=== PATIENT | female | born 1995 | race Two or more races ===

== ENCOUNTER 2020-03-25 13:54 | Emergency (ER) | payer OTHER, SELFPAY ==
--- NOTE | 2020-03-25 16:09 | ED_ITS ---
HPI - Skin/Abscess/Foreign Bdy General Chief complaint: Skin/Abscess/Foreign Body Stated complaint: Rash Time Seen by Provider: 03/25/20 16:09 Source: patient Mode of arrival: ambulatory Limitations: no limitations History of Present Illness HPI narrative: 24-year-old female well known to this facility for multiple visits who presents today with complaint of worsening eczema as well some slight redness on the arms. She does have extensive history of eczema and with exacerbation she will at November and causing her discomfort. No fever or chills. No nausea vomiting diarrhea. No recent travel or sick contacts. MD complaint: rash Onset (ago): day(s) Tetanus up to date: yes Location: generalized Severity: moderate Quality: pruritic Pain Consistency: constant Relieving factors: topical medication Exacerbating factors: none Context: none Associated symptoms: denies other symptoms Related Data Home Medications Medication Instructions Recorded Confirmed albuterol sulfate 90 mcg/actuation INHALATION 03/23/20 aerosol inhaler cetirizine 10 mg tablet 10 mg PO DAILY 03/23/20 fluticasone propionate 50 1 inh INHALATION BID 03/23/20 mcg/actuation blister powder for inhalation hydroxyzine HCl 50 mg tablet 50 mg PO BEDTIME 03/23/20 triamcinolone acetonide 0.025 % applic TOPICAL 03/23/20 topical cream Previous Rx's Medication Instructions Recorded doxycycline monohydrate 100 mg PO BID #20 cap 03/25/20 prednisone See Taper PO DAILY #20 tab 03/25/20 Allergies Allergy/AdvReac Type Severity Reaction Status Date / Time egg [EGG] Allergy Severe ANAPHYLAXIS Verified 03/23/20 10:53 fish derived [FISH] Allergy Severe ANAPHYLAXIS Verified 03/23/20 10:53 peanut [PEANUTS] Allergy Severe ITCHING Verified 03/23/20 10:53 shellfish derived Allergy Severe ANAPHYLAXIS Verified 03/23/20 10:53 [SHELLFISH DERIVED] cat dander Allergy Unknown Hives Verified 03/23/20 10:53 dog dander Allergy Unknown Hives Verified 03/23/20 10:53 house dust Allergy Unknown Hives Verified 03/23/20 10:53 rice [RICE] AdvReac Unknown CONSTIPATIO Unverified 03/23/20 10:53 N Review of Systems Review of Systems: Constitutional: No Weight loss, No Fever, No Chills, No Night Sweats, No Fatigue, No Malaise ENT/Mouth: No Hearing loss, No Ear Pain, No Nasal Congestion, No Sinus Pain, No Hoarseness, No sore throat, No Rhinorrhea, No Swallowing Difficulty Eyes: No Eye Pain, No Swelling, No Redness, No Foreign Body, No Discharge, No Vision Changes Cardiovascular: No Chest Pain, No SOB, No Dyspnea on Exertion, No Orthopnea, No Edema, No Palpitations Respiratory: No Cough, No Sputum, No Wheezing, No Dyspnea Gastrointestinal: No Nausea, No Vomiting, No Diarrhea, No Constipation, No abdominal Pain, No Hematochezia, No Melena Genitourinary: no irregular bleeding, No Dysuria, No Urinary Frequency, No Hematuria, No Urinary Incontinence, No Urgency, No Flank Pain, No Urinary Flow Changes, No Hesitancy Musculoskeletal: No joint pain, No Myalgias, No Joint Swelling Skin: No Skin Lesions Neuro: No Weakness, No Numbness, No Paresthesias, No Loss of Consciousness, No Dizziness, No Headache Psych: No Anxiety/Panic, No Depression, No SI/HI/AH/VH, No Social Issues Heme/Lymph: No Bruising, No Bleeding,No Lymphadenopathy Endocrine: No Polyuria, No Polydipsia, No Temperature Intolerance Yes all other systems are reviewed and are negative [facility], [facility] Past Medical History Attestation statement: The following information was validated with the patient. Medical History (Updated 03/25/20 @ 16:11 by Iglesia Hoover NP) Allergy to other foods Anxiety state, unspecified Dermatitis, unspecified Major depressive disorder, single episode, unspecified Mild persistent asthma, uncomplicated Surgical History History of section Family History Family History Father Drug abuse Asthma Mother Hypertension Maternal Grandmother Ovarian cancer Social History Social History Advance Directives: No Advance Directives Information Provided: Yes Physical Exam Vital Signs: Vital Signs: Reviewed Const: General: cooperative; No acute distress Nutritional Appearance: average body habitus Orientation/consciousness: patient oriented x3 HENMT: Head: Yes normal to inspection Ears: hearing grossly normal bila terally Eyes: General: appearance normal, both eyes and all related structures Visual Gagnon: normal visual gagnon by confrontation Neck: Neck: Yes normal visual inspection and No tender Thyroid: Thyroid normal Chest: Chest palpation & inspection: normal inspection of the chest Resp: Effort & Inspection: normal respiratory effort Cardio: Jugular venous distension: no JVD GI: Inspection: Yes normal to inspection Percussion: Yes normal to percussion Auscultation: normal bowel sounds : General: Yes no CVA tenderness Back/Spine/Pelvis: Back: no CVA tenderness Skin: Other: Scratch mcmullen to the upper extremities from self excoriation causing slight erythema consistent with atopic dermatitis/superimposed cellulitis. General skin exam: other (Extensive rash generalize consistent with atopic dermatitis ) Neuro: General: patient oriented x3 Extrem: General: Yes normal to inspection MDM - Skin/Abscess/Foreign Bdy Differential Diagnosis Differential diagnosis: Likely viral exanthem, cellulitis, eczema, impetigo and contact dermatitis; Unlikely abscess of skin or subcutaneous tissue, dermatophytosis, urticaria, herpes zoster, allergic reaction to drug and insect bites Discharge Plan Discharge Clinical Impression: Cellulitis Qualifiers: Site of cellulitis of extremity: upper extremity Eczema Qualifiers: Eczema type: unspecified Qualified Code(s): L30.9 - Dermatitis, unspecified Patient Disposition: Home, Self-Care Additional Instructions: Please take medication prescribed Return if any concerns or symptoms otherwise follow up with her primary care doctor 1 week to make sure things are going well Home cares as reviewed Thank you Prescriptions: New prednisone 20 mg tablet See Taper mg PO DAILY Qty: 20 RF: 0 doxycycline monohydrate 100 mg capsule 100 mg PO BID Qty: 20 RF: 0 No Action triamcinolone acetonide 0.025 % cream topical RF: 0 hydroxyzine HCl 50 mg tablet 50 mg PO BEDTIME RF: 0 albuterol sulfate 90 mcg/actuation HFA aerosol inhaler inhalation RF: 0 Flovent Diskus 50 mcg/actuation blister with device 1 inh inhalation BID RF: 0 cetirizine [Zyrtec] 10 mg tablet 10 mg PO DAILY RF: 0 Referrals: Dez Peace MD [Primary Care Provider] - 1 week
[2020-03-25 17:14] VITALS: BP 114/54; PULSE 110; RESP 16; TEMP 36.8; O2SAT 96; BMI 31.3
== END 2020-03-25 17:19 | disposition home or self-care (01) ==
PROVIDERS: Emergency Provider Emergency Medicine; PCP Internal Medicine
DX: L30.9 Dermatitis, unspecified (principal)
CPT/HCPCS: 99283

== ENCOUNTER 2020-04-28 09:45 | Emergency (ER) | payer OTHER, SELFPAY ==
--- NOTE | 2020-04-28 09:54 | ED_ITS ---
HPI - URI/Sore Throat General Chief Complaint: Asthma Stated Complaint: ASTHMA Time Seen by Provider: 04/28/20 10:03 Source: EMS Mode of arrival: EMS Limitations: no limitations History of Present Illness HPI Narrative: 24 yo female with past medical history Asthma, dermatitis here with cough and wheezing for the last 5-6 days. No fevers or chills. Patient tells me she ran out of her home ProAir. Her daughter at home has similar symptoms. No SOB, chest pain, leg swelling or pain. Patient received a DuoNeb prior to arrival MD elicited complaint: cough Pertinent past history: asthma Onset (ago): day(s) Consistency: intermittent Severity: mild Able to tolerate fluids by mouth: Yes Exacerbating factors: nothing Relieving factors: nothing Associated symptoms: cough Treatments prior to arrival: none Related Data Home Medications Medication Instructions Recorded Confirmed albuterol sulfate 90 mcg/actuation INHALATION 03/23/20 03/29/20 aerosol inhaler cetirizine 10 mg tablet 10 mg PO DAILY 03/23/20 03/29/20 fluticasone propionate 50 1 inh INHALATION BID 03/23/20 03/29/20 mcg/actuation blister powder for inhalation hydroxyzine HCl 50 mg tablet 50 mg PO BEDTIME 03/23/20 03/29/20 triamcinolone acetonide 0.025 % applic TOPICAL 03/23/20 03/29/20 topical cream Previous Rx's Medication Instructions Recorded doxycycline monohydrate 100 mg PO BID #20 cap 03/25/20 prednisone See Taper PO DAILY #20 tab 03/25/20 albuterol sulfate 2 inh INHALATION Q4-6H PRN #1 ea 04/28/20 albuterol sulfate 2.5 mg INHALATION Q4-6H PRN #75 ml 04/28/20 nebulizer and compressor #1 ea 04/28/20 prednisone 40 mg PO DAILY #8 tab 04/28/20 Allergies Allergy/AdvReac Type Severity Reaction Status Date / Time egg [EGG] Allergy Severe ANAPHYLAXIS Verified 03/29/20 10:31 fish derived [FISH] Allergy Severe ANAPHYLAXIS Verified 03/29/20 10:31 peanut [PEANUTS] Allergy Severe ITCHING Verified 03/29/20 10:31 shellfish derived Allergy Severe ANAPHYLAXIS Verified 03/29/20 10:31 [SHELLFISH DERIVED] cat dander Allergy Unknown Hives Verified 03/29/20 10:31 dog dander Allergy Unknown Hives Verified 03/29/20 10:31 house dust Allergy Unknown Hives Verified 03/29/20 10:31 rice [RICE] AdvReac Unknown CONSTIPATIO Unverified 03/29/20 10:31 N Review of Systems Review of Systems: Yes all other systems are reviewed and are negative Constitutional: Constitutional: Reports no additional constitutional complaints, Denies body ache(s), Denies chills, Denies fever(s), Denies headache(s) and Denies weakness Eyes: Eyes: Reports no additional eye complaints and Denies change in vision ENT: Reports system reviewed and no additional complaints, except as documented, Denies dizziness, Denies headache(s), Denies nasal congestion, Denies nasal discharge and Denies neck pain Cardiovascular: Cardiovascular: Reports no additional cardiovascular complaints, Denies chest pain, Denies leg edema and Denies dyspnea Respiratory: Respiratory: Reports no additional respiratory complaints, Reports cough and Denies dyspnea Gastrointestinal: Gastrointestinal: Reports no additional gastrointestinal complaints, Denies abdominal pain, Denies diarrhea, Denies nausea and Denies vomiting Genitourinary: Genitourinary: Reports no additional female genitourinary complaints and Denies urinary incontinence Musculoskeletal: Musculoskeletal: Reports no additional musculoskeletal complaints, Denies back pain, Denies arthralgias, Denies joint swelling, Denies neck pain, Denies numbness and Denies tingling Integumentary/Breasts: Skin/Breast: Reports system reviewed and no additional complaints, except as docu and Denies rash Neurologic: Reports system reviewed and no additional complaints, except as documented, Denies Abnormal speech present, Denies dizziness, Denies headache(s), Denies numbness, Denies tingling and Denies weakness [facility] Past Medical History Attestation statement: The following information was validated with the patient. Source: old records reviewed and nursing notes reviewed Medical History (Updated 04/28/20 @ 12:43 by Myriam Booker NP) Allergy to other foods Anxiety state, unspecified Asthma Dermatitis, unspecified Major depressive disorder, single episode, unspecified Mild persistent asthma, uncomplicated Surgical History History of section Family History Family History Father Drug abuse Asthma Mother Hypertension Maternal Grandmother Ovarian cancer Social History Social History Smoking Status: Unknown if ever smoked Advance Directives: No Advance Directives Information Provided: No Physical Exam Vital Signs: Vital Signs: Last Vital Signs Temp 98.9 F 04/28/20 12:02 Pulse 92 04/28/20 12:19 Resp 18 04/28/20 12:02 BP 126/69 04/28/20 12:02 Pulse Ox 96 04/28/20 12:02 Body Mass Index 29.5 Const: General: cooperative, healthy appearing, comfortable and no acute dist ress Orientation/consciousness: patient oriented x3 Limitations: no limitations HENMT: Head: Yes normal to inspection Ears: hearing grossly normal bilaterally General nose exam: Normal external nose present Face and sinus: Yes normal facial exam Mouth: Normal oral and palatal mucosa present Throat: Yes posterior oropharynx normal Eyes: General: appearance normal, both eyes and all related structures Pupils: Equal, round and reactive pupils present Neck: Neck: Yes normal visual inspection Chest: Chest palpation & inspection: normal inspection of the chest Resp: Other: Mild exp wheezing, speaking full sentences, no apparent distress Effort & Inspection: normal respiratory effort Auscultation: clear to auscultation bilaterally Cardio: Rate: regular rate Rhythm: regular rhythm Peripheral pulses: Peripheral pulses 2+ throughout GI: Inspection: Yes normal to inspection Palpation (GI): Soft to palpation and nontender Auscultation: normal bowel sounds Back/Spine/Pelvis: Thoracic/Lumbar Spine: thoracic and lumbar spine normal to inspection Skin: General skin exam: no rashes or lesions noted Neuro: General: patient oriented x3, no focal motor deficits and normal sensation to monofilament Cranial nerves: Yes Equal, round and reactive pupils present Cognition (Neuro): normal cognition Speech: No Abnormal speech present Gait exam (Neuro): Normal gait present Motor exam (neuro): 5/5 motor strength present throughout Extrem: General: Yes normal to inspection Course Course Course Narrative: 24 Year old female with a past medical history of asthma here with cough and wheezing for the last 5-6 days. Ran out of home albuterol. Received a DuoNeb prior to arrival. on arrival the patient is well appearing, stable vital signs, mild expiratory wheezing but overall appears well. Will send COVID and flu testing. Patient has multiple ED visits for asthma exacerbation. She is requesting a home nebulizer. 1205- Flu, COVID and RSV negative. Mom does have some increased wheezing so will repeat nebulizer. Received p.o. prednisone here. Likely asthma exacerbation. 1245- Post repeat nebulizer patient is feeling improved. Again likely asthma exacerbation. Will send home with short course of steroids and refills on her albuterol. Repeat lungs sound much improved with stable saturations greater than 98%. Reviewed worrisome signs and symptoms of when to return to the emergency department. Comfortable with discharge home. MDM - URI/Sore Throat Medical Records Attestation: I reviewed the patient's medical records. Lab Data Attestation: I reviewed the patient's lab results. Labs: Lab Results 04/28/20 Range/Units 10:16 Coronavirus (PCR) NEGATIVE (Negative) Influenza Type A (PCR) NEGATIVE (Negative) Influenza Type B (PCR) NEGATIVE (Negative) RSV RNA Qual (PCR) NEGATIVE (Negative) Discharge Plan Discharge Clinical Impression: Asthma with acute exacerbation Patient Disposition: Home, Self-Care Instructions: Asthma (ED) Additional Instructions: start her prednisone tomorrow Prescriptions: New prednisone 20 mg tablet 40 mg PO DAILY Qty: 8 RF: 0 albuterol sulfate 90 mcg/actuation aerosol powdr breath activated 2 inh inhalation Q4-6H PRN (Reason: shortness of breath or wheezing) Qty: 1 RF: 0 albuterol sulfate 2.5 mg /3 mL (0.083 %) solution for nebulization 2.5 mg inhalation Q4-6H PRN (Reason: shortness of breath or wheezing) Qty: 75 RF: 0 (DME) nebulizer and compressor Device See Rx Instructions .ROUTE .MEDSUPPLY Qty: 1 RF: 0 No Action prednisone 20 mg tablet See Taper mg PO DAILY Qty: 20 RF: 0 doxycycline monohydrate 100 mg capsule 100 mg PO BID Qty: 20 RF: 0 triamcinolone acetonide 0.025 % cream topical RF: 0 hydroxyzine HCl 50 mg tablet 50 mg PO BEDTIME RF: 0 albuterol sulfate 90 mcg/actuation HFA aerosol inhaler inhalation RF: 0 Flovent Diskus 50 mcg/actuation blister with device 1 inh inhalation BID RF: 0 cetirizine [Zyrtec] 10 mg tablet 10 mg PO DAILY RF: 0 Referrals: Dez Peace MD [Primary Care Provider] - 2 days
[2020-04-28 10:04] VITALS: BP 111/43; BP 115/70; PULSE 100; PULSE 85; RESP 18; TEMP 37.1; O2SAT 95; O2SAT 96; BMI 29.5
[2020-04-28] MEDS: predniSONE 20 MG TABLET 60 MG PO (10:14)
--- NOTE | 2020-04-28 11:27 | PC.NURSE ---
PT EATING AND DRINKING SHE IS IN NO ACUTE RESP DIFFICULTY AWAITING RESULTS
[2020-04-28 11:58] LABS: Influenza A PCR NEGATIVE (Negative); Influenza B PCR NEGATIVE (Negative); Resp Syncy Virus RNA Qual PCR NEGATIVE (Negative); SARS COV2 PCR INHOUSE NEGATIVE (Negative)
[2020-04-28 12:02] VITALS: BP 126/69; PULSE 95; RESP 18; TEMP 37.2; O2SAT 96
--- NOTE | 2020-04-28 12:09 | PC.NURSE ---
pt aware that covid results are negative. requesting additional updraft. ls coarse but good air movement. pt is unlabored. spking full sentences. active with child.
[2020-04-28 12:19] VITALS: PULSE 92; O2SAT 95
[2020-04-28] MEDS: Albuterol/Iprat 2.5/0.5MG 3 ML AMPUL.NEB INHALE (12:19)
== END 2020-04-28 13:12 | disposition home or self-care (01) ==
PROVIDERS: Nurse Practitioner Family; Emergency Provider Emergency Medicine; PCP Internal Medicine
DX: J45.901 Unspecified asthma with (acute) exacerbation (principal); Z20.828 Contact with and (suspected) exposure to other viral communicable diseases
CPT/HCPCS: 0241U; 94640; 99283; 99284

== ENCOUNTER 2020-11-24 11:51 | Emergency (ER) | payer OTHER, SELFPAY ==
[2020-11-24 11:57] VITALS: BP 94/52; PULSE 64; O2SAT 98
[2020-11-24 12:38] VITALS: BP 106/69; PULSE 77; RESP 18; TEMP 36.8; O2SAT 98; BMI 19.3
--- NOTE | 2020-11-24 13:24 | PC.NURSE ---
pt refused blood draw at this time.
[2020-11-24 15:16] LABS: Glucose Urine UA NEG (NEG); Leukocyte Esterase Urine NEG (NEG); Nitrite Urine NEG (NEG); Urine Blood NEG (NEG); Urine Ketones 15 MG/DL (NEG); Urine Protein 1+ MG/DL (NEG-TRACE)
[2020-11-24 15:17] LABS: Appearance Urine CLEAR; Color Urine YELLOW; UPreg QC Valid YES; Urine Pregnancy POSITIVE (NEGATIVE)
[2020-11-24 15:27] LABS: Bacteria Urine TRACE /LPF; Mucus Urine 3+ /LPF; RBC Urine 0 /HPF (0); Renal Epithelial Cells Urine 1+ /LPF; Squamous Epithelial Cell Urine 2+ /LPF; WBC Urine 0 /HPF (0-4)
== END 2020-11-24 16:17 | disposition left against medical advice (07) ==
LOC: HO.ED 16:16
PROVIDERS: Emergency Provider Emergency Medicine
DX: R42 Dizziness and giddiness (principal); R11.0 Nausea
CPT/HCPCS: 81001; 81025; 99282; 99283

== ENCOUNTER 2020-11-24 18:39 | Emergency (ER) | payer OTHER, SELFPAY ==
[2020-11-24 18:45] VITALS: BP 109/65; PULSE 67; RESP 18; TEMP 36.6; O2SAT 98; BMI 19.3
[2020-11-24 20:58] LABS: MANUAL DIFF FLAG NO
[2020-11-24 21:00] LABS: Basophils Absolute Auto 0.1 X10*3/uL (0.0-0.2); Basophils Percent Auto 0.6 % (0-2); Eosinophils Absolute Auto 0.2 X10*3/uL (0.0-0.4); Eosinophils Percent Auto 1.7 % (0-4); Hematocrit 40.3 % (37-47); Hemoglobin 13.5 g/dl (12.0-16.0); Imm Gran Abs Auto 0.03 X10*3/uL (0.00-0.03); Imm Gran Pct Auto 0.2 % (0.0-0.4); Lymphocytes Absolute Auto 2.2 X10*3/uL (1.2-4.9); Lymphocytes Percent Auto 15.8 % (20-40); Mean Corpuscular HGB Conc 33.5 g/dl (31.0-35.0); Mean Corpuscular Volume 83.4 fL (80-98); Mean Platelet Volume 10.5 fL (9.4-12.3); Monocytes Absolute Auto 0.8 X10*3/uL (0.1-1.2); Monocytes Percent Auto 5.9 % (2-11); Neutrophils Absolute Auto 10.3 X10*3/uL (2.0-8.3); Neutrophils Percent Auto 75.8 % (45-73); Platelet Count 292 X10*3/uL (160-400); Red Blood Count 4.83 X10*6/uL (4.20-5.50); Red Cell Distribution Width 14.6 % (11.0-16.0); White Blood Count 13.6 X10*3/uL (4.8-10.8)
[2020-11-24 21:21] LABS: Anion Gap 12 (12-20); Blood Urea Nitrogen 9 mg/dL (9-16); Calcium 9.2 mg/dL (8.4-10.2); Carbon Dioxide 26 mmol/L (22-29); Chloride 104 mmol/L (96-108); Creatinine Clr Calc Pharmacy 106.6; Estimated Glomerular Filt Rate > 60; Glucose Random 75 mg/dL (60-115); Potassium 3.8 mmol/L (3.3-5.1); Sodium 138 mmol/L (135-145)
--- NOTE | 2020-11-24 21:47 | ED.GENADULT ---
HPI - General Adult General Chief complaint: General Medical Stated complaint: vomitting Time Seen by Provider: 11/24/20 21:47 Source: patient Mode of arrival: ambulatory Limitations: no limitations History of Present Illness HPI narrative: patient complaining of vomiting for last few days , patient Checked urine at home was positive denies any vaginal bleeding no abdominal pain Related Data Home Medications Medication Instructions Recorded Confirmed cetirizine 10 mg tablet 10 mg PO DAILY 03/23/20 03/29/20 fluticasone propionate 50 1 inh INHALATION BID 03/23/20 03/29/20 mcg/actuation blister powder for inhalation triamcinolone acetonide 0.1 % 1 appl TOPICAL BID 06/02/20 06/02/20 topical ointment Previous Rx's Medication Instructions Recorded nebulizer and compressor #1 ea 04/28/20 albuterol sulfate 2.5 mg INHALATION Q4-6H PRN 30 05/13/20 Days #75 ml albuterol sulfate 90 mcg/actuation 2 inh INHALATION Q4-6H PRN 30 Days 05/20/20 breath activated powder inhaler #1 ea hydroxyzine HCl 50 mg tablet 50 mg PO BID #60 tab 06/02/20 ondansetron 4 mg PO Q6-8H PRN #20 tab 11/24/20 Allergies Allergy/AdvReac Type Severity Reaction Status Date / Time egg [EGG] Allergy Severe ANAPHYLAXIS Verified 11/24/20 12:38 fish derived [FISH] Allergy Severe ANAPHYLAXIS Verified 11/24/20 12:38 peanut [PEANUTS] Allergy Severe ITCHING Verified 11/24/20 12:38 shellfish derived Allergy Severe ANAPHYLAXIS Verified 11/24/20 12:38 [SHELLFISH DERIVED] cat dander Allergy Intermediate Hives Verified 11/24/20 12:38 dog dander Allergy Intermediate Hives Verified 11/24/20 12:38 house dust Allergy Intermediate Hives Verified 11/24/20 12:38 rice [RICE] AdvReac Intermediate CONSTIPATIO Verified 11/24/20 12:38 N Review of Systems Review of Systems: Yes all other systems are reviewed and are negative PMFSH Past Medical History Medical History Allergy to other foods Anxiety state, unspecified Asthma Dermatitis, unspecified Major depressive disorder, single episode, unspecified Mild persistent asthma, uncomplicated Surgical History History of section Status post surgical removal of both fallopian tubes Family History Family History Father Drug abuse Asthma Mother Hypertension Maternal Grandmother Ovarian cancer Social History Social History Alcohol intake: never Cigarettes Per Day: 2 Advance Directives: No Advance Directives Information Provided: Yes Physical Exam Vital Signs: Vital Signs: Last Vital Signs Temp 97.8 F 11/24/20 18:45 Pulse 67 11/24/20 18:45 Resp 18 11/24/20 18:45 BP 109/65 11/24/20 18:45 Pulse Ox 98 11/24/20 18:45 Body Mass Index 19.3 Appearance: Alert. Oriented X3. No acute distress. Eyes: PERRLA, No Nystagmus ENT: Pharynx normal. Oral Mucosa moist Neck: Normal inspection. Neck supple. CVS: Normal heart rate and rhythm. Pulses normal. Respiratory: No respiratory distress. Equal air entry bilateral, no wheezing/rales/rhonchi Abdomen: Soft and nontender. Bowel sounds are present, no mass palpable, no CVA tenderness Skin: Skin warm and dry. Normal skin color. Normal skin turgor. Extremities: No lower extremity edema. No calf tenderness Neuro: Oriented X 3. No motor deficit. Medical Decision Making MDM Narrative Medical decision making narrative: patient UA negative for UTI/ketones received IV fluids patient's blood type is A-positive likely she is 6 weeks discharge patient home on Zofran advised to follow with [facility] Lab Data Lab results reviewed: Yes I reviewed the patient's lab results. Result diagrams: 11/24/20 20:51 11/24/20 20:51 Labs: Lab Results 11/24/20 11/24/20 Range/Units 20:51 20:51 WBC 13.6 H (4.8-10.8) X10*3/uL RBC 4.83 (4.20-5.50) X10*6/uL Hgb 13.5 (12.0-16.0) g/dl Hct 40.3 (37-47) % MCV 83.4 (80-98) fL MCH 28.0 (27.0-33.0) pg MCHC 33.5 (31.0-35.0) g/dl RDW 14.6 (11.0-16.0) % Plt Count 292 (160-400) X10*3/uL MPV 10.5 (9.4-12.3) fL Immature Gran % (Auto) 0.2 (0.0-0.4) % Neut % (Auto) 75.8 H (45-73) % Lymph % (Auto) 15.8 L (20-40) % Tyler % (Auto) 5.9 (2-11) % Eos % (Auto) 1.7 (0-4) % Baso % (Auto) 0.6 (0-2) % Lymph # (Auto) 2.2 (1.2-4.9) X10*3/uL Tyler # (Auto) 0.8 (0.1-1.2) X10*3/uL Eos # (Auto) 0.2 (0.0-0.4) X10*3/uL Baso # (Auto) 0.1 (0.0-0.2) X10*3/uL Abs Immat Gran (auto) 0.03 (0.00-0.03) X10*3/uL Absolute Neuts (auto) 10.3 H (2.0-8.3) X10*3/uL Absolute Nucleated RBC 0.000 (0.0-0.012) X10*3/uL Nucleated RBC % (auto) 0.0 (0.0-0.2) /100WBC Sodium 138 (135-145) mmol/L Potassium 3.8 (3.3-5.1) mmol/L Chloride 104 (96-108) mmol/L Carbon Dioxide 26 (22-29) mmol/L Anion Gap 12 (12-20) BUN 9 (9-16) mg/dL Creatinine 0.64 (0.5-1.4) mg/dL Estim Creat Clear Calc 106.6 Estimated GFR > 60 Random Glucose 75 (60-115) mg/dL Calcium 9.2 (8.4-10.2) mg/dL Beta HCG, Quant 85118 mIU/mL Discharge Plan Discharge Clinical Impression: Hyperemesis gravidarum Patient Disposition: Home, Self-Care Instructions: Hyperemesis Gravidarum (ED) Additional Instructions: drink plenty of fluids medicine for nausea as prescribed follow-up with OB [facility] Prescriptions: New ondansetron 4 mg tablet,disintegrating 4 mg PO Q6-8H PRN (Reason: nausea and vomiting) Qty: 20 RF: 0 No Action albuterol sulfate 2.5 mg /3 mL (0.083 %) solution for nebulization 2.5 mg inhalation Q4-6H PRN (Reason: shortness of breath or wheezing) 30 Days Qty: 75 RF: 6 albuterol sulfate 90 mcg/actuation aerosol powdr breath activated 2 inh inhalation Q4-6H PRN (Reason: shortness of breath or wheezing) 30 Days Qty: 1 RF: 0 (DME) nebulizer and compressor Device See Rx Instructions .ROUTE .MEDSUPPLY Qty: 1 RF: 0 Flovent Diskus 50 mcg/actuation blister with device 1 inh inhalation BID RF: 0 cetirizine [Zyrtec] 10 mg tablet 10 mg PO DAILY RF: 0 triamcinolone acetonide 0.1 % ointment 1 appl topical BID RF: 0 hydroxyzine HCl 50 mg tablet 50 mg PO BID Qty: 60 RF: 0 Interventions: ED Discharge Assessment Last Done: 11/25/20 00:15 Discharge Date/Time: 11/25/20 00:17
[2020-11-24 22:37] LABS: HCG Quantitative 13951 mIU/mL
[2020-11-24] MEDS: ondansetron HCL 4 MG/2 ML VIAL IVPUSH (23:11)
[2020-11-24] MEDS: 0.9 % Sodium Chloride 1,000 ML 999 ML IVCONT (23:11)
== END 2020-11-25 00:17 | disposition home or self-care (01) ==
PROVIDERS: Emergency Provider Internal Medicine; PCP Hospitalist
DX: O21.0 Mild hyperemesis gravidarum (principal); O99.511 Diseases of the respiratory system complicating pregnancy, first trimester; J45.30 Mild persistent asthma, uncomplicated; Z3A.01 Less than 8 weeks gestation of pregnancy; Z79.899 Other long term (current) drug therapy
CPT/HCPCS: 36415; 80048; 84702; 85025; 96361; 96374; 99283; 99284; J2405

== ENCOUNTER → 2020-11-26 13:07 | Outpatient (BNVA) | payer OTHER, SELFPAY | PROVIDERS: PCP Internal Medicine; Visit Provider Advanced Practice Midwife | DX: Z32.01 Encounter for pregnancy test, result positive (principal); F41.1 Generalized anxiety disorder | CPT/HCPCS: 99202 ==

== ENCOUNTER 2020-11-30 08:06 | Emergency (ER) | payer OTHER, SELFPAY ==
[2020-11-30 08:12] VITALS: BP 107/73; PULSE 75; RESP 16; TEMP 36.7; O2SAT 100; BMI 19.5
--- NOTE | 2020-11-30 08:18 | ED_ITS ---
HPI - Nausea/Vomiting/Diarrhea General Chief complaint: Nausea/Vomiting/Diarrhea Stated complaint: VOMITING Time Seen by Provider: 11/30/20 08:17 Source: patient and old records reviewed Mode of arrival: ambulatory Limitations: no limitations History of Present Illness HPI Narrative: here with weakness nausea/vomiting for 1 week, pos preg test at home hx of hyperemesis in prior pregnancies - her last baby is 8 months old and bottle fed. MD elicited complaint: nausea and vomiting Pertinent past history: other (hyperemesis) Onset (ago): week(s) (1) Description of vomiting: food contents and watery Associated nausea: Yes Associated abdominal pain: No Pain consistency: intermittent Severity: moderate Exacerbating factors: eating Relieving factors: none Context: other (hyperemesis with ) Associated symptoms: headaches, loss of appetite, malaise, nausea/vomiting and weakness Treatment prior to arrival: other (tried zofran without relief) Related Data Home Medications Medication Instructions Recorded Confirmed cetirizine 10 mg tablet 10 mg PO DAILY 03/23/20 11/26/20 fluticasone propionate 50 1 inh INHALATION BID 03/23/20 11/26/20 mcg/actuation blister powder for inhalation triamcinolone acetonide 0.1 % 1 appl TOPICAL BID 06/02/20 11/26/20 topical ointment Previous Rx's Medication Instructions Recorded nebulizer and compressor #1 ea 04/28/20 albuterol sulfate 2.5 mg INHALATION Q4-6H PRN 30 05/13/20 Days #75 ml albuterol sulfate 90 mcg/actuation 2 inh INHALATION Q4-6H PRN 30 Days 05/20/20 breath activated powder inhaler #1 ea hydroxyzine HCl 50 mg tablet 50 mg PO BID #60 tab 06/02/20 ondansetron 4 mg PO Q6-8H PRN #20 tab 11/24/20 doxylamine succinate 25 mg PO BID PRN #30 tab 11/30/20 metoclopramide HCl 10 mg tablet 10 mg PO Q6H PRN #90 tab 11/30/20 metoclopramide HCl [Reglan] 10 mg PO Q6H PRN #20 tab 11/30/20 ondansetron 8 mg disintegrating 8 mg PO Q8H PRN #90 tab 11/30/20 tablet pyridoxine (vitamin B6) 25 mg PO BID PRN #30 tab 11/30/20 Allergies Allergy/AdvReac Type Severity Reaction Status Date / Time egg [EGG] Allergy Severe ANAPHYLAXIS Verified 11/26/20 13:29 fish derived [FISH] Allergy Severe ANAPHYLAXIS Verified 11/26/20 13:29 peanut [PEANUTS] Allergy Severe ITCHING Verified 11/26/20 13:29 shellfish derived Allergy Severe ANAPHYLAXIS Verified 11/26/20 13:29 [SHELLFISH DERIVED] cat dander Allergy Intermediate Hives Verified 11/26/20 13:29 dog dander Allergy Intermediate Hives Verified 11/26/20 13:29 house dust Allergy Intermediate Hives Verified 11/24/20 12:38 rice [RICE] AdvReac Intermediate CONSTIPATIO Verified 11/24/20 12:38 N Review of Systems Review of Systems: Constitutional : No Weight loss, No Fever, No Chills ENT/Mouth : No sore throat, No Rhinorrhea Eyes: No Swelling, No Redness Cardiovascular : No Chest Pain, No SOB, No Edema Respiratory : No Cough, No Sputum, No Wheezing Gastrointestinal : Positive Nausea, Positive Vomiting, no Diarrhea, no abdominal Pain, No Hematochezia, No Melena Genitourinary : No Dysuria, No Urinary Frequency, No Hematuria, No Urgency, no vaginal bleeding Musculoskeletal : No joint pain, No Myalgias, No Joint Swelling Skin : No Skin Lesions, No rash Neuro : No Weakness, No Numbness, No Dizziness, No Headache Psych : No Anxiety/Panic, No Depression Heme/Lymph: No Bruising, No Lymphadenopathy Endocrine : No Polyuria, No Polydipsia All other systems reviewed and are negative. Gastrointestinal: Gastrointestinal: Reports nausea PMFSH Past Medical History Attestation statement: The following information was validated with the patient. Medical History Allergy to other foods Anxiety state, unspecified Asthma Dermatitis, unspecified Major depressive disorder, single episode, unspecified Mild persistent asthma, uncomplicated Surgical History History of section Status post surgical removal of both fallopian tubes Family History Family History Father Drug abuse Asthma Mother Hypertension Maternal Grandmother Ovarian cancer Social History Social History Alcohol intake: never Patient Tobacco Use Status: Former Tobacco user Smoked in Last 30 Days: No Use of substances other than those prescribed or required for medical reasons: No Advance Directives: No Advance Directives Information Provided: No Patient : Yes Gender identity: female Physical Exam Vital Signs: Vital Signs: Last Vital Signs Temp 98.1 F 11/30/20 08:12 Pulse 75 11/30/20 08:12 Resp 16 11/30/20 08:12 BP 107/73 11/30/20 08:12 Pulse Ox 100 11/30/20 08:12 Body Mass Index 19.5 Appearance: Alert. Oriented X3. No acute distress. Eyes: Pupils equal, round and reactive to light. ENT: Pharynx dry MM Neck: Normal inspection. Neck supple. CVS: Normal heart rate and rhythm. Pulses normal. Respiratory: No respiratory distress. Breath sounds normal. Abdomen: Soft and non-tender. Skin: Skin warm and dry. Normal skin color. Normal skin turgor. Extremities: No lower extremity edema. No calf ttp Neuro: Oriented X 3. No motor deficit. No sensory deficit. Course Course Course Narrative: able to tolerate PO stable for DC MDM - Nausea/Vomiting/Diarrhea MDM Narrative Medical decision making narrative: here with weakness nausea/vomiting for 1 week, pos preg test at home hx of hyperemesis in prior pregnancies - her last baby is 8 months old and bottle fed. At this time will need labs, IVF, anti emetics - she has no vaginal bleeding and her abdominal exam is benign doubt ectopic at this time. Dispo per results and PO challenge Lab Data Result diagrams: 11/30/20 08:40 11/30/20 08:40 Labs: Lab Results 11/30/20 11/30/20 Range/Units 08:40 08:40 WBC 9.9 (4.8-10.8) X10*3/uL RBC 4.79 (4.20-5.50) X10*6/uL Hgb 13.3 (12.0-16.0) g/dl Hct 40.1 (37-47) % MCV 83.7 (80-98) fL MCH 27.8 (27.0-33.0) pg MCHC 33.2 (31.0-35.0) g/dl RDW 14.1 (11.0-16.0) % Plt Count 288 (160-400) X10*3/uL MPV 10.0 (9.4-12.3) fL Immature Gran % (Auto) 0.3 (0.0-0.4) % Neut % (Auto) 71.7 (45-73) % Lymph % (Auto) 13.5 L (20-40) % [place] % (Auto) 6.4 (2-11) % Eos % (Auto) 7.5 H (0-4) % Baso % (Auto) 0.6 (0-2) % Lymph # (Auto) 1.3 (1.2-4.9) X10*3/uL [place] # (Auto) 0.6 (0.1-1.2) X10*3/uL Eos # (Auto) 0.7 H (0.0-0.4) X10*3/uL Baso # (Auto) 0.1 (0.0-0.2) X10*3/uL Abs Immat Gran (auto) 0.03 (0.00-0.03) X10*3/uL Absolute Neuts (auto) 7.1 (2.0-8.3) X10*3/uL Absolute Nucleated RBC 0.000 (0.0-0.012) X10*3/uL Nucleated RBC % (auto) 0.0 (0.0-0.2) /100WBC Sodium 136 (135-145) mmol/L Potassium 4.5 (3.3-5.1) mmol/L Chloride 105 (96-108) mmol/L Carbon Dioxide 22 (22-29) mmol/L Anion Gap 14 (12-20) BUN 7 L (9-16) mg/dL Creatinine 0.63 (0.5-1.4) mg/dL Estim Creat Clear Calc 109.3 Estimated GFR > 60 Random Glucose 62 (60-115) mg/dL Calcium 9.1 (8.4-10.2) mg/dL Total Bilirubin 0.8 (0.0-1.0) mg/dL Direct Bilirubin 0.2 (0.0-0.5) mg/dL AST 13 (5-31) U/L ALT 9 (0-31) U/L Alkaline Phosphatase 48 (39-117) U/L Total Protein 6.4 L (6.5-8.0) g/dL Albumin 3.7 (3.5-5.0) g/dL Lipase 35 (8-78) U/L Beta HCG, Quant 20746 mIU/mL Discharge Plan Discharge Clinical Impression: Hyperemesis Patient Disposition: Home, Self-Care Instructions: Hyperemesis Gravidarum (ED) Additional Instructions: return to ED for any worsening symptoms or concerns Prescriptions: New metoclopramide HCl [Reglan] 10 mg tablet 10 mg PO Q6H PRN (Reason: nausea and vomiting) Qty: 20 RF: 0 pyridoxine (vitamin B6) 25 mg tablet 25 mg PO BID PRN (Reason: vomiting) Qty: 30 RF: 0 doxylamine succinate 25 mg tablet 25 mg PO BID PRN (Reason: vomiting) Qty: 30 RF: 0 No Action albuterol sulfate 2.5 mg /3 mL (0.083 %) solution for nebulization 2.5 mg inhalation Q4-6H PRN (Reason: shortness of breath or wheezing) 30 Days Qty: 75 RF: 6 albuterol sulfate 90 mcg/actuation aerosol powdr breath activated 2 inh inhalation Q4-6H PRN (Reason: shortness of breath or wheezing) 30 Days Qty: 1 RF: 0 ondansetron 8 mg tablet,disintegrating 8 mg PO Q8H PRN (Reason: nausea and vomiting) Qty: 90 RF: 1 metoclopramide HCl 10 mg tablet 10 mg PO Q6H PRN (Reason: nausea and vomiting) Qty: 90 RF: 3 (DME) nebulizer and compressor Device See Rx Instructions .ROUTE .MEDSUPPLY Qty: 1 RF: 0 ondansetron 4 mg tablet,disintegrating 4 mg PO Q6-8H PRN (Reason: nausea and vomiting) Qty: 20 RF: 0 Flovent Diskus 50 mcg/actuation blister with device 1 inh inhalation BID RF: 0 cetirizine [Zyrtec] 10 mg tablet 10 mg PO DAILY RF: 0 triamcinolone acetonide 0.1 % ointment 1 appl topical BID RF: 0 hydroxyzine HCl 50 mg tablet 50 mg PO BID Qty: 60 RF: 0 Referrals: Sallie Garza MD [Physician] - 1 week
[2020-11-30 08:44] LABS: Basophils Absolute Auto 0.1 X10*3/uL (0.0-0.2); Basophils Percent Auto 0.6 % (0-2); Eosinophils Absolute Auto 0.7 X10*3/uL (0.0-0.4); Eosinophils Percent Auto 7.5 % (0-4); Hematocrit 40.1 % (37-47); Hemoglobin 13.3 g/dl (12.0-16.0); Imm Gran Abs Auto 0.03 X10*3/uL (0.00-0.03); Imm Gran Pct Auto 0.3 % (0.0-0.4); Lymphocytes Absolute Auto 1.3 X10*3/uL (1.2-4.9); Lymphocytes Percent Auto 13.5 % (20-40); Mean Corpuscular HGB Conc 33.2 g/dl (31.0-35.0); Mean Corpuscular Hemoglobin 27.8 pg (27.0-33.0); Mean Corpuscular Volume 83.7 fL (80-98); Monocytes Absolute Auto 0.6 X10*3/uL (0.1-1.2); Monocytes Percent Auto 6.4 % (2-11); Neutrophils Absolute Auto 7.1 X10*3/uL (2.0-8.3); Neutrophils Percent Auto 71.7 % (45-73); Platelet Count 288 X10*3/uL (160-400); Red Blood Count 4.79 X10*6/uL (4.20-5.50); Red Cell Distribution Width 14.1 % (11.0-16.0); White Blood Count 9.9 X10*3/uL (4.8-10.8)
[2020-11-30 08:45] LABS: MANUAL DIFF FLAG NO
[2020-11-30] MEDS: diphenhydrAMINE HCL 50 MG/ML VIAL 25 MG IVPUSH (09:04)
[2020-11-30] MEDS: 0.9 % Sodium Chloride 1,000 ML 999 ML IVCONT (09:04)
[2020-11-30] MEDS: Metoclopramide HCl 10 MG/2 ML VIAL 5 MG IVPUSH (09:04)
[2020-11-30 09:12] LABS: Alanine Aminotransferase 9 U/L (0-31); Albumin Level 3.7 g/dL (3.5-5.0); Alkaline Phosphatase 48 U/L (39-117); Anion Gap 14 (12-20); Aspartate Amino Transferase 13 U/L (5-31); Bilirubin Direct 0.2 mg/dL (0.0-0.5); Bilirubin Total 0.8 mg/dL (0.0-1.0); Blood Urea Nitrogen 7 mg/dL (9-16); Calcium 9.1 mg/dL (8.4-10.2); Carbon Dioxide 22 mmol/L (22-29); Chloride 105 mmol/L (96-108); Creatinine Clr Calc Pharmacy 109.3; Estimated Glomerular Filt Rate > 60; Glucose Random 62 mg/dL (60-115); Lipase 35 U/L (8-78); Potassium 4.5 mmol/L (3.3-5.1); Sodium 136 mmol/L (135-145); Total Protein 6.4 g/dL (6.5-8.0)
[2020-11-30 09:45] LABS: HCG Quantitative 28130 mIU/mL
--- NOTE | 2020-11-30 10:00 | PC.NURSE ---
pt ambulating to and from bathroom w steady gait, unable to reach pt with ua cup before void. tolerating po att without issue.
[2020-11-30 10:56] LABS: Glucose Urine UA NEG (NEG); Leukocyte Esterase Urine NEG (NEG); Nitrite Urine NEG (NEG); Urine Blood NEG (NEG); Urine Ketones NEG (NEG); Urine Protein NEG (NEG-TRACE)
[2020-11-30 10:59] LABS: Appearance Urine CLEAR; Color Urine YELLOW
== END 2020-11-30 11:00 | disposition home or self-care (01) ==
PROVIDERS: Emergency Provider Emergency Medicine; PCP Internal Medicine
DX: O21.0 Mild hyperemesis gravidarum (principal); Z3A.01 Less than 8 weeks gestation of pregnancy
CPT/HCPCS: 36415; 80048; 80076; 81003; 83690; 84702; 85025; 96361; 96374; 96375; 99284; J1200; J2765

== ENCOUNTER 2020-12-03 09:16 | Emergency (ER) | payer OTHER, SELFPAY ==
--- NOTE | ~2020-12-03 | US_ITS ---
EXAMINATION: US CLINICAL INFORMATION: 4-8 weeks with severe abdominal cramping COMPARISON: December 20, 2019 TECHNIQUE: Transcutaneous and transvaginal obstetrical ultrasound. FINDINGS: Last known menstrual period.: Unknown. [place] rump length: 0.92 cm which corresponds to a gestational age of 7 weeks and 0 days with estimated date of delivery of July 22, 2021. Gestational sac is present. Yolk sac is present. pole is seen. There is a live single intrauterine gestation. heart rate is 144 bpm. There is a crescent-shaped hypoechoic region over approximately quarter of these circumference in the subchorionic region consistent with subchorionic bleed. There is also noted to be a very thin rim which is hypoechoic surrounding approximately 50% in subchorionic location which may be extension of bleed. There is still a heart rate present and I cannot comment on future viability. Right ovary measures 2.1 x 1.3 x 1.9 cm in size without abnormality. Left ovary measures 2.2 x 2.0 x 1.9 cm in size and contains a small complex cyst. No fluid within the cul-de-sac is identified. US/US OB pelvic and transvaginal IMPRESSION: Single live intrauterine gestation with what appears to be a subchorionic bleed with crescent collection seen over approximately one quarter of the circumferential and with a very thin hypoechoic line extending over approximately 50% of the circumference.
[2020-12-03 09:24] VITALS: BP 115/78; PULSE 87; RESP 16; TEMP 36.8; O2SAT 100; BMI 19.5
--- NOTE | 2020-12-03 09:35 | ED.PREGNANCY ---
HPI - General Chief complaint: Abdominal Pain Stated complaint: - cramping Time Seen by Provider: 12/03/20 09:20 Source: patient Mode of arrival: ambulatory Limitations: no limitations History of Present Illness HPI Narrative: 24-year-old female who is unsure of her last menstrual period although currently who is [id number] presenting to the ED with complaints of lower abdominal cramping / contraction pains for the past few days worse today. Reports that she was seen here on 11/15 and she had a positive test then. She reports she has been having intermittent headaches. She reports that she followed up with OBGYN and had an outpatient ultrasound ordered for tomorrow although she is having severe abdominal pain / cramping / contraction sensation therefore she came here for further evaluation and treatment. Reports that she has associated nausea. Denies any fevers, neck pain /stiffness, vomiting, chest pain, shortness of breath, back pain, dysuria, abnormal vaginal discharge or vaginal bleeding or any other symptoms complaints or concerns at this time. MD Complaint: abdominal pain Onset (ago): day(s) ( For the past few days worse today) Pain Consistency: constant Location: abdomen ( suprapubic/lower abdomen) Severity: severe Severity scale (1-10): >10 Quality: Cramping ( /contraction pains per patient) and Constant Relieving factors: none Associated symptoms: nausea Vaginal discharge: none Vaginal bleeding: none Patient : Yes OB History - Current : hyperemesis OB History - Previous Pregnancies: other ( premature burst) care: followed by OB Related Data : 4 Para: 3 Total number of abortions (spontaneous and elective): 0 Home Medications Medication Instructions Recorded Confirmed cetirizine 10 mg tablet 10 mg PO DAILY 03/23/20 11/26/20 fluticasone propionate 50 1 inh INHALATION BID 03/23/20 11/26/20 mcg/actuation blister powder for inhalation triamcinolone acetonide 0.1 % 1 appl TOPICAL BID 06/02/20 11/26/20 topical ointment Previous Rx's Medication Instructions Recorded nebulizer and compressor #1 ea 04/28/20 albuterol sulfate 2.5 mg INHALATION Q4-6H PRN 30 05/13/20 Days #75 ml albuterol sulfate 90 mcg/actuation 2 inh INHALATION Q4-6H PRN 30 Days 05/20/20 breath activated powder inhaler #1 ea hydroxyzine HCl 50 mg tablet 50 mg PO BID #60 tab 06/02/20 ondansetron 4 mg PO Q6-8H PRN #20 tab 11/24/20 doxylamine succinate 25 mg PO BID PRN #30 tab 11/30/20 metoclopramide HCl 10 mg tablet 10 mg PO Q6H PRN #90 tab 11/30/20 metoclopramide HCl [Reglan] 10 mg PO Q6H PRN #20 tab 11/30/20 ondansetron 8 mg disintegrating 8 mg PO Q8H PRN #90 tab 11/30/20 tablet pyridoxine (vitamin B6) 25 mg PO BID PRN #30 tab 11/30/20 acetaminophen [Tylenol Extra 1,000 mg PO QID PRN #14 tab 12/03/20 Strength] ondansetron HCl [Zofran] 4 mg PO Q8H PRN #14 tab 12/03/20 prenat.vits,manda,atf-mpcu-khcur 1 tab PO BEDTIME #30 tab 12/03/20 Allergies Allergy/AdvReac Type Severity Reaction Status Date / Time egg [EGG] Allergy Severe ANAPHYLAXIS Verified 12/03/20 09:23 fish derived [FISH] Allergy Severe ANAPHYLAXIS Verified 12/03/20 09:23 peanut [PEANUTS] Allergy Severe ITCHING Verified 12/03/20 09:23 shellfish derived Allergy Severe ANAPHYLAXIS Verified 12/03/20 09:23 [SHELLFISH DERIVED] cat dander Allergy Intermediate Hives Verified 12/03/20 09:23 dog dander Allergy Intermediate Hives Verified 12/03/20 09:23 house dust Allergy Intermediate Hives Verified 12/03/20 09:23 rice [RICE] AdvReac Intermediate CONSTIPATIO Verified 12/03/20 09:23 N Review of Systems Review of Systems: Constitutional : No Weight loss, No Fever, No Chills, No Night Sweats, No Fatigue, No Malaise ENT/Mouth: No ear pain, No sore throat, No Difficulty swallowing Cardiovascular : No Chest Pain, No SOB, No Dyspnea on Exertion, No Orthopnea, NoEdema, No Palpitations Respiratory : No Cough, No Sputum, No Wheezing, No Dyspnea Gastrointestinal : Positive abdominal pain with nausea, No Vomiting, No Diarrhea, No blood streaked emesis, No coffee-ground emesis, No gross hematemesis, No blood streak stool, No gross hematochezia, No Melena Genitourinary : No irregular bleeding, No Dysuria, No Urinary Frequency, No Hematuria,No Urinary Incontinence, No Urgency, No Flank Pain Musculoskeletal : No joint pain, No Myalgias, No Joint Swelling Skin : No Skin Lesions, No rash Neuro : No Weakness, No Numbness, No Paresthesias, No Loss of Consciousness, NoDizziness, No Headache Psych : No Social Issues, Heme/Lymph: No Bruising, No Bleeding,No Lymphadenopathy Endocrine : No Polyuria, No Polydipsia, No Temperature Intolerance Yes all other systems are reviewed and are negative [facility] Past Medical History Medical History Allergy to other foods Anxiety state, unspecified Asthma Dermatitis, unspecified Major depressive disorder, single episode, unspecified Mild persistent asthma, uncomplicated Surgical History History of section Status post surgical removal of both fallopian tubes : 4 Para: 3 Total number of abortions (spontaneous and elective): 0 Family History Family History Father Drug abuse Asthma Mother Hypertension Maternal Grandmother Ovarian cancer Social History Social History Alcohol intake: never Patient Tobacco Use Status: Former Tobacco user Advance Directives: No Advance Directives Information Provided: No Patient : Yes Gender identity: female Physical Exam Vital Signs: Vital Signs: Last Vital Signs Temp 97.8 F 12/03/20 12:09 Pulse 69 12/03/20 12:09 Resp 15 12/03/20 12:09 BP 111/61 12/03/20 12:09 Pulse Ox 100 12/03/20 12:09 Body Mass Index 19.5 vital signs have been reviewed as normal and appeared to be correct. Blood pressure normal. Heart rate normal. Respiration rate normal. Temperature normal. Oxygen saturation normal. Appearance: Alert. Oriented X3. No acute distress. Head: Normal external exam. Normocephalic. Eyes: PERRLA. EOMI. Conjunctiva and sclera normal. Eyelids normal. ENT: Pharynx normal. Uvula midline. Moist mucous membranes. Neck: Normal inspection. Neck supple. FROM. No adenopathy. No meningeal signs. CVS: Normal heart rate and rhythm. Heart sound normal. No murmurs noted. Pulses normal throughout. Respiratory: No respiratory distress. Painless inspiration. Breath sounds normal. No wheezes/rales/rhonchi noted. Chest nontender. No accessory muscle usage noted or decreased air movement noted. Abdomen: Soft and mild tenderness suprapubic /lower abdomen. Nondistended. No guarding. No rigidity. Bowel sounds normal in all 4 quadrants. No distention noted. No organomegaly noted. No visible injury noted. No rebound tenderness. Negative Rovsing sign. Negative obturator's sign. Negative psoas sign. Negative Tubbs sign. Back: No CVA tenderness. Full range of motion noted. Skin: Skin warm and dry. Normal skin color. Normal skin turgor. No rashes/lesions/lacerations noted. Extremities: no lower extremity edema is noted. No calf tenderness is noted. Extremities exhibit normal range of motion. Extremities nontender. Neuro: Oriented X 3. No motor deficit. No sensory deficit. Reflexes normal. Normal steady gait. Course Course Course Narrative: 9:50am - 24-year-old female who is unsure of her last menstrual period although currently who is [id number] presenting to the ED with complaints of lower abdominal cramping / contraction pains for the past few days worse today. she has not had an ultrasound to confirm intrauterine . Plan: Labs, Serum quant, Ob Pelvic/transvaginal ultrasound. Provide 975 mg of Tylenol and 4 mg of Zofran then re-evaluate. Reevaluation(s) Reevaluation #1: - labs return and patient mild anemia with an H&H of 11.7/34.5. Serum quant 35,428. UA within normal limits no evidence of UTI and no ketones are noted. - Ob ultrasound revealed IMPRESSION: Single live intrauterine gestation with what appears to be a subchorionic bleed with crescent collection seen over approximately one quarter of the circumferential and with a very thin hypoechoic line extending over approximately 50% of the circumference. - therefore consulted with OBGYN Dr. Medina at this time for recommendations. Time: 13:23 Reevaluation #2: - Patient is tolerating p.o. fluids and solids. - Dr. Medina Reported that most likely this is a spontaneous that could be occurring and instructed me to give her return precautions and instructions on spontaneous abortions. I gave the patient a copy of her ultrasound results and told her about return precautions. She understands that she needs to follow up if she develops any vaginal bleeding or any worsening symptoms. Along with instructions to follow-up with OBGYN. Patient understands agrees with this plan. Time: 13:33 MDM - OB/Uterine Contractions Medical Records Attestation: I reviewed the patient's medical records. Lab Data Attestation: I reviewed the patient's lab results. Result diagrams: 12/03/20 10:13 12/03/20 10:13 Labs: Lab Results 12/03/20 12/03/20 12/03/20 Range/Units 10:13 10:13 10:13 WBC 9.1 (4.8-10.8) X10*3/uL RBC 4.19 L (4.20-5.50) X10*6/uL Hgb 11.7 L (12.0-16.0) g/dl Hct 34.5 L (37-47) % MCV 82.3 (80-98) fL MCH 27.9 (27.0-33.0) pg MCHC 33.9 (31.0-35.0) g/dl RDW 14.3 (11.0-16.0) % Plt Count 265 (160-400) X10*3/uL MPV 10.6 (9.4-12.3) fL Immature Gran % (Auto) 0.2 (0.0-0.4) % Neut % (Auto) 71.3 (45-73) % Lymph % (Auto) 15.1 L (20-40) % [place] % (Auto) 6.3 (2-11) % Eos % (Auto) 6.5 H (0-4) % Baso % (Auto) 0.6 (0-2) % Lymph # (Auto) 1.4 (1.2-4.9) X10*3/uL [place] # (Auto) 0.6 (0.1-1.2) X10*3/uL Eos # (Auto) 0.6 H (0.0-0.4) X10*3/uL Baso # (Auto) 0.1 (0.0-0.2) X10*3/uL Abs Immat Gran (auto) 0.02 (0.00-0.03) X10*3/uL Absolute Neuts (auto) 6.5 (2.0-8.3) X10*3/uL Absolute Nucleated RBC 0.000 (0.0-0.012) X10*3/uL Nucleated RBC % (auto) 0.0 (0.0-0.2) /100WBC PT 12.9 (9.9-13.0) SEC INR 1.1 (0.9-1.1) Sodium 138 (135-145) mmol/L Potassium 3.8 (3.3-5.1) mmol/L Chloride 110 H (96-108) mmol/L Carbon Dioxide 20 L (22-29) mmol/L Anion Gap 12 (12-20) BUN 9 (9-16) mg/dL Creatinine 0.58 (0.5-1.4) mg/dL Estim Creat Clear Calc 118.7 Estimated GFR > 60 Random Glucose 98 D (60-115) mg/dL Calcium 8.7 (8.4-10.2) mg/dL Magnesium 1.8 (1.6-2.6) mg/dL Total Bilirubin 0.5 (0.0-1.0) mg/dL AST 10 (5-31) U/L ALT 9 (0-31) U/L Alkaline Phosphatase 46 (39-117) U/L Total Protein 5.9 L (6.5-8.0) g/dL Albumin 3.5 (3.5-5.0) g/dL Lipase 29 (8-78) U/L Beta HCG, Quant 92192 mIU/mL Urine Color Urine Appearance Urine pH (5.0-8.0) Ur Specific [place] (1.005-1.025) Urine Protein (NEG-TRACE) MG/DL Urine Glucose (UA) (NEG) MG/DL Urine Ketones (NEG) MG/DL Urine Blood (NEG) Urine Nitrite (NEG) Ur Leukocyte Esterase (NEG) 12/03/20 Range/Units 12:13 WBC (4.8-10.8) X10*3/uL RBC (4.20-5.50) X10*6/uL Hgb (12.0-16.0) g/dl Hct (37-47) % MCV (80-98) fL MCH (27.0-33.0) pg MCHC (31.0-35.0) g/dl RDW (11.0-16.0) % Plt Count (160-400) X10*3/uL MPV (9.4-12.3) fL Immature Gran % (Auto) (0.0-0.4) % Neut % (Auto) (45-73) % Lymph % (Auto) (20-40) % [place] % (Auto) (2-11) % Eos % (Auto) (0-4) % Baso % (Auto) (0-2) % Lymph # (Auto) (1.2-4.9) X10*3/uL [place] # (Auto) (0.1-1.2) X10*3/uL Eos # (Auto) (0.0-0.4) X10*3/uL Baso # (Auto) (0.0-0.2) X10*3/uL Abs Immat Gran (auto) (0.00-0.03) X10*3/uL Absolute Neuts (auto) (2.0-8.3) X10*3/uL Absolute Nucleated RBC (0.0-0.012) X10*3/uL Nucleated RBC % (auto) (0.0-0.2) /100WBC PT (9.9-13.0) SEC INR (0.9-1.1) Sodium (135-145) mmol/L Potassium (3.3-5.1) mmol/L Chloride (96-108) mmol/L Carbon Dioxide (22-29) mmol/L Anion Gap (12-20) BUN (9-16) mg/dL Creatinine (0.5-1.4) mg/dL Estim Creat Clear Calc Estimated GFR Random Glucose (60-115) mg/dL Calcium (8.4-10.2) mg/dL Magnesium (1.6-2.6) mg/dL Total Bilirubin (0.0-1.0) mg/dL AST (5-31) U/L ALT (0-31) U/L Alkaline Phosphatase (39-117) U/L Total Protein (6.5-8.0) g/dL Albumin (3.5-5.0) g/dL Lipase (8-78) U/L Beta HCG, Quant mIU/mL Urine Color YELLOW Urine Appearance CLOUDY Urine pH 6.5 (5.0-8.0) Ur Specific [place] 1.020 (1.005-1.025) Urine Protein TRACE (NEG-TRACE) MG/DL Urine Glucose (UA) NEG (NEG) MG/DL Urine Ketones NEG (NEG) MG/DL Urine Blood NEG (NEG) Urine Nitrite NEG (NEG) Ur Leukocyte Esterase NEG (NEG) Discharge Plan Discharge Clinical Impression: Hyperemesis, , Threatened Patient Disposition: Home, Self-Care Instructions: Threatened Miscarriage (ED) Prescriptions: New ondansetron HCl [Zofran] 4 mg tablet 4 mg PO Q8H PRN (Reason: nausea and vomiting) Qty: 14 RF: 0 acetaminophen [Tylenol Extra Strength] 500 mg tablet 1,000 mg PO QID PRN (Reason: fever or pain) Qty: 14 RF: 0 prenat.vits,manda,tff-ltez-iyrdb Tablet 1 tab PO BEDTIME Qty: 30 RF: 0 No Action albuterol sulfate 2.5 mg /3 mL (0.083 %) solution for nebulization 2.5 mg inhalation Q4-6H PRN (Reason: shortness of breath or wheezing) 30 Days Qty: 75 RF: 6 albuterol sulfate 90 mcg/actuation aerosol powdr breath activated 2 inh inhalation Q4-6H PRN (Reason: shortness of breath or wheezing) 30 Days Qty: 1 RF: 0 ondansetron 8 mg tablet,disintegrating 8 mg PO Q8H PRN (Reason: nausea and vomiting) Qty: 90 RF: 1 metoclopramide HCl 10 mg tablet 10 mg PO Q6H PRN (Reason: nausea and vomiting) Qty: 90 RF: 3 (DME) nebulizer and compressor Device See Rx Instructions .ROUTE .MEDSUPPLY Qty: 1 RF: 0 metoclopramide HCl [Reglan] 10 mg tablet 10 mg PO Q6H PRN (Reason: nausea and vomiting) Qty: 20 RF: 0 pyridoxine (vitamin B6) 25 mg tablet 25 mg PO BID PRN (Reason: vomiting) Qty: 30 RF: 0 doxylamine succinate 25 mg tablet 25 mg PO BID PRN (Reason: vomiting) Qty: 30 RF: 0 ondansetron 4 mg tablet,disintegrating 4 mg PO Q6-8H PRN (Reason: nausea and vomiting) Qty: 20 RF: 0 Flovent Diskus 50 mcg/actuation blister with device 1 inh inhalation BID RF: 0 cetirizine [Zyrtec] 10 mg tablet 10 mg PO DAILY RF: 0 triamcinolone acetonide 0.1 % ointment 1 appl topical BID RF: 0 hydroxyzine HCl 50 mg tablet 50 mg PO BID Qty: 60 RF: 0 Referrals: Dwight Medina MD [Physician] - 2 days Print Language: Bruneian
--- NOTE | 2020-12-03 09:40 | PC.NURSE ---
Patient complains of lower abdominal pain and fatigue. Pt states she is scheduled for ultrasound tomorrow. Pt has been referred to [facility] for care but has not made an appointment
[2020-12-03] MEDS: Acetaminophen 325 MG TABLET 975 MG PO (10:04)
[2020-12-03 10:20] LABS: MANUAL DIFF FLAG NO
[2020-12-03 10:21] LABS: Basophils Absolute Auto 0.1 X10*3/uL (0.0-0.2); Basophils Percent Auto 0.6 % (0-2); Eosinophils Absolute Auto 0.6 X10*3/uL (0.0-0.4); Eosinophils Percent Auto 6.5 % (0-4); Hematocrit 34.5 % (37-47); Hemoglobin 11.7 g/dl (12.0-16.0); Imm Gran Abs Auto 0.02 X10*3/uL (0.00-0.03); Imm Gran Pct Auto 0.2 % (0.0-0.4); Lymphocytes Absolute Auto 1.4 X10*3/uL (1.2-4.9); Lymphocytes Percent Auto 15.1 % (20-40); Mean Corpuscular HGB Conc 33.9 g/dl (31.0-35.0); Mean Corpuscular Hemoglobin 27.9 pg (27.0-33.0); Mean Corpuscular Volume 82.3 fL (80-98); Mean Platelet Volume 10.6 fL (9.4-12.3); Monocytes Absolute Auto 0.6 X10*3/uL (0.1-1.2); Monocytes Percent Auto 6.3 % (2-11); Neutrophils Absolute Auto 6.5 X10*3/uL (2.0-8.3); Neutrophils Percent Auto 71.3 % (45-73); Platelet Count 265 X10*3/uL (160-400); Red Blood Count 4.19 X10*6/uL (4.20-5.50); Red Cell Distribution Width 14.3 % (11.0-16.0); White Blood Count 9.1 X10*3/uL (4.8-10.8)
[2020-12-03 10:28] LABS: INTERNATIONAL NORM RATIO 1.1 (0.9-1.1); Prothrombin Time 12.9 SEC (9.9-13.0)
[2020-12-03 10:52] LABS: Alanine Aminotransferase 9 U/L (0-31); Albumin Level 3.5 g/dL (3.5-5.0); Alkaline Phosphatase 46 U/L (39-117); Anion Gap 12 (12-20); Aspartate Amino Transferase 10 U/L (5-31); Bilirubin Total 0.5 mg/dL (0.0-1.0); Blood Urea Nitrogen 9 mg/dL (9-16); Calcium 8.7 mg/dL (8.4-10.2); Carbon Dioxide 20 mmol/L (22-29); Chloride 110 mmol/L (96-108); Creatinine Clr Calc Pharmacy 118.7; Estimated Glomerular Filt Rate > 60; Glucose Random 98 mg/dL (60-115); Lipase 29 U/L (8-78); Magnesium 1.8 mg/dL (1.6-2.6); Potassium 3.8 mmol/L (3.3-5.1); Sodium 138 mmol/L (135-145); Total Protein 5.9 g/dL (6.5-8.0)
--- NOTE | 2020-12-03 11:15 | PC.NURSE ---
Patient is ambulatory back from ultrasound in no distress
[2020-12-03 12:09] VITALS: BP 111/61; PULSE 69; RESP 15; TEMP 36.6; O2SAT 100
[2020-12-03 12:38] LABS: Glucose Urine UA NEG (NEG); Leukocyte Esterase Urine NEG (NEG); Nitrite Urine NEG (NEG); PH 6.5 (5.0-8.0); Urine Blood NEG (NEG); Urine Ketones NEG (NEG); Urine Protein TRACE MG/DL (NEG-TRACE)
[2020-12-03 12:39] LABS: Appearance Urine CLOUDY; Color Urine YELLOW
--- NOTE | 2020-12-03 13:29 | P.HPOB_ITS ---
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 The workup done in the emergency room included a CBC, chemistry, UA all came back within normal. Rh positive. 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 - Review of Systems Review of Systems ROS Unobtainable: All systems reviewed & are unremarkable except as noted in HPI and below OB PMFSH Past Medical History Medical History Allergy to other foods Anxiety state, unspecified Asthma Dermatitis, unspecified Major depressive disorder, single episode, unspecified Mild persistent asthma, uncomplicated Family History Family History Father Drug abuse Asthma Mother Hypertension Maternal Grandmother Ovarian cancer Surgical History Surgical History History of section Status post surgical removal of both fallopian tubes Social History Social History Alcohol intake: never Patient Tobacco Use Status: Former Tobacco user Advance Directives: No Advance Directives Information Provided: No Patient : Yes Gender identity: female Meds Allergies Allergy/AdvReac Type Severity Reaction Status Date / Time egg [EGG] Allergy Severe ANAPHYLAXIS Verified 12/03/20 09:23 fish derived [FISH] Allergy Severe ANAPHYLAXIS Verified 12/03/20 09:23 peanut [PEANUTS] Allergy Severe ITCHING Verified 12/03/20 09:23 shellfish derived Allergy Severe ANAPHYLAXIS Verified 12/03/20 09:23 [SHELLFISH DERIVED] cat dander Allergy Intermediate Hives Verified 12/03/20 09:23 dog dander Allergy Intermediate Hives Verified 12/03/20 09:23 house dust Allergy Intermediate Hives Verified 12/03/20 09:23 rice [RICE] AdvReac Intermediate CONSTIPATIO Verified 12/03/20 09:23 N Home Medications Medication Instructions Recorded Confirmed Last Taken Type cetirizine 10 mg tablet 10 mg PO DAILY 03/23/20 11/26/20 Unknown History fluticasone propionate 50 1 inh INHALATION BID 03/23/20 11/26/20 Unknown History mcg/actuation blister powder for inhalation triamcinolone acetonide 0.1 % 1 appl TOPICAL BID 06/02/20 11/26/20 Unknown History topical ointment 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 Physical Exam Vitals Vital signs: Temp Pulse Resp BP Pulse Ox 97.8 F 69 15 111/61 100 12/03/20 12:09 12/03/20 12:09 12/03/20 12:09 12/03/20 12:12/03/20 12:09 Body Mass Index 19.5 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 - Results Labs CBC & Chem 7: 12/03/20 10:13 12/03/20 10:13 Labs: Short CBC 12/03/20 Range/Units 10:13 WBC 9.1 (4.8-10.8) X10*3/uL Hgb 11.7 L (12.0-16.0) g/dl Hct 34.5 L (37-47) % Plt Count 265 (160-400) X10*3/uL BMP 12/03/20 10:13 Sodium 138 Potassium 3.8 Chloride 110 H Carbon Dioxide 20 L BUN 9 Creatinine 0.58 Calcium 8.7 Liver Function 12/03/20 Range/Units 10:13 Total Bilirubin 0.5 (0.0-1.0) mg/dL AST 10 (5-31) U/L ALT 9 (0-31) U/L Alkaline Phosphatase 46 (39-117) U/L Albumin 3.5 (3.5-5.0) g/dL Urine 12/03/20 Range/Units 12:13 Urine Color YELLOW Urine Appearance CLOUDY Urine pH 6.5 (5.0-8.0) Ur Specific [place] 1.020 (1.005-1.025) Urine Protein TRACE (NEG-TRACE) MG/DL Urine Glucose (UA) NEG (NEG) MG/DL Assessment and Plan (1) Early stage of : Status: Acute Recommended to Ashley Brewer PA in the emergency room the following: SAB warnings to be given to the patient, the patient is to come back to the emergency room in case of worsening of the pain vaginal bleeding. IV fluid antiemetics and make sure patient tolerates p.o. diet before discharge. Regarding abdominal pain, reassess the patient to rule out other non obstetrical causes. Follow-up with the patient's OB within 2 days, vitamin 1 tablet p.o. q.d. I did not see or examine the patient I was consulted on the phone regarding management of this patient
== END 2020-12-03 14:35 | disposition home or self-care (01) ==
PROVIDERS: Physician Assistant Medical; Emergency Provider Emergency Medicine; PCP Internal Medicine
DX: O20.0 Threatened abortion (principal); O21.0 Mild hyperemesis gravidarum; O99.019 Anemia complicating pregnancy, unspecified trimester; D64.9 Anemia, unspecified; O99.519 Diseases of the respiratory system complicating pregnancy, unspecified trimester; J45.909 Unspecified asthma, uncomplicated; Z3A.00 Weeks of gestation of pregnancy not specified; Z79.899 Other long term (current) drug therapy
CPT/HCPCS: 36415; 76801; 76817; 80053; 81003; 83690; 83735; 84702; 85025; 85610; 99284

== ENCOUNTER 2020-12-04 13:58 | Outpatient (REF) | payer OTHER, SELFPAY | END 2020-12-04 13:59 | disposition home or self-care (01) | LOC: HO.US 13:58 | PROVIDERS: Visit Provider Advanced Practice Midwife | DX: Z13.89 Encounter for screening for other disorder (principal) ==

== ENCOUNTER 2020-12-06 20:21 | Emergency (ER) | payer OTHER, SELFPAY ==
--- NOTE | ~2020-12-06 | US_ITS ---
EXAMINATION: ULTRASOUND PELVIC, COMPLETE CLINICAL INFORMATION: Cramping. Severe pain. Known subchorionic bleed. . COMPARISON: Pelvic ultrasound December 03, 2020 TECHNIQUE: Transabdominal imaging. Spectral Doppler and color Doppler exam was utilized. LMP: Uncertain. Gestational age by first ultrasound is 7 weeks 3 days. KELLI 07/22/2019 FINDINGS: UTERUS: There is a single intrauterine gestation. There is motion. heart rate 165 bpm. Yolk sac is present. [place]-rump length 0.99 cm. Gestational age by this measurement is 7 weeks 1 day. KELLI 07/24/2021.. A small subchorionic bleed is again demonstrated. The volume of the bleed is similar to prior ultrasound of December 03, 2020. The bleed has a crescent of about one quarter of the circumferential border of the gestational sac. No extension of the bleed. ADNEXA: Neither the right and left ovary is seen. There is no adnexal abnormality. Cul-de-sac: No Fluid US/US OB pelvic and transvaginal IMPRESSION: Single intrauterine gestation. heart rate 165 bpm. Stable small subchorionic bleed unchanged since prior ultrasound of December 03, 2020.
[2020-12-06 20:23] VITALS: BP 124/41; PULSE 97; RESP 15; TEMP 37; O2SAT 98; BMI 19.9
--- NOTE | 2020-12-06 22:34 | ED.ABDPAIN ---
HPI - Abdominal Pain General Chief Complaint: Abdominal Pain Stated Complaint: pelvic pain 7 weeks Time Seen by Provider: 12/06/20 22:16 Source: patient Mode of arrival: ambulatory Limitations: no limitations History of Present Illness HPI narrative: Patient comes emergency room complaining of severe suprapubic camping. Patient is known to be a at 7 weeks and 3 days of gestational age by ultrasound. Patient was seen here on December 03, with a similar complaint, patient was told that there is a subchorionic bleed, which eventually may progress into a spontaneous . At this time, patient denies any vaginal bleeding, however she states that the suprapubic cramping is getting much worse. Related Data Home Medications Medication Instructions Recorded Confirmed cetirizine 10 mg tablet 10 mg PO DAILY 03/23/20 11/26/20 fluticasone propionate 50 1 inh INHALATION BID 03/23/20 11/26/20 mcg/actuation blister powder for inhalation triamcinolone acetonide 0.1 % 1 appl TOPICAL BID 06/02/20 11/26/20 topical ointment Previous Rx's Medication Instructions Recorded nebulizer and compressor #1 ea 04/28/20 albuterol sulfate 2.5 mg INHALATION Q4-6H PRN 30 05/13/20 Days #75 ml albuterol sulfate 90 mcg/actuation 2 inh INHALATION Q4-6H PRN 30 Days 05/20/20 breath activated powder inhaler #1 ea hydroxyzine HCl 50 mg tablet 50 mg PO BID #60 tab 06/02/20 ondansetron 4 mg PO Q6-8H PRN #20 tab 11/24/20 doxylamine succinate 25 mg PO BID PRN #30 tab 11/30/20 metoclopramide HCl 10 mg tablet 10 mg PO Q6H PRN #90 tab 11/30/20 metoclopramide HCl [Reglan] 10 mg PO Q6H PRN #20 tab 11/30/20 ondansetron 8 mg disintegrating 8 mg PO Q8H PRN #90 tab 11/30/20 tablet pyridoxine (vitamin B6) 25 mg PO BID PRN #30 tab 11/30/20 acetaminophen [Tylenol Extra 1,000 mg PO QID PRN #14 tab 12/03/20 Strength] ondansetron HCl [Zofran] 4 mg PO Q8H PRN #14 tab 12/03/20 prenat.vits,madna,[id number] 1 tab PO BEDTIME #30 tab 12/03/20 Allergies Allergy/AdvReac Type Severity Reaction Status Date / Time egg [EGG] Allergy Severe ANAPHYLAXIS Verified 12/03/20 09:23 fish derived [FISH] Allergy Severe ANAPHYLAXIS Verified 12/03/20 09:23 peanut [PEANUTS] Allergy Severe ITCHING Verified 12/03/20 09:23 shellfish derived Allergy Severe ANAPHYLAXIS Verified 12/03/20 09:23 [SHELLFISH DERIVED] cat dander Allergy Intermediate Hives Verified 12/03/20 09:23 dog dander Allergy Intermediate Hives Verified 12/03/20 09:23 house dust Allergy Intermediate Hives Verified 12/03/20 09:23 rice [RICE] AdvReac Intermediate CONSTIPATIO Verified 12/03/20 09:23 N Review of Systems Review of Systems Constitutional : No Weight loss, No Fever, No Chills, No Night Sweats, No Fatigue, No Malaise ENT/Mouth : No Hearing loss, No Ear Pain, No Nasal Congestion, No Sinus Pain, No Hoarseness, No sore throat, No Rhinorrhea, No Swallowing Difficulty Eyes: No Eye Pain, No Swelling, No Redness, No Foreign Body, No Discharge, No Vision Changes Cardiovascular : No Chest Pain, No SOB, No Dyspnea on Exertion, No Orthopnea, No Edema, No Palpitations Respiratory : No Cough, No Sputum, No Wheezing, No Smoke Exposure, No Dyspnea Gastrointestinal : Complaining of Nausea, No Vomiting, No Diarrhea, No Constipation, No abdominal Pain, No Hematochezia, No Melena Genitourinary : Denies vaginal bleeding, complaining of severe suprapubic cramping, No Dysuria, No Urinary Frequency, No Hematuria, No Urinary Incontinence, No Urgency, No Flank Pain, No Urinary Flow Changes, No Hesitancy Musculoskeletal : No joint pain, No Myalgias, No Joint Swelling Skin : Complaining psoriasis, very itchy rash Neuro : No Weakness, No Numbness, No Paresthesias, No Loss of Consciousness, No Dizziness, No Headache Psych : No Anxiety/Panic, No Depression, No SI/HI/AH/VH, No Social Issues, Heme/Lymph: No Bruising, No Bleeding,No Lymphadenopathy Endocrine : No Polyuria, No Polydipsia, No Temperature Intolerance Physical Exam Vital Signs: Vital Signs: Last Vital Signs Temp 98.6 F 12/06/20 20:23 Pulse 97 12/06/20 20:23 Resp 15 12/06/20 20:23 BP 124/41 L 12/06/20 20:23 Pulse Ox 98 12/06/20 20:23 Body Mass Index 19.9 Appearance: Alert. Oriented X3. No acute distress. Eyes: Pupils equal, round and reactive to light. ENT: Pharynx normal. Neck: Normal inspection. Neck supple. No lymph nodes noted. No crepitus CVS: Normal heart rate and rhythm. Pulses normal. Normal S1 and S2 Respiratory: No respiratory distress. Breath sounds normal. No Wheezing. No rales Abdomen: Soft, complaining of suprapubic tenderness. No rigidity. No distention. good BS x4 : No bleeding old fluid pooling in the vaginal vault, cervix is closed Skin: Skin warm and dry. Patient has moderate to severe dermatitis/eczema throughout her body, patient actively scratching, has several scratches that are actively bleeding minimally Extremities: No lower extremity edema. No lower extremity edema. No Lacerations. No Rash Neuro: Oriented X 3. No motor deficit. No sensory deficit. Moving all extermities. No slurred speech. Course Course Course Narrative: And labs with the patient, the ultrasound remains unchanged. Patient started to take Tylenol at home and follow-up with her OBGYN MDM - Abdominal Pain Lab Data Result diagrams: 12/06/20 22:48 12/06/20 22:48 Labs: Lab Results 12/06/20 12/06/20 12/07/20 Range/Units 22:48 22:48 00:05 WBC 11.5 H (4.8-10.8) X10*3/uL RBC 4.50 (4.20-5.50) X10*6/uL Hgb 12.7 (12.0-16.0) g/dl Hct 37.4 (37-47) % MCV 83.1 (80-98) fL MCH 28.2 (27.0-33.0) pg MCHC 34.0 (31.0-35.0) g/dl RDW 14.4 (11.0-16.0) % Plt Count 277 (160-400) X10*3/uL MPV 10.4 (9.4-12.3) fL Immature Gran % (Auto) 0.3 (0.0-0.4) % Neut % (Auto) 63.8 (45-73) % Lymph % (Auto) 21.5 (20-40) % [place] % (Auto) 6.1 (2-11) % Eos % (Auto) 7.6 H (0-4) % Baso % (Auto) 0.7 (0-2) % Lymph # (Auto) 2.5 (1.2-4.9) X10*3/uL [place] # (Auto) 0.7 (0.1-1.2) X10*3/uL Eos # (Auto) 0.9 H (0.0-0.4) X10*3/uL Baso # (Auto) 0.1 (0.0-0.2) X10*3/uL Abs Immat Gran (auto) 0.03 (0.00-0.03) X10*3/uL Absolute Neuts (auto) 7.3 (2.0-8.3) X10*3/uL Absolute Nucleated RBC 0.000 (0.0-0.012) X10*3/uL Nucleated RBC % (auto) 0.0 (0.0-0.2) /100WBC Sodium 136 (135-145) mmol/L Potassium 4.2 (3.3-5.1) mmol/L Chloride 106 (96-108) mmol/L Carbon Dioxide 21 L (22-29) mmol/L Anion Gap 13 (12-20) BUN 9 (9-16) mg/dL Creatinine 0.68 (0.5-1.4) mg/dL Estim Creat Clear Calc 103.5 Estimated GFR > 60 Random Glucose 93 (60-115) mg/dL Calcium 9.0 (8.4-10.2) mg/dL Total Bilirubin 0.4 (0.0-1.0) mg/dL Direct Bilirubin < 0.2 (0.0-0.5) mg/dL AST 17 D (5-31) U/L ALT 12 (0-31) U/L Alkaline Phosphatase 51 (39-117) U/L Total Protein 6.5 (6.5-8.0) g/dL Albumin 3.7 (3.5-5.0) g/dL Beta HCG, Quant 58223 mIU/mL Urine Color YELLOW Urine Appearance CLEAR Urine pH 6.0 (5.0-8.0) Ur Specific [place] 1.015 (1.005-1.025) Urine Protein NEG (NEG-TRACE) MG/DL Urine Glucose (UA) NEG (NEG) MG/DL Urine Ketones NEG (NEG) MG/DL Urine Blood NEG (NEG) Urine Nitrite NEG (NEG) Ur Leukocyte Esterase NEG (NEG) Imaging Data US - abdomen: Radiologist's impression: FINDINGS: UTERUS: There is a single intrauterine gestation. There is motion. heart rate 165 bpm. Yolk sac is present. [place]-rump length 0.99 cm. Gestational age by this measurement is 7 weeks 1 day. KELLI 07/24/2021.. A small subchorionic bleed is again demonstrated. The volume of the bleed is similar to prior ultrasound of December 03, 2020. The bleed has a crescent of about one quarter of the circumferential border of the gestational sac. No extension of the bleed. ADNEXA: Neither the right and left ovary is seen. There is no adnexal abnormality. Cul-de-sac: No Fluid US/US OB pelvic and transvaginal IMPRESSION: Single intrauterine gestation. heart rate 165 bpm. Stable small subchorionic bleed unchanged since prior ultrasound of December 03, 2020. Discharge Plan Discharge Clinical Impression: Abdominal cramping Patient Disposition: Home, Self-Care Instructions: Abdominal Pain in (ED) Additional Instructions: Please follow-up with your primary care physician tomorrow. If you have any worsening or new symptoms, please return to the emergency room or call 911 Prescriptions: No Action albuterol sulfate 2.5 mg /3 mL (0.083 %) solution for nebulization 2.5 mg inhalation Q4-6H PRN (Reason: shortness of breath or wheezing) 30 Days Qty: 75 RF: 6 albuterol sulfate 90 mcg/actuation aerosol powdr breath activated 2 inh inhalation Q4-6H PRN (Reason: shortness of breath or wheezing) 30 Days Qty: 1 RF: 0 ondansetron 8 mg tablet,disintegrating 8 mg PO Q8H PRN (Reason: nausea and vomiting) Qty: 90 RF: 1 metoclopramide HCl 10 mg tablet 10 mg PO Q6H PRN (Reason: nausea and vomiting) Qty: 90 RF: 3 (DME) nebulizer and compressor Device See Rx Instructions .ROUTE .MEDSUPPLY Qty: 1 RF: 0 metoclopramide HCl [Reglan] 10 mg tablet 10 mg PO Q6H PRN (Reason: nausea and vomiting) Qty: 20 RF: 0 pyridoxine (vitamin B6) 25 mg tablet 25 mg PO BID PRN (Reason: vomiting) Qty: 30 RF: 0 doxylamine succinate 25 mg tablet 25 mg PO BID PRN (Reason: vomiting) Qty: 30 RF: 0 ondansetron 4 mg tablet,disintegrating 4 mg PO Q6-8H PRN (Reason: nausea and vomiting) Qty: 20 RF: 0 ondansetron HCl [Zofran] 4 mg tablet 4 mg PO Q8H PRN (Reason: nausea and vomiting) Qty: 14 RF: 0 acetaminophen [Tylenol Extra Strength] 500 mg tablet 1,000 mg PO QID PRN (Reason: fever or pain) Qty: 14 RF: 0 prenat.vits,manda,[id number] Tablet 1 tab PO BEDTIME Qty: 30 RF: 0 Flovent Diskus 50 mcg/actuation blister with device 1 inh inhalation BID RF: 0 cetirizine [Zyrtec] 10 mg tablet 10 mg PO DAILY RF: 0 triamcinolone acetonide 0.1 % ointment 1 appl topical BID RF: 0 hydroxyzine HCl 50 mg tablet 50 mg PO BID Qty: 60 RF: 0 PMFSH Past Medical History Medical History Allergy to other foods Anxiety state, unspecified Asthma Dermatitis, unspecified Major depressive disorder, single episode, unspecified Mild persistent asthma, uncomplicated Surgical History History of section Status post surgical removal of both fallopian tubes Family History Family History Father Drug abuse Asthma Mother Hypertension Maternal Grandmother Ovarian cancer Social History Social History Alcohol intake: never Patient Tobacco Use Status: Former Tobacco user Advance Directives: No Advance Directives Information Provided: No Patient : Yes Gender identity: female
[2020-12-06] MEDS: traMADoL HCL 50 MG TABLET PO (22:43)
[2020-12-06 22:53] LABS: Basophils Absolute Auto 0.1 X10*3/uL (0.0-0.2); Basophils Percent Auto 0.7 % (0-2); Eosinophils Absolute Auto 0.9 X10*3/uL (0.0-0.4); Eosinophils Percent Auto 7.6 % (0-4); Hematocrit 37.4 % (37-47); Hemoglobin 12.7 g/dl (12.0-16.0); Imm Gran Abs Auto 0.03 X10*3/uL (0.00-0.03); Imm Gran Pct Auto 0.3 % (0.0-0.4); Lymphocytes Absolute Auto 2.5 X10*3/uL (1.2-4.9); Lymphocytes Percent Auto 21.5 % (20-40); MANUAL DIFF FLAG NO; Mean Corpuscular Hemoglobin 28.2 pg (27.0-33.0); Mean Corpuscular Volume 83.1 fL (80-98); Mean Platelet Volume 10.4 fL (9.4-12.3); Monocytes Absolute Auto 0.7 X10*3/uL (0.1-1.2); Monocytes Percent Auto 6.1 % (2-11); Neutrophils Absolute Auto 7.3 X10*3/uL (2.0-8.3); Neutrophils Percent Auto 63.8 % (45-73); Platelet Count 277 X10*3/uL (160-400); Red Cell Distribution Width 14.4 % (11.0-16.0); White Blood Count 11.5 X10*3/uL (4.8-10.8)
--- NOTE | 2020-12-06 22:58 | PC.NURSE ---
LMP 7 weeks ago per patient. Denies vaginal bleeding endorsing 10/10 pelvic pain. Reports she had this pain with her previous 3 pregnancies.
[2020-12-06] MEDS: Metoclopramide HCl 10 MG TABLET PO (23:02)
[2020-12-06 23:22] LABS: Alanine Aminotransferase 12 U/L (0-31); Albumin Level 3.7 g/dL (3.5-5.0); Alkaline Phosphatase 51 U/L (39-117); Anion Gap 13 (12-20); Aspartate Amino Transferase 17 U/L (5-31); Bilirubin Direct < 0.2 mg/dL (0.0-0.5); Bilirubin Total 0.4 mg/dL (0.0-1.0); Blood Urea Nitrogen 9 mg/dL (9-16); Carbon Dioxide 21 mmol/L (22-29); Chloride 106 mmol/L (96-108); Creatinine Clr Calc Pharmacy 103.5; Estimated Glomerular Filt Rate > 60; Glucose Random 93 mg/dL (60-115); Potassium 4.2 mmol/L (3.3-5.1); Sodium 136 mmol/L (135-145); Total Protein 6.5 g/dL (6.5-8.0)
[2020-12-06 23:50] LABS: HCG Quantitative 57249 mIU/mL
[2020-12-07 00:10] LABS: Glucose Urine UA NEG (NEG); Leukocyte Esterase Urine NEG (NEG); Nitrite Urine NEG (NEG); Specific Gravity - Urine 1.015 (1.005-1.025); Urine Blood NEG (NEG); Urine Ketones NEG (NEG); Urine Protein NEG (NEG-TRACE)
[2020-12-07 00:11] LABS: Appearance Urine CLEAR; Color Urine YELLOW
--- NOTE | 2020-12-07 01:50 | PC.NURSE ---
PT UNDERSTANDS TO FOLLOW UP WITH OBGYN, TAKE OTC TYLENOL FOR PAIN. RETURN FOR HEAVY VAGINAL BLEEDING AND OR INCREASED CRAMPING.
== END 2020-12-07 01:52 | disposition home or self-care (01) ==
PROVIDERS: Emergency Provider Emergency Medicine; PCP Internal Medicine
DX: O26.891 Other specified pregnancy related conditions, first trimester (principal); R10.9 Unspecified abdominal pain; O46.91 Antepartum hemorrhage, unspecified, first trimester; Z3A.01 Less than 8 weeks gestation of pregnancy
CPT/HCPCS: 36415; 76801; 76817; 80048; 80076; 81003; 84702; 85025; 99284

== ENCOUNTER 2020-12-18 02:04 | Inpatient (IN) | payer OTHER, SELFPAY ==
[2020-12-18] VITALS (12 sets, daily range): BP systolic 102–123; BP diastolic 55–85; PULSE 80–140; RESP 18–26; TEMP 36.3–37.3; O2SAT 94–99; BMI 19.9
--- NOTE | ~2020-12-18 | XR_ITS ---
EXAMINATION: XR CHEST CLINICAL INFORMATION: Cough and shortness of breath COMPARISON: 10/12/2019 TECHNIQUE: 2 views of the chest were obtained. FINDINGS: ECG leads again overlie the chest. Interval increase in lung volumes. Streaky opacity at the left base could represent bronchopneumonia or atelectasis. No effusion or pneumothorax. Normal heart and mediastinum. No mass or adenopathy. No pulmonary edema. Normal gas pattern. No acute osseous finding. XR/XR chest 2V IMPRESSION: 1. Streaky opacity at the left base in the retrocardiac region could represent bronchopneumonia or atelectasis. 2. Lung volumes increase compared with prior.
--- NOTE | ~2020-12-18 | US_ITS ---
EXAMINATION: OBSTETRICAL ULTRASOUND, FIRST TRIMESTER HISTORY: 24-year-old at 19.1 weeks of gestation Vaginal spotting LMP: Unknown COMPARISON: 12/06/2020 TECHNIQUE: Real time transabdominal imaging with color and M-mode Doppler. FINDINGS: A single, live IUP CRL of 23.2 mm c/w 9.1wks is noted. Heart Rate: 188 beats per minute. Small subchorionic hematoma is noted. Stable compared to the exam on 12/06/2020 Both maternal ovaries are seen and appear normal. GESTATIONAL AGE: 1. GA from LMP: 9.1 wks 2. GA from AUA: 9.1 wks ESTIMATED DATE OF DELIVERY: 1. KELLI from LMP: 07/22/2021 2. KELLI from AUA: 07/22/2021 US/US OB <= 14 weeks fetus IMPRESSION: 1. A single live IUP 2. CRL consistent with 9.1 weeks of gestation confirming her KELLI of 07/22/2021 3. Normal ovaries 4. No free fluid 5. Stable subchorionic hematoma Thank you very much for this referral. This note was generated with a voice recognition program. Please excuse any errors which may have been overlooked during my review of this note. Sometimes these errors may affect the content or meaning of a given sentence.
--- NOTE | 2020-12-18 02:10 | ED_ITS ---
HPI - General Adult General Chief complaint: Dyspnea Stated complaint: Asthma Time Seen by Provider: 12/18/20 02:05 Source: patient and EMS Mode of arrival: EMS Limitations: no limitations History of Present Illness HPI narrative: Patient comes emergency room complaining of an asthma exacerbation. According to EMS, patient called due to be a reservation which started approximately 2-3 days ago. Oxygen saturation at home 95%. Patient was given 1 albuterol treatment per EMS prior to arrival. Of note, patient is at 9 weeks of gestational age Related Data Home Medications Medication Instructions Recorded Confirmed cetirizine 10 mg tablet 10 mg PO DAILY 03/23/20 11/26/20 fluticasone propionate 50 1 inh INHALATION BID 03/23/20 11/26/20 mcg/actuation blister powder for inhalation triamcinolone acetonide 0.1 % 1 appl TOPICAL BID 06/02/20 11/26/20 topical ointment Previous Rx's Medication Instructions Recorded nebulizer and compressor #1 ea 04/28/20 albuterol sulfate 2.5 mg INHALATION Q4-6H PRN 30 05/13/20 Days #75 ml albuterol sulfate 90 mcg/actuation 2 inh INHALATION Q4-6H PRN 30 Days 05/20/20 breath activated powder inhaler #1 ea hydroxyzine HCl 50 mg tablet 50 mg PO BID #60 tab 06/02/20 ondansetron 4 mg PO Q6-8H PRN #20 tab 11/24/20 doxylamine succinate 25 mg PO BID PRN #30 tab 11/30/20 metoclopramide HCl 10 mg tablet 10 mg PO Q6H PRN #90 tab 11/30/20 metoclopramide HCl [Reglan] 10 mg PO Q6H PRN #20 tab 11/30/20 ondansetron 8 mg disintegrating 8 mg PO Q8H PRN #90 tab 11/30/20 tablet pyridoxine (vitamin B6) 25 mg PO BID PRN #30 tab 11/30/20 acetaminophen [Tylenol Extra 1,000 mg PO QID PRN #14 tab 12/03/20 Strength] ondansetron HCl [Zofran] 4 mg PO Q8H PRN #14 tab 12/03/20 prenat.vits,manda,igs-rsez-crmxl 1 tab PO BEDTIME #30 tab 12/03/20 Allergies Allergy/AdvReac Type Severity Reaction Status Date / Time egg [EGG] Allergy Severe ANAPHYLAXIS Verified 12/18/20 02:37 fish derived [FISH] Allergy Severe ANAPHYLAXIS Verified 12/18/20 02:37 peanut [PEANUTS] Allergy Severe ITCHING Verified 12/18/20 02:37 shellfish derived Allergy Severe ANAPHYLAXIS Verified 12/18/20 02:37 [SHELLFISH DERIVED] cat dander Allergy Intermediate Hives Verified 12/18/20 02:37 dog dander Allergy Intermediate Hives Verified 12/18/20 02:37 house dust Allergy Intermediate Hives Verified 12/18/20 02:37 rice [RICE] AdvReac Intermediate CONSTIPATIO Verified 12/18/20 02:37 N Review of Systems Review of Systems: Constitutional : No Weight loss, No Fever, No Chills, No Night Sweats, No Fatigue, No Malaise ENT/Mouth : No Hearing loss, No Ear Pain, No Nasal Congestion, No Sinus Pain, No Hoarseness, No sore throat, No Rhinorrhea, No Swallowing Difficulty Eyes: No Eye Pain, No Swelling, No Redness, No Foreign Body, No Discharge, No Vision Changes Cardiovascular : No Chest Pain, No SOB, No Dyspnea on Exertion, No Orthopnea, No Edema, No Palpitations Respiratory : No Cough, No Sputum, complaining of wheezing and dyspnea, No Smoke Exposure Gastrointestinal : No Nausea, No Vomiting, No Diarrhea, No Constipation, No abdominal Pain, No Hematochezia, No Melena Genitourinary : no irregular bleeding, No Dysuria, No Urinary Frequency, No Hematuria, No Urinary Incontinence, No Urgency, No Flank Pain, No Urinary Flow Changes, No Hesitancy Musculoskeletal : No joint pain, No Myalgias, No Joint Swelling Skin : No Skin Lesions, No rash Neuro : No Weakness, No Numbness, No Paresthesias, No Loss of Consciousness, No Dizziness, No Headache Psych : No Anxiety/Panic, No Depression, No SI/HI/AH/VH, No Social Issues, Heme/Lymph: No Bruising, No Bleeding,No Lymphadenopathy Endocrine : No Polyuria, No Polydipsia, No Temperature Intolerance PMFSH Past Medical History Medical History Allergy to other foods Anxiety state, unspecified Asthma Dermatitis, unspecified Major depressive disorder, single episode, unspecified Mild persistent asthma, uncomplicated Surgical History History of section Status post surgical removal of both fallopian tubes Family History Family History Father Drug abuse Asthma Mother Hypertension Maternal Grandmother Ovarian cancer Social History Social History Alcohol intake: never Patient Tobacco Use Status: Former Tobacco user Advance Directives: No Advance Directives Information Provided: No Patient : Yes Gender identity: female Physical Exam Vital Signs: Vital Signs: Last Vital Signs Temp 99.2 F 12/18/20 02:37 Pulse 118 H 12/18/20 03:53 Resp 24 H 12/18/20 03:53 BP 123/62 12/18/20 02:37 Pulse Ox 99 12/18/20 03:53 Oxygen Flow Rate 2 12/18/20 02:37 Body Mass Index 19.9 Appearance: Alert. Oriented X3. Eyes: Pupils equal, round and reactive to light. ENT: Pharynx normal. Neck: Normal inspection. Neck supple. No lymph nodes noted. No crepitus CVS: Normal heart rate and rhythm. Pulses normal. Normal S1 and S2 Respiratory: Mild respiratory distress, oxygen saturation 95% on room air, diffuse bilateral wheezing Abdomen: Soft and nontender. No rigidity. No distention. good BS x4 Skin: Skin warm and dry. Normal skin color. Normal skin turgor. Extremities: No lower extremity edema. No lower extremity edema. No Lacerations. No Rash Neuro: Oriented X 3. No motor deficit. No sensory deficit. Moving all extermities. No slurred speech. Course Course Course Narrative: Patient received 2 hour long nebulization treatments, Solu- Medrol magnesium, patient is improved but she is still quite wheezy, patient feels still short of breath. I discussed the patient with Dr. Tidwell, patient will be admitted for asthma exacerbation, it was also discussed with the patie nt is at 9 weeks of gestational age. Currently not having any OB Gyne related issues Medical Decision Making Lab Data Result diagrams: 12/18/20 02:22 12/18/20 02:22 Labs: Lab Results 07/23/21 07/23/21 Range/Units 02:22 02:22 WBC 14.0 H (4.8-10.8) X10*3/uL RBC 4.56 (4.20-5.50) X10*6/uL Hgb 12.8 (12.0-16.0) g/dl Hct 38.0 (37-47) % MCV 83.3 (80-98) fL MCH 28.1 (27.0-33.0) pg MCHC 33.7 (31.0-35.0) g/dl RDW 14.1 (11.0-16.0) % Plt Count 337 (160-400) X10*3/uL MPV 9.9 (9.4-12.3) fL Immature Gran % (Auto) 0.4 (0.0-0.4) % Neut % (Auto) 73.6 H (45-73) % Lymph % (Auto) 13.9 L (20-40) % Payette % (Auto) 5.7 (2-11) % Eos % (Auto) 6.0 H (0-4) % Baso % (Auto) 0.4 (0-2) % Lymph # (Auto) 1.9 (1.2-4.9) X10*3/uL [place] # (Auto) 0.8 (0.1-1.2) X10*3/uL Eos # (Auto) 0.8 H (0.0-0.4) X10*3/uL Baso # (Auto) 0.1 (0.0-0.2) X10*3/uL Abs Immat Gran (auto) 0.05 H (0.00-0.03) X10*3/uL Absolute Neuts (auto) 10.3 H (2.0-8.3) X10*3/uL Absolute Nucleated RBC 0.000 (0.0-0.012) X10*3/uL Nucleated RBC % (auto) 0.0 (0.0-0.2) /100WBC Sodium 139 (135-145) mmol/L Potassium 3.7 (3.3-5.1) mmol/L Chloride 104 (96-108) mmol/L Carbon Dioxide 26 (22-29) mmol/L Anion Gap 13 (12-20) BUN 8 L (9-16) mg/dL Creatinine 0.62 (0.5-1.4) mg/dL Estim Creat Clear Calc 113.6 Estimated GFR > 60 Random Glucose 98 (60-115) mg/dL Calcium 9.4 (8.4-10.2) mg/dL Total Bilirubin 0.6 (0.0-1.0) mg/dL Direct Bilirubin 0.2 (0.0-0.5) mg/dL AST 16 (5-31) U/L ALT 11 (0-31) U/L Alkaline Phosphatase 58 (39-117) U/L Total Protein 7.1 (6.5-8.0) g/dL Albumin 4.2 (3.5-5.0) g/dL Critical Care Time Critical Care Time Critical Care Time: Yes Total Critical Care Time: 35 Attestation: Patient required 35 minutes of critical care Discharge Plan Discharge Clinical Impression: Asthma exacerbation Qualifiers: Asthma severity: unspecified severity Asthma persistence: unspecified Qualified Code(s): J45.901 - Unspecified asthma with (acute) exacerbation Patient Disposition: Admitted As Inpatient
[2020-12-18 02:27] LABS: MANUAL DIFF FLAG NO
[2020-12-18] MEDS: Albuterol Sulfate (0.083%) 2.5 MG/3 ML VIAL.NEB 10 MG INHALE ×2 (02:27→05:28)
[2020-12-18 02:29] LABS: Basophils Absolute Auto 0.1 X10*3/uL (0.0-0.2); Basophils Percent Auto 0.4 % (0-2); Eosinophils Absolute Auto 0.8 X10*3/uL (0.0-0.4); Hemoglobin 12.8 g/dl (12.0-16.0); Imm Gran Abs Auto 0.05 X10*3/uL (0.00-0.03); Imm Gran Pct Auto 0.4 % (0.0-0.4); Lymphocytes Absolute Auto 1.9 X10*3/uL (1.2-4.9); Lymphocytes Percent Auto 13.9 % (20-40); Mean Corpuscular HGB Conc 33.7 g/dl (31.0-35.0); Mean Corpuscular Hemoglobin 28.1 pg (27.0-33.0); Mean Corpuscular Volume 83.3 fL (80-98); Mean Platelet Volume 9.9 fL (9.4-12.3); Monocytes Absolute Auto 0.8 X10*3/uL (0.1-1.2); Monocytes Percent Auto 5.7 % (2-11); Neutrophils Absolute Auto 10.3 X10*3/uL (2.0-8.3); Neutrophils Percent Auto 73.6 % (45-73); Platelet Count 337 X10*3/uL (160-400); Red Blood Count 4.56 X10*6/uL (4.20-5.50); Red Cell Distribution Width 14.1 % (11.0-16.0)
[2020-12-18] MEDS: Magnesium Sulfate/H2O 2 GM/50 ML PIGGYBACK IV (02:36)
[2020-12-18] MEDS: methylPREDNISolone Sod Succ 125 MG/2 ML VIAL IVPUSH (02:36)
[2020-12-18 02:51] LABS: Alanine Aminotransferase 11 U/L (0-31); Albumin Level 4.2 g/dL (3.5-5.0); Alkaline Phosphatase 58 U/L (39-117); Anion Gap 13 (12-20); Aspartate Amino Transferase 16 U/L (5-31); Bilirubin Direct 0.2 mg/dL (0.0-0.5); Bilirubin Total 0.6 mg/dL (0.0-1.0); Blood Urea Nitrogen 8 mg/dL (9-16); Calcium 9.4 mg/dL (8.4-10.2); Carbon Dioxide 26 mmol/L (22-29); Chloride 104 mmol/L (96-108); Creatinine Clr Calc Pharmacy 113.6; Estimated Glomerular Filt Rate > 60; Glucose Random 98 mg/dL (60-115); Potassium 3.7 mmol/L (3.3-5.1); Sodium 139 mmol/L (135-145); Total Protein 7.1 g/dL (6.5-8.0)
--- NOTE | 2020-12-18 04:04 | PC.NURSE ---
PT RESTING ON STRETCHER AT THIS TIME RR 26, PT O2 SAT 100% ON 2L PT TACHY AROUND 110S. PT APPEARS MUCH MORE COMFORTABLE THAN UPON ARRIVAL. PT REQUESTING ADDITIONAL TX AT THIS TIME, PER MD WE WILL RE-EVAL
--- NOTE | 2020-12-18 07:30 | PHA.MEDREC ---
Pharmacy Consult ? Medication Reconciliation Pharmacy has completed the medication reconciliation.
[2020-12-18 09:17] LABS: COVID-19 Test Negative (Negative)
--- NOTE | 2020-12-18 09:17 | PM.IMHP ---
Assessment and Plan (1) Asthma exacerbation: Qualifiers: Asthma persistence: unspecified Asthma severity: unspecified severity Qualified Code(s): J45.901 - Unspecified asthma with (acute) exacerbation Status: Acute (2) Early stage of : Status: Acute (3) Hyperemesis: Status: Acute (4) Anxiety state, unspecified: Status: Acute 24 year female with chronic asthma since [facility] [place] [facility], anxiety, Depression and PTSD. She is 9 weeks and presents with exacerbation of asthma, manifested progressive shortness of breath, wheezing for 3 days now and is o longer responding to hre inhalers at home. 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 She is 9 weeks and presents with exacerbation of asthma, manifested progressive shortness of breath, wheezing for 3 days now and is o longer responding to hre inhalers at home. She has no fever, ocasional dry cough. No fever. WBC is 14. Xray was not done by ED. She extremely anxious as well. Covid is negative. . She is very tachycardic, especially when she becomes more anxious. Treated in ED: IV Solumedrol and Duoneb updraft. Review of Systems Review of Systems: Gen: no fever Resp: + sob, n+ cough CV: no chest, no BERNARD, no leg edema GI//Director Business Development: No n/v, no abd pain, no vaginal bleeding, no hematuria Neuro: No confusion Yes all other systems are reviewed and are negative [facility] Medical History (Updated 12/19/20 @ 11:31 by Placido Pedroza MD) Allergy to other foods Anxiety state, unspecified Asthma Bronchitis Dermatitis, unspecified Major depressive disorder, single episode, unspecified Mild persistent asthma, uncomplicated Patient : Yes (9 weeks) Family History Father Drug abuse Asthma Mother Hypertension Maternal Grandmother Ovarian cancer Family history: reviewed and not pertinent Surgical History History of section Social History Household Members: Family Household Members Other:: mom Housing: Apartment Alcohol intake: never Patient Tobacco Use Status: Former Tobacco user service: No Current occupational status: unemployed Gender identity: female Meds Allergies Allergy/AdvReac Type Severity Reaction Status Date / Time egg [EGG] Allergy Severe ANAPHYLAXIS Verified 12/18/20 02:37 fish derived [FISH] Allergy Severe ANAPHYLAXIS Verified 12/18/20 02:37 peanut [PEANUTS] Allergy Severe ITCHING Verified 12/18/20 02:37 shellfish derived Allergy Severe ANAPHYLAXIS Verified 12/18/20 02:37 [SHELLFISH DERIVED] cat dander Allergy Intermediate Hives Verified 12/18/20 02:37 dog dander Allergy Intermediate Hives Verified 12/18/20 02:37 house dust Allergy Intermediate Hives Verified 12/18/20 02:37 rice [RICE] AdvReac Intermediate CONSTIPATIO Verified 12/18/20 02:37 N Active Medications: Current Medications Generic Name Dose Route Start Last Admin Trade Name Freq PRN Reason Stop Dose Admin Acetaminophen 650 mg 12/18/20 09:10 Acetaminophen 325 Mg Tablet PO Q6H PRN Pain, Mild (Pain Scale 1-3) Dextrose 1,000 mls @ 125 mls/hr 12/18/20 09:30 D5w IVCONT .Q8H STEVAN Levalbuterol HCl 1.25 mg 12/18/20 12:00 Levalbuterol Hcl 1.25 Mg/0.5 Ml Vial.Neb INHALE RQ4H WHILE AWAKE STEVAN Levalbuterol HCl 1.25 mg 12/18/20 09:01 Levalbuterol Hcl 1.25 Mg/0.5 Ml Vial.Neb INHALE Q2H PRN Dyspnea Lorazepam 0.5 mg 12/18/20 09:06 Lorazepam 2 Mg/Ml Vial IVPUSH Q4H PRN anxiety Melatonin 3 mg 12/18/20 09:10 Melatonin 3 Mg Tablet PO BEDTIME PRN Insomnia Metoclopramide HCl 10 mg 12/18/20 09:03 Metoclopramide Hcl 10 Mg Tablet PO Q6H PRN nausea and vomiting Morphine Sulfate 2 mg 12/18/20 09:08 Morphine Sulfate 2 Mg/Ml Cartridge IVPUSH Q6H PRN Pain, Severe (Pain Scale 7-10) Ondansetron HCl 4 mg 12/18/20 09:09 Ondansetron Hcl 4 Mg/2 Ml Vial IVPUSH Q8H PRN Nausea and Vomitting Pharmacy Consult 1 each 12/18/20 06:09 Consult Rx Perform Med Rec MISCELLANE ONCE PRN Consult order Prednisone 40 mg 12/18/20 09:00 Prednisone 20 Mg Tablet PO Q6H [facility] Vit/Calcium/Iron/Folic Ac 1 tab 12/18/20 21:00 Vit27,Calcium/Iron/Fa Tablet PO BEDTIME [facility] Sodium Chloride 3 ml 12/18/20 16:00 0.9 % Sodium Chloride Flush 3 Ml Syringe IVFLUSH QSHIFT [facility] Triamcinolone Acetonide 1 appl 12/18/20 21:00 Triamcinolone Acet 0.1 % Oint 15 Gm Tube TOPICAL BID [facility] Home Medications Medication Instructions Recorded Confirmed Last Taken Type triamcinolone acetonide 0.1 % 1 appl TOPICAL BID 06/02/20 12/18/20 Unknown History topical ointment Physical Exam Vital Signs and Narrative: Vital Signs: Last Vital Signs Temp 99.2 F 12/18/20 02:37 Pulse 111 H 12/18/20 07:46 Resp 23 H 12/18/20 07:46 BP 123/62 12/18/20 02:37 Pulse Ox 99 12/18/20 07:46 Oxygen Flow Rate 2 12/18/20 02:37 Body Mass Index 19.9 Results Labs CBC and Chem 7: 12/18/20 02:22 12/18/20 02:22 Labs: Laboratory Results - last 24 hr 12/18/20 12/18/20 02:22 02:22 MCV 83.3 MCH 28.1 MCHC 33.7 RDW 14.1 Plt Count 337 MPV 9.9 Immature Gran % (Auto) 0.4 Neut % (Auto) 73.6 H Lymph % (Auto) 13.9 L Lyon % (Auto) 5.7 Eos % (Auto) 6.0 H Baso % (Auto) 0.4 Lymph # (Auto) 1.9 Lyon # (Auto) 0.8 Eos # (Auto) 0.8 H Baso # (Auto) 0.1 Abs Immat Gran (auto) 0.05 H Absolute Neuts (auto) 10.3 H Absolute Nucleated RBC 0.000 Nucleated RBC % (auto) 0.0 Anion Gap 13 Estim Creat Clear Calc 113.6 Estimated GFR > 60 Random Glucose 98 Calcium 9.4 Total Bilirubin 0.6 Direct Bilirubin 0.2 AST 16 ALT 11 Alkaline Phosphatase 58 Total Protein 7.1 Albumin 4.2 Quality Stroke Does the patient have a stroke diagnosis?: No VTE Prior VTE?: No VTE Risk Level:: Surgical - moderate VTE Device Contraindication: Treatment Not Indicated VTE Drug Contraindication: N/A - Med Ordered
[2020-12-18] MEDS: predniSONE 20 MG TABLET 40 MG PO ×3 (10:56→20:50)
--- NOTE | 2020-12-18 10:57 | P.CONOB_ITS ---
OB - CN: A/P Assessment and Plan (1) Asthma exacerbation: Status: Acute Assessment and Plan: Discussed with the patient asthma and its effects on and the impact of asthma secondary to . Explained to the patient that 1/3 of asthma pa tients stays the same, 1/3 improves and and 1/3 of patients will have exacerbation of the asthma during , which seems to case in her situation. Discussed with the patient the possible complications related to asthma in including but not limited to: increased risks of spontaneous , hyperemesis, uterine hemorrhage, preeclampsia, complicated labor, mortality, prematurity, hypertensive disorders, and low birthweight infants. Discussed with the patient that potential risks of the use of systemic cortisone in includes. An increase in the risk of congenital malformation, cleft palate, preeclampsia, gestational diabetes, low weight and adrenal insufficiency, in addition to an increase in the risk of prematurity and low weight. However explained to the patient that the use of systemic steroid should be balanced against the risks to the mother and the infant of inadequately treated asthma. As the risks of severe uncontrolled asthma include maternal or mortality, these risks are considered greater than the potential risk of systemic glucocorticoids (2) Early stage of : Status: Acute Assessment and Plan: vitamin 1 tablet p.o. q.d. when tolerating p.o. diet (3) Hyperemesis: Status: Acute Assessment and Plan: IV hydration and treat with either Reglan, Compazine, Zofran or Phenergan to control vomiting. Once nausea and vomiting is controlled if p.o. challenge is s uccessful switched to p.o. antiemetics (4) Anxiety state, unspecified: Status: Acute Assessment and Plan: Discussed with the patient that the benefits versus the risk of using benzodiazepine in ; explained to the patient that a lot of medical studies has been shown no correlation of its use to any major congenital malformations but in other studies it has been associated with and increase the risk of spontaneous , and low weight in addition to teratogenicity, oral cleft lip or bilateral by pylorostenosis. Chronic administration of benzodiazepine has been linked to a toxicity and withdrawal around delivery. The patient verbalized understanding. (5) Spotting in first trimester: Status: Acute Assessment and Plan: Discussed with the patient the findings on ultrasound, subchorionic bleed and risk of SAB. Since the patient is having pelvic cramping with vaginal spotting repeat ultrasound as a follow-up. The patient verbalized understand OB Consult Note - HPI Data Service Date: 12/18/20 Requesting Physician: Lavon Orr MD Primary Care Provider: Unknown Physician Narrative Michaelle Brownlee is a 24 year old female [phone] para [id number] who presented to the emergency room at 8 weeks and 6 days of gestation by an early ultrasound with exacerbation of her asthma, not responding to usual albuterol treatment dose. No recent upper respiratory tract infection, the patient is also complaining of vaginal spotting and pelvic cramping. Ultrasound done and 12/06/20 showed a single intrauterine gestation. heart rate 165 bpm with a yolk sac is present Causey-rump length 0.99 cm making her at the day of the ultrasound at 7weeks 1 day. KELLI 07/24/2021. In addition there was a small subchorionic bleed is again demonstrated. The volume of the bleed is similar to prior ultrasound of December 03, 2020. 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 Review of Systems ROS Unobtainable: All systems reviewed & are unremarkable except as noted in HPI and below Cardiovascular: Denies Palpatations, Loss of consciousness and Chest pain Respiratory: Denies Cough, Wheezing and Shortness of breath Musculoskeletal: Denies Low back pain Gastrointestinal: Denies Heartburn, Constipation, Diarrhea, Nausea and Vomiting Genitourinary: Denies Pain with urination, Burning with urination and Urinary frequency Neurological: Denies Migranes Psychological: Denies Depression OB [facility] Past Medical History Medical History Allergy to other foods Anxiety state, unspecified Asthma Dermatitis, unspecified Major depressive disorder, single episode, unspecified Mild persistent asthma, uncomplicated Family History Family History Father Drug abuse Asthma Mother Hypertension Maternal Grandmother Ovarian cancer Family history: reviewed and not pertinent Surgical History Surgical History History of section Social History Social History Alcohol intake: never Patient Tobacco Use Status: Former Tobacco user Advance Directives: No Advance Directives Information Provided: No Patient : Yes (9 weeks) Gender identity: female Meds Allergies Allergy/AdvReac Type Severity Reaction Status Date / Time egg [EGG] Allergy Severe ANAPHYLAXIS Verified 12/18/20 02:37 fish derived [FISH] Allergy Severe ANAPHYLAXIS Verified 12/18/20 02:37 peanut [PEANUTS] Allergy Severe ITCHING Verified 12/18/20 02:37 shellfish derived Allergy Severe ANAPHYLAXIS Verified 12/18/20 02:37 [SHELLFISH DERIVED] cat dander Allergy Intermediate Hives Verified 12/18/20 02:37 dog dander Allergy Intermediate Hives Verified 12/18/20 02:37 house dust Allergy Intermediate Hives Verified 12/18/20 02:37 rice [RICE] AdvReac Intermediate CONSTIPATIO Verified 12/18/20 02:37 N Active Medications: Current Medications Generic Name Dose Route Start Last Admin Trade Name Freq PRN Reason Stop Dose Admin Acetaminophen 650 mg 12/18/20 09:10 Acetaminophen 325 Mg Tablet PO Q6H PRN Pain, Mild (Pain Scale 1-3) Dextrose 1,000 mls @ 125 mls/hr 12/18/20 09:30 D5w IVCONT .Q8H STEVAN Levalbuterol HCl 1.25 mg 12/18/20 12:00 Levalbuterol Hcl 1.25 Mg/0.5 Ml Vial.Neb INHALE RQ4H WHILE AWAKE STEVAN Levalbuterol HCl 1.25 mg 12/18/20 09:01 Levalbuterol Hcl 1.25 Mg/0.5 Ml Vial.Neb INHALE Q2H PRN Dyspnea Lorazepam 0.5 mg 12/18/20 09:06 Lorazepam 2 Mg/Ml Vial IVPUSH Q4H PRN anxiety Melatonin 3 mg 12/18/20 09:10 Melatonin 3 Mg Tablet PO BEDTIME PRN Insomnia Metoclopramide HCl 10 mg 12/18/20 09:03 Metoclopramide Hcl 10 Mg Tablet PO Q6H PRN nausea and vomiting Morphine Sulfate 2 mg 12/18/20 09:08 Morphine Sulfate 2 Mg/Ml Cartridge IVPUSH Q6H PRN Pain, Severe (Pain Scale 7-10) Ondansetron HCl 4 mg 12/18/20 09:09 Ondansetron Hcl 4 Mg/2 Ml Vial IVPUSH Q8H PRN Nausea and Vomitting Pharmacy Consult 1 each 12/18/20 06:09 Consult Rx Perform Med Rec MISCELLANE ONCE PRN Consult order Prednisone 40 mg 12/18/20 09:00 Prednisone 20 Mg Tablet PO Q6H STEVAN Vit/Calcium/Iron/Folic Ac 1 tab 12/18/20 21:00 Vit27,Calcium/Iron/Fa Tablet PO BEDTIME STEVAN Sodium Chloride 3 ml 12/18/20 16:00 0.9 % Sodium Chloride Flush 3 Ml Syringe IVFLUSH QSHIFT STEVAN Triamcinolone Acetonide 1 appl 12/18/20 21:00 Triamcinolone Acet 0.1 % Oint 15 Gm Tube TOPICAL BID [facility] Home Medications Medication Instructions Recorded Confirmed Last Taken Type triamcinolone acetonide 0.1 % 1 appl TOPICAL BID 06/02/20 12/18/20 Unknown History topical ointment OB Flowsheet OB Flowsheet & Tools History 4 Elective abortions Para 3 Spontaneous abortions Hx # Term Pregnancies 3 Ectopic pregnancies Hx # Pregnancies Multiple births OB Physical Exam Evaluation Gestational Age: Eight weeks and 6 of gestation by an early ultrasound OB Consult Results Labs CBC & Chem 7: 12/18/20 02:22 12/18/20 02:22 Labs: Short CBC 12/18/20 Range/Units 02:22 WBC 14.0 H (4.8-10.8) X10*3/uL Hgb 12.8 (12.0-16.0) g/dl Hct 38.0 (37-47) % Plt Count 337 (160-400) X10*3/uL BMP 12/18/20 02:22 Sodium 139 Potassium 3.7 Chloride 104 Carbon Dioxide 26 BUN 8 L Creatinine 0.62 Calcium 9.4 Liver Function 12/18/20 Range/Units 02:22 Total Bilirubin 0.6 (0.0-1.0) mg/dL Direct Bilirubin 0.2 (0.0-0.5) mg/dL AST 16 (5-31) U/L ALT 11 (0-31) U/L Alkaline Phosphatase 58 (39-117) U/L Albumin 4.2 (3.5-5.0) g/dL
[2020-12-18] MEDS: Dextrose 5 % 1,000 ML 125 ML IVCONT (10:58)
[2020-12-18] MEDS: LORazepam 2 MG/ML VIAL 0.5 MG IVPUSH (12:03)
[2020-12-18] MEDS: ondansetron HCL 4 MG/2 ML VIAL IVPUSH (12:03)
--- NOTE | 2020-12-18 16:23 | PC.NURSE ---
pt resting in bed, reports feeling comfortable and less anxious. she continues to await bed assignement. D5W started at 125 ml/hr
--- NOTE | 2020-12-18 16:48 | PC.NURSE ---
PATIENT STOOD UP AND URINATED OF FLOOR.
[2020-12-18] MEDS: Acetaminophen 325 MG TABLET 650 MG PO (20:50)
[2020-12-18] MEDS: Triamcinolone Acet 0.1 % Oint 15 GM TUBE 1 APPL TOPICAL (23:11)
[2020-12-19] VITALS (9 sets, daily range): BP systolic 106–140; BP diastolic 54–63; PULSE 70–102; RESP 16–18; TEMP 36.4–36.9; O2SAT 94–98
[2020-12-19] MEDS: Dextrose 5 % 1,000 ML 125 ML IVCONT (00:44)
[2020-12-19] MEDS: predniSONE 20 MG TABLET 40 MG PO ×2 (02:57→08:15)
[2020-12-19] MEDS: Acetaminophen 325 MG TABLET 650 MG PO ×3 (04:49→17:27)
[2020-12-19] MEDS: Triamcinolone Acet 0.1 % Oint 15 GM TUBE 1 APPL TOPICAL ×2 (08:16→20:45)
[2020-12-19] MEDS: Morphine Sulfate 2 MG/ML CARTRIDGE IVPUSH ×2 (10:04→16:05)
--- NOTE | 2020-12-19 10:54 | MHC.CM.PN ---
CM MET WITH PT WHO REPORTS SHE AND HER BF AND THREE CHILDREN ARE STAYING AT HER MOTHERS APARTMENT. SHE REPORTS THE [place] IS PRESSURING HER AND HER FAMILY TO MOVE OUT IT IS TWO FAMILIES IN A TWO BEDROOM APARTMENT. PT REPORTS SHE IS INTERESTED IN GETTING INTO A FAMILY SENIOR LIVING. CM EXPLAINED THE PROCESS AND PT INDICATED SHE IS CONNECTED WITH [facility] AND WILL CONTACT THEM. PT DENIES HAVING ANY HOME OR COMMUNITY SERVICES. SHE REPORTS SHE HAS A NEBULIZER AT HOME BUT NO MEDICATION TO GO WITH IT, SHE ALSO REPORTS HAVING NO INHALERS. PT IS INTERESTED IN DOING A HCP TODAY, CM WILL RETURN WITH PREPARED DOCUMENT FOR HER TO SIGN. PT REPORTS HER PCP IS DR KIM AND SHE HAS AN OB-HOUSE PIPING INSPECTOR AT [facility] BUT HAS NOT YET SEEN THEM FOR INTAKE. CURRENT DC PLAN IS HOME PT WILL SELF ARRANGE TRANSPORT
--- NOTE | 2020-12-19 11:23 | PM.CNPUL ---
Assessment and Plan (1) Asthma exacerbation: Qualifiers: Asthma persistence: unspecified Asthma severity: unspecified severity Qualified Code(s): J45.901 - Unspecified asthma with (acute) exacerbation Status: Acute Patient to can be treated for acute exacerbation, with IV Solu-Medrol 40 mg q.8 hours for 1 day then switched to prednisone 40 mg a day, and because of her frequent to requirement for prednisone, this time it may be weaned of by 10 mg on a weekly basis. Patient may benefit from 1 course of azithromycin( Z-pack ) Because of tachycardia may change the chair albuterol to levalbuterol 2 puffs Q 4-6 hours p.r.n.. (2) Bronchitis: Status: Acute There is a wake his illness in the left base which may indicate mild pneumonitis, and she does have coarsening of the bronchovascular markings consistent with bronchitis. She also has moderate leukocytosis which may be partly due to steroids. Anyway a course of azithromycin as noted above with be helpful. History of Present Illness History of Present Illness Consult date: 12/19/20 Chief complaint: Asthma exacerbation Narrative: This 24 years old female is admitted with the about 3 days history of increased cough congested feeling and shortness of breath, with some wheezing. She had a recent visit to the emergency room for the same symptoms and has been on prednisone 20 mg a day. In addition she uses albuterol 2 puffs Q 4-6 hours p.r.n. which was not helping, Because of the frequent use of her albuterol she was developing anxiety and tachycardia The patient is the 3 3 months . She has to be lot of 0 allergies the noted in her list including eggs Fe she P notes the get tender dog dander house dust etc. She also has chronic posttraumatic stress disorder/anxiety. She has chronic dermatitis problem with recurrent skin lesions especially on the back. Review of Systems Review of Systems: Yes all other systems are reviewed and are negative [facility] Past Medical History Medical History (Updated 12/19/20 @ 11:31 by Placido Pedroza MD) Allergy to other foods Anxiety state, unspecified Asthma Bronchitis Dermatitis, unspecified Major depressive disorder, single episode, unspecified Mild persistent asthma, uncomplicated Family History Family History Father Drug abuse Asthma Mother Hypertension Maternal Grandmother Ovarian cancer Family history: reviewed and not pertinent Surgical History Surgical History History of section Social History Social History Household Members: Family Household Members Other:: mom Housing: Apartment Alcohol intake: never Patient Tobacco Use Status: Former Tobacco user service: No Current occupational status: unemployed Gender identity: female Meds Allergies Allergy/AdvReac Type Severity Reaction Status Date / Time egg [EGG] Allergy Severe ANAPHYLAXIS Verified 12/18/20 02:37 fish derived [FISH] Allergy Severe ANAPHYLAXIS Verified 12/18/20 02:37 peanut [PEANUTS] Allergy Severe ITCHING Verified 12/18/20 02:37 shellfish derived Allergy Severe ANAPHYLAXIS Verified 12/18/20 02:37 [SHELLFISH DERIVED] cat dander Allergy Intermediate Hives Verified 12/18/20 02:37 dog dander Allergy Intermediate Hives Verified 12/18/20 02:37 house dust Allergy Intermediate Hives Verified 12/18/20 02:37 rice [RICE] AdvReac Intermediate CONSTIPATIO Verified 12/18/20 02:37 N Active Medications: Current Medications Generic Name Dose Route Start Last Admin Trade Name Freq PRN Reason Stop Dose Admin Acetaminophen 650 mg 12/18/20 09:10 12/19/20 11:02 Acetaminophen 325 Mg Tablet PO 650 mg Q6H PRN Administration Pain, Mild (Pain Scale 1-3) Levalbuterol HCl 1.25 mg 12/18/20 12:00 12/19/20 08:51 Levalbuterol Hcl 1.25 Mg/0.5 Ml Vial.Neb INHALE 1.25 mg RQ4H WHILE AWAKE STEVAN Administration Levalbuterol HCl 1.25 mg 12/18/20 09:01 Levalbuterol Hcl 1.25 Mg/0.5 Ml Vial.Neb INHALE Q2H PRN Dyspnea Lorazepam 0.5 mg 12/18/20 09:06 12/18/20 12:03 Lorazepam 2 Mg/Ml Vial IVPUSH 0.5 mg Q4H PRN Administration anxiety Melatonin 3 mg 12/18/20 09:10 Melatonin 3 Mg Tablet PO BEDTIME PRN Insomnia Metoclopramide HCl 10 mg 12/18/20 09:03 Metoclopramide Hcl 10 Mg Tablet PO Q6H PRN nausea and vomiting Morphine Sulfate 2 mg 12/18/20 09:08 12/19/20 10:04 Morphine Sulfate 2 Mg/Ml Cartridge IVPUSH 2 mg Q6H PRN Administration Pain, Severe (Pain Scale 7-10) Ondansetron HCl 4 mg 12/18/20 09:09 12/18/20 12:03 Ondansetron Hcl 4 Mg/2 Ml Vial IVPUSH 4 mg Q8H PRN Administration Nausea and Vomitting Pharmacy Consult 1 each 12/18/20 06:09 Consult Rx Perform Med Rec MISCELLANE ONCE PRN Consult order Vit/Calcium/Iron/Folic Ac 1 tab 12/18/20 21:00 12/18/20 20:51 Vit27,Calcium/Iron/Fa Tablet PO 1 tab BEDTIME STEVAN Administration Sodium Chloride 3 ml 12/18/20 16:00 12/19/20 09:23 0.9 % Sodium Chloride Flush 3 Ml Syringe IVFLUSH Not Given QSHIFT STEVAN Triamcinolone Acetonide 1 appl 12/18/20 21:00 12/19/20 08:16 Triamcinolone Acet 0.1 % Oint 15 Gm Tube TOPICAL 1 appl BID STEVAN Administration Home Medications Medication Instructions Recorded Confirmed Last Taken Type triamcinolone acetonide 0.1 % 1 appl TOPICAL BID 06/02/20 12/18/20 Unknown History topical ointment Physical Exam Vital Signs: Vital Signs: Last Vital Signs Temp 97.8 F 12/19/20 07:54 Pulse 80 12/19/20 08:52 Resp 16 12/19/20 07:54 BP 121/56 L 12/19/20 07:54 Pulse Ox 98 12/19/20 07:54 Oxygen Flow Rate 2 12/18/20 02:37 Body Mass Index 19.9 Const: General: comfortable, no acute distress, alert and awake Orientation/consciousness: patient oriented x3 HENMT: Head: Yes normal to inspection General nose exam: No nasal polyps present and No nasal discharge present Face and sinus: Yes sinuses nontender Mouth: oropharynx normal Throat: Yes posterior oropharynx normal Eyes: General: appearance normal, both eyes and all related structures Neck: Neck: Yes normal visual inspection, Yes no lymphadenopathy, Yes trachea midline and Yes no JVD Thyroid: Thyroid normal Chest: Chest palpation & inspection: normal inspection of the chest, normal palpation of entire chest wall and no tenderness Resp: Other: She does have good breath sounds on both sides, She has scattered but few expiratory wheezes. No crepitations or pleural rub is heard . Cardio: Palpation: normal PMI Rate: regular rate Rhythm: regular rhythm Heart sounds: Gallop heart sound present and Murmur heart sound present Peripheral pulses: Peripheral pulses 2+ throughout GI: Palpation (GI): Soft to palpation, nontender, No hepatosplenomegaly present and no masses Auscultation: normal bowel sounds Back/Spine/Pelvis: Thoracic/Lumbar Spine: thoracic and lumbar spine normal to inspection Skin: Lesions: lesion noted (Multiple excoriated places on the back or noted) Neuro: General: patient oriented x3 and no focal motor deficits Cranial nerves: Yes CN's II-XII intact bilaterally Extrem: General: Yes normal to inspection, Yes no clubbing, cyanosis or edema and Yes no calf tenderness Psych: Speech and movement: Normal speech and movement present Results Laboratory Findings CBC and BMP: 12/18/20 02:22 12/18/20 02:22 Abnormal lab findings: Abnormal Labs 12/18/20 12/18/20 02:22 02:22 WBC 14.0 H Neut % (Auto) 73.6 H Lymph % (Auto) 13.9 L Eos % (Auto) 6.0 H Eos # (Auto) 0.8 H Abs Immat Gran (auto) 0.05 H Absolute Neuts (auto) 10.3 H BUN 8 L Procedures Date of Service Date of Service: 12/19/20
--- NOTE | 2020-12-19 12:15 | HO.PM.IMPN ---
Subjective Subjective Date of Service: 12/19/20 Interval History: F/u on ashtma, better, less anxious, tachycardia resolved. Review of Systems Gen: no fever Resp: + sob, n+ cough CV: no chest, no BERNARD, no leg edema GI//Tower Control Operator: No n/v, no abd pain, no vaginal bleeding, no hematuria Neuro: No confusion Physical Exam Vital Signs: Vital Signs: Last Vital Signs Temp 97.8 F 12/19/20 11:32 Pulse 98 12/19/20 11:57 Resp 18 12/19/20 11:32 BP 110/58 L 12/19/20 11:32 Pulse Ox 97 12/19/20 11:32 Oxygen Flow Rate 2 12/18/20 02:37 Body Mass Index 19.9 Const: Other: General: AO X 3, no acute distress Resp: slight wheeze beka, no accesory muscle use, talking in full sentences CVS: S1,S2,RRR GI: +BS, NT, no distention Skin: No rash Neuro: motor grossly intact Psych: appropriate affect Objective Data Current Medications Generic Name Dose Route Start Last Admin Trade Name Freq PRN Reason Stop Dose Admin Acetaminophen 650 mg 12/18/20 09:10 12/19/20 11:02 Acetaminophen 325 Mg Tablet PO 650 mg Q6H PRN Administration Pain, Mild (Pain Scale 1-3) Levalbuterol HCl 1.25 mg 12/18/20 12:00 12/19/20 11:57 Levalbuterol Hcl 1.25 Mg/0.5 Ml Vial.Neb INHALE 1.25 mg RQ4H WHILE AWAKE STEVAN Administration Levalbuterol HCl 1.25 mg 12/18/20 09:01 Levalbuterol Hcl 1.25 Mg/0.5 Ml Vial.Neb INHALE Q2H PRN Dyspnea Lorazepam 0.5 mg 12/18/20 09:06 12/18/20 12:03 Lorazepam 2 Mg/Ml Vial IVPUSH 0.5 mg Q4H PRN Administration anxiety Melatonin 3 mg 12/18/20 09:10 Melatonin 3 Mg Tablet PO BEDTIME PRN Insomnia Metoclopramide HCl 10 mg 12/18/20 09:03 Metoclopramide Hcl 10 Mg Tablet PO Q6H PRN nausea and vomiting Morphine Sulfate 2 mg 12/18/20 09:08 12/19/20 10:04 Morphine Sulfate 2 Mg/Ml Cartridge IVPUSH 2 mg Q6H PRN Administration Pain, Severe (Pain Scale 7-10) Ondansetron HCl 4 mg 12/18/20 09:09 12/18/20 12:03 Ondansetron Hcl 4 Mg/2 Ml Vial IVPUSH 4 mg Q8H PRN Administration Nausea and Vomitting Pharmacy Consult 1 each 12/18/20 06:09 Consult Rx Perform Med Rec MISCELLANE ONCE PRN Consult order Vit/Calcium/Iron/Folic Ac 1 tab 12/18/20 21:00 12/18/20 20:51 Vit27,Calcium/Iron/Fa Tablet PO 1 tab BEDTIME STEVAN Administration Sodium Chloride 3 ml 12/18/20 16:00 12/19/20 09:23 0.9 % Sodium Chloride Flush 3 Ml Syringe IVFLUSH Not Given QSHIFT STEVAN Triamcinolone Acetonide 1 appl 12/18/20 21:00 12/19/20 08:16 Triamcinolone Acet 0.1 % Oint 15 Gm Tube TOPICAL 1 appl BID STEVAN Administration Labs CBC & Chem 7: 12/18/20 02:22 12/18/20 02:22 Quality Stroke Does the patient have a stroke diagnosis?: No VTE Prior VTE?: No VTE Risk Level:: Surgical - moderate VTE Device Contraindication: Treatment Not Indicated VTE Drug Contraindication: N/A - Med Ordered Assessment and Plan (1) Asthma exacerbation: Status: Acute (2) Early stage of : Status: Acute (3) Hyperemesis: Status: Acute (4) Anxiety state, unspecified: Status: Acute Assessment and Plan: 24 year female with chronic [facility], anxiety, Depression and PTSD. She is 9 weeks and presents with exacerbation of asthma, manifested progressive shortness of breath, wheezing for 3 days now and is o longer responding to hre inhalers at home. 1/Asthama exacerbation--complicated by -continue corticosteroid -Xopenex in light of tachycardia -Pulmonology conuslt noted -CXR--no PNA 2/ Anxiety/PTSD/--Ativan PRN 3/--with recent documentation of subhorionic bleed, avoid heparin/lovenox until discuss with GENERAL COUNSELOR/Tower Control Operator consult, continue vitamins DVT proph: boots, incrase risk of bleeding given recent spoting and chorionic bleed, compression device Discharge tomorrow
[2020-12-19] MEDS: 0.9 % Sodium Chloride Flush 3 ML SYRINGE IVFLUSH (16:05)
[2020-12-19] MEDS: methylPREDNISolone Sod Succ 40 MG/ML VIAL IVPUSH (16:09)
[2020-12-20] MEDS: 0.9 % Sodium Chloride Flush 3 ML SYRINGE IVFLUSH ×2 (01:18→07:55)
[2020-12-20] MEDS: methylPREDNISolone Sod Succ 40 MG/ML VIAL IVPUSH ×2 (01:20→07:51)
[2020-12-20 03:30] VITALS: BP 104/58; PULSE 71; RESP 18; TEMP 36.4; O2SAT 96
[2020-12-20 07:39] VITALS: PULSE 84; O2SAT 97
[2020-12-20 08:00] VITALS: BP 106/53; PULSE 85; RESP 20; TEMP 36.9; O2SAT 97
[2020-12-20] MEDS: Acetaminophen 325 MG TABLET 650 MG PO (08:07)
[2020-12-20] MEDS: Morphine Sulfate 2 MG/ML CARTRIDGE IVPUSH (08:09)
[2020-12-20] MEDS: Triamcinolone Acet 0.1 % Oint 15 GM TUBE 1 APPL TOPICAL (08:11)
--- NOTE | 2020-12-20 10:35 | PM.DS ---
DS: Providers Provider Date of Service: 12/20/20 Date of admission: 12/18/20 09:12 Primary care physician: Unknown Physician Consults: 12/18/20 09:14 Consult to Pulmonology Routine Consulting Provider: Placido Pedroza Reason for consultation: Asthma exacerbation Has provider been notified: No 12/18/20 09:28 Consult to Obstetrics / Gynecology Routine Consulting Provider: Dwight Medina Reason for consultation: High risk pregant 9 weeks, last US subchorionic bleed, check status Has provider been notified: No DS: Diagnosis Discharge Diagnosis (1) Asthma exacerbation: Status: Acute (2) Early stage of : Status: Acute (3) Hyperemesis: Status: Acute (4) Anxiety state, unspecified: Status: Acute DS: Medications Discharge Medications Home Medications: Home Medications Medication Instructions Recorded Confirmed triamcinolone acetonide 0.1 % 1 appl TOPICAL BID 06/02/20 12/18/20 topical ointment Previous Rx's Medication Instructions Recorded nebulizer and compressor #1 ea 04/28/20 albuterol sulfate 2.5 mg INHALATION Q4-6H PRN 30 05/13/20 Days #75 ml albuterol sulfate 90 mcg/actuation 2 inh INHALATION Q4-6H PRN 30 Days 05/20/20 breath activated powder inhaler #1 ea metoclopramide HCl [Reglan] 10 mg PO Q6H PRN #20 tab 11/30/20 ondansetron 8 mg disintegrating 8 mg PO Q8H PRN #90 tab 11/30/20 tablet acetaminophen [Tylenol Extra 1,000 mg PO QID PRN #14 tab 12/03/20 Strength] prenat.vits,manda,[id number] 1 tab PO BEDTIME #30 tab 12/03/20 prednisone See Taper PO DAILY #70 tab 12/20/20 DS: Summary Hospital Course Hospital Course: Chief Complaint: Shortness of breath 24 year female with chronic asthma [facility], anxiety, Depression and PTSD. She is 9 weeks for her 4th child and presents with exacerbation of asthma, manifested progressive shortness of breath, wheezing for 3 days now and is o longer responding to hre inhalers at home. She has no fever, ocasional dry cough. No fever. WBC is 14. Xray was not done by ED. She extremely anxious as well. Covid is negative. . She is very tachycardic, especially when she becomes more anxious. Treated in ED: IV Solumedrol and Duoneb updraft. Hospital course: Patient was admitted and treated with corticosteroid, bronchodilator by Nebuliers (Xopenex). Xopenex used because marked tachycardia. She was also highly anxious and was impacting her respiratory status and treated with ativan--riske and benefit of using this agents was fully disclose with her by myself and GYNl, she understood this was willing to take. She was seen in consultation by Pulmonology (Dr. Pedroza) and recommend slow amadou of Prednisone at discharge with 40 mg daily and decreasing by 10 mg every week. At the present time she has significantly improved, tachycardia resolved, brething comfortably, lung exam is nearly clear, she will be discharge with prednisone and to continue her bronchodilators at home. She should follow up with COMPLIANCE REPRESENTATIVE DEALER on outpatient outpatient, she has known history of spoting and chorionic bleed seen on US and COMPLIANCE REPRESENTATIVE DEALER is following this. Advise to continue regular prenatral checks and to continue pre kate vitamins Time Spent with Patient Time attestation: Total time spent providing and/or coordinating discharge services: Discharge coordination time: Greater than 30 minutes Quality: Stroke Does the patient have a stroke diagnosis?: No Physical Exam Vital Signs: Vital Signs: Last Vital Signs Temp 98.5 F 12/20/20 08:00 Pulse 85 12/20/20 08:00 Resp 20 12/20/20 08:00 BP 106/53 L 12/20/20 08:00 Pulse Ox 97 12/20/20 08:00 Oxygen Flow Rate 2 12/18/20 02:37 Body Mass Index 19.9 Const: Other: General: AO X 3, no acute distress Resp: CTA bilateral CVS: S1,S2,RRR GI: +BS, NT, no distention Skin: No rash Neuro: motor grossly intact Psych: appropriate affect Discharge Plan Discharge Anticipated Discharge Date/Time: 12/20/20 10:24 Patient Disposition: Home, Self-Care Discharge Diagnosis: Asthma exacerbation Referrals: Physician,Unknown [Primary Care Provider] - 1 Week Discharge Medications: New prednisone 10 mg tablet See Taper mg PO DAILY Qty: 70 RF: 0 Continued albuterol sulfate 2.5 mg /3 mL (0.083 %) solution for nebulization 2.5 mg inhalation Q4-6H PRN (Reason: shortness of breath or wheezing) 30 Days Qty: 75 RF: 6 albuterol sulfate 90 mcg/actuation aerosol powdr breath activated 2 inh inhalation Q4-6H PRN (Reason: shortness of breath or wheezing) 30 Days Qty: 1 RF: 0 ondansetron 8 mg tablet,disintegrating 8 mg PO Q8H PRN (Reason: nausea and vomiting) Qty: 90 RF: 1 (DME) nebulizer and compressor Device See Rx Instructions .ROUTE .MEDSUPPLY Qty: 1 RF: 0 metoclopramide HCl [Reglan] 10 mg tablet 10 mg PO Q6H PRN (Reason: nausea and vomiting) Qty: 20 RF: 0 acetaminophen [Tylenol Extra Strength] 500 mg tablet 1,000 mg PO QID PRN (Reason: fever or pain) Qty: 14 RF: 0 prenat.vits,manda,[id number] Tablet 1 tab PO BEDTIME Qty: 30 RF: 0 triamcinolone acetonide 0.1 % ointment 1 appl topical BID RF: 0 Discharge Orders: Discharge Order (Routine); Ordered 12/20/20 Ordered By: Lavon Orr Diet: advance to usual diet Activity on Discharge: As tolerated Stand Alone Forms: Patient Portal Discharge page Care Plan Goals: Full recovery from asthma exacerbation Health Concerns: asthma, pregancy Plan of Treatment: Take Prednisone as recommended and continue taking your inhalers follow up with your campus rep or geothermal operations engineer Assessment: as above
--- NOTE | 2020-12-20 10:51 | MHC.CM.PN ---
PT CLEARED TO DC HOME WITH NO SERVICES. FAMILY TO TRANSPORT
[2020-12-20 11:28] VITALS: PULSE 74; O2SAT 96
[2020-12-20 12:00] VITALS: BP 111/55; PULSE 101; RESP 18; TEMP 36.4
== END 2020-12-20 13:19 | disposition home or self-care (01) | DRG 566 ==
LOC: HO.ED 06:12 → HO.EDOVER 10:12 → HO.IMC 18:37
PROVIDERS: Admitting Provider Internal Medicine; Emergency Provider Emergency Medicine; Visit Provider Internal Medicine
DX: O99.511 Diseases of the respiratory system complicating pregnancy, first trimester (principal); J45.901 Unspecified asthma with (acute) exacerbation; Z20.822 Contact with and (suspected) exposure to COVID-19; Z3A.09 9 weeks gestation of pregnancy; O21.0 Mild hyperemesis gravidarum; O99.341 Other mental disorders complicating pregnancy, first trimester; F41.9 Anxiety disorder, unspecified; F43.10 Post-traumatic stress disorder, unspecified; Z87.891 Personal history of nicotine dependence; Z79.899 Other long term (current) drug therapy
CPT/HCPCS: 36415; 71046; 76801; 80048; 80076; 85025; 87635; 99285; J2060; J2270; J2405; J2920; J2930; J3475

== ENCOUNTER 2021-01-17 15:20 | Emergency (ER) | payer OTHER, SELFPAY ==
[2021-01-17 15:47] VITALS: BP 95/68; PULSE 89; RESP 18; TEMP 36.5; O2SAT 100; BMI 24.7
--- NOTE | 2021-01-17 20:03 | ED.ABDPAIN ---
HPI - Abdominal Pain General Chief Complaint: Abdominal Pain Stated Complaint: cramping, 14 weeks Time Seen by Provider: 01/17/21 19:57 Source: patient Mode of arrival: ambulatory Limitations: no limitations History of Present Illness HPI narrative: 25 yo female with a past medical history of anxiety, poorly controlled asthma here with complaints of lower abdominal cramping bilateral with pain that radiates up into the left flank for 3 days. No urinary symptoms, vomiting, diarrhea, fevers or chills no vaginal bleeding. Patient is currently approximately 14 weeks she is . She had an ultrasound to confirm IUP most recently 12/18/20. Related Data Home Medications Medication Instructions Recorded Confirmed triamcinolone acetonide 0.1 % 1 appl TOPICAL BID 06/02/20 12/18/20 topical ointment Previous Rx's Medication Instructions Recorded nebulizer and compressor #1 ea 04/28/20 albuterol sulfate 2.5 mg INHALATION Q4-6H PRN 30 05/13/20 Days #75 ml albuterol sulfate 90 mcg/actuation 2 inh INHALATION Q4-6H PRN 30 Days 05/20/20 breath activated powder inhaler #1 ea metoclopramide HCl 10 mg tablet 10 mg PO Q6H PRN #20 tab 11/30/20 (Reglan) ondansetron 8 mg disintegrating 8 mg PO Q8H PRN #90 tab 11/30/20 tablet acetaminophen 500 mg tablet 1,000 mg PO QID PRN #14 tab 12/03/20 (Tylenol Extra Strength) prenat.vits,manda,pet-immz-[id number] 1 tab PO BEDTIME #30 tab 12/03/20 prednisone 10 mg tablet See Taper PO DAILY #70 tab 12/20/20 Allergies Allergy/AdvReac Type Severity Reaction Status Date / Time egg [EGG] Allergy Severe ANAPHYLAXIS Verified 12/18/20 02:37 fish derived [FISH] Allergy Severe ANAPHYLAXIS Verified 12/18/20 02:37 peanut [PEANUTS] Allergy Severe ITCHING Verified 12/18/20 02:37 shellfish derived Allergy Severe ANAPHYLAXIS Verified 12/18/20 02:37 [SHELLFISH DERIVED] cat dander Allergy Intermediate Hives Verified 12/18/20 02:37 dog dander Allergy Intermediate Hives Verified 12/18/20 02:37 house dust Allergy Intermediate Hives Verified 12/18/20 02:37 rice [RICE] AdvReac Intermediate CONSTIPATIO Verified 12/18/20 02:37 N Review of Systems Review of Systems Yes all other systems are reviewed and are negative Constitutional: Reports no additional constitutional complaints, Denies body ache(s), Denies chills, Denies fever(s), Denies headache(s) and Denies weakness Eyes: Reports no additional eye complaints and Denies change in vision Reports system reviewed and no additional complaints, except as documented, Denies dizziness, Denies headache(s), Denies nasal congestion, Denies nasal discharge and Denies neck pain Cardiovascular: Reports no additional cardiovascular complaints, Denies chest pain, Denies leg edema and Denies dyspnea Respiratory: Reports no additional respiratory complaints, Denies cough and Denies dyspnea Gastrointestinal: Reports no additional gastrointestinal complaints, Reports abdominal pain, Denies diarrhea, Denies nausea and Denies vomiting Genitourinary: Reports no additional female genitourinary complaints and Denies urinary incontinence Musculoskeletal: Reports no additional musculoskeletal complaints, Reports back pain, Denies arthralgias, Denies joint swelling, Denies neck pain, Denies numbness and Denies tingling Skin/Breast: Reports system reviewed and no additional complaints, except as docu and Denies rash Reports system reviewed and no additional complaints, except as documented, Denies Abnormal speech present, Denies dizziness, Denies headache(s), Denies numbness, Denies tingling and Denies weakness Physical Exam Vital Signs: Vital Signs: Last Vital Signs Temp 97.8 F 01/17/21 20:04 Pulse 77 01/17/21 20:04 Resp 16 01/17/21 23:46 BP 102/51 L 01/17/21 20:04 Pulse Ox 100 01/17/21 20:04 Body Mass Index 24.7 Const: General: cooperative, healthy appearing, comfortable and no acute distress Orientation/consciousness: patient oriented x3 Limitations: no limitations HENMT: Head: Yes normal to inspection Ears: hearing grossly normal bilaterally General nose exam: Normal external nose present Face and sinus: Yes normal facial exam Mouth: Normal oral and palatal mucosa present Throat: Yes posterior oropharynx normal Eyes: General: appearance normal, both eyes and all related structures Pupils: Equal, round and reactive pupils present Neck: Neck: Yes normal visual inspection Chest: Chest palpation & inspection: normal inspection of the chest Resp: Effort & Inspection: normal respiratory effort Auscultation: clear to auscultation bilaterally Cardio: Rate: regular rate Rhythm: regular rhythm Peripheral pulses: Peripheral pulses 2+ throughout GI: Inspection: Yes normal to inspection Palpation (GI): Soft to palpation and Tenderness to palpation present (GI) (Mild bilateral lower AP. No rebound or guarding) Auscultation: normal bowel sounds : General: Yes no CVA tenderness Back/Spine/Pelvis: Other: Left lumbar soft tissue tenderness with no midline tenderness, step-offs deformities. Pain is worsened with flexion and extension of the spine Back: no CVA tenderness Thoracic/Lumbar Spine: thoracic and lumbar spine normal to inspection Skin: General skin exam: no rashes or lesions noted Neuro: General: patient oriented x3, no focal motor deficits and normal sensation to monofilament Cranial nerves: Yes Equal, round and reactive pupils present Cognition (Neuro): normal cognition Speech: No Abnormal speech present Gait exam (Neuro): Normal gait present Motor exam (neuro): 5/5 motor strength present throughout Extrem: General: Yes normal to inspection, Yes no pedal edema and Yes no calf tenderness Course Course Course Narrative: 25-year-old female here with complaints of left lower back pain with radiation to the left lower abdomen but also complaining of some right lower abdomen pain described as cramping for the last 3 days with no other associated symptoms. Patient is currently about 14 weeks but denies any related complaints such as bleeding. She has had an ultrasound to confirm IUP. Will need labs, UA. Will place PIV and give normal saline bolus, antiemetic and Tylenol and reassess. 2230-patient called me into the room. She is feeling much improved and would like to try to eat something. Her nausea is resolved. Her pain is almost gone. I did reassess her abdomen it is soft and nontender. She does still have some mild left lower lumbar soft tissue tenderness. Low concern for ectopic with a recent ultrasound to confirm IUP. Low concern for acute appendicitis with normal white count, improving abdominal exam with symptoms greater than 3 days. Low concern for pyelonephritis or renal colic or UTI with normal UA. 2345-pain is resolved. Patient tolerated mari jimmy, crackers and a sandwich with no additional vomiting episodes. Reviewed worrisome signs and symptoms of when to return to the emergency department. Comfortable discharge home. MDM - Abdominal Pain Differential Diagnosis Differential diagnosis: Likely calculus of kidney Differential diagnosis narrative:: Pyelonephritis, UTI, ectopic Medical Records Attestation: I reviewed the patient's medical records. Lab Data Attestation: I reviewed the patient's lab results. Result diagrams: 01/17/21 20:24 01/17/21 21:11 Labs: Lab Results 01/17/21 01/17/21 01/17/21 Range/Units 20:24 21:11 22:09 WBC 12.8 H (4.8-10.8) X10*3/uL RBC 4.35 (4.20-5.50) X10*6/uL Hgb 12.5 (12.0-16.0) g/dl Hct 37.4 (37-47) % MCV 86.0 (80-98) fL MCH 28.7 (27.0-33.0) pg MCHC 33.4 (31.0-35.0) g/dl RDW 15.3 (11.0-16.0) % Plt Count 338 (160-400) X10*3/uL MPV 9.8 (9.4-12.3) fL Immature Gran % (Auto) 0.4 (0.0-0.4) % Neut % (Auto) 79.3 H (45-73) % Lymph % (Auto) 12.4 L (20-40) % [place] % (Auto) 4.9 (2-11) % Eos % (Auto) 2.6 (0-4) % Baso % (Auto) 0.4 (0-2) % Lymph # (Auto) 1.6 (1.2-4.9) X10*3/uL [place] # (Auto) 0.6 (0.1-1.2) X10*3/uL Eos # (Auto) 0.3 (0.0-0.4) X10*3/uL Baso # (Auto) 0.1 (0.0-0.2) X10*3/uL Abs Immat Gran (auto) 0.05 H (0.00-0.03) X10*3/uL Absolute Neuts (auto) 10.1 H (2.0-8.3) X10*3/uL Absolute Nucleated RBC 0.000 (0.0-0.012) X10*3/uL Nucleated RBC % (auto) 0.0 (0.0-0.2) /100WBC Sodium 135 (135-145) mmol/L Potassium 4.0 (3.3-5.1) mmol/L Chloride 103 (96-108) mmol/L Carbon Dioxide 25 (22-29) mmol/L Anion Gap 11 L (12-20) BUN 9 (9-16) mg/dL Creatinine 0.55 (0.5-1.4) mg/dL Estim Creat Clear Calc 135.8 Estimated GFR > 60 Random Glucose 82 (60-115) mg/dL Calcium 9.0 (8.4-10.2) mg/dL Total Bilirubin 0.4 (0.0-1.0) mg/dL Direct Bilirubin 0.2 (0.0-0.5) mg/dL AST 12 (5-31) U/L ALT 11 (0-31) U/L Alkaline Phosphatase 54 (39-117) U/L Total Protein 6.3 L (6.5-8.0) g/dL Albumin 3.8 (3.5-5.0) g/dL Lipase 22 (8-78) U/L Beta HCG, Quant 258916 mIU/mL Urine Color YELLOW Urine Appearance CLEAR Urine pH 7.5 (5.0-8.0) Ur Specific [place] 1.020 (1.005-1.025) Urine Protein NEG (NEG-TRACE) MG/DL Urine Glucose (UA) NEG (NEG) MG/DL Urine Ketones NEG (NEG) MG/DL Urine Blood NEG (NEG) Urine Nitrite NEG (NEG) Ur Leukocyte Esterase NEG (NEG) Discharge Plan Discharge Clinical Impression: Early stage of , Hyperemesis gravidarum Patient Disposition: Home, Self-Care Instructions: Hyperemesis Gravidarum (ED), at 11 to 14 Weeks (ED) Additional Instructions: Take your Reglan and or Zofran for nausea/vomiting Follow-up with your OB Tylenol for pain as needed Return for vaginal bleeding, severe abdominal pain Prescriptions: No Action albuterol sulfate 2.5 mg /3 mL (0.083 %) solution for nebulization 2.5 mg inhalation Q4-6H PRN (Reason: shortness of breath or wheezing) 30 Days Qty: 75 RF: 6 albuterol sulfate 90 mcg/actuation aerosol powdr breath activated 2 inh inhalation Q4-6H PRN (Reason: shortness of breath or wheezing) 30 Days Qty: 1 RF: 0 ondansetron 8 mg tablet,disintegrating 8 mg PO Q8H PRN (Reason: nausea and vomiting) Qty: 90 RF: 1 (DME) nebulizer and compressor Device See Rx Instructions .ROUTE .MEDSUPPLY Qty: 1 RF: 0 metoclopramide HCl [Reglan] 10 mg tablet 10 mg PO Q6H PRN (Reason: nausea and vomiting) Qty: 20 RF: 0 acetaminophen [Tylenol Extra Strength] 500 mg tablet 1,000 mg PO QID PRN (Reason: fever or pain) Qty: 14 RF: 0 prenat.vits,manda,[id number]-[id number]-[id number] Tablet 1 tab PO BEDTIME Qty: 30 RF: 0 prednisone 10 mg tablet See Taper mg PO DAILY Qty: 70 RF: 0 triamcinolone acetonide 0.1 % ointment 1 appl topical BID RF: 0 Referrals: [facility] [Primary Care Provider] - 2 days Interventions: ED Discharge Assessment Last Done: 01/17/21 23:51 Discharge Date/Time: 01/17/21 23:51 [facility] Past Medical History Attestation statement: The following information was validated with the patient. Source: old records reviewed and nursing notes reviewed Medical History Allergy to other foods Anxiety state, unspecified Asthma Bronchitis Dermatitis, unspecified Hyperemesis Major depressive disorder, single episode, unspecified Mild persistent asthma, uncomplicated Surgical History History of section Family History Family History Father Drug abuse Asthma Mother Hypertension Maternal Grandmother Ovarian cancer Social History Social History Household Members: Family Household Members Other:: mom Housing: Apartment Alcohol intake: never Patient Tobacco Use Status: Former Tobacco user Advance Directives: No Advance Directives Information Provided: No Patient : Yes service: No Current occupational status: unemployed Gender identity: Female
[2021-01-17 20:04] VITALS: BP 102/51; PULSE 77; RESP 16; TEMP 36.6; O2SAT 100
[2021-01-17] MEDS: 0.9 % Sodium Chloride 1,000 ML 999 ML IV (20:23)
[2021-01-17 20:28] LABS: MANUAL DIFF FLAG NO
[2021-01-17 20:30] LABS: Basophils Absolute Auto 0.1 X10*3/uL (0.0-0.2); Basophils Percent Auto 0.4 % (0-2); Eosinophils Absolute Auto 0.3 X10*3/uL (0.0-0.4); Eosinophils Percent Auto 2.6 % (0-4); Hematocrit 37.4 % (37-47); Hemoglobin 12.5 g/dl (12.0-16.0); Imm Gran Abs Auto 0.05 X10*3/uL (0.00-0.03); Imm Gran Pct Auto 0.4 % (0.0-0.4); Lymphocytes Absolute Auto 1.6 X10*3/uL (1.2-4.9); Lymphocytes Percent Auto 12.4 % (20-40); Mean Corpuscular HGB Conc 33.4 g/dl (31.0-35.0); Mean Corpuscular Hemoglobin 28.7 pg (27.0-33.0); Mean Platelet Volume 9.8 fL (9.4-12.3); Monocytes Absolute Auto 0.6 X10*3/uL (0.1-1.2); Monocytes Percent Auto 4.9 % (2-11); Neutrophils Absolute Auto 10.1 X10*3/uL (2.0-8.3); Neutrophils Percent Auto 79.3 % (45-73); Platelet Count 338 X10*3/uL (160-400); Red Blood Count 4.35 X10*6/uL (4.20-5.50); Red Cell Distribution Width 15.3 % (11.0-16.0); White Blood Count 12.8 X10*3/uL (4.8-10.8)
[2021-01-17] MEDS: Acetaminophen 325 MG TABLET 975 MG PO (20:41)
[2021-01-17] MEDS: ondansetron HCL 4 MG/2 ML VIAL IVPUSH (20:42)
[2021-01-17 21:47] LABS: Alanine Aminotransferase 11 U/L (0-31); Albumin Level 3.8 g/dL (3.5-5.0); Alkaline Phosphatase 54 U/L (39-117); Anion Gap 11 (12-20); Aspartate Amino Transferase 12 U/L (5-31); Bilirubin Direct 0.2 mg/dL (0.0-0.5); Bilirubin Total 0.4 mg/dL (0.0-1.0); Blood Urea Nitrogen 9 mg/dL (9-16); Carbon Dioxide 25 mmol/L (22-29); Chloride 103 mmol/L (96-108); Creatinine Clr Calc Pharmacy 135.8; Estimated Glomerular Filt Rate > 60; Glucose Random 82 mg/dL (60-115); Lipase 22 U/L (8-78); Sodium 135 mmol/L (135-145); Total Protein 6.3 g/dL (6.5-8.0)
[2021-01-17 22:14] LABS: HCG Quantitative 119780 mIU/mL
[2021-01-17 22:17] LABS: Glucose Urine UA NEG (NEG); Leukocyte Esterase Urine NEG (NEG); Nitrite Urine NEG (NEG); PH 7.5 (5.0-8.0); Urine Blood NEG (NEG); Urine Ketones NEG (NEG); Urine Protein NEG (NEG-TRACE)
[2021-01-17 22:22] LABS: Appearance Urine CLEAR; Color Urine YELLOW
[2021-01-17 23:46] VITALS: RESP 16
== END 2021-01-17 23:51 | disposition home or self-care (01) ==
PROVIDERS: Nurse Practitioner Family; Emergency Provider Internal Medicine
DX: O21.0 Mild hyperemesis gravidarum (principal); R10.30 Lower abdominal pain, unspecified; Z3A.14 14 weeks gestation of pregnancy; Z79.899 Other long term (current) drug therapy
CPT/HCPCS: 36415; 80048; 80076; 81003; 83690; 84702; 85025; 96365; 96374; 99284; J2405

== ENCOUNTER 2021-02-25 14:08 | Emergency (ER) | payer OTHER, SELFPAY ==
--- NOTE | ~2021-02-25 | XR_ITS ---
EXAMINATION: XR CHEST CLINICAL INFORMATION: Shortness of breath COMPARISON: Previous chest x-ray November 2020 TECHNIQUE: 2 views of the chest were obtained. FINDINGS: No significant abnormality is noted involving the heart, lungs, mediastinum, bony thorax or soft tissues. XR/XR chest 2V IMPRESSION: Unremarkable examination.
[2021-02-25 14:39] VITALS: BP 138/62; PULSE 109; RESP 18; TEMP 36.6; O2SAT 97; BMI 24.7
--- NOTE | 2021-02-25 16:20 | ED.URI ---
HPI - URI/Sore Throat General Chief Complaint: Upper Respiratory Symptoms Stated Complaint: diff breathing, headache, body ache, Time Seen by Provider: 02/25/21 16:10 Source: patient Mode of arrival: ambulatory Limitations: no limitations History of Present Illness HPI Narrative: 25 yo female here with complaints of intermittent cough and wheezing unrelieved with her home albuterol. No fevers or chills. Shortness of breath or chest pain. Patient tells me she ran out of her inhaler today. Patient tells me she is currently with an estimated due date of 07/24/21. She denies any abdominal cramping or vaginal bleeding. Note she has very poorly controlled asthma and was recently admitted in November for asthma exacerbation. Related Data Home Medications Medication Instructions Recorded Confirmed triamcinolone acetonide 0.1 % 1 appl TOPICAL BID 06/02/20 12/18/20 topical ointment Previous Rx's Medication Instructions Recorded nebulizer and compressor #1 ea 04/28/20 albuterol sulfate 2.5 mg INHALATION Q4-6H PRN 30 05/13/20 Days #75 ml albuterol sulfate 90 mcg/actuation 2 inh INHALATION Q4-6H PRN 30 Days 05/20/20 breath activated powder inhaler #1 ea metoclopramide HCl 10 mg tablet 10 mg PO Q6H PRN #20 tab 11/30/20 (Reglan) ondansetron 8 mg disintegrating 8 mg PO Q8H PRN #90 tab 11/30/20 tablet acetaminophen 500 mg tablet 1,000 mg PO QID PRN #14 tab 12/03/20 (Tylenol Extra Strength) prenat.vits,manda,[id number]-yzgk-[id number] 1 tab PO BEDTIME #30 tab 12/03/20 prednisone 10 mg tablet See Taper PO DAILY #70 tab 12/20/20 albuterol sulfate 2.5 mg INHALATION Q4H PRN #75 ml 02/25/21 albuterol sulfate 90 mcg/actuation 2 puff INHALATION Q6H PRN #8.5 g 02/25/21 aerosol inhaler nebulizer and compressor #1 ea 02/25/21 prednisone 20 mg tablet 40 mg PO DAILY #8 tab 02/25/21 Allergies Allergy/AdvReac Type Severity Reaction Status Date / Time egg [EGG] Allergy Severe ANAPHYLAXIS Verified 12/18/20 02:37 fish derived [FISH] Allergy Severe ANAPHYLAXIS Verified 12/18/20 02:37 peanut [PEANUTS] Allergy Severe ITCHING Verified 12/18/20 02:37 shellfish derived Allergy Severe ANAPHYLAXIS Verified 12/18/20 02:37 [SHELLFISH DERIVED] cat dander Allergy Intermediate Hives Verified 12/18/20 02:37 dog dander Allergy Intermediate Hives Verified 12/18/20 02:37 house dust Allergy Intermediate Hives Verified 12/18/20 02:37 rice [RICE] AdvReac Intermediate CONSTIPATIO Verified 12/18/20 02:37 N Review of Systems Review of Systems: Yes all other systems are reviewed and are negative Constitutional: Constitutional: Reports no additional constitutional complaints, Denies body ache(s), Denies chills, Denies fever(s), Denies headache(s) and Denies weakness Eyes: Eyes: Reports no additional eye complaints and Denies change in vision ENT: Reports system reviewed and no additional complaints, except as documented, Denies dizziness, Denies headache(s), Denies nasal congestion, Denies nasal discharge and Denies neck pain Cardiovascular: Cardiovascular: Reports no additional cardiovascular complaints, Denies chest pain, Denies leg edema and Denies dyspnea Respiratory: Respiratory: Reports no additional respiratory complaints, Reports cough, Denies dyspnea and Reports wheezing Gastrointestinal: Gastrointestinal: Reports no additional gastrointestinal complaints, Denies abdominal pain, Denies diarrhea, Denies nausea and Denies vomiting Genitourinary: Genitourinary: Reports no additional female genitourinary complaints and Denies urinary incontinence Musculoskeletal: Musculoskeletal: Reports no additional musculoskeletal complaints, Denies back pain, Denies arthralgias, Denies joint swelling, Denies neck pain, Denies numbness and Denies tingling Integumentary/Breasts: Skin/Breast: Reports system reviewed and no additional complaints, except as docu and Denies rash Neurologic: Reports system reviewed and no additional complaints, except as documented, Denies Abnormal speech present, Denies dizziness, Denies headache(s), Denies numbness, Denies tingling and Denies weakness Allergic/Immunologic: Allergic/Immunologic: Reports wheezing PMFSH Past Medical History Attestation statement: The following information was validated with the patient. Source: old records reviewed and nursing notes reviewed Medical History Allergy to other foods Anxiety state, unspecified Asthma Bronchitis Dermatitis, unspecified Hyperemesis Major depressive disorder, single episode, unspecified Mild persistent asthma, uncomplicated Surgical History History of section Family History Family History Father Drug abuse Asthma Mother Hypertension Maternal Grandmother Ovarian cancer Social History Social History Household Members: Family Household Members Other:: mom Housing: Apartment Alcohol intake: never Patient Tobacco Use Status: Former Tobacco user Advance Directives: No Advance Directives Information Provided: No Patient : Yes service: No Current occupational status: unemployed Gender identity: Female Physical Exam Vital Signs: Vital Signs: Last Vital Signs Temp 97.8 F 02/25/21 14:39 Pulse 92 02/25/21 16:51 Resp 18 02/25/21 14:39 BP 138/62 02/25/21 14:39 Pulse Ox 97 02/25/21 14:39 Body Mass Index 24.7 Const: General: cooperative, healthy appearing, comfortable and no acute distress Orientation/consciousness: patient oriented x3 Limitations: no limitations HENMT: Head: Yes normal to inspection Ears: hearing grossly normal bilaterally General nose exam: Normal external nose present Face and sinus: Yes normal facial exam Mouth: Normal oral and palatal mucosa present Throat: Yes posterior oropharynx normal Eyes: General: appearance normal, both eyes and all related structures Pupils: Equal, round and reactive pupils present Neck: Neck: Yes normal visual inspection Chest: Chest palpation & inspection: normal inspection of the chest Resp: Other: Expiratory wheezing Effort & Inspection: normal respiratory effort Auscultation: clear to auscultation bilaterally Cardio: Rate: regular rate Rhythm: regular rhythm Peripheral pulses: Peripheral pulses 2+ throughout GI: Inspection: Yes normal to inspection Palpation (GI): Soft to palpation and nontender Auscultation: normal bowel sounds Back/Spine/Pelvis: Thoracic/Lumbar Spine: thoracic and lumbar spine normal to inspection Skin: General skin exam: no rashes or lesions noted Neuro: General: patient oriented x3, no focal motor deficits and normal sensation to monofilament Cranial nerves: Yes Equal, round and reactive pupils present Cognition (Neuro): normal cognition Speech: No Abnormal speech present Gait exam (Neuro): Normal gait present Motor exam (neuro): 5/5 motor strength present throughout Extrem: General: Yes normal to inspection, Yes no pedal edema and Yes no calf tenderness Course Course Course Narrative: 25-year-old female with a past medical history of poorly controlled asthma currently here with complaints of cough and wheezing despite home medications. Also felt like she had some flu-like symptoms last few days and would like a COVID test. COVID test from [facility] negative. Nursing from [facility] ordered a chest x-ray which shows no abnormality. Patient has some mild expiratory wheezing on exam but stable vital sign. She has some mild tachycardia but tells me she is always tachycardic and this is from her anxiety. She appears well-hydrated. No -related complaints. Will give DuoNeb. Patient requesting p.o. prednisone. We discussed risks in (including congenital malformation, cleft palate, preeclampsia, gestational diabetes, low weight and adrenal insufficiency, in addition to an increase in the risk of prematurity and low weight). However risk of uncontrolled asthma include both maternal and mortality. Therefore after discussion with patient and shared decision making done will give dose of p.o. prednisone. 1740-patient is feeling improved like to be discharged home. She tells me her children broke her nebulizer machine about 1 year ago and so she does not have this. Therefore I will send her a refill to the pharmacy for this. Will send home with a brief course prednisone as well as an albuterol MDI refill and nebulizer solution. Reviewed worrisome signs and symptoms when to return to the emergency department. Comfortable discharge home. MDM - URI/Sore Throat Medical Records Attestation: I reviewed the patient's medical records. Lab Data Attestation: I reviewed the patient's lab results. Labs: Lab Results 02/25/21 Range/Units 16:10 COVID-19 ([facility]) Negative (Negative) COVID-19 Clin Com See Note Discharge Plan Discharge Clinical Impression: Asthma Patient Disposition: Home, Self-Care Instructions: Asthma (ED) Additional Instructions: STart prednisone tomorrow Continue inhalers and nebulizers Prescriptions: New (DME) nebulizer and compressor Device See Rx Instructions .Route Qty: 1 RF: 0 prednisone 20 mg tablet 40 mg PO DAILY Qty: 8 RF: 0 albuterol sulfate 90 mcg/actuation HFA aerosol inhaler 2 puff inhalation Q6H PRN (Reason: shortness of breath or wheezing) Qty: 8.5 RF: 0 albuterol sulfate 2.5 mg /3 mL (0.083 %) solution for nebulization 2.5 mg inhalation Q4H PRN (Reason: shortness of breath or wheezing) Qty: 75 RF: 0 No Action albuterol sulfate 2.5 mg /3 mL (0.083 %) solution for nebulization 2.5 mg inhalation Q4-6H PRN (Reason: shortness of breath or wheezing) 30 Days Qty: 75 RF: 6 albuterol sulfate 90 mcg/actuation aerosol powdr breath activated 2 inh inhalation Q4-6H PRN (Reason: shortness of breath or wheezing) 30 Days Qty: 1 RF: 0 ondansetron 8 mg tablet,disintegrating 8 mg PO Q8H PRN (Reason: nausea and vomiting) Qty: 90 RF: 1 (DME) nebulizer and compressor Device See Rx Instructions .ROUTE .MEDSUPPLY Qty: 1 RF: 0 metoclopramide HCl [Reglan] 10 mg tablet 10 mg PO Q6H PRN (Reason: nausea and vomiting) Qty: 20 RF: 0 acetaminophen [Tylenol Extra Strength] 500 mg tablet 1,000 mg PO QID PRN (Reason: fever or pain) Qty: 14 RF: 0 prenat.vits,manda,[id number]-yjmk-kowen Tablet 1 tab PO BEDTIME Qty: 30 RF: 0 prednisone 10 mg tablet See Taper mg PO DAILY Qty: 70 RF: 0 triamcinolone acetonide 0.1 % ointment 1 appl topical BID RF: 0 Referrals: Dez Peace MD [Primary Care Provider] - 2 days
[2021-02-25] MEDS: predniSONE 20 MG TABLET 60 MG PO (16:25)
[2021-02-25 16:38] LABS: COVID-19 Test Negative (Negative)
[2021-02-25] MEDS: Albuterol/Iprat 2.5/0.5MG 3 ML AMPUL.NEB INHALE (16:50)
[2021-02-25 16:51] VITALS: PULSE 92; O2SAT 96
== END 2021-02-25 17:39 | disposition home or self-care (01) ==
PROVIDERS: Emergency Provider Emergency Medicine Emergency Medical Services; PCP Internal Medicine
DX: J45.30 Mild persistent asthma, uncomplicated (principal); M79.10 Myalgia, unspecified site; Z20.822 Contact with and (suspected) exposure to COVID-19; Z79.899 Other long term (current) drug therapy; Z87.891 Personal history of nicotine dependence
CPT/HCPCS: 36415; 71046; 87635; 94640; 99283; 99284

== ENCOUNTER 2021-03-07 20:54 | Emergency (ER) | payer OTHER, SELFPAY ==
--- NOTE | ~2021-03-07 | US_ITS ---
EXAMINATION: ULTRASOUND OB LIMITED CLINICAL INFORMATION: Suprapubic pain COMPARISON: 12/18/2020 TECHNIQUE: Transabdominal sonographic evaluation of the pelvis. FINDINGS: Intrauterine identified. Fetus is in breech position. Good motion. Posterior placenta, grade 1/2. Cervical length measuring 3.9 cm. Amniotic fluid within normal limits with SHANTE of 19. Normal heart rate at 140 bpm. measurements as follows: Biparietal diameter 4.86 cm Head circumference 18.18 cm Abdominal circumference 13.79 cm Femur length 3.48 cm Estimated weight 12 ounces. Gestational age by ultrasound of 20 weeks 3 days for an estimated date of delivery of 07/23/2021. US/US OB limited IMPRESSION: Single live intrauterine .
[2021-03-07 20:56] VITALS: BP 138/72; PULSE 115; RESP 20; TEMP 37.1; O2SAT 97; BMI 28.0
--- NOTE | 2021-03-07 21:17 | ED_ITS ---
HPI - General Adult General Chief complaint: General Medical Stated complaint: ?Contractions/6mos preg Time Seen by Provider: 03/07/21 21:05 Source: patient Mode of arrival: ambulatory Limitations: no limitations History of Present Illness HPI narrative: Patient comes emergency room complaining of abdominal pressure and back pain. Patient is a 20 weeks of gestational age. Patient states that the discomfort started approximately 15 hours ago. The that she has had a contraction lasting all day without relief . Patient complaining of nausea and vomiting, take Zofran at home, took Tylenol without relief. Patient is a , A+ blood type. Related Data Home Medications Medication Instructions Recorded Confirmed triamcinolone acetonide 0.1 % 1 appl TOPICAL BID 06/02/20 12/18/20 topical ointment Previous Rx's Medication Instructions Recorded nebulizer and compressor #1 ea 04/28/20 albuterol sulfate 2.5 mg INHALATION Q4-6H PRN 30 05/13/20 Days #75 ml albuterol sulfate 90 mcg/actuation 2 inh INHALATION Q4-6H PRN 30 Days 05/20/20 breath activated powder inhaler #1 ea metoclopramide HCl 10 mg tablet 10 mg PO Q6H PRN #20 tab 11/30/20 (Reglan) ondansetron 8 mg disintegrating 8 mg PO Q8H PRN #90 tab 11/30/20 tablet acetaminophen 500 mg tablet 1,000 mg PO QID PRN #14 tab 12/03/20 (Tylenol Extra Strength) prenat.vits,manda,ska-eler-jiimo 1 tab PO BEDTIME #30 tab 12/03/20 prednisone 10 mg tablet See Taper PO DAILY #70 tab 12/20/20 albuterol sulfate 2.5 mg INHALATION Q4H PRN #75 ml 02/25/21 albuterol sulfate 90 mcg/actuation 2 puff INHALATION Q6H PRN #8.5 g 02/25/21 aerosol inhaler nebulizer and compressor #1 ea 02/25/21 prednisone 20 mg tablet 40 mg PO DAILY #8 tab 02/25/21 Allergies Allergy/AdvReac Type Severity Reaction Status Date / Time egg [EGG] Allergy Severe ANAPHYLAXIS Verified 12/18/20 02:37 fish derived [FISH] Allergy Severe ANAPHYLAXIS Verified 12/18/20 02:37 peanut [PEANUTS] Allergy Severe ITCHING Verified 12/18/20 02:37 shellfish derived Allergy Severe ANAPHYLAXIS Verified 12/18/20 02:37 [SHELLFISH DERIVED] cat dander Allergy Intermediate Hives Verified 12/18/20 02:37 dog dander Allergy Intermediate Hives Verified 12/18/20 02:37 house dust Allergy Intermediate Hives Verified 12/18/20 02:37 rice [RICE] AdvReac Intermediate CONSTIPATIO Verified 12/18/20 02:37 N Review of Systems Review of Systems: Constitutional : No Weight loss, No Fever, No Chills, No Night Sweats, No Fatigue, No Malaise ENT/Mouth : No Hearing loss, No Ear Pain, No Nasal Congestion, No Sinus Pain, No Hoarseness, No sore throat, No Rhinorrhea, No Swallowing Difficulty Eyes: No Eye Pain, No Swelling, No Redness, No Foreign Body, No Discharge, No Vision Changes Cardiovascular : No Chest Pain, No SOB, No Dyspnea on Exertion, No Orthopnea, No Edema, No Palpitations Respiratory : No Cough, No Sputum, No Wheezing, No Smoke Exposure, No Dyspnea Gastrointestinal : Complaining of nausea, no vomiting No Diarrhea, No Constipation, complaining of abdominal pressure for 15 hours, No Hematochezia, No Melena Genitourinary : no irregular bleeding, No Dysuria, No Urinary Frequency, No Hematuria, No Urinary Incontinence, No Urgency, No Flank Pain, No Urinary Flow Changes, No Hesitancy Musculoskeletal : Complaining of back pain constantly, nonradiating for about 15 hours Skin : No Skin Lesions, No rash Neuro : No Weakness, No Numbness, No Paresthesias, No Loss of Consciousness, No Dizziness, No Headache Psych : No Anxiety/Panic, No Depression, No SI/HI/AH/VH, No Social Issues, Heme/Lymph: No Bruising, No Bleeding,No Lymphadenopathy Endocrine : No Polyuria, No Polydipsia, No Temperature Intolerance PMFSH Past Medical History Medical History Allergy to other foods Anxiety state, unspecified Asthma Bronchitis Dermatitis, unspecified Hyperemesis Major depressive disorder, single episode, unspecified Mild persistent asthma, uncomplicated Surgical History History of section Family History Family History Father Drug abuse Asthma Mother Hypertension Maternal Grandmother Ovarian cancer Social History Social History Household Members: Family Household Members Other:: mom Housing: Apartment Alcohol intake: never Patient Tobacco Use Status: Former Tobacco user Advance Directives: No Advance Directives Information Provided: Yes Patient : Yes service: No Current occupational status: unemployed Gender identity: Female Physical Exam Vital Signs: Vital Signs: Last Vital Signs Temp 98.7 F 03/07/21 20:56 Pulse 96 03/08/21 00:45 Resp 18 03/08/21 00:45 BP 103/57 L 03/08/21 00:45 Pulse Ox 98 03/08/21 00:45 Body Mass Index 28.0 Const: Other: Appearance: Alert. Oriented X3. No acute distress. Eyes: Pupils equal, round and reactive to light. ENT: Pharynx normal. Neck: Normal inspection. Neck supple. No lymph nodes noted. No crepitus CVS: Normal heart rate and rhythm. Pulses normal. Normal S1 and S2 Respiratory: No respiratory distress. Breath sounds normal. No Wheezing. No rales Abdomen: Soft and nontender. No rigidity. No distention. : Cervix is closed, no blood present, no fluid leakage or fluid pooling Skin: Skin warm and dry. Normal skin color. Normal skin turgor. Extremities: No lower extremity edema. No lower extremity edema. No Lacerations. No Rash Neuro: Oriented X 3. No motor deficit. No sensory deficit. Moving all extermities. No slurred speech. Course Course Course Narrative: I discussed the patient with the the resident at [facility] for OBGYN. At this time, since the patient is 20 weeks of gestational age, she will not be monitored. Patient does not need to be transferred. I discussed the patient with Dr. Medina. Recommended to obtain an Ob ultrasound, if normal patient can be discharged. Ultrasound is normal, patient will be discharged. Patient has been sleeping comfortably, not complaining of any contractions, no abdominal pain, just constant pressure that she has been feeling since yesterday. Patient states that this morning she has an appointment with her OBGYN at [facility]. Of note, patient states that she does not have to urinate, patient received IV fluids, does not want to provide a urine sample Medical Decision Making Lab Data Result diagrams: 03/07/21 21:38 03/07/21 22:32 Labs: Lab Results 03/07/21 03/07/21 03/08/21 Range/Units 21:38 22:32 00:43 WBC 15.1 H (4.8-10.8) X10*3/uL RBC 4.01 L (4.20-5.50) X10*6/uL Hgb 11.9 L (12.0-16.0) g/dl Hct 35.2 L (37-47) % MCV 87.8 (80-98) fL MCH 29.7 (27.0-33.0) pg MCHC 33.8 (31.0-35.0) g/dl RDW 12.9 (11.0-16.0) % Plt Count 274 (160-400) X10*3/uL MPV 10.1 (9.4-12.3) fL Immature Gran % (Auto) 0.7 H (0.0-0.4) % Neut % (Auto) 78.8 H (45-73) % Lymph % (Auto) 11.5 L (20-40) % Victoria % (Auto) 5.0 (2-11) % Eos % (Auto) 3.7 (0-4) % Baso % (Auto) 0.3 (0-2) % Lymph # (Auto) 1.7 (1.2-4.9) X10*3/uL Victoria # (Auto) 0.8 (0.1-1.2) X10*3/uL Eos # (Auto) 0.6 H (0.0-0.4) X10*3/uL Baso # (Auto) 0.0 (0.0-0.2) X10*3/uL Abs Immat Gran (auto) 0.11 H (0.00-0.03) X10*3/uL Absolute Neuts (auto) 11.9 H (2.0-8.3) X10*3/uL Absolute Nucleated RBC 0.000 (0.0-0.012) X10*3/uL Nucleated RBC % (auto) 0.0 (0.0-0.2) /100WBC Sodium 138 (135-145) mmol/L Potassium 4.0 (3.3-5.1) mmol/L Chloride 109 H (96-108) mmol/L Carbon Dioxide 22 (22-29) mmol/L Anion Gap 11 L (12-20) BUN 9 (9-16) mg/dL Creatinine 0.57 (0.5-1.4) mg/dL Estim Creat Clear Calc 138.9 Estimated GFR > 60 Random Glucose 72 (60-115) mg/dL Calcium 8.4 D (8.4-10.2) mg/dL Total Bilirubin 0.4 (0.0-1.0) mg/dL Direct Bilirubin < 0.2 (0.0-0.5) mg/dL AST 11 (5-31) U/L ALT 7 (0-31) U/L Alkaline Phosphatase 59 (39-117) U/L Total Protein 5.3 L (6.5-8.0) g/dL Albumin 3.0 L D (3.5-5.0) g/dL Beta HCG, Quant 30549 mIU/mL COVID-19 (RADHA) Negative (Negative) COVID-19 Clin Com See Note Imaging Data Ob ultrasound: Radiologist's impression: INDINGS: Intrauterine identified. Fetus is in breech position. Good motion. Posterior placenta, grade 1/2. Cervical length measuring 3.9 cm. Amniotic fluid within normal limits with SHANTE of 19. Normal heart rate at 140 bpm. measurements as follows: Biparietal diameter 4.86 cm Head circumference 18.18 cm Abdominal circumference 13.79 cm Femur length 3.48 cm Estimated weight 12 ounces. Gestational age by ultrasound of 20 weeks 3 days for an estimated date of delivery of 07/23/2021. US/US OB limited IMPRESSION: Single live intrauterine .? Discharge Plan Discharge Clinical Impression: Abdominal pressure, Lower back pain Patient Disposition: Home, Self-Care Instructions: Back Pain (ED) Additional Instructions: Please follow-up with your primary care physician tomorrow. If you have any worsening or new symptoms, please return to the emergency room or call 911 Prescriptions: No Action albuterol sulfate 2.5 mg /3 mL (0.083 %) solution for nebulization 2.5 mg inhalation Q4-6H PRN (Reason: shortness of breath or wheezing) 30 Days Qty: 75 RF: 6 albuterol sulfate 90 mcg/actuation aerosol powdr breath activated 2 inh inhalation Q4-6H PRN (Reason: shortness of breath or wheezing) 30 Days Qty: 1 RF: 0 ondansetron 8 mg tablet,disintegrating 8 mg PO Q8H PRN (Reason: nausea and vomiting) Qty: 90 RF: 1 (DME) nebulizer and compressor Device See Rx Instructions .ROUTE .MEDSUPPLY Qty: 1 RF: 0 metoclopramide HCl [Reglan] 10 mg tablet 10 mg PO Q6H PRN (Reason: nausea and vomiting) Qty: 20 RF: 0 acetaminophen [Tylenol Extra Strength] 500 mg tablet 1,000 mg PO QID PRN (Reason: fever or pain) Qty: 14 RF: 0 prenat.vits,manda,lsf-rtwc-fhqoh Tablet 1 tab PO BEDTIME Qty: 30 RF: 0 prednisone 10 mg tablet See Taper mg PO DAILY Qty: 70 RF: 0 (DME) nebulizer and compressor Device See Rx Instructions .Route Qty: 1 RF: 0 prednisone 20 mg tablet 40 mg PO DAILY Qty: 8 RF: 0 albuterol sulfate 90 mcg/actuation HFA aerosol inhaler 2 puff inhalation Q6H PRN (Reason: shortness of breath or wheezing) Qty: 8.5 RF: 0 albuterol sulfate 2.5 mg /3 mL (0.083 %) solution for nebulization 2.5 mg inhalation Q4H PRN (Reason: shortness of breath or wheezing) Qty: 75 RF: 0 triamcinolone acetonide 0.1 % ointment 1 appl topical BID RF: 0
[2021-03-07] MEDS: Acetaminophen 325 MG TABLET 650 MG PO (21:36)
[2021-03-07 21:49] LABS: MANUAL DIFF FLAG NO
[2021-03-07 21:50] LABS: Basophils Percent Auto 0.3 % (0-2); Eosinophils Absolute Auto 0.6 X10*3/uL (0.0-0.4); Eosinophils Percent Auto 3.7 % (0-4); Hematocrit 35.2 % (37-47); Hemoglobin 11.9 g/dl (12.0-16.0); Imm Gran Abs Auto 0.11 X10*3/uL (0.00-0.03); Imm Gran Pct Auto 0.7 % (0.0-0.4); Lymphocytes Absolute Auto 1.7 X10*3/uL (1.2-4.9); Lymphocytes Percent Auto 11.5 % (20-40); Mean Corpuscular HGB Conc 33.8 g/dl (31.0-35.0); Mean Corpuscular Hemoglobin 29.7 pg (27.0-33.0); Mean Corpuscular Volume 87.8 fL (80-98); Mean Platelet Volume 10.1 fL (9.4-12.3); Monocytes Absolute Auto 0.8 X10*3/uL (0.1-1.2); Neutrophils Absolute Auto 11.9 X10*3/uL (2.0-8.3); Neutrophils Percent Auto 78.8 % (45-73); Platelet Count 274 X10*3/uL (160-400); Red Blood Count 4.01 X10*6/uL (4.20-5.50); Red Cell Distribution Width 12.9 % (11.0-16.0); White Blood Count 15.1 X10*3/uL (4.8-10.8)
--- NOTE | 2021-03-07 21:51 | PC.NURSE ---
IN ROOM FOR EVAL. IV PLACED TO LEFT HAND, LABS DRAWN, PT MEDICATED FOR ABD PAIN RATING 10/10, NS UP AND RUNNING W/O SITE INTACT. PT UNABLE TO URINATE AT THIS TIME. WILL CONTINUE TO MONITOR PT.
[2021-03-07] MEDS: 0.9 % Sodium Chloride 1,000 ML 999 ML IVCONT (22:22)
[2021-03-07 23:07] LABS: Alanine Aminotransferase 7 U/L (0-31); Alkaline Phosphatase 59 U/L (39-117); Anion Gap 11 (12-20); Aspartate Amino Transferase 11 U/L (5-31); Bilirubin Direct < 0.2 mg/dL (0.0-0.5); Bilirubin Total 0.4 mg/dL (0.0-1.0); Blood Urea Nitrogen 9 mg/dL (9-16); Calcium 8.4 mg/dL (8.4-10.2); Carbon Dioxide 22 mmol/L (22-29); Chloride 109 mmol/L (96-108); Creatinine Clr Calc Pharmacy 138.9; Estimated Glomerular Filt Rate > 60; Glucose Random 72 mg/dL (60-115); Sodium 138 mmol/L (135-145); Total Protein 5.3 g/dL (6.5-8.0)
[2021-03-07 23:24] LABS: HCG Quantitative 12903 mIU/mL
--- NOTE | 2021-03-08 00:40 | PC.NURSE ---
PT IS NPO AND BEING TRANSFERRED TO [facility] FOR FURTHER CARE.
--- NOTE | 2021-03-08 00:40 | PC.NURSE ---
contacted [facility] transfer center at [phone]. they will page out to OB and call back.
[2021-03-08 00:45] VITALS: BP 103/57; PULSE 96; RESP 18; O2SAT 98
[2021-03-08 01:06] LABS: COVID-19 Test Negative (Negative)
--- NOTE | 2021-03-08 01:32 | PC.NURSE ---
PT SLEEPING AND AWAITING FOR TRANSFER. PT IN NAD.
--- NOTE | 2021-03-08 06:57 | PM.OBCN ---
OB Consult Note - HPI Data Service Date: 03/08/21 Primary Care Provider: Dez Peace MD Narrative Late entry note I was consulted at 01:30 in the morning regarding Michaelle Brownlee who is a 25 year old female who presented to the emergency room complaining of abdominal pressure and back pain at 20 weeks of gestational age.? Patient states that the discomfort started approximately 15 hours ago.? The that she has had pelvic pressure lasting all day without relief .? No leakage of fluid or bleeding. good movement on vitamin A+ blood type. Related Data RESEARCH CHEF - Review of Systems Review of Systems ROS Unobtainable: All systems reviewed & are unremarkable except as noted in HPI and below OB PMFSH Past Medical History Medical History Allergy to other foods Anxiety state, unspecified Asthma Bronchitis Dermatitis, unspecified Hyperemesis Major depressive disorder, single episode, unspecified Mild persistent asthma, uncomplicated Family History Family History Father Drug abuse Asthma Mother Hypertension Maternal Grandmother Ovarian cancer Surgical History Surgical History History of section Social History Social History Household Members: Family Household Members Other:: mom Housing: Apartment Alcohol intake: never Patient Tobacco Use Status: Former Tobacco user Advance Directives: No Advance Directives Information Provided: Yes Patient : Yes service: No Current occupational status: unemployed Gender identity: Female Meds Allergies Allergy/AdvReac Type Severity Reaction Status Date / Time egg [EGG] Allergy Severe ANAPHYLAXIS Verified 12/18/20 02:37 fish derived [FISH] Allergy Severe ANAPHYLAXIS Verified 12/18/20 02:37 peanut [PEANUTS] Allergy Severe ITCHING Verified 12/18/20 02:37 shellfish derived Allergy Severe ANAPHYLAXIS Verified 12/18/20 02:37 [SHELLFISH DERIVED] cat dander Allergy Intermediate Hives Verified 12/18/20 02:37 dog dander Allergy Intermediate Hives Verified 12/18/20 02:37 house dust Allergy Intermediate Hives Verified 12/18/20 02:37 rice [RICE] AdvReac Intermediate CONSTIPATIO Verified 12/18/20 02:37 N Home Medications Medication Instructions Recorded Confirmed Last Taken Type triamcinolone acetonide 0.1 % 1 appl TOPICAL BID 06/02/20 12/18/20 Unknown History topical ointment OB Flowsheet OB Flowsheet & Tools History 4 Elective abortions Para 3 Spontaneous abortions Hx # Term Pregnancies 3 Ectopic pregnancies Hx # Pregnancies Multiple births OB Physical Exam Physical Exam Additional Comments: Exam done by Dr. Stuart, normal abdominal exam normal pelvic exam closed cervix no leakage of fluid or bleeding per vagina Evaluation Gestational Age: Twenty weeks of gestation Baseline FHR:: 150 OB Consult Results Labs CBC & Chem 7: 03/07/21 21:38 03/07/21 22:32 Labs: Short CBC 03/07/21 Range/Units 21:38 WBC 15.1 H (4.8-10.8) X10*3/uL Hgb 11.9 L (12.0-16.0) g/dl Hct 35.2 L (37-47) % Plt Count 274 (160-400) X10*3/uL BMP 03/07/21 22:32 Sodium 138 Potassium 4.0 Chloride 109 H Carbon Dioxide 22 BUN 9 Creatinine 0.57 Calcium 8.4 D Liver Function 03/07/21 Range/Units 22:32 Total Bilirubin 0.4 (0.0-1.0) mg/dL Direct Bilirubin < 0.2 (0.0-0.5) mg/dL AST 11 (5-31) U/L ALT 7 (0-31) U/L Alkaline Phosphatase 59 (39-117) U/L Albumin 3.0 L D (3.5-5.0) g/dL OB - CN: A/P Assessment and Plan (1) Abdominal pressure: Status: Acute Assessment and Plan: Dr. Stuart called [facility] with declined to take the patient since the patient is on a 20 weeks. I Recommended OB ultrasound cervical length, IV hydration. If symptoms resolve and OB ultrasound is normal with cervical length normal the patient can be discharged. The following instructions to be given the patient, she isto call back if any of the following occur, recurrence of the abdominal pain, vaginal leakage of fluid or bleeding or decreased movements., follow-up with her OBGYN in the office in the morning I did not see the patient or examine her, I was consulted via [employer] regarding the management of this patient
== END 2021-03-08 03:18 | disposition home or self-care (01) ==
PROVIDERS: Emergency Provider Emergency Medicine; PCP Internal Medicine
DX: O99.891 Other specified diseases and conditions complicating pregnancy (principal); M54.50 Low back pain, unspecified; O26.892 Other specified pregnancy related conditions, second trimester; O34.219 Maternal care for unspecified type scar from previous cesarean delivery; Z3A.20 20 weeks gestation of pregnancy; Z20.822 Contact with and (suspected) exposure to COVID-19
CPT/HCPCS: 36415; 76815; 80048; 80076; 84702; 85025; 87635; 96360; 99284

== ENCOUNTER 2021-04-04 00:44 | Emergency (ER) | payer OTHER, SELFPAY ==
[2021-04-04 00:55] VITALS: BP 148/68; PULSE 100; O2SAT 98
[2021-04-04 01:02] VITALS: BP 110/67; PULSE 112; RESP 16; O2SAT 99; BMI 29.4
[2021-04-04 01:03] LABS: COVID-19 Test Negative (Negative); IDNOW Serial# 9DD0AD1C
--- NOTE | 2021-04-04 01:32 | PC.NURSE ---
FHT - 140 MD AWARE. AT THIS TIME COVID IS NEG. AWAITING FOR EMS ARRIVAL. REPORT CALLED TO [facility] @ [facility].
--- NOTE | 2021-04-04 01:36 | ED_ITS ---
HPI - General Adult General Chief complaint: General Medical Stated complaint: pain all over with lower abdominal pain Time Seen by Provider: 04/04/21 01:13 EDT Source: patient Mode of arrival: EMS Limitations: no limitations History of Present Illness HPI narrative: 25-year-old female who presents emergency department with multiple complaints. The patient is a G 4 P 3, 25 weeks and 1 day with an KELLI of 07/17/2021 who presents to the emergency department for evaluation of cough x2 days which is nonproductive, anterior chest pain which is worse with coughing and breathing, body aches and lower abdominal and lower back pain. The patient states that she has been having lower abdominal and lower back pain x2 days. She states that it is intermittent and she gets that every hour. She states that she has noted some spotting x1 day. The patient does have a history of asthma and she states that she has been using her inhaler more frequently over the past 2-3 days. The patient states that she is currently living in a senior living with her and her other children. She states that she gets her OBGYN care at [facility] and that she has had high-risk pregnancies in the past secondary to low weight is, she has had 2 lpwq-ga-[id number] C- section with the last being 1 year prior. The patient has not been vaccinated for COVID-19. Related Data Home Medications Medication Instructions Recorded Confirmed triamcinolone acetonide 0.1 % 1 appl TOPICAL BID 06/02/20 12/18/20 topical ointment Previous Rx's Medication Instructions Recorded nebulizer and compressor #1 ea 04/28/20 albuterol sulfate 2.5 mg (3 mL) INHALATION Q4-6H PRN 05/13/20 30 Days #75 ml albuterol sulfate 90 mcg/actuation 2 inh INHALATION Q4-6H PRN 30 Days 05/20/20 breath activated powder inhaler #1 ea metoclopramide HCl 10 mg tablet 10 mg PO Q6H PRN #20 tab 11/30/20 (Reglan) ondansetron 8 mg disintegrating 8 mg PO Q8H PRN #90 tab 11/30/20 tablet acetaminophen 500 mg tablet 1,000 mg PO QID PRN #14 tab 12/03/20 (Tylenol Extra Strength) prenat.vits,manda,ayb-sqoz-mybfp 1 tab PO BEDTIME #30 tab 12/03/20 prednisone 10 mg tablet See Taper PO DAILY #70 tab 12/20/20 albuterol sulfate 2.5 mg (3 mL) INHALATION Q4H PRN 02/25/21 #75 ml albuterol sulfate 90 mcg/actuation 2 puff INHALATION Q6H PRN #8.5 g 02/25/21 aerosol inhaler nebulizer and compressor #1 ea 02/25/21 prednisone 20 mg tablet 40 mg PO DAILY #8 tab 02/25/21 Allergies Allergy/AdvReac Type Severity Reaction Status Date / Time egg [EGG] Allergy Severe ANAPHYLAXIS Verified 04/04/21 01:06 EDT fish derived [FISH] Allergy Severe ANAPHYLAXIS Verified 04/04/21 01:06 EDT peanut [PEANUTS] Allergy Severe ITCHING Verified 04/04/21 01:06 EDT shellfish derived Allergy Severe ANAPHYLAXIS Verified 04/04/21 01:06 EDT [SHELLFISH DERIVED] cat dander Allergy Intermediate Hives Verified 04/04/21 01:06 EDT dog dander Allergy Intermediate Hives Verified 04/04/21 01:06 EDT house dust Allergy Intermediate Hives Verified 04/04/21 01:06 EDT rice [RICE] AdvReac Intermediate CONSTIPATIO Verified 04/04/21 01:06 EDT N Review of Systems Review of Systems: Yes all other systems are reviewed and are negative [facility] Past Medical History [facility] Narrative: Past medical history: Patient is a currently 25 weeks and 1 day with an KELLI of 07/17/2021, depression, anxiety, PTSD, asthma, psoriasis. Past surgical history: x2 will last 1 year prior at [facility]. Social history: Patient is and she lives with her 3 children, she states that they are currently staying in a senior living. She is a former smoker but stopped smoking 6 months prior. She stopped using alcohol 6 months prior when she found out she was . Medical History (Reviewed 04/04/21 @ 01:42 EDT by Neymar Méndez MD) Allergy to other foods Anxiety state, unspecified Asthma Bronchitis Dermatitis, unspecified Hyperemesis Major depressive disorder, single episode, unspecified Mild persistent asthma, uncomplicated Surgical History (Reviewed 04/04/21 @ 01:42 EDT by Neymar Méndez MD) History of section Family History Family History (Reviewed 04/04/21 @ 01:42 EDT by Neymar Méndez MD) Father Drug abuse Asthma Mother Hypertension Maternal Grandmother Ovarian cancer Social History Social History (Reviewed 04/04/21 @ 01:42 EDT by Neymar Méndez MD) Household Members: Family Household Members Other:: mom Housing: Apartment Alcohol intake: never Patient Tobacco Use Status: Former Tobacco user Advance Directives: No Advance Directives Information Provided: No Patient : Yes service: No Current occupational status: unemployed Gender identity: Female Physical Exam Vital Signs: Vital Signs: Last Vital Signs Temp 98.1 F 04/04/21 01:52 ED T Pulse 101 H 04/04/21 01:57 ED T Resp 18 04/04/21 01:57 ED T BP 124/62 04/04/21 01:57 ED T Pulse Ox 98 04/04/21 01:57 ED T Body Mass Index 29.4 Const: Other: Awake, alert, female patient, very pleasant and cooperative, does not appear to be in distress. HENMT: Head: Yes normal to inspection, Yes normocephalic and Yes atraumatic Ears: external ears normal General nose exam: Normal external nose present Face and sinus: Yes normal facial exam Mouth: Normal oral and palatal mucosa present Throat: Yes posterior oropharynx normal Eyes: General: appearance normal, both eyes and all related structures Pu pils: Equal, round and reactive pupils present Neck: Neck: Yes normal visual inspection, Yes no lymphadenopathy, Yes trachea midline and Yes supple Chest: Chest palpation & inspection: normal inspection of the chest and tenderness (Ywwo-hw-pvnnevax chest wall tenderness) Resp: Other: No respiratory distress, patient has diffuse wheezing with symmetric breath sounds bilaterally, no rales or rhonchi. Cardio: Rate: regular rate Rhythm: regular rhythm Heart sounds: S1 normal heart sound present, S2 normal heart sound present and no murmurs GI: Other: Gravid abdomen, patient has tuuq-ej-tphjrese lower abdominal tenderness, normoactive bowel sounds, no rebound. Back/Spine/Pelvis: Other: Tenderness of the paraspinal muscles bilaterally. Skin: Other: Skin findings consistent with psoriasis Neuro: Cranial nerves: Yes CN's II-XII intact bilaterally and Yes Equal, round and reactive pupils present Cognition (Neuro): normal cognition Motor exam (neuro): 5/5 motor strength present throughout Extrem: General: Yes normal to inspection Psych: Appearance: grossly normal Speech and movement: Normal speech and movement present Affect: normal affect Attitude: cooperative Thought process: Normal thought process present Thought content: Normal thought content present Course Course Course Narrative: 25-year-old female , 25 weeks and 1 day based on KELLI of 07/17/2021 who presents emergency department for evaluation of multiple complaints including cough, shortness of breath, body aches and chest pain x2 days, intermittent lower abdominal and lower back pain x1 day with vaginal spotting. Patient's initial vital signs revealed that she was afebrile with temperature of 98.1?, she had and elevated pulse of 112 otherwise were unremarkable. Physical examination did reveal wheezing on her lung exam as well as chest wall tenderness. The patient did have lower abdominal pain and lower back tenderness as well. I ordered an albuterol inhaler 4 puffs for her wheezing patient. The patient will be tested for COVID-19. Given her lower abdominal pain and back pain and the fact that she is 25 weeks , the patient will need to be transferred to facility that can rule out pre term labor. Therefore I will contact [facility] to discuss transfer. [id number]: I did discuss the patient's presentation with the covering OBGYN resident at [facility], Dr. Angie Brush. The patient was accepted as a women's evaluation patient. The patient will be transferred by ambulance. The patient's heart tone was 140 beats per minute. Patient's COVID-19 test is pending. The patient will be transferred by ambulance. Discharge Plan Discharge Clinical Impression: Acute upper respiratory infection, Asthma exacerbation, Abdominal pain during in second trimester, Vaginal spotting Patient Disposition: er Acute Care Hospital Transfer Details: ED to [facility] as a [facility] [facility] patient Prescriptions: No Action albuterol sulfate 2.5 mg /3 mL (0.083 %) solution for nebulization 2.5 mg inhalation Q4-6H PRN (Reason: shortness of breath or wheezing) 30 Days Qty: 75 RF: 6 albuterol sulfate 90 mcg/actuation aerosol powdr breath activated 2 inh inhalation Q4-6H PRN (Reason: shortness of breath or wheezing) 30 Days Qty: 1 RF: 0 ondansetron 8 mg tablet,disintegrating 8 mg PO Q8H PRN (Reason: nausea and vomiting) Qty: 90 RF: 1 (DME) nebulizer and compressor Device See Rx Instructions .ROUTE .MEDSUPPLY Qty: 1 RF: 0 metoclopramide HCl [Reglan] 10 mg tablet 10 mg PO Q6H PRN (Reason: nausea and vomiting) Qty: 20 RF: 0 acetaminophen [Tylenol Extra Strength] 500 mg tablet 1,000 mg PO QID PRN (Reason: fever or pain) Qty: 14 RF: 0 prenat.vits,manda,iom-rwoi-agfnc Tablet 1 tab PO BEDTIME Qty: 30 RF: 0 prednisone 10 mg tablet See Taper mg PO DAILY Qty: 70 RF: 0 (DME) nebulizer and compressor Device See Rx Instructions .Route Qty: 1 RF: 0 prednisone 20 mg tablet 40 mg PO DAILY Qty: 8 RF: 0 albuterol sulfate 90 mcg/actuation HFA aerosol inhaler 2 puff inhalation Q6H PRN (Reason: shortness of breath or wheezing) Qty: 8.5 RF: 0 albuterol sulfate 2.5 mg /3 mL (0.083 %) solution for nebulization 2.5 mg inhalation Q4H PRN (Reason: shortness of breath or wheezing) Qty: 75 RF: 0 triamcinolone acetonide 0.1 % ointment 1 appl topical BID RF: 0
[2021-04-04 01:52] VITALS: TEMP 36.7
[2021-04-04] MEDS: Albuterol Sulfate 90 MCG 8 GM INHALER 4 PUFF INHALE (01:56)
[2021-04-04 01:57] VITALS: BP 124/62; PULSE 101; RESP 18; O2SAT 98
--- NOTE | 2021-04-04 01:58 | PC.NURSE ---
PT MEDICATED PER EMAR.
== END 2021-04-04 03:02 | disposition short-term general hospital (02) ==
PROVIDERS: Emergency Provider Emergency Medicine Emergency Medical Services
DX: O26.892 Other specified pregnancy related conditions, second trimester (principal); R10.30 Lower abdominal pain, unspecified; O99.512 Diseases of the respiratory system complicating pregnancy, second trimester; J06.9 Acute upper respiratory infection, unspecified; J45.901 Unspecified asthma with (acute) exacerbation; O26.852 Spotting complicating pregnancy, second trimester; Z3A.25 25 weeks gestation of pregnancy; Z20.822 Contact with and (suspected) exposure to COVID-19; Z87.891 Personal history of nicotine dependence
CPT/HCPCS: 36415; 87635; 99285

== ENCOUNTER 2021-08-07 14:46 | Emergency (ER) | payer OTHER, SELFPAY ==
--- NOTE | ~2021-08-07 | CT_ITS ---
EXAMINATION: CT ABDOMEN AND PELVIS WITHOUT CONTRAST CLINICAL INFORMATION: Reason for Exam right sided AP . COMPARISON: No pertinent prior studies are available for comparison. TECHNIQUE: Multidetector volumetric imaging was performed from the superior aspect of the liver through the pubic symphysis without contrast per renal stone protocol. Sagittal and coronal reformatted images were obtained on the technologist workstation. This CT examination was performed using dose optimization techniques as appropriate, variously including the following: *Automated exposure control *Adjustment of mA and/or kV according to patient size (this includes techniques or standardized protocols for targeted exams where dose is matched to indication/reason for exam; i.e. extremities or head) *Use of iterative reconstruction technique DLP: 466 mGy-cm. FINDINGS: LUNG BASES: The visualized lung bases are unremarkable. LIVER, GALLBLADDER, BILIARY TREE: The non-contrast liver is normal in size, shape, and attenuation. No focal hepatic lesion or biliary ductal dilatation is present. The gallbladder is contracted but otherwise unremarkable with no evidence of radiopaque gallstones, gallbladder wall thickening, or obvious pericholecystic inflammatory changes. PANCREAS: Unremarkable. SPLEEN: Unremarkable. ADRENAL GLANDS: Unremarkable. KIDNEYS AND URETERS: The kidneys are normal in size, shape, and attenuation. No hydronephrosis, hydroureter, or calculi seen. No perinephric stranding. BLADDER: Unremarkable. GASTROINTESTINAL TRACT: The small and large bowel are unremarkable. The appendix is unremarkable. ABDOMINAL WALL: Likely prior Pfannenstiel incision LYMPHOVASCULAR STRUCTURES: No lymphadenopathy. The aorta is unremarkable.. PELVIC VISCERA: Unremarkable. OSSEUS STRUCTURES: Unremarkable. CT/CT abdomen pelvis wo con IMPRESSION: No acute intra-abdominal process seen. No renal or ureteric calculi..
[2021-08-07 15:04] VITALS: BP 135/69; PULSE 80; RESP 19; TEMP 36.6; O2SAT 98; BMI 27.4
[2021-08-07 15:54] LABS: Appearance Urine HAZY; Color Urine YELLOW; Glucose Urine UA NEG (NEG); Leukocyte Esterase Urine TRACE (NEG); Nitrite Urine NEG (NEG); Specific Gravity - Urine 1.025 (1.005-1.025); UACC Culture Trigger YES; Urine Blood NEG (NEG); Urine Ketones 5 MG/DL (NEG); Urine Protein NEG (NEG-TRACE)
[2021-08-07 15:55] LABS: UPreg QC Valid YES; Urine Pregnancy NEGATIVE (NEGATIVE)
[2021-08-07 16:10] LABS: Bacteria Urine TRACE /LPF; Mucus Urine 2+ /LPF; RBC Urine 0-2 /HPF (0); Squamous Epithelial Cell Urine 3+ /LPF
[2021-08-07 18:59] LABS: MANUAL DIFF FLAG NO
[2021-08-07 19:02] LABS: Basophils Percent Auto 0.4 % (0-2); Eosinophils Absolute Auto 0.8 X10*3/uL (0.0-0.4); Eosinophils Percent Auto 8.6 % (0-4); Hematocrit 42.7 % (37.0-47.0); Hemoglobin 13.4 g/dl (12.0-16.0); Imm Gran Abs Auto 0.03 X10*3/uL (0.00-0.03); Imm Gran Pct Auto 0.3 % (0.0-0.4); Lymphocytes Absolute Auto 2.2 X10*3/uL (1.2-4.9); Lymphocytes Percent Auto 22.7 % (20-40); Mean Corpuscular HGB Conc 31.4 g/dl (31.0-35.0); Mean Corpuscular Hemoglobin 25.5 pg (27.0-33.0); Mean Corpuscular Volume 81.3 fL (80.0-98.0); Mean Platelet Volume 10.1 fL (9.4-12.3); Monocytes Absolute Auto 0.5 X10*3/uL (0.1-1.2); Monocytes Percent Auto 5.2 % (2-11); Neutrophils Absolute Auto 6.1 x10*3/uL (2.0-8.3); Neutrophils Percent Auto 62.8 % (45-73); Platelet Count 428 X10*3/uL (160-400); Red Blood Count 5.25 X10*6/uL (4.20-5.50); Red Cell Distribution Width 15.7 % (11.0-16.0); White Blood Count 9.8 X10*3/uL (4.8-10.8)
[2021-08-07 19:16] LABS: Alanine Aminotransferase 13 U/L (0-31); Albumin Level 3.9 g/dL (3.5-5.0); Alkaline Phosphatase 83 U/L (39-117); Anion Gap 13 (12-20); Aspartate Amino Transferase 17 U/L (5-31); Bilirubin Direct < 0.2 mg/dL (0.0-0.5); Bilirubin Total 0.5 mg/dL (0.0-1.0); Blood Urea Nitrogen 10 mg/dL (9-16); Calcium 9.5 mg/dL (8.4-10.2); Carbon Dioxide 22 mmol/L (22-29); Chloride 109 mmol/L (96-108); Creatinine Clr Calc Pharmacy 113.6; Estimated Glomerular Filt Rate > 60; Glucose Random 85 mg/dL (60-115); Lipase 20 U/L (8-78); Potassium 4.2 mmol/L (3.3-5.1); Sodium 140 mmol/L (135-145)
[2021-08-07 20:05] VITALS: BP 136/72; PULSE 70; RESP 16; TEMP 36.9; O2SAT 98
--- NOTE | 2021-08-07 20:14 | ED_ITS ---
HPI - General Adult General Chief complaint: General Medical <Myriam Booker NP - Last Filed: 08/07/21 20:59> Stated complaint: RIGHT ARM RASH PER EMS <Myriam Booker NP - Last Filed: 08/07/21 20:59> Time Seen by Provider: 08/07/21 19:55 <Myriam Booker NP - Last Filed: 08/07/21 20:59> Source: patient <Myriam Booker NP - Last Filed: 08/07/21 20:59> Mode of arrival: ambulatory <Myriam Booker NP - Last Filed: 08/07/21 20:59> Limitations: no limitations <Myriam Booker NP - Last Filed: 08/07/21 20:59> History of Present Illness HPI narrative: 25-year-old female with a history of asthma, eczema here with reports of eczema flare specially over the right upper arm. she is using topical steroids with continued symptoms. also complaining of some intermittent right-sided abdominal pain since yesterday. No nausea, vomiting, diarrhea, constipation, urinary symptoms, fevers or chills. <Myriam Booker NP - Last Filed: 08/07/21 20:59> Related Data Home medications: Home Medications Medication Instructions Recorded Confirmed triamcinolone acetonide 0.1 % 1 appl TOPICAL BID 06/02/20 12/18/20 topical ointment Previous Rx's Medication Instructions Recorded nebulizer and compressor #1 ea 04/28/20 albuterol sulfate 2.5 mg (3 mL) INHALATION Q4-6H PRN 05/13/20 30 Days #75 ml albuterol sulfate 90 mcg/actuation 2 inh INHALATION Q4-6H PRN 30 Days 05/20/20 breath activated powder inhaler #1 ea metoclopramide HCl 10 mg tablet 10 mg PO Q6H PRN #20 tab 11/30/20 (Reglan) ondansetron 8 mg disintegrating 8 mg PO Q8H PRN #90 tab 11/30/20 tablet acetaminophen 500 mg tablet 1,000 mg PO QID PRN #14 tab 12/03/20 (Tylenol Extra Strength) prenat.vits,manda,[id number]-bfhc-opfxc 1 tab PO BEDTIME #30 tab 12/03/20 prednisone 10 mg tablet See Taper PO DAILY #70 tab 12/20/20 albuterol sulfate 2.5 mg (3 mL) INHALATION Q4H PRN 02/25/21 #75 ml albuterol sulfate 90 mcg/actuation 2 puff INHALATION Q6H PRN #8.5 g 02/25/21 aerosol inhaler nebulizer and compressor #1 ea 02/25/21 prednisone 20 mg tablet 40 mg PO DAILY #8 tab 02/25/21 doxycycline monohydrate 100 mg 100 mg PO BID #20 cap 08/07/21 capsule prednisone 20 mg tablet 60 mg PO DAILY #15 tab 08/07/21 triamcinolone acetonide 0.1 % 1 appl TOPICAL TID PRN #80 g 08/07/21 topical cream <Myriam Booker NP - Last Filed: 08/07/21 20:59> Allergies/adverse reactions: Allergies Allergy/AdvReac Type Severity Reaction Status Date / Time egg [EGG] Allergy Severe ANAPHYLAXIS Verified 04/04/21 01:06 EDT fish derived [FISH] Allergy Severe ANAPHYLAXIS Verified 04/04/21 01:06 EDT peanut [PEANUTS] Allergy Severe ITCHING Verified 04/04/21 01:06 EDT shellfish derived Allergy Severe ANAPHYLAXIS Verified 04/04/21 01:06 EDT [SHELLFISH DERIVED] cat dander Allergy Intermediate Hives Verified 04/04/21 01:06 EDT dog dander Allergy Intermediate Hives Verified 04/04/21 01:06 EDT house dust Allergy Intermediate Hives Verified 04/04/21 01:06 EDT rice [RICE] AdvReac Intermediate CONSTIPATIO Verified 04/04/21 01:06 EDT N <Myriam Booker NP - Last Filed: 08/07/21 20:59> Review of Systems Review of Systems: Yes all other systems are reviewed and are negative <Myriam Booker NP - Last Filed: 08/07/21 20:59> Constitutional: Constitutional: Reports no additional constitutional c omplaints, Denies body ache(s), Denies chills, Denies fever(s), Denies headache(s) and Denies weakness <Myriam Booker NP - Last Filed: 08/07/21 20:59> Eyes: Eyes: Reports no additional eye complaints and Denies change in vision <Myriam Booker NP - Last Filed: 08/07/21 20:59> ENT: Reports system reviewed and no additional complaints, except as documented, Denies dizziness, Denies headache(s), Denies nasal congestion, Denies nasal discharge and Denies neck pain <Myriam Booker NP - Last Filed: 08/07/21 20:59> Cardiovascular: Cardiovascular: Reports no additional cardiovascular complaints, Denies chest pain, Denies leg edema and Denies dyspnea <Myriam Booker NP - Last Filed: 08/07/21 20:59> Respiratory: Respiratory: Reports no additional respiratory complaints, Denies cough and Denies dyspnea <Myriam Booker NP - Last Filed: 08/07/21 20:59> Gastrointestinal: Gastrointestinal: Reports no additional gastrointestinal complaints, Reports abdominal pain, Denies diarrhea, Denies nausea and Denies vomiting <Myriam Booker NP - Last Filed: 08/07/21 20:59> Genitourinary: Genitourinary: Reports no additional female genitourinary complaints and Denies urinary incontinence <Myriam Booker NP - Last F iled: 08/07/21 20:59> Musculoskeletal: Musculoskeletal: Reports no additional musculoskeletal complaints, Denies back pain, Denies arthralgias, Denies joint swelling, Denies neck pain, Denies numbness and Denies tingling <Myriam Booker NP - Last Filed: 08/07/21 20:59> Integumentary/Breasts: Skin/Breast: Reports system reviewed and no additional complaints, except as docu and Reports rash <Myriam Booker NP - Last Filed: 08/07/21 20:59> Neurologic: Reports system reviewed and no additional complaints, except as documented, Denies dizziness, Denies headache(s), Denies numbness, Denies tin gling and Denies weakness <Myriam Booker NP - Last Filed: 08/07/21 20:59> PMFSH Past Medical History Attestation statement: The following information was validated with the patient. <Myriam Booker NP - Last Filed: 08/07/21 20:59> Source: old records reviewed and nursing notes reviewed <Myriam Booker NP - Last Filed: 08/07/21 20:59> Medical History: Medical History Allergy to other foods Anxiety state, unspecified Asthma Bronchitis Dermatitis, unspecified Hyperemesis Major depressive disorder, single episode, unspecified Mild persistent asthma, uncomplicated <Myriam Booker NP - Last Filed: 08/07/21 20:59> Surgical History: Surgical History History of section <Myriam Booker NP - Last Filed: 08/07/21 20:59> Family History Family History: Family History Father Drug abuse Asthma Mother Hypertension Maternal Grandmother Ovarian cancer <Myriam Booker NP - Last Filed: 08/07/21 20:59> Social History Social History: Social History Household Members: Family Household Members Other:: mom Housing: Apartment Alcohol intake: never Patient Tobacco Use Status: Former Tobacco user Advance Directives: No Advance Directives Information Provided: No Patient : No service: No Current occupational status: unemployed Gender identity: Female <Myriam Booker NP - Last Filed: 08/07/21 20:59> Physical Exam ED Vital Signs: Vital Signs - 24 hr 08/07/21 15:04 08/07/21 20:05 08/07/21 21:28 Temperature 98 F 98.4 F 98.2 F Pulse Rate 80 70 81 Respiratory Rate 19 16 16 Blood Pressure 135/69 136/72 134/77 Pulse Oximetry 98 98 96 BMI result Body Mass Index 27.4 <Myriam Booker NP - Last Filed: 08/07/21 20:59> Vital Signs - 24 hr 08/07/21 15:04 08/07/21 20:05 08/07/21 21:28 Temperature 98 F 98.4 F 98.2 F Pulse Rate 80 70 81 Respiratory Rate 19 16 16 Blood Pressure 135/69 136/72 134/77 Pulse Oximetry 98 98 96 BMI result Body Mass Index 27.4 <NADER Sky - Last Filed: 08/08/21 01:51> Const General: cooperative, healthy appearing and comfortable <Myriam Booker NP - Last Filed: 08/07/21 20:59> Orientation/consciousness: patient oriented x3 <Myriam Booker NP - Last Filed: 08/07/21 20:59> Limitations: no limitations <Myriam Booker NP - Last Filed: 08/07/21 20:59> HENMT Head: Yes normal to inspection <Myriam Booker NP - Last Filed: 08/07/21 20:59> Ears: hearing grossly normal bilaterally <Myriam Booker NP - Last Filed: 08/07/21 20:59> General nose exam: Normal external nose present <Myriam Booker NP - Last Filed: 08/07/21 20:59> Face and sinus: Yes normal facial exam <Myriam Booker NP - Last Filed: 08/07/21 20:59> Mouth: Normal oral and palatal mucosa present <Myriam Booker NP - Last Filed: 08/07/21 20:59> Teeth and gingiva: dentition normal <Myriam Booker NP - Last Filed: 08/07/21 20:59> Throat: Yes posterior oropharynx normal and Yes tonsils normal <Myriam Booker NP - Last Filed: 08/07/21 20:59> Eyes General: appearance normal, both eyes and all related structures <Myriam Booker NP - Last Filed: 08/07/21 20:59> Pupils: Equal, round and reactive pupils present <Myriam Booker NP - Last Filed: 08/07/21 20:59> Neck Neck: Yes normal visual inspection, Yes full ROM, Yes no lymphadenopathy and Yes no meningeal signs <Myriam Booker NP - Last Filed: 08/07/21 20:59> Chest Chest palpation & inspection: normal inspection of the chest <Myriam Booker NP - Last Filed: 08/07/21 20:59> Resp Effort & Inspection: normal respiratory effort <Myriam Booker NP - Last Filed: 08/07/21 20:59> Auscultation: clear to auscultation bilaterally <Myriam Booker NP - Last Filed: 08/07/21 20:59> Cardio Rate: regular rate <Myriam Booker NP - Last Filed: 08/07/21 20:59> Rhythm: regular rhythm <Myriam Booker NP - Last Filed: 08/07/21 20:59> Peripheral pulses: Peripheral pulses 2+ throughout <Myriam Booker NP - Last Filed: 08/07/21 20:59> GI Inspection: Yes normal to inspection <Myriam Booker NP - Last Filed: 08/07/21 20:59> Palpation (GI): Soft to palpation and Tenderness to palpation present (GI) ( Right side of abdomen- no rebound or guarding) <Myriam Booker NP - Last Filed: 08/07/21 20:59> General: Yes no CVA tenderness <Myriam Booker NP - Last Filed: 08/07/21 20:59> Back/Spine/Pelvis Back: no CVA tenderness <Myriam Booker NP - Last Filed: 08/07/21 20:59> Thoracic/Lumbar Spine: thoracic and lumbar spine normal to inspection <Myriam Booker NP - Last Filed: 08/07/21 20:59> Skin Other: there are eczema like lesions over the flexor surfaces of the arms and legs and over the chest and abdomen. Over the right upper extremity there is also some redness, swelling, open weeping areas. <Myriam Booker NP - Last Filed: 08/07/21 20:59> Neuro General: patient oriented x3, moves all extremities and no meningeal signs <Myriam Booker NP - Last Filed: 08/07/21 20:59> Cranial nerves: Yes Equal, round and reactive pupils present <Myriam Booker NP - Last Filed: 08/07/21 20:59> Extrem General: Yes normal to inspection and Yes no pedal edema <Myriam Booker NP - Last Filed: 08/07/21 20:59> Course Course Course Narrative: 25-year-old female here with multiple complaints 1. eczema exacerbation that will require prednisone. Also has a superimposed cellulitis that will require antibiotics 2. right-sided abdominal pain with no other complaints. Will check CT, labs, UA 2050- labs and UA are negative. CT pending 2100-Sign out to night team pending CT results. <Myriam Booker NP - Last Filed: 08/07/21 20:59> Reevaluation(s) Reevaluation #1: Abdomen CT scan came back normal. Patient presently is asymptomatic. Patient is safe for discharge. <NADER Sky - Last Filed: 08/08/21 01:51> Time: 23:22 <NADER Sky - Last Filed: 08/08/21 01:51> Medical Decision Making Medical Records Medical records reviewed: Yes I reviewed the patient's medical records. <Myriam Booker NP - Last Filed: 08/07/21 20:59> Lab Data Lab results reviewed: Yes I reviewed the patient's lab results. <Myriam Booker NP - Last Filed: 08/07/21 20:59> Result diagrams: : 08/07/21 18:53 08/07/21 18:53 <Myriam Booker NP - Last Filed: 08/07/21 20:59> Labs: Lab Results 08/07/21 08/07/21 08/07/21 Range/Units 15:19 15:19 18:53 WBC 9.8 (4.8-10.8) X10*3/uL RBC 5.25 (4.20-5.50) X10*6/uL Hgb 13.4 (12.0-16.0) g/dl Hct 42.7 (37.0-47.0) % MCV 81.3 (80.0-98.0) fL MCH 25.5 L (27.0-33.0) pg MCHC 31.4 (31.0-35.0) g/dl RDW 15.7 (11.0-16.0) % Plt Count 428 H (160-400) X10*3/uL MPV 10.1 (9.4-12.3) fL Immature Gran % (Auto) 0.3 (0.0-0.4) % Neut % (Auto) 62.8 (45-73) % Lymph % (Auto) 22.7 (20-40) % [place] % (Auto) 5.2 (2-11) % Eos % (Auto) 8.6 H (0-4) % Baso % (Auto) 0.4 (0-2) % Lymph # (Auto) 2.2 (1.2-4.9) X10*3/uL [place] # (Auto) 0.5 (0.1-1.2) X10*3/uL Eos # (Auto) 0.8 H (0.0-0.4) X10*3/uL Baso # (Auto) 0.0 (0.0-0.2) X10*3/uL Abs Immat Gran (auto) 0.03 (0.00-0.03) X10*3/uL Absolute Neuts (auto) 6.1 (2.0-8.3) x10*3/uL Absolute Nucleated RBC 0.000 (0.0-0.012) X10*3/uL Nucleated RBC % (auto) 0.0 (0.0-0.2) /100WBC Sodium (135-145) mmol/L Potassium (3.3-5.1) mmol/L Chloride (96-108) mmol/L Carbon Dioxide (22-29) mmol/L Anion Gap (12-20) BUN (9-16) mg/dL Creatinine (0.5-1.4) mg/dL Estim Creat Clear Calc Estimated GFR Random Glucose (60-115) mg/dL Calcium (8.4-10.2) mg/dL Total Bilirubin (0.0-1.0) mg/dL Direct Bilirubin (0.0-0.5) mg/dL AST (5-31) U/L ALT (0-31) U/L Alkaline Phosphatase (39-117) U/L Total Protein (6.5-8.0) g/dL Albumin (3.5-5.0) g/dL Lipase (8-78) U/L Urine Color YELLOW Urine Appearance HAZY Urine pH 6.0 (5.0-8.0) Ur Specific [place] 1.025 (1.005-1.025) Urine Protein NEG (NEG-TRACE) MG/DL Urine Glucose (UA) NEG (NEG) MG/DL Urine Ketones 5 (NEG) MG/DL Urine Blood NEG (NEG) Urine Nitrite NEG (NEG) Ur Leukocyte Esterase TRACE H (NEG) Urine RBC 0-2 (0) /HPF Urine WBC 1-4 (0-4) /HPF Ur Squamous Epith Cells 3+ /LPF Urine Bacteria TRACE /LPF Urine Mucus 2+ /LPF Urine Test NEGATIVE (NEGATIVE) 08/07/21 Range/Units 18:53 WBC (4.8-10.8) X10*3/uL RBC (4.20-5.50) X10*6/uL Hgb (12.0-16.0) g/dl Hct (37.0-47.0) % MCV (80.0-98.0) fL MCH (27.0-33.0) pg MCHC (31.0-35.0) g/dl RDW (11.0-16.0) % Plt Count (160-400) X10*3/uL MPV (9.4-12.3) fL Immature Gran % (Auto) (0.0-0.4) % Neut % (Auto) (45-73) % Lymph % (Auto) (20-40) % [place] % (Auto) (2-11) % Eos % (Auto) (0-4) % Baso % (Auto) (0-2) % Lymph # (Auto) (1.2-4.9) X10*3/uL [place] # (Auto) (0.1-1.2) X10*3/uL Eos # (Auto) (0.0-0.4) X10*3/uL Baso # (Auto) (0.0-0.2) X10*3/uL Abs Immat Gran (auto) (0.00-0.03) X10*3/uL Absolute Neuts (auto) (2.0-8.3) x10*3/uL Absolute Nucleated RBC (0.0-0.012) X10*3/uL Nucleated RBC % (auto) (0.0-0.2) /100WBC Sodium 140 (135-145) mmol/L Potassium 4.2 (3.3-5.1) mmol/L Chloride 109 H (96-108) mmol/L Carbon Dioxide 22 (22-29) mmol/L Anion Gap 13 (12-20) BUN 10 (9-16) mg/dL Creatinine 0.69 (0.5-1.4) mg/dL Estim Creat Clear Calc 113.6 Estimated GFR > 60 Random Glucose 85 (60-115) mg/dL Calcium 9.5 D (8.4-10.2) mg/dL Total Bilirubin 0.5 (0.0-1.0) mg/dL Direct Bilirubin < 0.2 (0.0-0.5) mg/dL AST 17 D (5-31) U/L ALT 13 (0-31) U/L Alkaline Phosphatase 83 D (39-117) U/L Total Protein 7.0 D (6.5-8.0) g/dL Albumin 3.9 D (3.5-5.0) g/dL Lipase 20 (8-78) U/L Urine Color Urine Appearance Urine pH (5.0-8.0) Ur Specific [place] (1.005-1.025) Urine Protein (NEG-TRACE) MG/DL Urine Glucose (UA) (NEG) MG/DL Urine Ketones (NEG) MG/DL Urine Blood (NEG) Urine Nitrite (NEG) Ur Leukocyte Esterase (NEG) Urine RBC (0) /HPF Urine WBC (0-4) /HPF Ur Squamous Epith Cells /LPF Urine Bacteria /LPF Urine Mucus /LPF Urine Test (NEGATIVE) <Myriam Booker, TOOL DESIGNER APPRENTICE - Last Filed: 08/07/21 20:59> Lab Results 08/07/21 08/07/21 08/07/21 Range/Units 15:19 15:19 18:53 WBC 9.8 (4.8-10.8) X10*3/uL RBC 5.25 (4.20-5.50) X10*6/uL Hgb 13.4 (12.0-16.0) g/dl Hct 42.7 (37.0-47.0) % MCV 81.3 (80.0-98.0) fL MCH 25.5 L (27.0-33.0) pg MCHC 31.4 (31.0-35.0) g/dl RDW 15.7 (11.0-16.0) % Plt Count 428 H (160-400) X10*3/uL MPV 10.1 (9.4-12.3) fL Immature Gran % (Auto) 0.3 (0.0-0.4) % Neut % (Auto) 62.8 (45-73) % Lymph % (Auto) 22.7 (20-40) % [place] % (Auto) 5.2 (2-11) % Eos % (Auto) 8.6 H (0-4) % Baso % (Auto) 0.4 (0-2) % Lymph # (Auto) 2.2 (1.2-4.9) X10*3/uL [place] # (Auto) 0.5 (0.1-1.2) X10*3/uL Eos # (Auto) 0.8 H (0.0-0.4) X10*3/uL Baso # (Auto) 0.0 (0.0-0.2) X10*3/uL Abs Immat Gran (auto) 0.03 (0.00-0.03) X10*3/uL Absolute Neuts (auto) 6.1 (2.0-8.3) x10*3/uL Absolute Nucleated RBC 0.000 (0.0-0.012) X10*3/uL Nucleated RBC % (auto) 0.0 (0.0-0.2) /100WBC Sodium (135-145) mmol/L Potassium (3.3-5.1) mmol/L Chloride (96-108) mmol/L Carbon Dioxide (22-29) mmol/L Anion Gap (12-20) BUN (9-16) mg/dL Creatinine (0.5-1.4) mg/dL Estim Creat Clear Calc Estimated GFR Random Glucose (60-115) mg/dL Calcium (8.4-10.2) mg/dL Total Bilirubin (0.0-1.0) mg/dL Direct Bilirubin (0.0-0.5) mg/dL AST (5-31) U/L ALT (0-31) U/L Alkaline Phosphatase (39-117) U/L Total Protein (6.5-8.0) g/dL Albumin (3.5-5.0) g/dL Lipase (8-78) U/L Urine Color YELLOW Urine Appearance HAZY Urine pH 6.0 (5.0-8.0) Ur Specific [place] 1.025 (1.005-1.025) Urine Protein NEG (NEG-TRACE) MG/DL Urine Glucose (UA) NEG (NEG) MG/DL Urine Ketones 5 (NEG) MG/DL Urine Blood NEG (NEG) Urine Nitrite NEG (NEG) Ur Leukocyte Esterase TRACE H (NEG) Urine RBC 0-2 (0) /HPF Urine WBC 1-4 (0-4) /HPF Ur Squamous Epith Cells 3+ /LPF Urine Bacteria TRACE /LPF Urine Mucus 2+ /LPF Urine Test NEGATIVE (NEGATIVE) 08/07/21 Range/Units 18:53 WBC (4.8-10.8) X10*3/uL RBC (4.20-5.50) X10*6/uL Hgb (12.0-16.0) g/dl Hct (37.0-47.0) % MCV (80.0-98.0) fL MCH (27.0-33.0) pg MCHC (31.0-35.0) g/dl RDW (11.0-16.0) % Plt Count (160-400) X10*3/uL MPV (9.4-12.3) fL Immature Gran % (Auto) (0.0-0.4) % Neut % (Auto) (45-73) % Lymph % (Auto) (20-40) % [place] % (Auto) (2-11) % Eos % (Auto) (0-4) % Baso % (Auto) (0-2) % Lymph # (Auto) (1.2-4.9) X10*3/uL [place] # (Auto) (0.1-1.2) X10*3/uL Eos # (Auto) (0.0-0.4) X10*3/uL Baso # (Auto) (0.0-0.2) X10*3/uL Abs Immat Gran (auto) (0.00-0.03) X10*3/uL Absolute Neuts (auto) (2.0-8.3) x10*3/uL Absolute Nucleated RBC (0.0-0.012) X10*3/uL Nucleated RBC % (auto) (0.0-0.2) /100WBC Sodium 140 (135-145) mmol/L Potassium 4.2 (3.3-5.1) mmol/L Chloride 109 H (96-108) mmol/L Carbon Dioxide 22 (22-29) mmol/L Anion Gap 13 (12-20) BUN 10 (9-16) mg/dL Creatinine 0.69 (0.5-1.4) mg/dL Estim Creat Clear Calc 113.6 Estimated GFR > 60 Random Glucose 85 (60-115) mg/dL Calcium 9.5 D (8.4-10.2) mg/dL Total Bilirubin 0.5 (0.0-1.0) mg/dL Direct Bilirubin < 0.2 (0.0-0.5) mg/dL AST 17 D (5-31) U/L ALT 13 (0-31) U/L Alkaline Phosphatase 83 D (39-117) U/L Total Protein 7.0 D (6.5-8.0) g/dL Albumin 3.9 D (3.5-5.0) g/dL Lipase 20 (8-78) U/L Urine Color Urine Appearance Urine pH (5.0-8.0) Ur Specific [place] (1.005-1.025) Urine Protein (NEG-TRACE) MG/DL Urine Glucose (UA) (NEG) MG/DL Urine Ketones (NEG) MG/DL Urine Blood (NEG) Urine Nitrite (NEG) Ur Leukocyte Esterase (NEG) Urine RBC (0) /HPF Urine WBC (0-4) /HPF Ur Squamous Epith Cells /LPF Urine Bacteria /LPF Urine Mucus /LPF Urine Test (NEGATIVE) <NADER Sky - Last Filed: 08/08/21 01:51> Discharge Plan Discharge Clinical Impression: Eczema, Cellulitis, Abdominal pain <Myriam Booker NP - Last Filed: 08/07/21 20:59> Patient Disposition: Home, Self-Care <Myriam Booker NP - Last Filed: 08/07/21 20:59> Instructions: Cellulitis (DC), Abdominal Pain (ED), Dermatitis (ED) <Myriam Booker NP - Last Filed: 08/07/21 20:59> Additional Instructions: lukewarm water for bathing, limit bathing use products, detergents and soaps that are sensitive and fragrance free. Return to ED for any worsening abdominal pain, fever, chills, nausea, vomiting, diarrhea, hematuria, flank pain, vaginal bleeding, chest pain, shortness of breath, coughing up blood, or any other concerning symptoms. <Myriam Booker NP - Last Filed: 08/07/21 20:59> Prescriptions: New prednisone 20 mg tablet 60 mg PO DAILY Qty: 15 0RF doxycycline monohydrate 100 mg capsule 100 mg PO BID Qty: 20 0RF triamcinolone acetonide 0.1 % cream 1 appl topical TID PRN (Reason: rash) Qty: 80 0RF No Action albuterol sulfate 2.5 mg /3 mL (0.083 %) solution for nebulization 2.5 mg inhalation Q4-6H PRN (Reason: shortness of breath or wheezing) 30 Days Qty: 75 6RF albuterol sulfate 90 mcg/actuation aerosol powdr breath activated 2 inh inhalation Q4-6H PRN (Reason: shortness of breath or wheezing) 30 Days Qty: 1 0RF ondansetron 8 mg tablet,disintegrating 8 mg PO Q8H PRN (Reason: nausea and vomiting) Qty: 90 1RF (DME) nebulizer and compressor Device See Rx Instructions .ROUTE .MEDSUPPLY Qty: 1 0RF Rx Instructions: As directed metoclopramide HCl [Reglan] 10 mg tablet 10 mg PO Q6H PRN (Reason: nausea and vomiting) Qty: 20 0RF acetaminophen [Tylenol Extra Strength] 500 mg tablet 1,000 mg PO QID PRN (Reason: fever or pain) Qty: 14 0RF prenat.vits,manda,nhz-iwwg-vokua Tablet 1 tab PO BEDTIME Qty: 30 0RF prednisone 10 mg tablet See Taper mg PO DAILY Qty: 70 0RF Taper: Prednisone 40 mg daily for 7 Days and 0 Hour 30 mg daily for 7 Days and 0 Hour 20 mg daily for 7 Days and 0 Hour 10 mg daily for 7 Days and 0 Hour Rx Instructions: 4 tabs for 7 days, then reduce by 1 tab every 7 days until done (DME) nebulizer and compressor Device See Rx Instructions .Route Qty: 1 0RF Rx Instructions: As directed prednisone 20 mg tablet 40 mg PO DAILY Qty: 8 0RF albuterol sulfate 90 mcg/actuation HFA aerosol inhaler 2 puff inhalation Q6H PRN (Reason: shortness of breath or wheezing) Qty: 8.5 0RF albuterol sulfate 2.5 mg /3 mL (0.083 %) solution for nebulization 2.5 mg inhalation Q4H PRN (Reason: shortness of breath or wheezing) Qty: 75 0RF triamcinolone acetonide 0.1 % ointment 1 appl topical BID 0RF <Myriam Booker NP - Last Filed: 08/07/21 20:59> Referrals: Physician,None [Primary Care Provider] - 2 days <Myriam Booker NP - Last Filed: 08/07/21 20:59> Interventions: ED Discharge Assessment Last Done: 08/07/21 23:28 <Myriam Booker NP - Last Filed: 08/07/21 20:59> Discharge Date/Time: 08/07/21 23:30 <Myriam Booker NP - Last Filed: 08/07/21 20:59> Print Language: Romanian <Myriam Booker NP - Last Filed: 08/07/21 20:59>
[2021-08-07 21:28] VITALS: BP 134/77; PULSE 81; RESP 16; TEMP 36.8; O2SAT 96
== END 2021-08-07 23:30 | disposition home or self-care (01) ==
PROVIDERS: Emergency Provider Emergency Medicine
DX: L30.9 Dermatitis, unspecified (principal); R10.9 Unspecified abdominal pain; L03.113 Cellulitis of right upper limb
CPT/HCPCS: 36415; 74176; 80048; 80076; 81001; 81025; 83690; 85025; 87086; 87147; 99284

== ENCOUNTER 2021-09-29 02:56 | Emergency (ER) | payer OTHER, SELFPAY ==
[2021-09-29 03:12] VITALS: BP 111/75; PULSE 84; O2SAT 98
[2021-09-29 03:18] VITALS: BP 128/65; PULSE 131; RESP 26; TEMP 36.8; O2SAT 91; BMI 27.4
[2021-09-29 03:46] VITALS: PULSE 91; RESP 16; O2SAT 95
[2021-09-29 04:49] VITALS: BP 115/75; PULSE 78; RESP 18; O2SAT 99
--- NOTE | 2021-09-29 05:19 | ED_ITS ---
HPI - General Adult General Chief complaint: General Medical Stated complaint: excema flare up Time Seen by Provider: 09/29/21 05:17 Source: patient Mode of arrival: ambulatory History of Present Illness HPI narrative: 25-year-old female with history of eczema as well as asthma presents with a ?flare? all over her body that is really itchy and she states that this was likely exacerbated by the sure that she was wearing and began to flare after she got into a hot shower. Patient states that she has an appointment today with her physician and is on medication but ?nothing seems to be working?. Related Data Home Medications Medication Instructions Recorded Confirmed triamcinolone acetonide 0.1 % 1 appl TOPICAL BID 06/02/20 12/18/20 topical ointment Previous Rx's Medication Instructions Recorded nebulizer and compressor #1 ea 04/28/20 albuterol sulfate 2.5 mg (3 mL) INHALATION Q4-6H PRN 05/13/20 30 Days #75 ml albuterol sulfate 90 mcg/actuation 2 inh INHALATION Q4-6H PRN 30 Days 05/20/20 breath activated powder inhaler #1 ea metoclopramide HCl 10 mg tablet 10 mg PO Q6H PRN #20 tab 11/30/20 (Reglan) ondansetron 8 mg disintegrating 8 mg PO Q8H PRN #90 tab 11/30/20 tablet acetaminophen 500 mg tablet 1,000 mg PO QID PRN #14 tab 12/03/20 (Tylenol Extra Strength) prenat.vits,manda,[id number] 1 tab PO BEDTIME #30 tab 12/03/20 prednisone 10 mg tablet See Taper PO DAILY #70 tab 12/20/20 albuterol sulfate 2.5 mg (3 mL) INHALATION Q4H PRN 02/25/21 #75 ml albuterol sulfate 90 mcg/actuation 2 puff INHALATION Q6H PRN #8.5 g 02/25/21 aerosol inhaler nebulizer and compressor #1 ea 02/25/21 prednisone 20 mg tablet 40 mg PO DAILY #8 tab 02/25/21 doxycycline monohydrate 100 mg 100 mg PO BID #20 cap 08/07/21 capsule prednisone 20 mg tablet 60 mg PO DAILY #15 tab 08/07/21 triamcinolone acetonide 0.1 % 1 appl TOPICAL TID PRN #80 g 09/09/21 topical cream cephalexin 500 mg capsule 500 mg PO Q12H 5 Days #10 cap 09/29/21 Allergies Allergy/AdvReac Type Severity Reaction Status Date / Time egg [EGG] Allergy Severe ANAPHYLAXIS Verified 04/04/21 01:06 EDT fish derived [FISH] Allergy Severe ANAPHYLAXIS Verified 04/04/21 01:06 EDT peanut [PEANUTS] Allergy Severe ITCHING Verified 04/04/21 01:06 EDT shellfish derived Allergy Severe ANAPHYLAXIS Verified 04/04/21 01:06 EDT [SHELLFISH DERIVED] cat dander Allergy Intermediate Hives Verified 04/04/21 01:06 EDT dog dander Allergy Intermediate Hives Verified 04/04/21 01:06 EDT house dust Allergy Intermediate Hives Verified 04/04/21 01:06 EDT rice [RICE] AdvReac Intermediate CONSTIPATIO Verified 04/04/21 01:06 EDT N Review of Systems Review of Systems: Pertinent positives and negatives as stated in HPI 10 point review of systems is otherwise negative. PMFSH Past Medical History Source: nursing notes reviewed Medical History Allergy to other foods Anxiety state, unspecified Asthma Bronchitis Dermatitis, unspecified Hyperemesis Major depressive disorder, single episode, unspecified Mild persistent asthma, uncomplicated Surgical History History of section Family History Family History Father Drug abuse Asthma Mother Hypertension Maternal Grandmother Ovarian cancer Social History Social History Household Members: Family Household Members Other:: mom Housing: Apartment Alcohol intake: never Patient Tobacco Use Status: Former Tobacco user Advance Directives: No service: No Current occupational status: unemployed Gender identity: Female Physical Exam ED Vital Signs: Vital Signs - 24 hr 09/29/21 03:18 09/29/21 03:46 09/29/21 04:49 Temperature 98.3 F Pulse Rate 131 H 91 78 Respiratory Rate 26 H 16 18 Blood Pressure 128/65 115/75 Pulse Oximetry 91 L 95 99 BMI result Body Mass Index 27.4 VITAL SIGNS: Reviewed. GENERAL: Well nourished, in no acute distress. HEAD: Normocephalic/atraumatic EYES: PERRLA, EOMI EARS: Ext canals without abnormality OROPHARYNX: no oral lesions noted, posterior pharynx clear LUNGS: Normal breath sounds. No adventitious sounds or accessory muscle use. SpO2<99> CARDIOVASCULAR: Regular rate and rhythm without noted murmurs ABDOMEN: Soft, non-tender, non-distended with bowel sounds. MUSCULOSKELETAL: No tenderness, deformities, or effusions noted on gross inspe ction. EXTREMITIES: No cyanosis, clubbing or edema, significant areas erythema and obvious scratching with patches skin consistent with eczema. SKIN: Inspection of the skin reveals eczema. NEUROLOGIC: Alert and oriented x 4. Strength and sensation to light touch were grossly intact x 4. Course Course Course Narrative: 25-year-old female with history and clinical presentation consistent with eczema and likely bad case of contact dermatitis. Patient received Benadryl as well as cephalexin and will be discharged home. Discharge Plan Discharge Clinical Impression: Contact dermatitis and eczema Patient Disposition: Home, Self-Care Instructions: Contact Dermatitis (ED), Eczema (ED) Additional Instructions: It is very important that you keep your appointment with your physician. Continue to utilize the Vaseline for symptom relief. Recommend that you also use [id number] Benadryl as needed for control of the itching. You have been provided with a prescription for an antibiotic and should complete the entire course Return to the ER for worsening symptoms. Prescriptions: New cephalexin 500 mg capsule 500 mg PO Q12H 5 Days Qty: 10 0RF No Action albuterol sulfate 2.5 mg /3 mL (0.083 %) solution for nebulization 2.5 mg inhalation Q4-6H PRN (Reason: shortness of breath or wheezing) 30 Days Qty: 75 6RF albuterol sulfate 90 mcg/actuation aerosol powdr breath activated 2 inh inhalation Q4-6H PRN (Reason: shortness of breath or wheezing) 30 Days Qty: 1 0RF ondansetron 8 mg tablet,disintegrating 8 mg PO Q8H PRN (Reason: nausea and vomiting) Qty: 90 1RF triamcinolone acetonide 0.1 % cream 1 appl topical TID PRN (Reason: rash) Qty: 80 0RF (DME) nebulizer and compressor Device See Rx Instructions .ROUTE .MEDSUPPLY Qty: 1 0RF Rx Instructions: As directed metoclopramide HCl [Reglan] 10 mg tablet 10 mg PO Q6H PRN (Reason: nausea and vomiting) Qty: 20 0RF acetaminophen [Tylenol Extra Strength] 500 mg tablet 1,000 mg PO QID PRN (Reason: fever or pain) Qty: 14 0RF prenat.vits,manda,[id number] Tablet 1 tab PO BEDTIME Qty: 30 0RF prednisone 10 mg tablet See Taper mg PO DAILY Qty: 70 0RF Taper: Prednisone 40 mg daily for 7 Days and 0 Hour 30 mg daily for 7 Days and 0 Hour 20 mg daily for 7 Days and 0 Hour 10 mg daily for 7 Days and 0 Hour Rx Instructions: 4 tabs for 7 days, then reduce by 1 tab every 7 days until done (DME) nebulizer and compressor Device See Rx Instructions .Route Qty: 1 0RF Rx Instructions: As directed prednisone 20 mg tablet 40 mg PO DAILY Qty: 8 0RF albuterol sulfate 90 mcg/actuation HFA aerosol inhaler 2 puff inhalation Q6H PRN (Reason: shortness of breath or wheezing) Qty: 8.5 0RF albuterol sulfate 2.5 mg /3 mL (0.083 %) solution for nebulization 2.5 mg inhalation Q4H PRN (Reason: shortness of breath or wheezing) Qty: 75 0RF prednisone 20 mg tablet 60 mg PO DAILY Qty: 15 0RF doxycycline monohydrate 100 mg capsule 100 mg PO BID Qty: 20 0RF triamcinolone acetonide 0.1 % ointment 1 appl topical BID 0RF Referrals: Dez Peace MD [Primary Care Provider] -
[2021-09-29] MEDS: diphenhydrAMINE HCL 25 MG TABLET PO (05:23)
[2021-09-29] MEDS: cephALEXin 500 MG CAPSULE PO (05:24)
--- NOTE | 2021-09-29 06:00 | PC.NURSE ---
pt given a sandwich and juice, reports decreased itching.
== END 2021-09-29 06:38 | disposition home or self-care (01) ==
PROVIDERS: Emergency Provider Student in an Organized Health Care Education/Training Program; PCP Internal Medicine
DX: L25.9 Unspecified contact dermatitis, unspecified cause (principal); J45.40 Moderate persistent asthma, uncomplicated
CPT/HCPCS: 99283; 99284; Q0163

== ENCOUNTER 2022-05-06 13:06 | Emergency (ER) | payer OTHER, SELFPAY ==
--- NOTE | ~2022-05-06 | XR_ITS ---
EXAMINATION: XR CHEST CLINICAL INFORMATION: Cough. COMPARISON: 02/25/2021 chest radiographs. TECHNIQUE: Frontal view of the chest was obtained. FINDINGS: No significant abnormality is noted involving the heart, lungs, mediastinum, bony thorax or soft tissues. XR/XR chest 1V IMPRESSION: No acute cardiopulmonary process.
[2022-05-06 13:31] VITALS: BP 100/73; PULSE 140; RESP 16; TEMP 36.7; O2SAT 95; BMI 19.1
--- NOTE | 2022-05-06 13:32 | ED.URI ---
HPI - URI/Sore Throat General Chief Complaint: Upper Respiratory Symptoms Stated Complaint: Flu symptoms Time Seen by Provider: 05/06/22 14:50 Related Data Home Medications Medication Instructions Recorded Confirmed triamcinolone acetonide 0.1 % 1 appl topical BID 06/02/20 12/18/20 topical ointment Previous Rx's Medication Instructions Recorded nebulizer and compressor #1 ea 04/28/20 albuterol sulfate 2.5 mg/3 mL 2.5 mg (3 mL) inhalation Q4-6H PRN 05/13/20 (0.083 %) solution for nebulization shortness of breath or wheezing 1 month #75 mL albuterol sulfate 90 mcg/actuation 2 inh inhalation Q4-6H PRN 05/20/20 breath activated powder inhaler shortness of breath or wheezing 1 month #1 ea metoclopramide HCl 10 mg tablet 10 mg PO Q6H PRN nausea and 11/30/20 (Reglan) vomiting #20 tabs ondansetron 8 mg disintegrating 8 mg PO Q8H PRN nausea and 11/30/20 tablet vomiting #90 tabs acetaminophen 500 mg tablet 1,000 mg PO QID PRN fever or pain 12/03/20 (Tylenol Extra Strength) #14 tabs prenat.vits,manda,[id number] 1 tab PO BEDTIME #30 tabs 12/03/20 prednisone 10 mg tablet See Taper PO DAILY #70 tabs 12/20/20 albuterol sulfate 2.5 mg/3 mL 2.5 mg (3 mL) inhalation Q4H PRN 02/25/21 (0.083 %) solution for nebulization shortness of breath or wheezing #75 mL albuterol sulfate 90 mcg/actuation 2 puff inhalation Q6H PRN 02/25/21 aerosol inhaler shortness of breath or wheezing #8.5 grams nebulizer and compressor #1 ea 02/25/21 prednisone 20 mg tablet 40 mg PO DAILY #8 tabs 02/25/21 doxycycline monohydrate 100 mg 100 mg PO BID #20 caps 08/07/21 capsule prednisone 20 mg tablet 60 mg PO DAILY #15 tabs 08/07/21 cephalexin 500 mg capsule 500 mg PO Q12H 5 days #10 caps 09/29/21 triamcinolone acetonide 0.1 % 1 appl topical TID PRN rash #80 01/19/22 topical cream grams albuterol sulfate 0.63 mg/3 mL 0.63 mg (3 mL) inhalation QID PRN 05/06/22 solution for nebulization shortness of breath or wheezing #75 mL albuterol sulfate 90 mcg/actuation 1 inh inhalation QID PRN shortness 05/06/22 aerosol inhaler of breath or wheezing #8.5 grams fluconazole 150 mg tablet 150 mg PO Q3D 2 doses #2 tabs 05/06/22 (Diflucan) hydrocortisone 2.5 % topical 1 appl topical QD-TID PRN skin 05/06/22 ointment irritation #454 grams metronidazole 500 mg tablet 500 mg PO BID 7 days #14 tabs 05/06/22 nitrofurantoin 100 mg PO BID 7 days #14 caps 05/06/22 monohydrate/macrocrystals 100 mg capsule (Macrobid) oseltamivir 75 mg capsule (Tamiflu) 75 mg PO BID 5 days #10 caps 05/06/22 prednisone 20 mg tablet 40 mg PO DAILY inflammation 5 days 05/06/22 #10 tabs Allergies Allergy/AdvReac Type Severity Reaction Status Date / Time egg [EGG] Allergy Severe ANAPHYLAXIS Verified 05/06/22 13:30 fish derived [FISH] Allergy Severe ANAPHYLAXIS Verified 05/06/22 13:30 peanut [PEANUTS] Allergy Severe ITCHING Verified 05/06/22 13:30 shellfish derived Allergy Severe ANAPHYLAXIS Verified 05/06/22 13:30 [SHELLFISH DERIVED] cat dander Allergy Intermediate Hives Verified 05/06/22 13:30 dog dander Allergy Intermediate Hives Verified 05/06/22 13:30 house dust Allergy Intermediate Hives Verified 05/06/22 13:30 rice [RICE] AdvReac Intermediate CONSTIPATIO Verified 05/06/22 13:30 N PMFSH Past Medical History Medical History Allergy to other foods Anxiety state, unspecified Asthma Bronchitis Dermatitis, unspecified Hyperemesis Major depressive disorder, single episode, unspecified Mild persistent asthma, uncomplicated Surgical History History of section Family History Family History Father Drug abuse Asthma Mother Hypertension Maternal Grandmother Ovarian cancer Social History Social History Household Members: Family Household Members Other:: mom Housing: Apartment Alcohol intake: never Patient Tobacco Use Status: Former Tobacco user Advance Directives: No Advance Directives Information Provided: Yes service: No Current occupational status: unemployed Gender identity: Female Physical Exam Vital Signs: Vital Signs: Last Vital Signs Temp 98.1 F 05/06/22 13:31 Pulse 117 H 05/06/22 16:05 Resp 20 05/06/22 16:05 BP 112/71 05/06/22 15:57 Pulse Ox 95 05/06/22 15:57 O2 Del Method 05/06/22 15:57 BMI result Body Mass Index 19.1 Course Course Course Narrative: RME--26yo F w/PMHx asthma c/o cough, chills, myalgias, SOB, CP, & decreased PO intake x2 days. Also reports believes she has a yeast infection. Tachycardic to 120 in triage EKG, labs, COVID/flu/RSV, CXR, UA/, IVF ordered in triage Medications Administered Discontinued Medications Generic Name Dose Route Start Last Admin Trade Name Freq PRN Reason Stop Dose Admin Albuterol Sulfate 2 puff 05/06/22 15:50 05/06/22 16:02 Albuterol Sulfate 90 Mcg 8 Gm Inhaler INHALE 05/06/22 15:51 2 puff ONCE ONE Administration Sodium Chloride 1,000 mls @ 999 mls/hr 05/06/22 13:45 05/06/22 15:19 Ns IV 05/06/22 14:45 Not Given .Q1H1M [facility] Discharge Plan Discharge Clinical Impression: Acute eczema, Asthma exacerbation, Bacterial vaginosis, Kajal vaginitis, UTI (urinary tract infection) Patient Disposition: Home, Self-Care Instructions: Bacterial Vaginosis (ED), Eczema (ED), Vaginal Discharge (ED) Additional Instructions: you have pending lab results if any are positive you will be contacted within 3-5 days. Return if any new or worsening symptoms. Prescriptions: New oseltamivir [Tamiflu] 75 mg capsule 75 mg PO BID 5 Days Qty: 10 0RF prednisone 20 mg tablet 40 mg PO DAILY 5 Days Qty: 10 0RF albuterol sulfate 0.63 mg/3 mL solution for nebulization 0.63 mg inhalation QID PRN (Reason: shortness of breath or wheezing) Qty: 75 0RF albuterol sulfate 90 mcg/actuation HFA aerosol inhaler 1 inh inhalation QID PRN (Reason: shortness of breath or wheezing) Qty: 8.5 0RF metronidazole 500 mg tablet 500 mg PO BID 7 Days Qty: 14 0RF fluconazole [Diflucan] 150 mg tablet 150 mg PO Q3D 0 Days Qty: 2 0RF Rx Instructions: may repeat second dose 72 hrs after first dose if symptoms persist hydrocortisone 2.5 % ointment 1 appl topical QD-TID PRN (Reason: skin irritation) Qty: 454 3RF nitrofurantoin monohyd/m-cryst [Macrobid] 100 mg capsule 100 mg PO BID 7 Days Qty: 14 0RF Rx Instructions: must administer with a meal/food No Action albuterol sulfate 2.5 mg /3 mL (0.083 %) solution for nebulization 2.5 mg inhalation Q4-6H PRN (Reason: shortness of breath or wheezing) 30 Days Qty: 75 6RF albuterol sulfate 90 mcg/actuation aerosol powdr breath activated 2 inh inhalation Q4-6H PRN (Reason: shortness of breath or wheezing) 30 Days Qty: 1 0RF ondansetron 8 mg tablet,disintegrating 8 mg PO Q8H PRN (Reason: nausea and vomiting) Qty: 90 1RF triamcinolone acetonide 0.1 % cream 1 appl topical TID PRN (Reason: rash) Qty: 80 0RF (DME) nebulizer and compressor Device See Rx Instructions .ROUTE .MEDSUPPLY Qty: 1 0RF Rx Instructions: As directed metoclopramide HCl [Reglan] 10 mg tablet 10 mg PO Q6H PRN (Reason: nausea and vomiting) Qty: 20 0RF acetaminophen [Tylenol Extra Strength] 500 mg tablet 1,000 mg PO QID PRN (Reason: fever or pain) Qty: 14 0RF prenat.vits,madna,[id number] Tablet 1 tab PO BEDTIME Qty: 30 0RF prednisone 10 mg tablet See Taper PO DAILY Qty: 70 0RF Taper: Prednisone 40 mg daily for 7 Days and 0 Hour 30 mg daily for 7 Days and 0 Hour 20 mg daily for 7 Days and 0 Hour 10 mg daily for 7 Days and 0 Hour Rx Instructions: 4 tabs for 7 days, then reduce by 1 tab every 7 days until done (DME) nebulizer and compressor Device See Rx Instructions .Route Qty: 1 0RF Rx Instructions: As directed prednisone 20 mg tablet 40 mg PO DAILY Qty: 8 0RF albuterol sulfate 90 mcg/actuation HFA aerosol inhaler 2 puff inhalation Q6H PRN (Reason: shortness of breath or wheezing) Qty: 8.5 0RF albuterol sulfate 2.5 mg /3 mL (0.083 %) solution for nebulization 2.5 mg inhalation Q4H PRN (Reason: shortness of breath or wheezing) Qty: 75 0RF prednisone 20 mg tablet 60 mg PO DAILY Qty: 15 0RF doxycycline monohydrate 100 mg capsule 100 mg PO BID Qty: 20 0RF cephalexin 500 mg capsule 500 mg PO Q12H 5 Days Qty: 10 0RF triamcinolone acetonide 0.1 % ointment 1 appl topical BID Referrals: Physician,None [Primary Care Provider] - 2 days Stand Alone Forms: Work/School Release
--- NOTE | 2022-05-06 13:34 | ECG_ITS ---
Test Reason : SOB Blood Pressure : / mmHG Vent. Rate : 136 BPM Atrial Rate : 136 BPM P-R Int : 120 ms QRS Dur : 078 ms QT Int : 296 ms P-R-T Axes : 079 257 061 degrees QTc Int : 445 ms Sinus tachycardia Right atrial enlargement Right superior axis deviation Pulmonary disease pattern Abnormal ECG When compared with ECG of 09-DEC-2019 13:11, Vent. rate has increased BY 45 BPM QRS axis Shifted left Referred By: Alycia Oates Electronically Signed By:TACO GOMEZ MD
[2022-05-06 14:01] LABS: MANUAL DIFF FLAG NO
[2022-05-06 14:03] LABS: Basophils Percent Auto 0.4 % (0-2); Eosinophils Absolute Auto 0.1 X10*3/uL (0.0-0.4); Eosinophils Percent Auto 0.6 % (0-4); Hematocrit 48.4 % (37.0-47.0); Hemoglobin 16.1 g/dl (12.0-16.0); Imm Gran Abs Auto 0.02 X10*3/uL (0.00-0.03); Imm Gran Pct Auto 0.3 % (0.0-0.4); Lymphocytes Absolute Auto 0.6 X10*3/uL (1.2-4.9); Lymphocytes Percent Auto 8.2 % (20-40); Mean Corpuscular HGB Conc 33.3 g/dl (31.0-35.0); Mean Corpuscular Hemoglobin 28.1 pg (27.0-33.0); Mean Corpuscular Volume 84.6 fL (80.0-98.0); Mean Platelet Volume 10.3 fL (9.4-12.3); Monocytes Absolute Auto 0.8 X10*3/uL (0.1-1.2); Monocytes Percent Auto 10.4 % (2-11); Neutrophils Absolute Auto 6.3 x10*3/uL (2.0-8.3); Neutrophils Percent Auto 80.1 % (45-73); Platelet Count 246 X10*3/uL (160-400); Red Blood Count 5.72 X10*6/uL (4.20-5.50); Red Cell Distribution Width 14.4 % (11.0-16.0); White Blood Count 7.8 X10*3/uL (4.8-10.8)
[2022-05-06 14:20] LABS: Alanine Aminotransferase 17 U/L (0-31); Albumin Level 4.4 g/dL (3.5-5.0); Alkaline Phosphatase 74 U/L (39-117); Anion Gap 13 (12-20); Aspartate Amino Transferase 23 U/L (5-31); Bilirubin Direct 0.2 mg/dL (0.0-0.5); Bilirubin Total 0.6 mg/dL (0.0-1.0); Blood Urea Nitrogen 11 mg/dL (9-16); Calcium 9.6 mg/dL (8.4-10.2); Carbon Dioxide 23 mmol/L (22-29); Chloride 103 mmol/L (96-108); Creatinine Clr Calc Pharmacy 80.6; Estimated Glomerular Filt Rate > 60; Glucose Random 118 mg/dL (60-115); Lipase 13 U/L (8-78); Magnesium 2.1 mg/dL (1.6-2.6); Potassium 3.8 mmol/L (3.3-5.1); Sodium 135 mmol/L (135-145); Total Protein 7.7 g/dL (6.5-8.0)
[2022-05-06 14:24] LABS: Troponin-I High Sensitivity < 3.5 ng/L (<3.5-17.0)
--- NOTE | 2022-05-06 15:50 | ED_ITS ---
HPI - URI/Sore Throat General Chief Complaint: Upper Respiratory Symptoms Stated Complaint: Flu symptoms Time Seen by Provider: 05/06/22 14:50 Source: patient and family (5 year old daughter with her) Mode of arrival: ambulatory Limitations: no limitations History of Present Illness HPI Narrative: Patient is a 26 year old female with a PMH of mild persistent asthma, atopic dermatitis, major depressive disorder presents to the ED today with sore throat, body aches, headache, productive cough ongoing for 2 days now. Patient reports that her 5 year old daughter has similar symptoms but denies any other sick contacts. Patient reports productive cough with clear sputum as well as chest congestion but denies taking any OTC cough or cold medicine. Patient also reporting that she has a vaginal discharge she reports she thinks she has a yeast or bacterial vaginosis infection. She denies any thoughts of STDs. Patient denies nausea, vomiting, diarrhea, abdominal pain, dizziness, SOB,recent travel, recent hospitalization, ear pain. Patient denies any other issues, concerns or complains at this time. MD elicited complaint: fever, cough and sore throat Pertinent past history: asthma Onset (ago): day(s) Consistency: constant and progressively worsening Severity: moderate Pain scale (0-10): 5 Description of mucous: clear Able to tolerate fluids by mouth: Yes Exacerbating factors: nothing Relieving factors: nothing Context: sick contacts (daughter) Associated symptoms: denies other symptoms Treatments prior to arrival: none Related Data Home Medications Medication Instructions Recorded Confirmed triamcinolone acetonide 0.1 % 1 appl topical BID 06/02/20 12/18/20 topical ointment Previous Rx's Medication Instructions Recorded nebulizer and compressor #1 ea 04/28/20 albuterol sulfate 2.5 mg/3 mL 2.5 mg (3 mL) inhalation Q4-6H PRN 05/13/20 (0.083 %) solution for nebulization shortness of breath or wheezing 1 month #75 mL albuterol sulfate 90 mcg/actuation 2 inh inhalation Q4-6H PRN 05/20/20 breath activated powder inhaler shortness of breath or wheezing 1 month #1 ea metoclopramide HCl 10 mg tablet 10 mg PO Q6H PRN nausea and 11/30/20 (Reglan) vomiting #20 tabs ondansetron 8 mg disintegrating 8 mg PO Q8H PRN nausea and 11/30/20 tablet vomiting #90 tabs acetaminophen 500 mg tablet 1,000 mg PO QID PRN fever or pain 12/03/20 (Tylenol Extra Strength) #14 tabs prenat.vits,manda,[id number] 1 tab PO BEDTIME #30 tabs 12/03/20 prednisone 10 mg tablet See Taper PO DAILY #70 tabs 12/20/20 albuterol sulfate 2.5 mg/3 mL 2.5 mg (3 mL) inhalation Q4H PRN 02/25/21 (0.083 %) solution for nebulization shortness of breath or wheezing #75 mL albuterol sulfate 90 mcg/actuation 2 puff inhalation Q6H PRN 02/25/21 aerosol inhaler shortness of breath or wheezing #8.5 grams nebulizer and compressor #1 ea 02/25/21 prednisone 20 mg tablet 40 mg PO DAILY #8 tabs 02/25/21 doxycycline monohydrate 100 mg 100 mg PO BID #20 caps 08/07/21 capsule prednisone 20 mg tablet 60 mg PO DAILY #15 tabs 08/07/21 cephalexin 500 mg capsule 500 mg PO Q12H 5 days #10 caps 09/29/21 triamcinolone acetonide 0.1 % 1 appl topical TID PRN rash #80 01/19/22 topical cream grams albuterol sulfate 0.63 mg/3 mL 0.63 mg (3 mL) inhalation QID PRN 05/06/22 solution for nebulization shortness of breath or wheezing #75 mL albuterol sulfate 90 mcg/actuation 1 inh inhalation QID PRN shortness 05/06/22 aerosol inhaler of breath or wheezing #8.5 grams fluconazole 150 mg tablet 150 mg PO Q3D 2 doses #2 tabs 05/06/22 (Diflucan) hydrocortisone 2.5 % topical 1 appl topical QD-TID PRN skin 05/06/22 ointment irritation #454 grams metronidazole 500 mg tablet 500 mg PO BID 7 days #14 tabs 05/06/22 nitrofurantoin 100 mg PO BID 7 days #14 caps 05/06/22 monohydrate/macrocrystals 100 mg capsule (Macrobid) oseltamivir 75 mg capsule (Tamiflu) 75 mg PO BID 5 days #10 caps 05/06/22 prednisone 20 mg tablet 40 mg PO DAILY inflammation 5 days 05/06/22 #10 tabs Allergies Allergy/AdvReac Type Severity Reaction Status Date / Time egg [EGG] Allergy Severe ANAPHYLAXIS Verified 05/06/22 13:30 fish derived [FISH] Allergy Severe ANAPHYLAXIS Verified 05/06/22 13:30 peanut [PEANUTS] Allergy Severe ITCHING Verified 05/06/22 13:30 shellfish derived Allergy Severe ANAPHYLAXIS Verified 05/06/22 13:30 [SHELLFISH DERIVED] cat dander Allergy Intermediate Hives Verified 05/06/22 13:30 dog dander Allergy Intermediate Hives Verified 05/06/22 13:30 house dust Allergy Intermediate Hives Verified 05/06/22 13:30 rice [RICE] AdvReac Intermediate CONSTIPATIO Verified 05/06/22 13:30 N Review of Systems Review of Systems: Constitutional : No Weight loss, No Fever, No Chills, No Night Sweats,+ Fatigue, No Malaise ENT/Mouth : No Hearing loss, No Ear Pain, No Nasal Congestion, No Sinus Pain, No Hoarseness, + sore throat, No Rhinorrhea, No Swallowing Difficulty Eyes: No Eye Pain, No Swelling, No Redness, No Foreign Body, No Discharge, No Vision Changes Cardiovascular : No Chest Pain, No SOB, No Dyspnea on Exertion, No Orthopnea, No Edema, No Palpitations Respiratory : + productive cough with clear sputum, No Wheezing, No Smoke Exposure, No Dyspnea Gastrointestinal : No Nausea, No Vomiting, No Diarrhea, No Constipation, No abdominal Pain, No Hematochezia, No Melena Genitourinary : + Abnormal vaginal discharge, no irregular bleeding, No Dysuria, No Urinary Frequency, No Hematuria, No Urinary Incontinence, No Urgency, No Flank Pain, No Urinary Flow Changes, No Hesitancy Musculoskeletal : No joint pain, No Myalgias, No Joint Swelling Skin : No Skin Lesions, + Eczema rash on neck and back Neuro : No Weakness, No Numbness, No Paresthesias, No Loss of Consciousness, No Dizziness, + Headache Psych : No Anxiety/Panic, No Depression, No SI/HI/AH/VH, No Social Issues, Heme/Lymph: No Bruising, No Bleeding,No Lymphadenopathy Endocrine : No Polyuria, No Polydipsia, No Temperature Intolerance Yes all other systems are reviewed and are negative [facility] Past Medical History Attestation statement: The following information was validated with the patient. Source: old records reviewed and nursing notes reviewed Medical History Allergy to other foods Anxiety state, unspecified Asthma Bronchitis Dermatitis, unspecified Hyperemesis Major depressive disorder, single episode, unspecified Mild persistent asthma, uncomplicated Surgical History History of section Family History Family History Father Drug abuse Asthma Mother Hypertension Maternal Grandmother Ovarian cancer Social History Social History Household Members: Family Household Members Other:: mom Housing: Apartment Alcohol intake: never Patient Tobacco Use Status: Former Tobacco user Advance Directives: No Advance Directives Information Provided: Yes service: No Current occupational status: unemployed Gender identity: Female Physical Exam Vital Signs: Vital Signs: Last Vital Signs Temp 98.1 F 05/06/22 13:31 Pulse 117 H 05/06/22 16:05 Resp 20 05/06/22 16:05 BP 112/71 05/06/22 15:57 Pulse Ox 95 05/06/22 15:57 O2 Del Method 05/06/22 15:57 BMI result Body Mass Index 19.1 vital signs have been reviewed as normal and appeared to be correct. Blood pressure normal. Heart rate is 140. Respiration rate normal. Temperature normal. Oxygen saturation normal. Appearance: Alert. Oriented X3. No acute distress. Head: Normal external exam. Normocephalic. Atraumatic. Eyes: PERRLA. EOMI. Conjunctiva and sclera normal. Eyelids normal. ENT: EAC normal. TM's Normal. Pharynx normal. Uvula midline. Moist mucous membranes. No lesions/ulcerations or masses noted on the tongue. Normal voice. No trismus noted. No drooling noted. No muffled voice noted. Neck: Normal inspection. Neck supple. FROM. Thyroid Normal. No tracheal deviation noted. No crepitus is noted. No meningeal signs. No neck mass noted. No signs of trauma noted. CVS: Tachycardic with a heart rate of 140, regular rhythm. Heart sound normal. No murmurs/rales/gallops. Respiratory: No respiratory distress. Painless inspiration. Breath sounds normal. No wheezes/rales/rhonchi noted. Chest nontender. No crepitus is noted. No accessory muscle usage noted or decreased air movement noted. No signs of trauma. Abdomen: Soft and nontender. Nondistended. No guarding. No rigidity. Bowel sounds normal in all 4 quadrants. No visible injury noted. No rebound tenderness. Back: No CVA tenderness. Full range of motion noted. Nontender. No signs of trauma. Patient neuro intact bilaterally and distally on all 4 extremities. No rashes/lesion/induration/fluctuance or signs of infection noted. Skin: Skin warm and dry. Normal skin color. Normal skin turgor. Skin is dry, with eyrthematous scaly patches prominent in neck and back. Extremities: No lower extremity edema. No calf tenderness is noted. Extremities exhibit normal range of motion and nontender. Neuro: Oriented X 3. No motor deficit. No sensory deficit. Normal steady gait. No focal neuro deficits noted. CN's II-XII intact bilaterally? Vascular: Normal cap refill. No cyanosis noted to upper extremity nails and lower extremity toes nails. Course Course Course Narrative: Patient is a 26 year old female with a PMH of mild persistent asthma, atopic dermatitis, major depressive disorder presents to the ED today with sore throat, body aches, headache, productive cough ongoing for 2 days now. Patient reports productive cough with clear sputum as well as chest congestion but denies taking any OTC cough or cold medicine. Patient denies nausea, vomiting, diarrhea, abdominal pain, dizziness, SOB,recent travel, recent hospitalization, ear pain. On physical exam, patient was alert and oriented and in no acute respiratory distress. Patient was tachycardic with a heart rate of 140, repeat pulse showed a heart rate of 117bpm. Regular rhythm with no murmurs/rubs/gallops noted. Moist mucus membranes with no tonsillar exudates noted. Lungs were CTAB, no wheezing/rales/ronchi. Skin is dry, with eczematous scaly patches prominent in neck and back. patient also reporting a white discharge although refusing speculum exam reports that she would rather self swab due to she is with her daughter right now and does not want to do the exam of the speculum in front of her daughter. I explained to her that we can pull her daughter other room she reported no she would rather self swab. The remainder of the physical exam was unremarkable for any acute illness. Plan; CBC w/ diff; RBC- 5.72, hGB- 16.1, hCT- 48.4% PT/INR within normal limts Random glucose- 118 Urinalysis; urine specific gravity- 1.030, urine protein- 100(2+), urine blood( large 3+), urine leukocyte esterase- trace, urine RBC- >20 Chest Xray: No significant abnormality is noted involving the heart, lungs, mediastinum, bony thorax or soft tissues. Patient will be treated for her UTI, BV/Vaginitis and given hydrocortisone topical cream for her eczema. Patient was given refill of her albuterol and a pump for her mild persistent asthma. Along with instructions return if any new or worsening symptoms follow up with primary care provider. Patient understands agrees with this plan. Medications Administered Discontinued Medications Generic Name Dose Route Start Last Admin Trade Name Freq PRN Reason Stop Dose Admin Albuterol Sulfate 2 puff 05/06/22 15:50 05/06/22 16:02 Albuterol Sulfate 90 Mcg 8 Gm Inhaler INHALE 05/06/22 15:51 2 puff ONCE ONE Administration Sodium Chloride 1,000 mls @ 999 mls/hr 05/06/22 13:45 05/06/22 15:19 Ns IV 05/06/22 14:45 Not Given .Q1H1M [facility] Medical Decision Making Medical Decision Making Lab Attestation: I reviewed the patient's lab results. Discussion of test interpretation with radiology: Discussion of test interpretation with radiology cxr FINDINGS: No significant abnormality is noted involving the heart, lungs, mediastinum, bony thorax or soft tissues. XR/XR chest 1V IMPRESSION: No acute cardiopulmonary process. Discharge Plan Discharge Clinical Impression: Acute eczema, Asthma exacerbation, Bacterial vaginosis, Kajal vaginitis, UTI (urinary tract infection) Patient Disposition: Home, Self-Care Instructions: Bacterial Vaginosis (ED), Eczema (ED), Vaginal Discharge (ED) Additional Instructions: you have pending lab results if any are positive you will be contacted within 3-5 days. Return if any new or worsening symptoms. Prescriptions: New oseltamivir [Tamiflu] 75 mg capsule 75 mg PO BID 5 Days Qty: 10 0RF prednisone 20 mg tablet 40 mg PO DAILY 5 Days Qty: 10 0RF albuterol sulfate 0.63 mg/3 mL solution for nebulization 0.63 mg inhalation QID PRN (Reason: shortness of breath or wheezing) Qty: 75 0RF albuterol sulfate 90 mcg/actuation HFA aerosol inhaler 1 inh inhalation QID PRN (Reason: shortness of breath or wheezing) Qty: 8.5 0RF metronidazole 500 mg tablet 500 mg PO BID 7 Days Qty: 14 0RF fluconazole [Diflucan] 150 mg tablet 150 mg PO Q3D 0 Days Qty: 2 0RF Rx Instructions: may repeat second dose 72 hrs after first dose if symptoms persist hydrocortisone 2.5 % ointment 1 appl topical QD-TID PRN (Reason: skin irritation) Qty: 454 3RF nitrofurantoin monohyd/m-cryst [Macrobid] 100 mg capsule 100 mg PO BID 7 Days Qty: 14 0RF Rx Instructions: must administer with a meal/food No Action albuterol sulfate 2.5 mg /3 mL (0.083 %) solution for nebulization 2.5 mg inhalation Q4-6H PRN (Reason: shortness of breath or wheezing) 30 Days Qty: 75 6RF albuterol sulfate 90 mcg/actuation aerosol powdr breath activated 2 inh inhalation Q4-6H PRN (Reason: shortness of breath or wheezing) 30 Days Qty: 1 0RF ondansetron 8 mg tablet,disintegrating 8 mg PO Q8H PRN (Reason: nausea and vomiting) Qty: 90 1RF triamcinolone acetonide 0.1 % cream 1 appl topical TID PRN (Reason: rash) Qty: 80 0RF (DME) nebulizer and compressor Device See Rx Instructions .ROUTE .MEDSUPPLY Qty: 1 0RF Rx Instructions: As directed metoclopramide HCl [Reglan] 10 mg tablet 10 mg PO Q6H PRN (Reason: nausea and vomiting) Qty: 20 0RF acetaminophen [Tylenol Extra Strength] 500 mg tablet 1,000 mg PO QID PRN (Reason: fever or pain) Qty: 14 0RF prenat.vits,manda,[id number] Tablet 1 tab PO BEDTIME Qty: 30 0RF prednisone 10 mg tablet See Taper PO DAILY Qty: 70 0RF Taper: Prednisone 40 mg daily for 7 Days and 0 Hour 30 mg daily for 7 Days and 0 Hour 20 mg daily for 7 Days and 0 Hour 10 mg daily for 7 Days and 0 Hour Rx Instructions: 4 tabs for 7 days, then reduce by 1 tab every 7 days until done (DME) nebulizer and compressor Device See Rx Instructions .Route Qty: 1 0RF Rx Instructions: As directed prednisone 20 mg tablet 40 mg PO DAILY Qty: 8 0RF albuterol sulfate 90 mcg/actuation HFA aerosol inhaler 2 puff inhalation Q6H PRN (Reason: shortness of breath or wheezing) Qty: 8.5 0RF albuterol sulfate 2.5 mg /3 mL (0.083 %) solution for nebulization 2.5 mg inhalation Q4H PRN (Reason: shortness of breath or wheezing) Qty: 75 0RF prednisone 20 mg tablet 60 mg PO DAILY Qty: 15 0RF doxycycline monohydrate 100 mg capsule 100 mg PO BID Qty: 20 0RF cephalexin 500 mg capsule 500 mg PO Q12H 5 Days Qty: 10 0RF triamcinolone acetonide 0.1 % ointment 1 appl topical BID Referrals: Physician,None [Primary Care Provider] - 2 days Stand Alone Forms: Work/School Release Interventions: ED Discharge Assessment Last Done: 05/06/22 16:57
[2022-05-06 15:57] VITALS: BP 112/71; PULSE 103; RESP 18; O2SAT 95
[2022-05-06] MEDS: Albuterol Sulfate 90 MCG 8 GM INHALER 2 PUFF INHALE (16:02)
[2022-05-06 16:05] VITALS: PULSE 117; RESP 20; O2SAT 96
[2022-05-06 16:05] LABS: Appearance Urine Cloudy; Color Urine Dark Yellow; Glucose Urine UA Negative (Negative); Leukocyte Esterase Urine Trace (Negative); Nitrite Urine Negative (Negative); Specific Gravity - Urine >= 1.030 (1.005-1.025); UMIC TRIGGER UACC YES; Urine Blood Large (3+) (Negative); Urine Ketones 15 mg/dL (Negative); Urine Protein 100 (2+) mg/dL (Neg-Trace)
[2022-05-06 16:06] LABS: UPreg QC Valid YES; Urine Pregnancy NEGATIVE (NEGATIVE)
[2022-05-06 16:07] LABS: Bacteria Urine 3+ (None Seen); Hyaline Casts Urine 0-2 /LPF (0-2); RBC Urine >20 /HPF (0-2); WBC Urine 0-5 /HPF (0-5)
[2022-05-06 17:02] LABS: IDNOW Serial# 16C4AD1C; Influenza A Positive (Negative); Influenza B2 Negative (Negative)
[2022-05-07 04:37] LABS: CT PCR NOT DETECTED (Not Detect.); NG PCR NOT DETECTED (Not Detect.)
[2022-05-07 12:28] LABS: BV Int Neg Control Negative (Negative); BV Int Pos Control Positive (Positive)
== END 2022-05-06 16:59 | disposition home or self-care (01) ==
PROVIDERS: Physician Assistant; Physician Assistant Medical; Emergency Provider Emergency Medicine Emergency Medical Services
DX: J45.901 Unspecified asthma with (acute) exacerbation (principal); L30.9 Dermatitis, unspecified; B37.31 Acute candidiasis of vulva and vagina; N76.0 Acute vaginitis; N39.0 Urinary tract infection, site not specified; R06.02 Shortness of breath; M79.10 Myalgia, unspecified site; R05.9 Cough, unspecified; Z79.899 Other long term (current) drug therapy
CPT/HCPCS: 0241U; 36415; 71045; 80048; 80076; 81001; 81003; 81025; 83690; 83735; 84484; 85025; 87480; 87491; 87502; 87510; 87591; 87660; 93005; 94640; 99284

== ENCOUNTER 2022-05-24 13:42 | Emergency (ER) | payer OTHER, SELFPAY ==
--- NOTE | 2022-05-24 14:06 | ED.SKABFB ---
HPI - Skin/Abscess/Foreign Bdy General Chief complaint: General Medical Stated complaint: FACE/EYES/NECK RASH Time Seen by Provider: 05/24/22 13:48 Source: patient, EMS and old records reviewed Mode of arrival: EMS Limitations: no limitations History of Present Illness HPI narrative: 26 yo female with history of asthma, multiple allergies, eczema, legally blind who presents to the ER with a painful, itchy rash to her face, neck along with right eye pain, redness and FB sensation. She reports the rash and eye pain started yesterday. She has a cockroach infestation in her apartment and thinks her symptoms may be related to an allergic reaction. She states the last couple of days her depression has been worse with decreased PO take, headaches and not feeling well. She feels like it is related to the stress she is currently dealing with in her apartment. She denies wheezing or chest pain. MD complaint: rash Onset (ago): day(s) Location: face and neck Severity: moderate Severity scale (1-10): 7 Quality: burning, pruritic and foreign body sensation Pain Consistency: constant Relieving factors: none Exacerbating factors: none Associated symptoms: itching Treatments prior to arrival: none Related Data Home Medications Medication Instructions Recorded Confirmed triamcinolone acetonide 0.1 % 1 appl topical BID 06/02/20 12/18/20 topical ointment Previous Rx's Medication Instructions Recorded nebulizer and compressor #1 ea 04/28/20 albuterol sulfate 2.5 mg/3 mL 2.5 mg (3 mL) inhalation Q4-6H PRN 05/13/20 (0.083 %) solution for nebulization shortness of breath or wheezing 1 month #75 mL albuterol sulfate 90 mcg/actuation 2 inh inhalation Q4-6H PRN 05/20/20 breath activated powder inhaler shortness of breath or wheezing 1 month #1 ea metoclopramide HCl 10 mg tablet 10 mg PO Q6H PRN nausea and 11/30/20 (Reglan) vomiting #20 tabs ondansetron 8 mg disintegrating 8 mg PO Q8H PRN nausea and 11/30/20 tablet vomiting #90 tabs acetaminophen 500 mg tablet 1,000 mg PO QID PRN fever or pain 12/03/20 (Tylenol Extra Strength) #14 tabs prenat.vits,manda,fot-[id number] 1 tab PO BEDTIME #30 tabs 12/03/20 prednisone 10 mg tablet See Taper PO DAILY #70 tabs 12/20/20 albuterol sulfate 2.5 mg/3 mL 2.5 mg (3 mL) inhalation Q4H PRN 02/25/21 (0.083 %) solution for nebulization shortness of breath or wheezing #75 mL albuterol sulfate 90 mcg/actuation 2 puff inhalation Q6H PRN 02/25/21 aerosol inhaler shortness of breath or wheezing #8.5 grams nebulizer and compressor #1 ea 02/25/21 prednisone 20 mg tablet 40 mg PO DAILY #8 tabs 02/25/21 doxycycline monohydrate 100 mg 100 mg PO BID #20 caps 08/07/21 capsule prednisone 20 mg tablet 60 mg PO DAILY #15 tabs 08/07/21 cephalexin 500 mg capsule 500 mg PO Q12H 5 days #10 caps 09/29/21 triamcinolone acetonide 0.1 % 1 appl topical TID PRN rash #80 01/19/22 topical cream grams albuterol sulfate 0.63 mg/3 mL 0.63 mg (3 mL) inhalation QID PRN 05/06/22 solution for nebulization shortness of breath or wheezing #75 mL albuterol sulfate 90 mcg/actuation 1 inh inhalation QID PRN shortness 05/06/22 aerosol inhaler of breath or wheezing #8.5 grams fluconazole 150 mg tablet 150 mg PO Q3D 2 doses #2 tabs 05/06/22 (Diflucan) hydrocortisone 2.5 % topical 1 appl topical QD-TID PRN skin 05/06/22 ointment irritation #454 grams metronidazole 500 mg tablet 500 mg PO BID 7 days #14 tabs 05/06/22 nitrofurantoin 100 mg PO BID 7 days #14 caps 05/06/22 monohydrate/macrocrystals 100 mg capsule (Macrobid) oseltamivir 75 mg capsule (Tamiflu) 75 mg PO BID 5 days #10 caps 05/06/22 prednisone 20 mg tablet 40 mg PO DAILY inflammation 5 days 05/06/22 #10 tabs diphenhydramine HCl 25 mg capsule 50 mg PO TID PRN allergic reaction 05/24/22 (Benadryl) #30 caps erythromycin 5 mg/gram (0.5 %) eye 0.5 inch ophthalmic (eye) TID #3.5 05/24/22 ointment grams prednisone 20 mg tablet 40 mg PO DAILY #10 tabs 05/24/22 Allergies Allergy/AdvReac Type Severity Reaction Status Date / Time egg [EGG] Allergy Severe ANAPHYLAXIS Verified 05/06/22 13:30 fish derived [FISH] Allergy Severe ANAPHYLAXIS Verified 05/06/22 13:30 peanut [PEANUTS] Allergy Severe ITCHING Verified 05/06/22 13:30 shellfish derived Allergy Severe ANAPHYLAXIS Verified 05/06/22 13:30 [SHELLFISH DERIVED] cat dander Allergy Intermediate Hives Verified 05/06/22 13:30 dog dander Allergy Intermediate Hives Verified 05/06/22 13:30 house dust Allergy Intermediate Hives Verified 05/06/22 13:30 rice [RICE] AdvReac Intermediate CONSTIPATIO Verified 05/06/22 13:30 N Review of Systems Review of Systems: Constitutional: No Fever, No Chills ENT/Mouth: No sore throat, No Rhinorrhea, No Swallowing Difficulty Eyes: + Eye Pain, + Swelling, + Redness, +FB sensation Cardiovascular: No Chest Pain, No SOB Respiratory: No Cough, No Sputum, No Wheezing, No dyspnea Gastrointestinal: No Nausea, No Vomiting, No Diarrhea, No abdominal Pain Musculoskeletal: No joint pain, No Myalgias Skin: No Skin Lesions, +rash Neuro: No Weakness, No Numbness, No Dizziness, +Headache Psych: No Anxiety/Panic, + Depression, No SI, No HI Heme/Lymph: No Bruising, No Lymphadenopathy PMFSH Past Medical History Medical History Allergy to other foods Anxiety state, unspecified Asthma Bronchitis Dermatitis, unspecified Hyperemesis Major depressive disorder, single episode, unspecified Mild persistent asthma, uncomplicated Surgical History History of section Family History Family History Father Drug abuse Asthma Mother Hypertension Maternal Grandmother Ovarian cancer Social History Social History Household Members: Family Household Members Other:: mom Housing: Apartment Alcohol intake: never Patient Tobacco Use Status: Former Tobacco user Advance Directives: No Advance Directives Information Provided: No service: No Current occupational status: unemployed Gender identity: Female Physical Exam Vital Signs: Vital Signs: Last Vital Signs Temp 99.0 F 05/24/22 14:08 Pulse 86 05/24/22 14:08 Resp 16 05/24/22 14:08 BP 117/77 05/24/22 14:08 Pulse Ox 98 05/24/22 14:08 O2 Del Method 05/24/22 14:08 BMI result Body Mass Index 19.0 Appearance: Alert. Oriented X3. No acute distress. Eyes: Pupils equal, round and reactive to light. Right conjunctiva with diffuse injection, fluorscene exam with moderate sized abrasion on the pupil at 5 o'clock. EOMI. ENT: Pharynx normal. lower lip with few scabbed over lesions. airway patent, normal voice. Neck: Normal inspection. Neck supple. CVS: Normal heart rate and rhythm. Pulses normal. Respiratory: No respiratory distress. Breath sounds normal. Skin: Skin warm and dry. Normal skin color. Normal skin turgor. right side of her face, entire forehead with a dry, flakey rash diffusely that extends to the neck on the right side. no vesicles. Extremities: No lower extremity edema. Neuro/psych: Oriented X 3. No motor deficit. No sensory deficit. depressed, flat affect but converses appropriately. not suicidal. makes eye contact, good insight and judgment Course Course Course Narrative: 26-year-old female presents to the ER for evaluation of itchy, and painful rash to her face and neck. Also with right-sided redness of her eye, foreign body sensation. No known trauma. She is also depressed. Decreased p.o. intake and feeling weak and tired at home. Will check viral swabs. Will stain the eye and assess for corneal abrasion. Reevaluation(s) Reevaluation #1: Viral swab is negative. Fluorescein exam is consistent with a moderate size corneal abrasion on the right. Will prescribe antibiotic ointment to help prevent secondary bacterial infection. Her rash is most consistent with a a flare of her known eczema which she has been seen for in the ER several times. Topical steroids given, will also prescribe oral steroids and Benadryl given the concern for possible allergic reaction exacerbating this. She would agrees to follow-up with her child care centre manager and PCP. At this time stable for discharge home with outpatient follow-up. Medications Administered Discontinued Medications Generic Name Dose Route Start Last Admin Trade Name Maria Luz PRN Reason Stop Dose Admin Erythromycin 1 cm 05/24/22 14:15 05/24/22 15:04 Erythromycin Base 0.5% Oph Oin 1 Gm Tube EYE-RIGHT 05/24/22 14:16 1 cm ONCE ONE Administration Fluorescein Sodium 1 strip 05/24/22 14:15 05/24/22 15:03 Fluorescein Sodium Strip EYE-RIGHT 05/24/22 14:16 1 strip ONCE ONE Administration Tetracaine HCl 1 drop 05/24/22 14:15 05/24/22 15:04 Tetracaine Hcl/Pf 0.5% Oph Krystle 4 Ml Drops EYE-RIGHT 05/24/22 14:16 1 drop ONCE ONE Administration Triamcinolone Acetonide 1 appl 05/24/22 14:15 05/24/22 15:25 Triamcinolone Acet 0.1 % Oint 15 Gm Tube TOPICAL 05/24/22 14:16 1 appl ONCE ONE Administration Medical Decision Making Lab Data Labs: Lab Results 05/24/22 Range/Units 14:26 Influenza Type A (PCR) NEGATIVE (Negative) Influenza Type B (PCR) NEGATIVE (Negative) RSV RNA Qual (PCR) NEGATIVE (Negative) SARS-CoV-2 RNA (RT-PCR) NEGATIVE (Negative) Discharge Plan Discharge Clinical Impression: Abrasion, corneal, Eczema, Allergic reaction Patient Disposition: Home, Self-Care Instructions: Eczema (ED), Corneal Abrasion (ED) Additional Instructions: Use the prescribed antibiotic ointment to your eye several times per day. This will help prevent infection in your eye, there is a moderate-sized abrasion. Recommend following up with the eye doctor. Take the prescribed steroids for flare of your eczema. Also recommend taking Benadryl 25-50 mg every 6-8 hours for itching and allergic reaction. Recommend following up with your child care centre manager your primary care doctor. Use the prescribed steroid cream to help with itching and dryness as well. Prescriptions: New erythromycin 5 mg/gram (0.5 %) ointment 0.5 inch ophthalmic (eye) TID Qty: 3.5 0RF prednisone 20 mg tablet 40 mg PO DAILY Qty: 10 0RF diphenhydramine HCl [Benadryl] 25 mg capsule 50 mg PO TID PRN (Reason: allergic reaction) Qty: 30 0RF No Action albuterol sulfate 2.5 mg /3 mL (0.083 %) solution for nebulization 2.5 mg inhalation Q4-6H PRN (Reason: shortness of breath or wheezing) 30 Days Qty: 75 6RF albuterol sulfate 90 mcg/actuation aerosol powdr breath activated 2 inh inhalation Q4-6H PRN (Reason: shortness of breath or wheezing) 30 Days Qty: 1 0RF ondansetron 8 mg tablet,disintegrating 8 mg PO Q8H PRN (Reason: nausea and vomiting) Qty: 90 1RF triamcinolone acetonide 0.1 % cream 1 appl topical TID PRN (Reason: rash) Qty: 80 0RF (DME) nebulizer and compressor Device See Rx Instructions .ROUTE .MEDSUPPLY Qty: 1 0RF Rx Instructions: As directed metoclopramide HCl [Reglan] 10 mg tablet 10 mg PO Q6H PRN (Reason: nausea and vomiting) Qty: 20 0RF acetaminophen [Tylenol Extra Strength] 500 mg tablet 1,000 mg PO QID PRN (Reason: fever or pain) Qty: 14 0RF prenat.vits,manda,[id number] Tablet 1 tab PO BEDTIME Qty: 30 0RF prednisone 10 mg tablet See Taper PO DAILY Qty: 70 0RF Taper: Prednisone 40 mg daily for 7 Days and 0 Hour 30 mg daily for 7 Days and 0 Hour 20 mg daily for 7 Days and 0 Hour 10 mg daily for 7 Days and 0 Hour Rx Instructions: 4 tabs for 7 days, then reduce by 1 tab every 7 days until done (DME) nebulizer and compressor Device See Rx Instructions .Route Qty: 1 0RF Rx Instructions: As directed prednisone 20 mg tablet 40 mg PO DAILY Qty: 8 0RF albuterol sulfate 90 mcg/actuation HFA aerosol inhaler 2 puff inhalation Q6H PRN (Reason: shortness of breath or wheezing) Qty: 8.5 0RF albuterol sulfate 2.5 mg /3 mL (0.083 %) solution for nebulization 2.5 mg inhalation Q4H PRN (Reason: shortness of breath or wheezing) Qty: 75 0RF prednisone 20 mg tablet 60 mg PO DAILY Qty: 15 0RF doxycycline monohydrate 100 mg capsule 100 mg PO BID Qty: 20 0RF cephalexin 500 mg capsule 500 mg PO Q12H 5 Days Qty: 10 0RF oseltamivir [Tamiflu] 75 mg capsule 75 mg PO BID 5 Days Qty: 10 0RF prednisone 20 mg tablet 40 mg PO DAILY 5 Days Qty: 10 0RF albuterol sulfate 0.63 mg/3 mL solution for nebulization 0.63 mg inhalation QID PRN (Reason: shortness of breath or wheezing) Qty: 75 0RF albuterol sulfate 90 mcg/actuation HFA aerosol inhaler 1 inh inhalation QID PRN (Reason: shortness of breath or wheezing) Qty: 8.5 0RF metronidazole 500 mg tablet 500 mg PO BID 7 Days Qty: 14 0RF fluconazole [Diflucan] 150 mg tablet 150 mg PO Q3D 0 Days Qty: 2 0RF Rx Instructions: may repeat second dose 72 hrs after first dose if symptoms persist hydrocortisone 2.5 % ointment 1 appl topical QD-TID PRN (Reason: skin irritation) Qty: 454 3RF nitrofurantoin monohyd/m-cryst [Macrobid] 100 mg capsule 100 mg PO BID 7 Days Qty: 14 0RF Rx Instructions: must administer with a meal/food triamcinolone acetonide 0.1 % ointment 1 appl topical BID Referrals: James Storm [Physician] - Interventions: ED Discharge Assessment Last Done: 05/24/22 16:37 Discharge Date/Time: 05/24/22 16:40
[2022-05-24 14:08] VITALS: BP 117/77; BP 118/76; PULSE 80; PULSE 86; RESP 16; TEMP 37.2; O2SAT 98; BMI 19.0
[2022-05-24] MEDS: Fluorescein Sodium STRIP 1 STRIP EYE-RIGHT (15:03)
[2022-05-24] MEDS: Erythromycin Base 0.5% Oph Oin 1 GM TUBE 1 CM EYE-RIGHT (15:04)
[2022-05-24] MEDS: Tetracaine HCl/PF 0.5% Oph Sol 4 ML DROPS 1 DROP EYE-RIGHT (15:04)
[2022-05-24 15:10] LABS: Influenza A PCR NEGATIVE (Negative); Influenza B PCR NEGATIVE (Negative); Resp Syncy Virus RNA Qual PCR NEGATIVE (Negative); SARS COV2 PCR INHOUSE NEGATIVE (Negative)
[2022-05-24] MEDS: Triamcinolone Acet 0.1 % Oint 15 GM TUBE 1 APPL TOPICAL (15:25)
== END 2022-05-24 16:40 | disposition home or self-care (01) ==
PROVIDERS: Physician Assistant; Emergency Provider Student in an Organized Health Care Education/Training Program; PCP Hospitalist
DX: S05.01XA Injury of conjunctiva and corneal abrasion without foreign body, right eye, initial encounter (principal); L50.0 Allergic urticaria; X58.XXXA Exposure to other specified factors, initial encounter; Y93.9 Activity, unspecified; Y92.9 Unspecified place or not applicable; Y99.9 Unspecified external cause status; Z20.822 Contact with and (suspected) exposure to COVID-19; Z79.899 Other long term (current) drug therapy; Z87.891 Personal history of nicotine dependence
CPT/HCPCS: 0241U; 99283

== ENCOUNTER 2022-05-26 06:17 | Emergency (ER) | payer OTHER, SELFPAY ==
--- NOTE | ~2022-05-26 | CT_ITS ---
EXAMINATION: CT SOFT TISSUE NECK WITHOUT CONTRAST CLINICAL INFORMATION: Question left peritonsillar abscess. COMPARISON: No relevant prior imaging. TECHNIQUE: Helical imaging was performed in the axial plane with generation of coronal and sagittal reformatted images. This CT examination was performed using dose optimization techniques as appropriate, variously including the following: *Automated exposure control *Adjustment of mA and/or kV according to patient size (this includes techniques or standardized protocols for targeted exams where dose is matched to indication/reason for exam; i.e. extremities or head) *Use of iterative reconstruction technique DLP: 350 mGy-cm FINDINGS: The diagnostic accuracy of this examination is limited due to the absence of intravenous contrast. There is heterogeneous attenuation and thickening of the left tonsillar pillar with a probable rounded collection measuring approximately 1.6 cm in diameter best visualized on axial image 32 of 127 series 2. Mass effect causes distortion of the pharyngeal airway. [employer] spaces are symmetric. Parotid and submandibular glands are unremarkable. The tongue base and epiglottis are normal. Preepiglottic fat is preserved. Glottic and subglottic airways are patent. The thyroid gland is normal and the remainder of the visualized visceral soft tissues are normal. Jugular vein patency cannot be assessed on this examination due to the absence of intravenous contrast. There are a few small centrilobular opacities visualized within both lungs. No acute osseous finding. Specifically no worrisome lytic body osseous lesion. The skull base is intact. No mastoid or middle ear effusion. Mild/moderate paranasal sinus disease primarily affecting the right frontal sinus. Limited visualization of the intracranial anatomy reveals no abnormal finding. CT/CT soft tissue neck wo IV con IMPRESSION: The diagnostic accuracy of this examination is significantly limited due to the absence of intravenous contrast. There is asymmetric thickening and heterogeneous attenuation of the left palatine tonsil with a probable 1.6 cm rounded collection consistent with the clinical suspicion of a peritonsillar abscess. Jugular vein patency cannot be assessed.
[2022-05-26 06:24] VITALS: BP 124/74; PULSE 78; O2SAT 97
[2022-05-26 06:32] VITALS: BP 113/68; PULSE 87; RESP 18; TEMP 36.9; O2SAT 97; BMI 19.0
[2022-05-26 07:13] LABS: Strep A Nucleic Acid Negative (Negative)
[2022-05-26 07:20] LABS: Influenza A PCR NEGATIVE (Negative); Influenza B PCR NEGATIVE (Negative); Resp Syncy Virus RNA Qual PCR NEGATIVE (Negative); SARS COV2 PCR INHOUSE NEGATIVE (Negative)
--- NOTE | 2022-05-26 08:17 | ED.GENADULT ---
HPI - General Adult General Chief complaint: General Medical Stated complaint: sore throat Time Seen by Provider: 05/26/22 08:12 Source: patient Mode of arrival: EMS History of Present Illness HPI narrative: 26-year-old female who denies any fever chills but states that she has been having sore throat for a few weeks now but is now having difficulty with swallowing for 3 days otherwise denies vomiting, diarrhea but does report some nausea. Patient also states that she does engage in oral sex without a condom. Related Data Home Medications Medication Instructions Recorded Confirmed triamcinolone acetonide 0.1 % 1 appl topical BID 06/02/20 12/18/20 topical ointment Previous Rx's Medication Instructions Recorded nebulizer and compressor #1 ea 04/28/20 albuterol sulfate 2.5 mg/3 mL 2.5 mg (3 mL) inhalation Q4-6H PRN 05/13/20 (0.083 %) solution for nebulization shortness of breath or wheezing 1 month #75 mL albuterol sulfate 90 mcg/actuation 2 inh inhalation Q4-6H PRN 05/20/20 breath activated powder inhaler shortness of breath or wheezing 1 month #1 ea metoclopramide HCl 10 mg tablet 10 mg PO Q6H PRN nausea and 11/30/20 (Reglan) vomiting #20 tabs ondansetron 8 mg disintegrating 8 mg PO Q8H PRN nausea and 11/30/20 tablet vomiting #90 tabs acetaminophen 500 mg tablet 1,000 mg PO QID PRN fever or pain 12/03/20 (Tylenol Extra Strength) #14 tabs prenat.vits,manda,the-dimq-zfggz 1 tab PO BEDTIME #30 tabs 12/03/20 prednisone 10 mg tablet See Taper PO DAILY #70 tabs 12/20/20 albuterol sulfate 2.5 mg/3 mL 2.5 mg (3 mL) inhalation Q4H PRN 02/25/21 (0.083 %) solution for nebulization shortness of breath or wheezing #75 mL albuterol sulfate 90 mcg/actuation 2 puff inhalation Q6H PRN 02/25/21 aerosol inhaler shortness of breath or wheezing #8.5 grams nebulizer and compressor #1 ea 02/25/21 prednisone 20 mg tablet 40 mg PO DAILY #8 tabs 02/25/21 doxycycline monohydrate 100 mg 100 mg PO BID #20 caps 08/07/21 capsule prednisone 20 mg tablet 60 mg PO DAILY #15 tabs 08/07/21 cephalexin 500 mg capsule 500 mg PO Q12H 5 days #10 caps 09/29/21 triamcinolone acetonide 0.1 % 1 appl topical TID PRN rash #80 01/19/22 topical cream grams albuterol sulfate 0.63 mg/3 mL 0.63 mg (3 mL) inhalation QID PRN 05/06/22 solution for nebulization shortness of breath or wheezing #75 mL albuterol sulfate 90 mcg/actuation 1 inh inhalation QID PRN shortness 05/06/22 aerosol inhaler of breath or wheezing #8.5 grams fluconazole 150 mg tablet 150 mg PO Q3D 2 doses #2 tabs 05/06/22 (Diflucan) hydrocortisone 2.5 % topical 1 appl topical QD-TID PRN skin 05/06/22 ointment irritation #454 grams metronidazole 500 mg tablet 500 mg PO BID 7 days #14 tabs 05/06/22 nitrofurantoin 100 mg PO BID 7 days #14 caps 05/06/22 monohydrate/macrocrystals 100 mg capsule (Macrobid) oseltamivir 75 mg capsule (Tamiflu) 75 mg PO BID 5 days #10 caps 05/06/22 prednisone 20 mg tablet 40 mg PO DAILY inflammation 5 days 05/06/22 #10 tabs diphenhydramine HCl 25 mg capsule 50 mg PO TID PRN allergic reaction 05/24/22 (Benadryl) #30 caps erythromycin 5 mg/gram (0.5 %) eye 0.5 inch ophthalmic (eye) TID #3.5 05/24/22 ointment grams prednisone 20 mg tablet 40 mg PO DAILY #10 tabs 05/24/22 amoxicillin 875 mg-potassium 1 tab PO Q12H 5 days #10 tabs 05/26/22 clavulanate 125 mg tablet Allergies Allergy/AdvReac Type Severity Reaction Status Date / Time egg [EGG] Allergy Severe ANAPHYLAXIS Verified 05/06/22 13:30 fish derived [FISH] Allergy Severe ANAPHYLAXIS Verified 05/06/22 13:30 peanut [PEANUTS] Allergy Severe ITCHING Verified 05/06/22 13:30 shellfish derived Allergy Severe ANAPHYLAXIS Verified 05/06/22 13:30 [SHELLFISH DERIVED] cat dander Allergy Intermediate Hives Verified 05/06/22 13:30 dog dander Allergy Intermediate Hives Verified 05/06/22 13:30 house dust Allergy Intermediate Hives Verified 05/06/22 13:30 rice [RICE] AdvReac Intermediate CONSTIPATIO Verified 05/06/22 13:30 N Review of Systems Review of Systems: Pertinent positives and negatives as stated in HPI. PMFSH Past Medical History Source: nursing notes reviewed Medical History Allergy to other foods Anxiety state, unspecified Asthma Bronchitis Dermatitis, unspecified Hyperemesis Major depressive disorder, single episode, unspecified Mild persistent asthma, uncomplicated Surgical History History of section Family History Family History Father Drug abuse Asthma Mother Hypertension Maternal Grandmother Ovarian cancer Social History Social History Household Members: Family Household Members Other:: mom Housing: Apartment Alcohol intake: never Patient Tobacco Use Status: Former Tobacco user Advance Directives: Yes Advance Directives on File: Yes Advance Directives Date on File: 12/21/20 service: No Current occupational status: unemployed Gender identity: Female Physical Exam ED Vital Signs: Vital Signs - 24 hr 05/26/22 06:32 Temperature 98.4 F Pulse Rate 87 Respiratory Rate 18 Blood Pressure 113/68 Pulse Oximetry 97 Oxygen Delivery Method Room Air BMI result Body Mass Index 19.0 VITAL SIGNS: Reviewed. GENERAL: Appears mildly unwell, in no acute distress. HEAD: Normocephalic/atraumatic EYES: PERRLA, EOMI EARS: Ext canals without abnormality, TMs non-bulging and non-erythematous NOSE: Nares patent bilateral OROPHARYNX: no oral lesions noted, posterior pharynx demonstrates an edematous uvula that is right word shifted with swelling noted in the left tonsillar area and whitish exudate across the right tonsil NECK: Supple, no adenopathy, trismus is present, patient is tolerating secretions LUNGS: Normal breath sounds. No adventitious sounds or accessory muscle use. SpO2<97> CARDIOVASCULAR: Regular rate and rhythm without noted murmurs ABDOMEN: Soft, non-tender, non-distended with bowel sounds. MUSCULOSKELETAL: No tenderness, deformities, or effusions noted on gross inspection. EXTREMITIES: No cyanosis, clubbing or edema, bilateral upper extremities with evidence of injection drugs. SKIN: Inspection of the skin reveals no rashes NEUROLOGIC: Alert and oriented x 3. Strength and sensation to light touch were grossly intact x 4. Medications Administered Discontinued Medications Generic Name Dose Route Start Last Admin Trade Name Maria Luz PRN Reason Stop Dose Admin Acetaminophen 975 mg 05/26/22 09:02 05/26/22 09:13 Acetaminophen 325 Mg Tablet PO 05/26/22 09:03 975 mg ONCE ONE Administration Procedures Abscess I/D Site: oral (Peritonsillar) Side (if applicable): left Technique: needle aspiration Amount of fluid expressed (mL): 2 Sent for culture/gram staining?: No Irrigation: No Packing used?: none Complications: pain and bleeding (Minimal, hemostatic at completion) Medical Decision Making Medical Decision Making [facility] Narrative: 26-year-old female with complaints of dysphagia and sore throat without constitutional symptoms such as fever, chills had no reports of shortness of breath. 0830: All viral testing and strep results are negative will proceed with STI swabbing, obtain a urine and obtain as CT scan of the soft tissue. 1244: CT scan demonstrates approximate 1.6 cm peritonsillar abscess on the left, this was successfully aspirated at the superior aspect for 2 cc, patient reports that she feels much better, she will receive steroids and be discharged home on a course of antibiotics with instructions follow-up with primary care provider. Differential Diagnosis Differential Diagnoses: The differential diagnosis associated with the presentation includes I will rule out strep, peritonsillar abscess, viral illness. Lab Data [facility] Lab Attestation statement: I reviewed the patient's lab results. Please see discussion above Labs: Lab Results 05/26/22 05/26/22 05/26/22 Range/Units 06:38 06:38 09:09 Urine Test NEGATIVE (NEGATIVE) Influenza Type A (PCR) NEGATIVE (Negative) Influenza Type B (PCR) NEGATIVE (Negative) RSV RNA Qual (PCR) NEGATIVE (Negative) SARS-CoV-2 RNA (RT-PCR) NEGATIVE (Negative) S. pyogenes GrpA ELADIO Negative (Negative) Radiology Impression Radiologist Impression: My interpretation is in agreement with radiologist impression of imaging studies. Prescription Management I considered prescription management with: Antibiotic Chronic Conditions Patient?s care impacted by: Other Discharge Plan Discharge Clinical Impression: Abscess, peritonsillar Patient Disposition: Home, Self-Care Instructions: Peritonsillar Abscess (ED) Additional Instructions: 1. I recommend salt gargling (mix warm tap water with table salt) gargle for approximately 5 minutes, 3 to 4 times a day. 2. You can use [id number]-[id number] medications such as Tylenol/ibuprofen for pain control. 3. Complete the entire course of antibiotics. 4. I recommend that you follow-up with your primary care provider in the next 1-2 days. Return to the ER for any worsening symptoms. Prescriptions: New amoxicillin-pot clavulanate 875-125 mg tablet 1 tab PO Q12H 5 Days Qty: 10 0RF No Action albuterol sulfate 2.5 mg /3 mL (0.083 %) solution for nebulization 2.5 mg inhalation Q4-6H PRN (Reason: shortness of breath or wheezing) 30 Days Qty: 75 6RF albuterol sulfate 90 mcg/actuation aerosol powdr breath activated 2 inh inhalation Q4-6H PRN (Reason: shortness of breath or wheezing) 30 Days Qty: 1 0RF ondansetron 8 mg tablet,disintegrating 8 mg PO Q8H PRN (Reason: nausea and vomiting) Qty: 90 1RF triamcinolone acetonide 0.1 % cream 1 appl topical TID PRN (Reason: rash) Qty: 80 0RF (DME) nebulizer and compressor Device See Rx Instructions .ROUTE .MEDSUPPLY Qty: 1 0RF Rx Instructions: As directed metoclopramide HCl [Reglan] 10 mg tablet 10 mg PO Q6H PRN (Reason: nausea and vomiting) Qty: 20 0RF acetaminophen [Tylenol Extra Strength] 500 mg tablet 1,000 mg PO QID PRN (Reason: fever or pain) Qty: 14 0RF prenat.vits,manda,ern-coph-enief Tablet 1 tab PO BEDTIME Qty: 30 0RF prednisone 10 mg tablet See Taper PO DAILY Qty: 70 0RF Taper: Prednisone 40 mg daily for 7 Days and 0 Hour 30 mg daily for 7 Days and 0 Hour 20 mg daily for 7 Days and 0 Hour 10 mg daily for 7 Days and 0 Hour Rx Instructions: 4 tabs for 7 days, then reduce by 1 tab every 7 days until done (DME) nebulizer and compressor Device See Rx Instructions .Route Qty: 1 0RF Rx Instructions: As directed prednisone 20 mg tablet 40 mg PO DAILY Qty: 8 0RF albuterol sulfate 90 mcg/actuation HFA aerosol inhaler 2 puff inhalation Q6H PRN (Reason: shortness of breath or wheezing) Qty: 8.5 0RF albuterol sulfate 2.5 mg /3 mL (0.083 %) solution for nebulization 2.5 mg inhalation Q4H PRN (Reason: shortness of breath or wheezing) Qty: 75 0RF prednisone 20 mg tablet 60 mg PO DAILY Qty: 15 0RF doxycycline monohydrate 100 mg capsule 100 mg PO BID Qty: 20 0RF cephalexin 500 mg capsule 500 mg PO Q12H 5 Days Qty: 10 0RF oseltamivir [Tamiflu] 75 mg capsule 75 mg PO BID 5 Days Qty: 10 0RF prednisone 20 mg tablet 40 mg PO DAILY 5 Days Qty: 10 0RF albuterol sulfate 0.63 mg/3 mL solution for nebulization 0.63 mg inhalation QID PRN (Reason: shortness of breath or wheezing) Qty: 75 0RF albuterol sulfate 90 mcg/actuation HFA aerosol inhaler 1 inh inhalation QID PRN (Reason: shortness of breath or wheezing) Qty: 8.5 0RF metronidazole 500 mg tablet 500 mg PO BID 7 Days Qty: 14 0RF fluconazole [Diflucan] 150 mg tablet 150 mg PO Q3D 0 Days Qty: 2 0RF Rx Instructions: may repeat second dose 72 hrs after first dose if symptoms persist hydrocortisone 2.5 % ointment 1 appl topical QD-TID PRN (Reason: skin irritation) Qty: 454 3RF nitrofurantoin monohyd/m-cryst [Macrobid] 100 mg capsule 100 mg PO BID 7 Days Qty: 14 0RF Rx Instructions: must administer with a meal/food erythromycin 5 mg/gram (0.5 %) ointment 0.5 inch ophthalmic (eye) TID Qty: 3.5 0RF prednisone 20 mg tablet 40 mg PO DAILY Qty: 10 0RF diphenhydramine HCl [Benadryl] 25 mg capsule 50 mg PO TID PRN (Reason: allergic reaction) Qty: 30 0RF triamcinolone acetonide 0.1 % ointment 1 appl topical BID
[2022-05-26] MEDS: Acetaminophen 325 MG TABLET 975 MG PO (09:13)
[2022-05-26 09:17] LABS: UPreg QC Valid YES; Urine Pregnancy NEGATIVE (NEGATIVE)
[2022-05-26] MEDS: dexAMETHasone 2 MG TABLET 10 MG PO (12:57)
[2022-05-31 08:03] LABS: C. Trachomatis RNA TMA, Throat NOT DETECTED; N. gonorrhoeae RNA TMA, Throat NOT DETECTED
== END 2022-05-26 13:08 | disposition home or self-care (01) ==
PROVIDERS: Emergency Provider Student in an Organized Health Care Education/Training Program
DX: J36 Peritonsillar abscess (principal); Z20.828 Contact with and (suspected) exposure to other viral communicable diseases
CPT/HCPCS: 0241U; 42700; 70490; 81025; 87491; 87591; 87651; 99283; 99284; J8540

== ENCOUNTER 2022-10-17 16:59 | Emergency (ER) | payer OTHER, SELFPAY | END 2022-10-17 18:43 | disposition left against medical advice (07) | PROVIDERS: Emergency Provider Emergency Medicine | DX: R21 Rash and other nonspecific skin eruption (principal) ==

== ENCOUNTER 2022-10-17 18:58 | Emergency (ER) | payer OTHER, SELFPAY ==
[2022-10-17 19:03] VITALS: BP 134/77; PULSE 83; RESP 20; TEMP 36.8; O2SAT 98; BMI 21.9
--- NOTE | 2022-10-17 19:32 | ED_ITS ---
HPI - Skin/Abscess/Foreign Bdy General Chief complaint: Skin/Abscess/Foreign Body Stated complaint: rash allergies Time Seen by Provider: 10/17/22 19:32 Source: patient Mode of arrival: ambulatory Limitations: no limitations History of Present Illness HPI narrative: 26 yo female with history of eczema here with complaints of worsening rash to body and face. Ran out of her all topical medications. Also concerned as there is some crusting and warmth to the lesions on her face. Related Data Home Medications Medication Instructions Recorded Confirmed triamcinolone acetonide 0.1 % 1 appl topical BID 06/02/20 12/18/20 topical ointment Previous Rx's Medication Instructions Recorded nebulizer and compressor #1 ea 04/28/20 albuterol sulfate 2.5 mg/3 mL 2.5 mg (3 mL) inhalation Q4-6H PRN 05/13/20 (0.083 %) solution for nebulization shortness of breath or wheezing 1 month #75 mL albuterol sulfate 90 mcg/actuation 2 inh inhalation Q4-6H PRN 05/20/20 breath activated powder inhaler shortness of breath or wheezing 1 month #1 ea metoclopramide HCl 10 mg tablet 10 mg PO Q6H PRN nausea and 11/30/20 (Reglan) vomiting #20 tabs ondansetron 8 mg disintegrating 8 mg PO Q8H PRN nausea and 11/30/20 tablet vomiting #90 tabs acetaminophen 500 mg tablet 1,000 mg PO QID PRN fever or pain 12/03/20 (Tylenol Extra Strength) #14 tabs prenat.vits,manda,[id number]-[id number] 1 tab PO BEDTIME #30 tabs 12/03/20 prednisone 10 mg tablet See Taper PO DAILY #70 tabs 12/20/20 albuterol sulfate 2.5 mg/3 mL 2.5 mg (3 mL) inhalation Q4H PRN 02/25/21 (0.083 %) solution for nebulization shortness of breath or wheezing #75 mL nebulizer and compressor #1 ea 02/25/21 prednisone 20 mg tablet 40 mg PO DAILY #8 tabs 02/25/21 doxycycline monohydrate 100 mg 100 mg PO BID #20 caps 08/07/21 capsule prednisone 20 mg tablet 60 mg PO DAILY #15 tabs 08/07/21 cephalexin 500 mg capsule 500 mg PO Q12H 5 days #10 caps 09/29/21 triamcinolone acetonide 0.1 % 1 appl topical TID PRN rash #80 01/19/22 topical cream grams albuterol sulfate 0.63 mg/3 mL 0.63 mg (3 mL) inhalation QID PRN 05/06/22 solution for nebulization shortness of breath or wheezing #75 mL albuterol sulfate 90 mcg/actuation 1 inh inhalation QID PRN shortness 05/06/22 aerosol inhaler of breath or wheezing #8.5 grams fluconazole 150 mg tablet 150 mg PO Q3D 2 doses #2 tabs 05/06/22 (Diflucan) hydrocortisone 2.5 % topical 1 appl topical QD-TID PRN skin 05/06/22 ointment irritation #454 grams metronidazole 500 mg tablet 500 mg PO BID 7 days #14 tabs 05/06/22 nitrofurantoin 100 mg PO BID 7 days #14 caps 05/06/22 monohydrate/macrocrystals 100 mg capsule (Macrobid) oseltamivir 75 mg capsule (Tamiflu) 75 mg PO BID 5 days #10 caps 05/06/22 prednisone 20 mg tablet 40 mg PO DAILY inflammation 5 days 05/06/22 #10 tabs diphenhydramine HCl 25 mg capsule 50 mg PO TID PRN allergic reaction 05/24/22 (Benadryl) #30 caps erythromycin 5 mg/gram (0.5 %) eye 0.5 inch ophthalmic (eye) TID #3.5 05/24/22 ointment grams prednisone 20 mg tablet 40 mg PO DAILY #10 tabs 05/24/22 amoxicillin 875 mg-potassium 1 tab PO Q12H 5 days #10 tabs 05/26/22 clavulanate 125 mg tablet albuterol sulfate 90 mcg/actuation 2 puff inhalation Q6H PRN 10/03/22 aerosol inhaler shortness of breath or wheezing #8.5 grams cephalexin 500 mg capsule 500 mg PO BID #14 caps 10/17/22 loratadine 10 mg tablet (Claritin) 10 mg PO DAILY #30 tabs 10/17/22 prednisone 20 mg tablet 60 mg PO DAILY #15 tabs 10/17/22 triamcinolone acetonide 0.1 % 1 appl topical BID #80 grams 10/17/22 topical ointment Allergies Allergy/AdvReac Type Severity Reaction Status Date / Time egg [EGG] Allergy Severe ANAPHYLAXIS Verified 10/17/22 19:35 fish derived [FISH] Allergy Severe ANAPHYLAXIS Verified 10/17/22 19:35 peanut [PEANUTS] Allergy Severe ITCHING Verified 10/17/22 19:35 shellfish derived Allergy Severe ANAPHYLAXIS Verified 10/17/22 19:35 [SHELLFISH DERIVED] cat dander Allergy Intermediate Hives Verified 10/17/22 19:35 dog dander Allergy Intermediate Hives Verified 10/17/22 19:35 house dust Allergy Intermediate Hives Verified 10/17/22 19:35 rice [RICE] AdvReac Intermediate CONSTIPATIO Verified 10/17/22 19:35 N Review of Systems Review of Systems: Yes all other systems are reviewed and are negative Constitutional: Constitutional: Reports no additional constitutional complaints, Denies body ache(s), Denies chills, Denies fever(s), Denies headache(s) and Denies weakness Eyes: Eyes: Reports no additional eye complaints and Denies change in vision ENT: Reports system reviewed and no additional complaints, except as docume nted, Denies dizziness, Denies headache(s), Denies nasal congestion, Denies nasal discharge and Denies neck pain Cardiovascular: Cardiovascular: Reports no additional cardiovascular complaints, Denies chest pain, Denies leg edema and Denies dyspnea Respiratory: Respiratory: Reports no additional respiratory complaints, Denies cough and Denies dyspnea Gastrointestinal: Gastrointestinal: Reports no additional gastrointestinal complaints, Denies abdominal pain, Denies diarrhea, Denies nausea and Denies vomiting Genitourinary: Genitourinary: Reports no additional female genitourinary complaints and Denies urinary incontinence Musculoskeletal: Musculoskeletal: Reports no additional musculoskeletal complaints, Denies back pain, Denies arthralgias, Denies joint swelling, Denies neck pain, Denies numbness and Denies tingling Integumentary/Breasts: Skin/Breast: Reports system reviewed and no additional complaints, except as docu and Reports rash Neurologic: Reports system reviewed and no additional complaints, except as documented, Denies Abnormal speech present, Denies dizziness, Denies headache(s), Denies numbness, Denies tingling and Denies weakness PMFSH Past Medical History Attestation statement: The following information was validated with the patient. Source: old records reviewed and nursing notes reviewed Medical History Allergy to other foods Anxiety state, unspecified Asthma Bronchitis Dermatitis, unspecified Hyperemesis Major depressive disorder, single episode, unspecified Mild persistent asthma, uncomplicated Surgical History History of section Family History Family History Father Drug abuse Asthma Mother Hypertension Maternal Grandmother Ovarian cancer Social History Social History Household Members: Family Household Members Other:: mom Housing: Apartment Alcohol intake: never Patient Tobacco Use Status: Former Tobacco user Advance Directives Date on File: 12/21/20 service: No Current occupational status: unemployed Gender identity: Female Physical Exam Vital Signs: Vital Signs: Last Vital Signs Temp 98.3 F 10/17/22 19:03 Pulse 83 10/17/22 19:03 Resp 20 10/17/22 19:03 BP 134/77 10/17/22 19:03 Pulse Ox 98 10/17/22 19:03 O2 Del Method Room Air 10/17/22 19:03 BMI result Body Mass Index 21.9 Const: General: cooperative, healthy appearing, comfortable and no acute distress Orientation/consciousness: patient oriented x3 Limitations: no limitations HEENT: Head: Yes normal to inspection Ears: hearing grossly normal bilaterally General nose exam: Normal external nose present Face and sinus: Yes normal facial exam Mouth: Normal oral and palatal mucosa present Throat: Yes posterior oropharynx normal Eyes: General: appearance normal, both eyes and all related structures Pupils: Equal, round and reactive pupils present Neck: Neck: Yes normal visual inspection Chest: Chest palpation & inspection: normal inspection of the chest Resp: Effort & Inspection: normal respiratory effort Auscultation: clear to auscultation bilaterally Cardio: Rate: regular rate Rhythm: regular rhythm Peripheral pulses: Peripheral pulses 2+ throughout GI: Inspection: Yes normal to inspection Palpation (GI): Soft to palpation and nontender Auscultation: normal bowel sounds Back/Spine/Pelvis: Thoracic/Lumbar Spine: thoracic and lumbar spine normal to inspection Skin: Other: Over the entire body there are eczema like lesions in various stages of healing. Over the face there are several lesions that have a crusting, with yellow like appearance General skin exam: no rashes or lesions noted Neuro: General: patient oriented x3, no focal motor deficits and normal sensation to monofilament Cranial nerves: Yes Equal, round and reactive pupils present Cognition (Neuro): normal cognition Speech: No Abnormal speech present Gait exam (Neuro): Normal gait present Motor exam (neuro): 5/5 motor strength present throughout Extrem: General: Yes normal to inspection Medical Decision Making Medical Decision Making [facility] Narrative: 26-year-old female here with eczema flare. Ran out of all of her medications. I will discharge her with topical steroids, prednisone, Claritin. Patient also has some crusting and yellowing of lesions on her face concerning for superimposed cellulitis. Therefore I will give her a oral antibiotic. Reviewed worrisome signs and symptoms of when to return to the emergency room. Comfortable plan for discharge home Differential Diagnosis Differential Diagnoses: The differential diagnosis associated with the presentation includes low concern for systemic infection, sjs, ten Discharge Plan Discharge Clinical Impression: Eczema Patient Disposition: Home, Self-Care Instructions: Dermatitis (ED) Prescriptions: New prednisone 20 mg tablet 60 mg PO DAILY Qty: 15 0RF triamcinolone acetonide 0.1 % ointment 1 appl topical BID Qty: 80 0RF loratadine [Claritin] 10 mg tablet 10 mg PO DAILY Qty: 30 0RF cephalexin 500 mg capsule 500 mg PO BID Qty: 14 0RF No Action albuterol sulfate 2.5 mg /3 mL (0.083 %) solution for nebulization 2.5 mg inhalation Q4-6H PRN (Reason: shortness of breath or wheezing) 30 Days Qty: 75 6RF albuterol sulfate 90 mcg/actuation aerosol powdr breath activated 2 inh inhalation Q4-6H PRN (Reason: shortness of breath or wheezing) 30 Days Qty: 1 0RF ondansetron 8 mg tablet,disintegrating 8 mg PO Q8H PRN (Reason: nausea and vomiting) Qty: 90 1RF triamcinolone acetonide 0.1 % cream 1 appl topical TID PRN (Reason: rash) Qty: 80 0RF albuterol sulfate 90 mcg/actuation HFA aerosol inhaler 2 puff inhalation Q6H PRN (Reason: shortness of breath or wheezing) Qty: 8.5 0RF (DME) nebulizer and compressor Device See Rx Instructions .ROUTE .MEDSUPPLY Qty: 1 0RF Rx Instructions: As directed metoclopramide HCl [Reglan] 10 mg tablet 10 mg PO Q6H PRN (Reason: nausea and vomiting) Qty: 20 0RF acetaminophen [Tylenol Extra Strength] 500 mg tablet 1,000 mg PO QID PRN (Reason: fever or pain) Qty: 14 0RF prenat.vits,manda,[id number] Tablet 1 tab PO BEDTIME Qty: 30 0RF prednisone 10 mg tablet See Taper PO DAILY Qty: 70 0RF Taper: Prednisone 40 mg daily for 7 Days and 0 Hour 30 mg daily for 7 Days and 0 Hour 20 mg daily for 7 Days and 0 Hour 10 mg daily for 7 Days and 0 Hour Rx Instructions: 4 tabs for 7 days, then reduce by 1 tab every 7 days until done (DME) nebulizer and compressor Device See Rx Instructions .Route Qty: 1 0RF Rx Instructions: As directed prednisone 20 mg tablet 40 mg PO DAILY Qty: 8 0RF albuterol sulfate 2.5 mg /3 mL (0.083 %) solution for nebulization 2.5 mg inhalation Q4H PRN (Reason: shortness of breath or wheezing) Qty: 75 0RF prednisone 20 mg tablet 60 mg PO DAILY Qty: 15 0RF doxycycline monohydrate 100 mg capsule 100 mg PO BID Qty: 20 0RF cephalexin 500 mg capsule 500 mg PO Q12H 5 Days Qty: 10 0RF oseltamivir [Tamiflu] 75 mg capsule 75 mg PO BID 5 Days Qty: 10 0RF prednisone 20 mg tablet 40 mg PO DAILY 5 Days Qty: 10 0RF albuterol sulfate 0.63 mg/3 mL solution for nebulization 0.63 mg inhalation QID PRN (Reason: shortness of breath or wheezing) Qty: 75 0RF albuterol sulfate 90 mcg/actuation HFA aerosol inhaler 1 inh inhalation QID PRN (Reason: shortness of breath or wheezing) Qty: 8.5 0RF metronidazole 500 mg tablet 500 mg PO BID 7 Days Qty: 14 0RF fluconazole [Diflucan] 150 mg tablet 150 mg PO Q3D 0 Days Qty: 2 0RF Rx Instructions: may repeat second dose 72 hrs after first dose if symptoms persist hydrocortisone 2.5 % ointment 1 appl topical QD-TID PRN (Reason: skin irritation) Qty: 454 3RF nitrofurantoin monohyd/m-cryst [Macrobid] 100 mg capsule 100 mg PO BID 7 Days Qty: 14 0RF Rx Instructions: must administer with a meal/food erythromycin 5 mg/gram (0.5 %) ointment 0.5 inch ophthalmic (eye) TID Qty: 3.5 0RF prednisone 20 mg tablet 40 mg PO DAILY Qty: 10 0RF diphenhydramine HCl [Benadryl] 25 mg capsule 50 mg PO TID PRN (Reason: allergic reaction) Qty: 30 0RF amoxicillin-pot clavulanate 875-125 mg tablet 1 tab PO Q12H 5 Days Qty: 10 0RF triamcinolone acetonide 0.1 % ointment 1 appl topical BID Referrals: Dez Peace MD [Primary Care Provider] - 1 week
== END 2022-10-17 19:58 | disposition home or self-care (01) ==
LOC: HO.ED 19:43
PROVIDERS: Emergency Provider Student in an Organized Health Care Education/Training Program; PCP Internal Medicine
DX: L30.9 Dermatitis, unspecified (principal); Z79.899 Other long term (current) drug therapy
CPT/HCPCS: 99282; 99283

== ENCOUNTER 2022-11-05 21:13 | Emergency (ER) | payer OTHER, SELFPAY ==
--- NOTE | 2022-11-05 | ECG_ITS ---
Test Reason : CHEST PAIN Blood Pressure : / mmHG Vent. Rate : 107 BPM Atrial Rate : 107 BPM P-R Int : 128 ms QRS Dur : 074 ms QT Int : 326 ms P-R-T Axes : 078 027 070 degrees QTc Int : 435 ms Sinus tachycardia Otherwise normal ECG When compared with ECG of 06-MAY-2022 13:41, QRS axis Shifted right Referred By: Generic ED Physician Electronically Signed By:Elio Chawla
--- NOTE | ~2022-11-05 | XR_ITS ---
EXAMINATION: XR CHEST CLINICAL INFORMATION: Cough and chest pain. COMPARISON: Chest radiograph 05/06/2022. TECHNIQUE: Frontal view of the chest was obtained. FINDINGS: No significant abnormality is noted involving the heart, lungs, mediastinum, bony thorax or soft tissues. XR/XR chest 1V IMPRESSION: Unremarkable examination.
[2022-11-05 21:26] VITALS: BP 133/76; PULSE 147; RESP 24; TEMP 36.8; O2SAT 80; BMI 19.8
[2022-11-05 21:30] VITALS: RESP 18
--- OUTSIDE RECORDS SUMMARY | 2022-11-05 21:34 | XMS_ITS | Continuity of Care Document ---
Author Name Unknown Organization [facility] Address [address] [place] [id number]- Care Team Providers Care Passenger Car Cleaning Supervisor Name Role Phone Darian Rosen MD, Una Younger Primary Care Physician [phone] Encounter [facility] Date(s): 05/07/21 - 06/12/[address] [address]- Attending Physician: Jana Mckeon NP Admitting Physician: Jana Mckeon NP Referring Physician: Jana Mckeon NP Allergies, Adverse Reactions, Alerts Substance Reaction Severity Status shellfish Anaphylaxis Active Cats Active Dogs Active Dust Hives Active Peanuts Active Egg Allergy Anaphylaxis Active Immunizations Given and Recorded Vaccine Date Status Refusal Reason tetanus/diphtheria/pertussis, acel(Tdap) 05/10/21 Given tetanus/diphtheria/pertussis, acel(Tdap) 12/30/19 Given tetanus/diphtheria/pertussis, acel(Tdap) 12/28/09 Given Human Papillomavirus Vaccine 07/26/10 Given Human Papillomavirus Vaccine 03/01/10 Given Human Papillomavirus Vaccine 12/28/09 Given Meningococcal Conjugate Vaccine 12/28/09 Given Varicella Virus Vaccine 12/28/09 Given Varicella Virus Vaccine 04/10/99 Given Measles/Mumps/Rubella Virus Vaccine 10/26/01 Given Measles/Mumps/Rubella Virus Vaccine 04/10/98 Given Poliovirus Vaccine, Inactivated 10/26/01 Given Poliovirus Vaccine, Inactivated 1 10/27/97 Given Poliovirus Vaccine, Inactivated 2 07/27/97 Given Poliovirus Vaccine, Inactivated 3 02/26/97 Given diphtheria/tetanus/pertussis, acel(DTaP) 4 10/26/01 Given diphtheria/tetanus/pertussis, acel(DTaP) 08/19/98 Given diphtheria/tetanus/pertussis, acel(DTaP) 5 01/27/98 Given diphtheria/tetanus/pertussis, acel(DTaP) 6 10/27/97 Given diphtheria/tetanus/pertussis, acel(DTaP) 7 02/26/97 Given haemophilus b conjugate (PRP-T) vaccine 04/10/98 G iven haemophilus b conjugate (PRP-T) vaccine 8 10/27/97 Given haemophilus b conjugate (PRP-T) vaccine 9 07/27/97 Given haemophilus b conjugate (PRP-T) vaccine 10 02/26/97 Given hepatitis B pediatric vaccine 11 07/27/97 Given hepatitis B pediatric vaccine 12 02/26/97 Given hepatitis B pediatric vaccine 13 96 Given 1Admin Note: exact day unknown 2Admin Note: exact day unknown 3Admin Note: exact day unknown 4Admin Note: exact day unknown 5Admin Note: exact day unknown 6Admin Note: exact day unknown 7Admin Note: exact day unknown 8Admin Note: exact day unknown 9Admin Note: exact day unknown 10Admin Note: exact day unknown 11Admin Note: exact day unknown 12Admin Note: exact day unknown 13Admin Note: exact day unknown Medications Multivitamins By Mouth, Daily, 0 Refills, Maintenance, 12/07/20 21:16:00 EDT, Partial fill upon patient request if the prescription is for a schedule II opioid drug. Start Date: 12/07/20 Status: Ordered ProAir HFA 90 mcg/inh inhalation aerosol with adapter 2, puffs, Inhalation, Every 4 hours, PRN, please provide one for home and one for school use with spacer chamber, # 2 each, Refills 3, Tot. Refills 3, Maintenance, 05/10/21 9:29:00 EST, Aerosol, Route to Pharmacy Electronically, [id number]... Start Date: 05/10/21 Status: Ordered Pulmicort Flexhaler 180 mcg See Instructions, INHALE 1 PUFF BY MOUTH TWICE A DAY, # 1 Unknown, 0 Refills, Maintenance, [facility] [id number], 30, INHALE 1 PUFF BY MOUTH TWICE A DAY, 160, cm, 12/24/20 11:01:00 EDT, Height, 49.7, kg, 12/21/20 11:40:00 EDT, Dry Weight Start Date: 12/31/20 Status: Ordered Problem List Condition Effective Dates Status Health Status Inform ant Asthma during in t hird trimester(Confirmed) Active Chronic eczema(Confirmed) 1 Active affected by growth restriction(Confirmed) Active Eczema(Confirmed) Active History of section(Confirmed) Active History of depression(Confirmed) Active Obese class I(Confirmed) Active Placenta previa - low-lying(Confirmed) Active Post-traumatic stress disord er (PTSD)(Confirmed) 02/22/11 Active Rubella non-immune status, antepartum(Confirmed) Active 1dermatologist: Dr. Clement in [place] Social History Social History Type Response Smoking Status Former smoker, quit more than 30 days ago entered on: 12/17/19 Sex
--- OUTSIDE RECORDS SUMMARY | 2022-11-05 21:34 | XMS_ITS | Continuity of Care Document ---
Author Name Unknown Organization [facility] ter Address [address] [place] [id number]- Care Team Providers Care Technical Data Analyst Name Role Phone Darian Rosen MD, Kamla Younger Primary Care Physician [phone] Encounter [facility] Date(s): 03/11/20 - 03/15/[address] [address]- [facility] Discharge Disposition: A-D/C Home Attending Physician: Sudhakar Reece MD Admitting Physician: Sudhakar Reece MD Referring Physician: Sudhakar Reece MD Allergies, Adverse Reactions, Alerts Substance Reaction Severity Status shellfish Anaphylaxis Active Cats Active Dogs Active Dust Hives Active Peanuts Active Rice Active Egg Allergy Anaphylaxis Active Immunizations Given and Recorded Vaccine Date Status Refusal Reason tetanus/diphtheria/pertussis, acel(Tdap) 12/30/19 Given tetanus/diphtheria/pertussis, acel(Tdap) 12/28/09 [...] unknown 13Admin Note: exact day unknown Medications docusate sodium 100 mg oral capsule 1 capsule = 100 mg, By Mouth, 2 times a day, PRN as needed for constipation, # 60 capsule, 0 Refills, Maintenance, 03/15/20 5:14:00 EDT, Capsule, [facility]/pharmacy #[id number], 160, cm, 03/15/20 4:52:00 EDT, Height, 82, kg, 03/11/20 14:25:00 EDT, Dry Weight Start Date: 03/15/20 Status: Ordered hydroxyzine hydrochloride 25 mg oral tablet 1 tablet = 25 mg, By Mouth, Daily, # 30 tablet, 2 Refills, Maintenance, Tablet, 1 tablet By Mouth Daily Start Date: 03/14/13 Status: Ordered ibuprofen 600 mg oral tablet 600 mg, 1, tablet, By Mouth, Every 6 hours, PRN, # 30 tablet, Refills 1, Tot. Refills 1, Acute 04/04/20 5:15:00 EST, Pain , Moderate, 03/15/20 5:14:00 EDT, Route to Pharmacy Electronically, [facility]/pharmacy #[id number], 160, cm, 03/15/20 4:52:00 EDT, Height, 82... Start Date: 03/15/20 Stop Date: 04/04/20 Status: Ordered oxyCODONE 5 mg oral tablet 5 mg, 1, tablet, By Mouth, Every 6 hours, PRN, # 12 tablet, Refills 0, Tot. Refills 0, Acute 04/04/20 5:14:00 EST, as needed for pain, 03/15/20 5:14:00 EDT, Route to Pharmacy Electronically, [facility]/pharmacy #[id number], Partial fill upon patient request, 160,... Start Date: 03/15/20 Stop Date: 04/04/20 Status: Ordered 1 1, By Mouth, Daily, 0 Refills, Maintenance, 03/21/18 20:34:23 EDT Start Date: 03/21/18 Status: Ordered ProAir HFA 90 mcg/inh inhalation aerosol with adapter 2 puffs, Inhalation, Every 4 hours, PRN for wheezing, please provide one for home and one for school use with spacer chamber, # 2 each, 3 Refills, Maintenance, 12/12/13 16:29:07, Aerosol, 2 puffs Inhalation Every 4 hours,PRN:for wheezing,Instr:please... Start Date: 12/12/13 Status: Ordered Protopic 0.03% topical ointment 1 application, Topically, 2 times a day, apply and rub in well, # 60 Gm, 1 Refills, Maintenance, 05/12/14 17:50:03, Ointment, 1 application Topically 2 times a day,Instr:apply and rub in well Start Date: 05/12/14 Status: Ordered Pulmicort Flexhaler 180 mcg 2 puffs, Inhalation, 2 times a day, # 1 each, 0 Refills, Maintenance, 12/23/19 11:44:00 EDT, Powder, [facility]/pharmacy #[id number], 2 puffs Inhalation 2 times a day, 158, cm, 12/23/19 11:05:00 EDT, Height, 53, kg, 12/22/19 7:27:00 EDT, Dry Weight Start Date: 12/23/19 Status: Ordered simethicone 80 mg oral tablet 1 tablet = 80 mg, Chew, 3 times a day after meals, PRN as needed for gas, # 60 tablet, 0 Refills, Acute 04/04/20 5:14:00 EST, 03/15/20 5:14:00 EDT, Tablet, [facility]pharmacy #[id number], 160, cm, 03/15/20 4:52:00 EDT, Height, 82, kg, 03/11/20 14:25:00 EDT, Dry W... Start Date: 03/15/20 Stop Date: 04/04/20 Status: Ordered triamcinolone 0.025% topical cream 1 applicator, Topically, Daily, # 60 Gm, 1 Refills, Acute 04/04/20 5:15:00 EST, 03/15/20 5:14:00 EDT, Cream, [id number], 1 applicator Topically Daily, 160, cm, 03/15/20 4:52:00 EDT, Height, 82, kg, 03/11/20 14:25:00 EDT, Dry Weight Start Date: 03/15/20 Stop Date: 04/04/20 Status: Ordered Tylenol 325 mg oral capsule 2 capsule = 650 mg, By Mouth, Every 4 hours, PRN as needed for pain, # 60 capsule, 1 Refills, Acute04/04/20 5:14:00 EST, 03/15/20 5:14:00 EDT, Capsule, [id number], 160, cm, 03/15/20 4:52:00 EDT, Height, 82, kg, 03/11/20 14:25:00 EDT, Dry Weight Start Date: 03/15/20 Stop Date: 04/04/20 Status: Ordered Problem List Condition Effective Dates Status Health Status Inform ant Asthma during in t hird trimester(Confirmed) Active Positive GBS test/vag(Confirmed) 02/14/20 Active Chronic eczema(Confirmed) 1 Active Constipation(Confirmed) Active 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 Clement in [place] Procedures Procedure Date Related Diagnosis Body Site Status delivery only; 03/12/20 C ompleted Vital Signs Most recent to oldest [Reference Range]: 1 2 3 Height 160 cm (03/15/20 4:52 AM) 160 cm (03/15/20 12:05 AM) 160 cm (03/14/20 9:44 AM) Weight 86 kg (03/11/20 2:40 PM) 82 kg (03/11/20 2:25 PM) 83.9 kg (03/11/20 10:12 AM) Oxygen Saturation [94-100 %] 100 % (03/15/20 8:00 AM) 98 % (03/15/20 4:52 AM) 100 % (03/15/20 12:05 AM) Pulse Rate [55-90 bpm] 115 bpm *H* (03/15/20 8:00 AM) 101 bpm *H* (03/15/20 4:52 AM) 106 bpm *H* (03/15/20 12:05 AM) Body Mass Index [18.5-24.99] 32.03 *>HHI* (03/11/20 2:25 PM) Blood Pressure [90-138/55-84 mm Hg] 105/51mm Hg (03/15/20 8:00 AM) 106/55mm Hg (03/15/20 4:52 AM) 109/54mm Hg (03/15/20 12:05 AM) Respiratory Rate [16-30 br/min] 20 br/min (03/15/20 1:30 PM) 20 br/min (03/15/20 1:30 PM) 20 br/min (03/15/20 12:29 PM) Temperature [96.8-100.4 DegF] 98.4 DegF (03/15/20 8:00 AM) 97.8 DegF (03/15/20 4:52 AM) 97.7 DegF (03/15/20 12:05 AM) Mode of Delivery (Oxygen) Room air (03/15/20 8:00 AM) Room air (03/15/20 4:52 AM) Room air (03/15/20 12:05 AM) Blood pressure sites Arm, left (03/15/20 8:00 AM) Arm, left (03/15/20 4:52 AM) Arm, left (03/15/20 12:05 AM) Temperature Route Oral (03/15/20 8:00 AM) Oral (03/15/20 4:52 AM) Oral (03/15/20 12:05 AM) Dry Weight 82 kg (03/11/20 2:25 PM) 83.9 kg (03/11/20 10:12 AM) Weight Obtained Via Standing scale (03/11/20 10:12 AM) Dry Weight Obtained Via Standing scale (03/11/20 10:12 AM) Social History Social History Type Response Smoking Status Former smoker, quit more than 30 days ago entered on: 12/17/19 Sex Female
--- OUTSIDE RECORDS SUMMARY | 2022-11-05 21:34 | XMS_ITS | Continuity of Care Document ---
Author Name Unknown Organization [facility] Address [address] [place] [address]- Care Team Providers Care Golf Starter And Ranger Name Role Phone Darian Rosen MD, Kamla Younger Primary Care Physician Encounter [facility] Date(s): 12/25/19 - 01/24/[facility] [address] [place] [address]- [facility] Attending Physician: Christy Watson Admitting Physician: AdmtrChristy Referring Physician: Admtr, Ar8 Allergies, Adverse Reactions, Alerts Substance Reaction Severity [...] unknown 13Admin Note: exact day unknown Medications hydroxyzine hydrochloride 25 mg oral tablet 1 tablet = 25 mg, By Mouth, Daily, # 30 tablet, 2 Refills, Maintenance, Tablet, 1 tablet By Mouth Daily Start Date: 03/14/13 Status: Ordered ibuprofen 600 mg oral tablet 600 mg, 1, tablet, By Mouth, Every 6 hours, # 60 tablet, Refills 0, Tot. Refills 0, Maintenance, 03/22/18 20:30:15 EDT, Print Requisition Start Date: 03/22/18 Status: Ordered 1 1, By Mouth, Daily, [...] 0 Refills, Maintenance, 12/23/19 11:44:00 EDT, Powder, [id number], 2 puffs Inhalation 2 times a day, 158, cm, 12/23/19 11:05:00 EDT, Height, 53, kg, 12/22/19 7:27:00 EDT, Dry Weight Start Date: 12/23/19 Status: Ordered Triamcinolone 0.025% Topical 1 application, Topically, Daily, 0 Refills, Maintenance, Cream Start Date: 03/21/18 Status: Ordered Problem List Condition Effective Dates Status Health Status Inform ant Asthma not well controlled(Confirmed) Active Chronic eczema(Confirmed) 1 Active Constipation(Confirmed) Active 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 Clement in [place] Social History Social History Type Response Smoking Status Former smoker, quit more than 30 days ago entered on: 12/17/19 Sex Female
--- OUTSIDE RECORDS SUMMARY | 2022-11-05 21:34 | XMS_ITS | Continuity of Care Document ---
Author Name Unknown Organization [facility] ter Address [address] [place] [address]- Care Team Providers Care Machine Tool Rebuilder Name Role Phone Darian Rosen MD, Una Younger Primary Care Physician [facility] Date(s): 04/04/21 - 04/04/[address] [address] Discharge Disposition: A-D/C Home Attending Physician: Chato EPPS [OB], Josefina Beyer Admitting Physician: Chato EPPS [OB], Josefina Beyer Referring Physician: Chato EPPS [OB], Josefina Beyer Allergies, Adverse Reactions, Alerts Substance Reaction Severity Status shellfish Anaphylaxis Active Egg Allergy Anaphylaxis Active Cats Active Dogs Active Dust Hives Active Peanuts Active Immunizations Given and Recorded Vaccine Date [...] unknown 13Admin Note: exact day unknown Medications ondansetron 8 mg oral tablet, disintegrating 1 tablet = 8 mg, By Mouth, 3 times a day, PRN Vomiting, # 9 tablet, 0 Refills, Maintenance, 12/12/20 14:25:00 EDT, DIS Tablet, Partial fill upon patient request if the prescription is for a schedule II opioid drug. Start Date: 12/12/20 Status: Ordered Multivitamins By Mouth, Daily, 0 Refills, Maintenance, [...] hours,PRN:for wheezing,Instr:please... Start Date: 12/12/13 Status: Ordered Pulmicort Flexhaler 180 mcg See Instructions, INHALE 1 PUFF BY MOUTH TWICE A DAY, # 1 Unknown, 0 Refills, Maintenance, [facility] [id number], 30, INHALE 1 PUFF BY MOUTH TWICE A DAY, 160, cm, 12/24/20 11:01:00 EDT, Height, 49.7, kg, 12/21/20 11:40:00 EDT, Dry Weight Start Date: 12/31/20 Status: Ordered Tylenol 325 mg oral tablet 975 mg, Tablet, By Mouth, Every 6 hours, PRN for Pain , Mild, Routine, 04/04/21 5:07:00 EST Start Date: 04/04/21 Stop Date: 04/04/21 Status: Discontinued Vitamin B6 By Mouth, Daily, 0 Refills, Maintenance, 12/12/20 14:26:00 EDT, Partial fill upon patient request if the prescription is for a schedule II opioid drug. Start Date: 12/12/20 Status: Ordered Problem List Condition Effective Dates Status Health Status Inform ant Asthma during in t hird trimester(Confirmed) Active Chronic eczema(Confirmed) 1 Active History of section(Confirmed) Active History of depression(Confirmed) Active Hyperemesis gravidarum(Confirmed) Active Post-traumatic stress disord er (PTSD)(Confirmed) 02/22/11 Active Rubella non-immune status, antepartum(Confirmed) Active 1dermatologist: Dr. Clement in [place] Vital Signs Most recent to oldest [Reference Range]: 1 2 Oxygen Saturation [94-100 %] 100 % (04/04/21 3:08 AM) Blood Pressure [90-138/55-84 mm Hg] 118/ 60mm Hg (04/04/21 3:08 AM) Respiratory Rate [16-30 br/min] 16 br/mi n (04/04/21 5:52 AM) 16 br/min (04/04/21 3:08 AM) Temperature [96.8-100.4 DegF] 98.3 DegF (04/04/21 3:08 AM) Mode of Delivery (Oxygen) Room air (04/04/21 3:08 AM) Blood pressure sites Arm, right (04/04/21 3:08 AM) Temperature Route Oral (04/04/21 3:08 AM) Social History Social History Type Response Smoking Status Former smoker, quit more than 30 days ago entered on: 12/17/19 Sex
--- OUTSIDE RECORDS SUMMARY | 2022-11-05 21:34 | XMS_ITS | Continuity of Care Document ---
Author Name Unknown Organization [facility] ter Address [address] [place] [address]- Care Team Providers Care Optical Glass Inspector Name Role Phone Darian Rosen MD, Kamla Younger Primary Care Physician Encounter [facility] [place] [place] Date(s): 02/25/20 - 02/25/[address] [address]- [facility] Discharge Disposition: A-D/C Home Attending Physician: Phan Woods DO Admitting Physician: Phan Woods DO Referring Physician: Enrique EPPS, Neeta Allergies, Adverse Reactions, Alerts Substance Reaction Severity Status shellfish Anaphylaxis Active Dogs Active Egg Allergy Anaphylaxis Active Cats Active Dust Hives Active Peanuts Active Rice Active Immunizations Given and Recorded Vaccine Date [...] hird trimester(Confirmed) Active Chronic eczema(Confirmed) 1 Active Constipation(Confirmed) Active 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 Clement in [place] Social History Social History Type Response Smoking Status Former smoker, quit more than 30 days ago entered on: 12/17/19 Sex Female
--- OUTSIDE RECORDS SUMMARY | 2022-11-05 21:34 | XMS_ITS | Continuity of Care Document ---
Author Name Unknown Organization [facility] Address [address] [place] [address]- Care Team Providers Care Employee Representative Name Role Phone Darian Rosen MD, Kamla Younger Primary Care Physician [phone] Encounter [facility] [place] Date(s): 05/04/20 - 06/03/20 [facility] [address] [address]- Attending Physician: Christy Watson Admitting Physician: AdmtrChristy Referring Physician: Admtr, ArAnn Marie Allergies, Adverse Reactions, Alerts Substance Reaction Severity [...] unknown 13Admin Note: exact day unknown Medications Depo-Provera Contraceptive 150 mg/mL intramuscular suspension 1 mL = 150 mg, Intramuscular, freight caller to Fire Extinguisher Repairer Inspector, Once every 3 months, Maintenance, # 1 mL, 3 Refills, Maintenance, 04/20/20 10:20:00 EST, [facility]/pharmacy #[id number], Partial fill upon patient request, 160,cm, 04/20/20 10:03:00 EST, Height, 74.2, kg, ... Start Date: 04/20/20 Status: Ordered docusate sodium 100 mg oral capsule 1 capsule = 100 mg, By Mouth, 2 times a day, PRN as needed for constipation, # 60 capsule, 0 Refills, Maintenance, 03/15/20 5:14:00 EDT, Capsule, [facility]/pharm[facility] #[id number], 160, cm, 03/15/20 4:52:00 EDT, Height, 82, kg, 03/11/20 14:25:00 EDT, Dry Weight Start Date: 03/15/20 Status: Ordered hydroxyzine hydrochloride 25 mg oral tablet 1 tablet = 25 mg, By Mouth, Daily, # 30 tablet, 2 Refills, Maintenance, Tablet, 1 tablet By Mouth Daily Start Date: 03/14/13 Status: Ordered 1 1, By Mouth, Daily, [...] Dry Weight Start Date: 12/23/19 Status: Ordered Problem List Condition Effective Dates Status Health Status Inform ant Asthma during in t hird trimester(Confirmed) Active Positive GBS test/vag(Confirmed) 02/14/20 Active Chronic eczema(Confirmed) 1 Active Constipation(Confirmed) Active 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 Clement in [place] Vital Signs Most recent to oldest [Reference Range]: 1 Height 158 cm (12/22/19 7:27 AM) Dry Weight 53 kg (12/22/19 7:27 AM) Social History Social History Type Response Smoking Status Former smoker, quit more than 30 days ago entered on: 12/17/19 Sex
--- OUTSIDE RECORDS SUMMARY | 2022-11-05 21:34 | XMS_ITS | Continuity of Care Document ---
Author Name Unknown Organization [facility] Address [address] [place] [address]- Care Team Providers Care Liquor Store Manager Name Role Phone Darian Rosen MD, Kamla Younger Primary Care Physician [place] [facility] [place] 04/20/20 - 08/05/[address] [address]- Attending Physician: Not on Staff, Attending MD Allergies, Adverse Reactions, Alerts Substance Reaction [...] = 150 mg, Intramuscular, freight caller to Inspector Multifocal Lens, Once every 3 months, Maintenance, # 1 mL, 3 Refills, Maintenance, 04/20/20 10:20:00 EST, [id number], Partial fill upon patient request, 160,cm, 04/20/20 10:03:00 EST, Height, 74.2, kg, ... Start Date: 04/20/20 Status: Ordered docusate sodium 100 mg oral capsule 1 capsule = 100 mg, By Mouth, 2 times a day, PRN as needed for constipation, # 60 capsule, 0 Refills, Maintenance, 03/15/20 5:14:00 EDT, Capsule, [id number], 160, [...] status, antepartum(Confirmed) Active 1dermatologist: Dr. Clement in [place] Social History Social History Type Response Smoking Status Former smoker, quit more than 30 days ago entered on: 12/17/19 Sex
--- OUTSIDE RECORDS SUMMARY | 2022-11-05 21:34 | XMS_ITS | Continuity of Care Document ---
Author Name Unknown Organization [facility] ter Address [address] [place] [address]- Care Team Providers Care Fire Warden Name Role Phone Darian Rosen MD, Kamla Younger Primary Care Physician [phone] [place] [facility] [place] - 01/07/[address] [address]- [facility] Discharge Disposition: A-D/C Home Attending Physician: Phan Woods DO Admitting Physician: Phan Woods DO Referring Physician: Neeta Nunez MD Allergies, Adverse Reactions, Alerts Substance Reaction [...] status, antepartum(Confirmed) Active 1dermatologist: Dr. Clement in [place] Social History Social History Type Response Smoking Status Former smoker, quit more than 30 days ago entered on: 12/17/19 Sex Female
--- OUTSIDE RECORDS SUMMARY | 2022-11-05 21:34 | XMS_ITS | Continuity of Care Document ---
Author Name Unknown Organization [facility] Address [address] [place] [address]- Care Team Providers Care Song Writer Name Role Phone Darian Rosen MD, Kamla Younger Primary Care Physician Encounter [facility] [place] Date(s): 04/20/20 - 06/03/[address] [address]- Attending Physician: Not on Staff, Attending MD [...] suspension 1 mL = 150 mg, Intramuscular, on call pharmacy technician to Tin Can Feeder, Once every 3 months, Maintenance, # 1 mL, 3 Refills, Maintenance, 04/20/20 10:20:00 EST, [facility]/pharmacy #[id number], Partial fill upon patient request, 160,cm, 04/20/20 10:03:00 EST, Height, 74.2, kg, ... Start Date: 04/20/20 Status: Ordered docusate sodium 100 mg oral capsule 1 capsule = 100 mg, By Mouth, 2 times a day, PRN as needed for constipation, # 60 capsule, 0 Refills, Maintenance, 03/15/20 5:14:00 EDT, Capsule, [facility]/pharmacy #[id number], 160, cm, 03/15/20 4:52:00 EDT, [...] status, antepartum(Confirmed) Active 1dermatologist: Dr. Clement in [place] Social History Social History Type Response Smoking Status Former smoker, quit more than 30 days ago entered on: 12/17/19 Sex
--- OUTSIDE RECORDS SUMMARY | 2022-11-05 21:34 | XMS_ITS | Continuity of Care Document ---
Author Name Unknown Organization [facility] ter Address [address] [place] [address]- Care Team Providers Care Community Marketing Coordinator Name Role Phone Darian Rosen MD, Samantha Primary Care Physician Encounter [facility] [place] Date(s): 04/23/21 - 07/22/[address] [address] Attending Physician: Chato EPPS [OB], Josefina Beyer Referring [...] hepatitis B pediatric vaccine 13 96 Given Not Given Vaccine Date Status Refusal Reason Measles/Mumps/Rubella Virus Vaccine 06/28/21 Not G iven Patient Refuses 1Admin Note: exact day unknown 2Admin Note: [...] unknown 13Admin Note: exact day unknown Medications acetaminophen 325 mg oral capsule 2 capsule = 650 mg, By Mouth, Every 4 hours, PRN as needed for pain, # 50 capsule, 0 Refills, Maintenance, 06/28/21 6:54:00 EST, Capsule, [facility]/pharmacy #[id number], Partial fill upon patient request if the prescription is for a schedule II opioid drug., 160,... Start Date: 06/28/21 Status: Ordered docusate sodium 100 mg oral tablet 1 tablet = 100 mg, By Mouth, 2 times a day, PRN for constipation, # 60 tablet, 0 Refills, Maintenance, 06/28/21 6:54:00 EST, Tablet, [id number], Partial fill upon patient request if the prescription is for a schedule II opioid drug., 160, cm,... Start Date: 06/28/21 Status: Ordered ibuprofen 800 mg oral tablet 800 mg, 1, tablet, By Mouth, Every 8 hours, # 50 tablet, Refills 0, Tot. Refills 0, Maintenance, 06/28/21 6:54:00 EST, Route to Pharmacy Electronically, [facility]/pharmacy #[id number], Partial fill upon patient request if the prescription is for a schedule II opi... Start Date: 06/28/21 Status: Ordered oxyCODONE 5 mg oral capsule 1 capsule = 5 mg, By Mouth, Every 4 hours, PRN as needed for pain, # 7 capsule, 0 Refills, Maintenance, 06/28/21 10:26:00 EST, Capsule, [facility]/pharmacy #[id number], Partial fill upon patient request if the prescription is for a schedule II opioid drug., 160, c... Start Date: 06/28/21 Status: Ordered oxyCODONE 5 mg oral tablet 5 mg, 1, tablet, By Mouth, Every 3 hours, PRN, (7-10), Refills 0, Tot. Refills 0, Maintenance, Pain, Severe, 06/28/21 6:56:00 EST, Partial fill upon patient request if the prescription is for a schedule II opioid drug. Start Date: 06/28/21 Status: Ordered Multivitamins By Mouth, Daily, 0 [...] 9:29:00 EST, Aerosol, Route to Pharmacy Electronically, [id number]... Start Date: 05/10/21 Status: Ordered Pulmicort Flexhaler 180 mcg See Instructions, INHALE 1 PUFF BY MOUTH TWICE A DAY, # 1 Unknown, 0 Refills, Maintenance, [facility], 30, INHALE 1 PUFF BY MOUTH TWICE A DAY, 160, cm, 12/24/20 11:01:00 EDT, Height, 49.7, kg, 12/21/20 11:40:00 EDT, Dry Weight Start Date: 12/31/20 Status: Ordered simethicone 80 mg oral tablet, chewable 80 mg, 1, tablet, Chew, 3 times a day, PRN, # 36 tablet, Refills 0, Tot. Refills 0, Maintenance, asneeded for gas, 06/28/21 6:54:00 EST, Route to Pharmacy Electronically, [facility]/pharmacy #[id number], Partialfill upon patient request if the prescription is fo... Start Date: 06/28/21 Status: Ordered Problem List Condition Effective Dates Status Health Status Inform ant Asthma during in t hird trimester(Confirmed) Active Chronic eczema(Confirmed) 1 Active affected by growth restriction(Confirmed) Active Eczema(Confirmed) Active History of section(Confirmed) Active History of depression(Confirmed) Active Obese class I(Confirmed) Active Post-traumatic stress disord er (PTSD)(Confirmed) 02/22/11 Active Rubella non-immune status, antepartum(Confirmed) Active 1dermatologist: Dr. Clement in [place] Social History Social History Type Response Smoking Status Former smoker, quit more than 30 days ago entered on: 12/17/19 Sex
--- OUTSIDE RECORDS SUMMARY | 2022-11-05 21:34 | XMS_ITS | Continuity of Care Document ---
Author Name Unknown Organization [facility] ter Address [address] [place] [address]- Care Team Providers Care Luggage Liner Name Role Phone Darian Rosen MD, Kamla Younger Primary Care Physician Encounter [facility] [place] Date(s): 02/04/20 - 02/04/[address] [address]- [facility] Discharge Disposition: A-D/C Home Attending Physician: Phan [...] status, antepartum(Confirmed) Active 1dermatologist: Dr. Clement in [place] Social History Social History Type Response Smoking Status Former smoker, quit more than 30 days ago entered on: 12/17/19 Sex Female
--- OUTSIDE RECORDS SUMMARY | 2022-11-05 21:34 | XMS_ITS | Continuity of Care Document ---
Author Name Unknown Organization [facility] Address [address], [address] [place] [address]- Care Team Providers Care Casework Specialist Name Role Phone Darian Rosen MD, Una Younger Primary Care Physician Encounter [facility] Date(s): 02/22/21 - 03/24/21 [facility] [address] [place] [address]- Allergies, Adverse Reactions, Alerts Substance Reaction Severity Status shellfish Anaphylaxis Active Dogs Active Dust Hives Active Egg Allergy Anaphylaxis Active Cats Active Peanuts Active Immunizations Given and Recorded [...] DAY, # 1 Unknown, 0 Refills, Maintenance, [facility], 30, INHALE 1 PUFF BY MOUTH TWICE A DAY, 160, cm, 12/24/20 11:01:00 EDT, Height, 49.7, kg, 12/21/20 11:40:00 EDT, Dry Weight Start Date: 12/31/20 Status: Ordered Vitamin B6 By Mouth, Daily, 0 Refills, [...] status, antepartum(Confirmed) Active 1dermatologist: Dr. Clement in [place] Social History Social History Type Response Smoking Status Former smoker, quit more than 30 days ago entered on: 12/17/19 Sex
--- OUTSIDE RECORDS SUMMARY | 2022-11-05 21:34 | XMS_ITS | Continuity of Care Document ---
Author Name Unknown Organization [facility] ter Address [address] [place] [address]- Care Team Providers Care Continuous Process Machine Operator Name Role Phone Darian Rosen MD, Kamla Younger Primary Care Physician [phone] En[place] [facility] [place] Date(s): 01/01/20 - 01/01/[address] [address]- [facility] Discharge Disposition: A-D/C Home Attending Physician: Concepcion Bonds MD Admitting Physician: Concepcion Bonds MD Referring Physician: Concepcion Bonds MD Allergies, Adverse Reactions, Alerts Substance Reaction [...] status, antepartum(Confirmed) Active 1dermatologist: Dr. Clement in [place] Vital Signs Most recent to oldest [Reference Range]: 1 Height 160 cm (01/01/20 2:17 PM) Blood Pressure [90-138/55-84 mm Hg] 125/ 62mm Hg (01/01/20 2:17 PM) Temperature [96.8-100.4 DegF] 98.8 DegF (01/01/20 2:17 PM) Blood pressure sites Arm, right (01/01/20 2:17 PM) Temperature Route Oral (01/01/20 2:17 PM) Social History Social History Type Response Smoking Status Former smoker, quit more than 30 days ago entered on: 12/17/19 Sex Female
--- OUTSIDE RECORDS SUMMARY | 2022-11-05 21:34 | XMS_ITS | Continuity of Care Document ---
Author Name Unknown Organization [facility] Address [address] [place] [address]- Care Team Providers Care Grinder Set Up Operator Thread Name Role Phone Darian Rosen MD, Una Younger Primary Care Physician [phone] Encounter [facility] Date(s): 12/17/20 - 01/16/[address] [address]- Allergies, Adverse Reactions, Alerts Substance Reaction Severity [...] opioid drug. Start Date: 12/12/20 Status: Ordered predniSONE 10 mg oral tablet 4 tablets, By Mouth, Daily, taper, 0 Refills, Maintenance, 12/21/20 12:11:00 EDT, Partial fill uponpatient request if the prescription is for a schedule II opioid drug. Start Date: 12/21/20 Status: Ordered 1 1, By Mouth, Daily, 0 Refills, Maintenance, 03/21/18 20:34:23 EDT Start Date: 03/21/18 Status: Ordered Multivitamins By Mouth, Daily, 0 [...] 05/12/14 Status: Ordered Pulmicort Flexhaler 180 mcg See Instructions, INHALE 1 PUFF BY MOUTH TWICE A DAY, # 1 Unknown, 0 Refills, Maintenance, [facility], 30, INHALE 1 PUFF BY MOUTH TWICE A DAY, 160, cm, 12/24/20 11:01:00 EDT, Height, 49.7, kg, 12/21/20 11:40:00 EDT, Dry Weight Start Date: 12/31/20 Status: Ordered Vitafol Gummies with DHA oral tablet, chewable 1 tablet, By Mouth, Daily, # 30 tablet, 8 Refills, Maintenance, 12/24/20 11:40:00 EDT, [id number], Can sub for any gummy vitamin that is covered by pt insurance., 1 tablet By Mouth Daily,x30 days, 160, cm, 04/20/20 10:03:00 EST, Sumi... Start Date: 12/24/20 Stop Date: 09/20/21 Status: Ordered Vitamin B6 By Mouth, Daily, [...] retardation (IUGR)(Confirmed) Active History of section(Confirmed) Active Hyperemesis gravidarum(Confirmed) Active Obesity(Confirmed)(Worsening) Active Post-traumatic stress disord er (PTSD)(Confirmed) 02/22/11 Active Rubella non-immune status, antepartum(Confirmed) Active Subchorionic hemorrhage in f irst trimester(Confirmed) 2020 Active 1dermatologist: Dr. Clement in [place] Social History Social History Type Response Smoking Status Former smoker, quit more than 30 days ago entered on: 12/17/19 Sex
--- OUTSIDE RECORDS SUMMARY | 2022-11-05 21:34 | XMS_ITS | Continuity of Care Document ---
Author Name Unknown Organization [facility] ter Address [address] [place] [address]- Care Team Providers Care Retail Advisor Name Role Phone Darian Rosen MD, Kamla Younger Primary Care Physician [facility] [place] Date(s): 01/14/20 - 01/14/[address] [address]- [facility] Discharge Disposition: A-D/C Home Attending Physician: Phan [...] status, antepartum(Confirmed) Active 1dermatologist: Dr. Clement in [place] Social History Social History Type Response Smoking Status Former smoker, quit more than 30 days ago entered on: 12/17/19 Sex Female
--- OUTSIDE RECORDS SUMMARY | 2022-11-05 21:34 | XMS_ITS | Continuity of Care Document ---
Author Name Unknown Organization [facility] ter Address [address] [place] [address]- Care Team Providers Care Oral And Maxillofacial Surgery Resident Name Role Phone Darian Rosen MD, Una Younger Primary Care Physician Encounter [facility] [place] [facility] [id number] Date(s): 05/05/21 - 06/09/[address] [address] Attending Physician: Jana Mckeon NP Admitting Physician: Jana Mckeon NP Referring Physician: Mike GASTON, Jana Allergies, Adverse Reactions, Alerts Substance Reaction Severity [...] 9:29:00 EST, Aerosol, Route to Pharmacy Electronically, [id number]... Start Date: 05/10/21 Status: Ordered Pulmicort Flexhaler 180 mcg See Instructions, INHALE 1 PUFF BY MOUTH TWICE A DAY, # 1 Unknown, 0 Refills, Maintenance, [facility], 30, INHALE 1 PUFF BY MOUTH TWICE [...] status, antepartum(Confirmed) Active 1dermatologist: Dr. Clement in [place] Social History Social History Type Response Smoking Status Former smoker, quit more than 30 days ago entered on: 12/17/19 Sex
--- OUTSIDE RECORDS SUMMARY | 2022-11-05 21:34 | XMS_ITS | Continuity of Care Document ---
Author Name Unknown Organization [facility] ter Address [address] [place] [address]- Care Team Providers Care Checker Stocker Name Role Phone Darian Rosen MD, Kamla Younger Primary Care Physician [facility] Date[facility]): [facility] - 03/02/[address] [address]- [facility] Discharge Disposition: A-D/C Home Attending [...] status, antepartum(Confirmed) Active 1dermatologist: Dr. Clement in [place] Vital Signs Most recent to oldest [Reference Range]: 1 Height 160 cm (03/02/20 11:46 AM) Weight 84.2 kg (03/02/20 11:40 AM) Oxygen Saturation [94-100 %] 99 % (03/02/20 11:46 AM) Blood Pressure [90-138/55-84 mm Hg] 122/ 66mm Hg (03/02/20 11:46 AM) Temperature [96.8-100.4 DegF] 98.2 DegF (03/02/20 11:46 AM) Blood pressure sites Arm, right (03/02/20 11:46 AM) Temperature Route Oral (03/02/20 11:46 AM) Dry Weight 84.2 kg (03/02/20 11:40 AM) Weight Obtained Via Standing scale (03/02/20 11:40 AM) Dry Weight Obtained Via Standing scale (03/02/20 11:40 AM) Social History Social History Type Response Smoking Status Former smoker, quit more than 30 days ago entered on: 12/17/19 Sex Female
--- OUTSIDE RECORDS SUMMARY | 2022-11-05 21:34 | XMS_ITS | Continuity of Care Document ---
Author Name Unknown Organization [facility] Address [address] [place] [address]- Care Team Providers Care Ged Instructor Name Role Phone Darian Rosen MD, Kamla Younger Primary Care Physician [phone] Encounter [facility] Date(s): 01/20/20 - 02/19/20 [facility] [address] [address]- [facility] Allergies, Adverse Reactions, Alerts Substance Reaction Severity [...] status, antepartum(Confirmed) Active 1dermatologist: Dr. Clement in [place] Social History Social History Type Response Smoking Status Former smoker, quit more than 30 days ago entered on: 12/17/19 Sex Female
--- OUTSIDE RECORDS SUMMARY | 2022-11-05 21:34 | XMS_ITS | Continuity of Care Document ---
Author Name Unknown Organization [facility] Address [address] [place] [address]- Care Team Providers Care Bolt Header Name Role Phone Darian Rosen MD, Kamla Younger Primary Care Physician [phone] Encounter [facility] Date(s): 03/03/20 - 04/02/[address] [address]- Allergies, Adverse Reactions, Alerts Substance Reaction Severity [...] 0 Refills, Maintenance, 03/15/20 5:14:00 EDT, Capsule, [facility]/pharmacy #[id number], 160, cm, 03/15/20 4:52:00 EDT, Height, [...] 03/15/20 5:14:00 EDT, Route to Pharmacy Electronically, [facility]/pharmacy #[id number], 160, cm, 03/15/20 4:52:00 EDT, Height, 82... Start Date: 03/15/20 Stop Date: 04/04/20 Status: Ordered oxyCODONE 5 mg oral tablet 5 mg, 1, tablet, By Mouth, Every 6 hours, PRN, # 12 tablet, Refills 0, Tot. Refills 0, Acute 04/04/20 5:14:00 EST, as needed for pain, 03/15/20 5:14:00 EDT, Route to Pharmacy Electronically, [facility]/pharmacy #[id number], Partial fill upon patient request, 160,... [...] 0 Refills, Maintenance, 12/23/19 11:44:00 EDT, Powder, [facility]/pharmacy #[id number], 2 puffs Inhalation 2 times a day, 158, cm, 12/23/19 11:05:00 EDT, Height, 53, kg, 12/22/19 7:27:00 EDT, Dry Weight Start Date: 12/23/19 Status: Ordered simethicone 80 mg oral tablet 1 tablet = 80 mg, Chew, 3 times a day after meals, PRN as needed for gas, # 60 tablet, 0 Refills, Acute 04/04/20 5:14:00 EST, 03/15/20 5:14:00 EDT, Tablet, [facility]/pharmacy #[id number], 160, cm, 03/15/20 4:52:00 EDT, Height, [...] status, antepartum(Confirmed) Active 1dermatologist: Dr. Clement in [place] Social History Social History Type Response Smoking Status Former smoker, quit more than 30 days ago entered on: 12/17/19 Sex
--- OUTSIDE RECORDS SUMMARY | 2022-11-05 21:34 | XMS_ITS | Continuity of Care Document ---
Author Name Unknown Organization [facility] ter Address [address] [place] [address]- Care Team Providers Care Grinder Lap Name Role Phone Darian Rosen MD, Samantha Primary Care Physician Encounter [facility] Date(s): 06/15/21 - 07/21/[address] [address] Attending Physician: Carie Mack MD Admitting Physician: Carie Mack MD Referring Physician: Trudi EPPS (OB), Angie Palacio Allergies, Adverse Reactions, Alerts Substance Reaction Severity [...] 0 Refills, Maintenance, 06/28/21 6:54:00 EST, Capsule, [facility]/pharmacy #[id number], Partial fill upon patient request if the prescription is for a schedule II opioid drug., 160,... Start Date: 06/28/21 Status: Ordered docusate sodium 100 mg oral tablet 1 tablet = 100 mg, By Mouth, 2 times a day, PRN for constipation, # 60 tablet, 0 Refills, Maintenance, 06/28/21 6:54:00 EST, Tablet, [facility]/pharmacy #[id number], Partial fill upon patient request if the prescription is for a schedule II opioid drug., 160, cm,... Start Date: 06/28/21 Status: Ordered ibuprofen 800 mg oral tablet 800 mg, 1, tablet, By Mouth, Every 8 hours, # 50 tablet, Refills 0, Tot. Refills 0, Maintenance, 06/28/21 6:54:00 EST, Route to Pharmacy Electronically, [facility]/pharmacy #[id number], Partial fill upon patient request if the prescription is for a schedule II opi... Start Date: 06/28/21 Status: Ordered oxyCODONE 5 mg oral capsule 1 capsule = 5 mg, By Mouth, Every 4 hours, PRN as needed for pain, # 7 capsule, 0 Refills, Maintenance, 06/28/21 10:26:00 EST, Capsule, [facility]/pharmacy #[id number], Partial fill upon patient request if [...] 9:29:00 EST, Aerosol, Route to Pharmacy Electronically, [id number]... Start Date: 05/10/21 Status: Ordered Pulmicort Flexhaler 180 mcg See Instructions, INHALE 1 PUFF BY MOUTH TWICE A DAY, # 1 Unknown, 0 Refills, Maintenance, [facility] ST[facility] 14601, 30, INHALE 1 PUFF BY MOUTH TWICE A DAY, 160, cm, 12/24/20 11:01:00 EDT, Height, 49.7, kg, 12/21/20 11:40:00 EDT, Dry Weight Start Date: 12/31/20 Status: Ordered simethicone 80 mg oral tablet, chewable 80 mg, 1, tablet, Chew, 3 times a day, PRN, # 36 tablet, Refills 0, Tot. Refills 0, Maintenance, asneeded for gas, 06/28/21 6:54:00 EST, Route to Pharmacy Electronically, [facility]/pharmacy #[id number], Partialfill upon patient request if the prescription [...] status, antepartum(Confirmed) Active 1dermatologist: Dr. Clement in [place] Social History Social History Type Response Smoking Status Former smoker, quit more than 30 days ago entered on: 12/17/19 Sex
--- OUTSIDE RECORDS SUMMARY | 2022-11-05 21:34 | XMS_ITS | Continuity of Care Document ---
Author Name Unknown Organization [facility] Address [address] [place] [address]- Care Team Providers Care Director Of Student Affairs Name Role Phone Darian Rosen MD, Una Younger Primary Care Physician [phone] Encounter [facility] Date(s): 05/14/21 - 06/19/[address] [address]- Attending Physician: Carie Mack MD Admitting Physician: Carie aMck MD Referring Physician: Trudi EPPS (OB)Angie Allergies, Adverse Reactions, Alerts Substance Reaction Severity Status shellfish Anaphylaxis Active Dust Hives Active Egg Allergy Anaphylaxis Active Cats Active Dogs Active Peanuts Active Immunizations Given and Recorded [...] 9:29:00 EST, Aerosol, Route to Pharmacy Electronically, [id number]... Start Date: 05/10/21 Status: Ordered Pulmicort Flexhaler 180 mcg See Instructions, INHALE 1 PUFF BY MOUTH TWICE A DAY, # 1 Unknown, 0 Refills, Maintenance, [facility] ST[facility] 18327, 30, INHALE 1 PUFF BY MOUTH TWICE [...] status, antepartum(Confirmed) Active 1dermatologist: Dr. Clement in [place] Social History Social History Type Response Smoking Status Former smoker, quit more than 30 days ago entered on: 12/17/19 Sex
--- OUTSIDE RECORDS SUMMARY | 2022-11-05 21:34 | XMS_ITS | Continuity of Care Document ---
Author Name Unknown Organization [facility] Address [address] [place] [address]- Care Team Providers Care Kick Plate Installer Name Role Phone Darian Rosen MD, Una Younger Primary Care Physician [facility] Date(s): 12/07/20 - 01/20/[address] [address]- Attending Physician: Not on Staff, Attending MD Allergies, Adverse Reactions, Alerts Substance Reaction Severity Status shellfish Anaphylaxis Active Cats Active Dust Hives Active Peanuts Active Egg Allergy Anaphylaxis Active Dogs Active Immunizations Given and Recorded Vaccine Date [...] 1 Unknown, 0 Refills, Maintenance, [facility], 30, INHALE 1 PUFF BY MOUTH TWICE [...] trimester(Confirmed) 2020 Active 1dermatologist: Dr. Clement in [place] Social History Social History Type Response Smoking Status Former smoker, quit more than 30 days ago entered on: 12/17/19 Sex
--- OUTSIDE RECORDS SUMMARY | 2022-11-05 21:34 | XMS_ITS | Continuity of Care Document ---
Author Name Unknown Organization [facility] Address [address] [place] [address]- Care Team Providers Care Apple Sorter Name Role Phone Darian Rosen MD, Una Younger Primary Care Physician [phone] Encounter [facility] Date(s): 12/31/20 - 01/30/[address] [address]- Allergies, Adverse Reactions, Alerts Substance Reaction Severity [...] DAY, # 1 Unknown, 0 Refills, Maintenance, [facility] ST[facility] [address]30, 30, INHALE 1 PUFF BY MOUTH TWICE [...] trimester(Confirmed) 2020 Active 1dermatologist: Dr. Clement in [place] Social History Social History Type Response Smoking Status Former smoker, quit more than 30 days ago entered on: 12/17/19 Sex
--- OUTSIDE RECORDS SUMMARY | 2022-11-05 21:34 | XMS_ITS | Continuity of Care Document ---
Author Name Unknown Organization [facility] Address [address] [place] [address]- Care Team Providers Care Cds Sales Advisor Name Role Phone Darian Rosen MD, Kamla Younger Primary Care Physician [phone] [facility]counter [facility] Date(s): 02/12/20 - 03/13/20 [facility] [address] [address]- [facility] Allergies, Adverse Reactions, Alerts Substance Reaction Severity [...] status, antepartum(Confirmed) Active 1dermatologist: Dr. Clement in [place] Social History Social History Type Response Smoking Status Former smoker, quit more than 30 days ago entered on: 12/17/19 Sex Female
--- OUTSIDE RECORDS SUMMARY | 2022-11-05 21:34 | XMS_ITS | Continuity of Care Document ---
Author Name Unknown Organization [facility] Address [address] [place] [address]- Care Team Providers Care Fruit Buying Grader Name Role Phone Darian Rosen MD, Una Younger Primary Care Physician [facility] Date(s): 01/27/21 - 05/20/[address] [address]- Attending Physician: Not on Staff, Attending MD [...] 9:29:00 EST, Aerosol, Route to Pharmacy Electronically, [id number]... Start Date: 05/10/21 Status: Ordered Pulmicort Flexhaler 180 mcg See Instructions, INHALE 1 PUFF BY MOUTH TWICE A DAY, # 1 Unknown, 0 Refills, Maintenance, [facility] ST[facility] 52787, 30, INHALE 1 PUFF BY MOUTH TWICE [...] status, antepartum(Confirmed) Active 1dermatologist: Dr. Clement in [place] Social History Social History Type Response Smoking Status Former smoker, quit more than 30 days ago entered on: 12/17/19 Sex
--- OUTSIDE RECORDS SUMMARY | 2022-11-05 21:34 | XMS_ITS | Continuity of Care Document ---
Author Name Unknown Organization [facility] Address [address] [place] [address]- Care Team Providers Care Neonatal Specialist Name Role Phone Darian Rosen MD, Kamla Younger Primary Care Physician [facility] Date(s): 01/09/20 - 02/08/[address] [address]- [facility] Allergies, Adverse Reactions, Alerts Substance Reaction [...] status, antepartum(Confirmed) Active 1dermatologist: Dr. Clement in [place] Social History Social History Type Response Smoking Status Former smoker, quit more than 30 days ago entered on: 12/17/19 Sex Female
--- OUTSIDE RECORDS SUMMARY | 2022-11-05 21:34 | XMS_ITS | Continuity of Care Document ---
Author Name Unknown Organization [facility] ter Address [address] [place] [address]- Care Team Providers Care Legislative Aide Name Role Phone Darian Rosen MD, Kamla Younger Primary Care Physician [phone] [facility] Date(s): 02/11/20 - 02/11/[address] [address]- [facility] Discharge Disposition: A-D/C Home Attending [...] status, antepartum(Confirmed) Active 1dermatologist: Dr. Clement in [place] Social History Social History Type Response Smoking Status Former smoker, quit more than 30 days ago entered on: 12/17/19 Sex Female
--- OUTSIDE RECORDS SUMMARY | 2022-11-05 21:35 | XMS_ITS | Continuity of Care Document ---
Author Name Unknown Organization [facility] Address [address] [place] [address]- Care Team Providers Care Nuclear Reactor Operator Name Role Phone Darian Rosen MD, Una Younger Primary Care Physician [phone] [facility]counter [facility] Date(s): 12/07/20 - 01/21/21 [facility] [address] [address]- Attending Physician: Not on Staff, Attending MD [...] 1 Unknown, 0 Refills, Maintenance, [facility], 30, INHALE 1 PUFF BY MOUTH TWICE [...] trimester(Confirmed) 2020 Active 1dermatologist: Dr. Clement in [place] Social History Social History Type Response Smoking Status Former smoker, quit more than 30 days ago entered on: 12/17/19 Sex
--- OUTSIDE RECORDS SUMMARY | 2022-11-05 21:35 | XMS_ITS | Continuity of Care Document ---
Author Name Unknown Organization [facility] Address [address] [place] [address]- Care Team Providers Care Director Of Counterintelligence Name Role Phone Darian Rosen MD, Samantha Primary Care Physician [facility] Date(s): 02/26/21 - 03/28/[facility] [address] [place] [address] Attending Physician: Christy Watson Admitting Physician: AdmtrChristy [...] DAY, # 1 Unknown, 0 Refills, Maintenance, [facility] STORE [address]8935, 30, INHALE 1 PUFF BY MOUTH TWICE [...] status, antepartum(Confirmed) Active 1dermatologist: Dr. Clement in [place] Social History Social History Type Response Smoking Status Former smoker, quit more than 30 days ago entered on: 12/17/19 Sex
--- OUTSIDE RECORDS SUMMARY | 2022-11-05 21:35 | XMS_ITS | Continuity of Care Document ---
Author Name Unknown Organization [facility] Address [address] [place] [address]- Care Team Providers Care Seasoner Hand Name Role Phone Darian Rosen MD, Una Younger Primary Care Physician [phone] [facility]counter [facility] Date(s): 03/26/21 - 04/25/[address] [address] Allergies, Adverse Reactions, Alerts Substance Reaction Severity [...] DAY, # 1 Unknown, 0 Refills, Maintenance, [facility] STORE [address]698, 30, INHALE 1 PUFF BY MOUTH TWICE A DAY, 160, cm, 12/24/20 11:01:00 EDT, Height, 49.7, kg, 12/21/20 11:40:00 EDT, Dry Weight Start Date: 12/31/20 Status: Ordered Reglan 10 mg oral tablet 1 tablet = 10 mg, By Mouth, 3 times a day, PRN Nausea & Vomiting, # 12 tablet, 5 Refills, Maintenance, 04/09/21 9:55:00 EST, [id number], Partial fill upon patient request if the prescription is for a schedule II opioid drug., 160, cm, 04/09/21... Start Date: 04/09/21 Status: Ordered Vitamin B6 By Mouth, Daily, [...] History of depression(Confirmed) Active Hyperemesis gravidarum(Confirmed) Active Obese class I(Confirmed) Active Post-traumatic stress disord er (PTSD)(Confirmed) 02/22/11 Active Rubella non-immune status, antepartum(Confirmed) Active 1dermatologist: Dr. Clement in [place] Social History Social History Type Response Smoking Status Former smoker, quit more than 30 days ago entered on: 12/17/19 Sex
--- OUTSIDE RECORDS SUMMARY | 2022-11-05 21:35 | XMS_ITS | Continuity of Care Document ---
Author Name Unknown Organization [facility] Address [address] [place] [address]- Care Team Providers Care Configurator Name Role Phone Darian Rosen MD, Kamla Younger Primary Care Physician [facility] Date(s): 02/21/20 - 03/22/20 [facility] [address] [address]- [facility] Allergies, Adverse Reactions, [...] 0 Refills, Maintenance, 03/15/20 5:14:00 EDT, Capsule, [facility]/pharmacy #[id number], 160, cm, 03/15/20 4:52:00 EDT, Height, [...] 03/15/20 5:14:00 EDT, Route to Pharmacy Electronically, [facility]/pharmacy #[id number], 160, cm, 03/15/20 4:52:00 EDT, Height, 82... Start Date: 03/15/20 Stop Date: 04/04/20 Status: Ordered oxyCODONE 5 mg oral tablet 5 mg, 1, tablet, By Mouth, Every 6 hours, PRN, # 12 tablet, Refills 0, Tot. Refills 0, Acute 04/04/20 5:14:00 EST, as needed for pain, 03/15/20 5:14:00 EDT, Route to Pharmacy Electronically, [facility]/pharmacy #[id number], Partial fill upon patient request, 160,... [...] 0 Refills, Maintenance, 12/23/19 11:44:00 EDT, Powder, [facility]/pharmacy #207, 2 puffs Inhalation 2 times a day, 158, cm, 12/23/19 11:05:00 EDT, Height, 53, kg, 12/22/19 7:27:00 EDT, Dry Weight Start Date: 12/23/19 Status: Ordered simethicone 80 mg oral tablet 1 tablet = 80 mg, Chew, 3 times a day after meals, PRN as needed for gas, # 60 tablet, 0 Refills, Acute 04/04/20 5:14:00 EST, 03/15/20 5:14:00 EDT, Tablet, [facility]/pharmacy #[id number], 160, cm, 03/15/20 4:52:00 EDT, Height, [...] status, antepartum(Confirmed) Active 1dermatologist: Dr. Clement in [place] Social History Social History Type Response Smoking Status Former smoker, quit more than 30 days ago entered on: 12/17/19 Sex
--- OUTSIDE RECORDS SUMMARY | 2022-11-05 21:35 | XMS_ITS | Continuity of Care Document ---
Author Name Unknown Organization [facility] ter Address [address] [place] [address]- Care Team Providers Care Feeder Catcher Name Role Phone Darian Rosen MD, Una Younger Primary Care Physician [phone] Encounter [facility] Date(s): 06/25/21 - 06/28/[address] [address] Discharge Disposition: A-D/C Home Attending Physician: Gene Buitrago MD Admitting Physician: Gene Buitrago MD Referring Physician: Gene Buitrago MD Allergies, Adverse Reactions, Alerts Substance Reaction [...] 0 Refills, Maintenance, 06/28/21 6:54:00 EST, Capsule, [facility]/pharmacy #[id number], Partial fill upon patient request if the prescription is for a schedule II opioid drug., 160,... Start Date: 06/28/21 Status: Ordered Acetaminophen Tablet 650 mg, Tablet, By Mouth, (1-3), may give 325mg per patient preference and re- dose with 325mg within 4 hours, if needed. Patient should only receive a total of 650mg of Acetaminophen every 4 hours., 06/28/21 7:00:00 EST Start Date: 06/28/21 Stop Date: 06/28/21 Status: Completed docusate sodium 100 mg oral tablet 1 tablet = 100 mg, By Mouth, 2 times a day, PRN for constipation, # 60 tablet, 0 Refills, Maintenance, 06/28/21 6:54:00 EST, Tablet, [facility]/pharmacy #[id number], Partial fill upon patient request if the prescription is for a schedule II opioid drug., 160, cm,... Start Date: 06/28/21 Status: Ordered ibuprofen 800 mg oral tablet 800 mg, 1, tablet, By Mouth, Every 8 hours, # 50 tablet, Refills 0, Tot. Refills 0, Maintenance, 06/28/21 6:54:00 EST, [id number] Partial fill upon patient request if the prescription is for a schedule II opi... Start Date: 06/28/21 Status: Ordered Ibuprofen Tablet 800 mg, Tablet, By Mouth, (4-6), may give 400mg per patient preference and re- dose with 400mg within 8 hours, if needed. Patient should only receive a total of 800mg of Ibuprofen every 8 hours., 06/28/21 7:00:00 EST Start Date: 06/28/21 Stop Date: 06/28/21 Status: Completed oxyCODONE 5 mg oral capsule 1 capsule = 5 mg, By Mouth, Every 4 hours, PRN as needed for pain, # 7 capsule, 0 Refills, Maintenance, 06/28/21 10:26:00 EST, Capsule, [facility]/pharmacy #[id number], Partial fill upon patient request [...] opioid drug. Start Date: 06/28/21 Status: Ordered OxyCODONE IR Tablet 5 mg, Tablet, By Mouth, Every 3 hours, PRN for Pain , Severe, (7-10), Routine, 06/27/21 14:03:00 EST Start Date: 06/27/21 Stop Date: 06/28/21 Status: Discontinued Multivitamins By Mouth, Daily, 0 Refills, Maintenance, [...] 9:29:00 EST, Aerosol, Route to Pharmacy Electronically, [id number]... Start Date: 05/10/21 Status: Ordered Pulmicort Flexhaler 180 mcg See Instructions, INHALE 1 PUFF BY MOUTH TWICE A DAY, # 1 Unknown, 0 Refills, Maintenance, [facility], 30, INHALE 1 PUFF BY MOUTH TWICE A DAY, 160, cm, 12/24/20 11:01:00 EDT, Height, 49.7, kg, 12/21/20 11:40:00 EDT, Dry Weight Start Date: 12/31/20 Status: Ordered simethicone 80 mg oral tablet, chewable 80 mg, 1, tablet, Chew, 3 times a day, PRN, # 36 tablet, Refills 0, Tot. Refills 0, Maintenance, asneeded for gas, 06/28/21 6:54:00 EST, Route to Pharmacy Electronically, [facility]/pharmacy #[id number], Partialfill upon patient request if the prescription [...] status, antepartum(Confirmed) Active 1dermatologist: Dr. Clement in [place] Procedures Procedure Date Related Diagnosis Body Site Status delivery only; 06/26/21 C ompleted Vital Signs Most recent to oldest [Reference Range]: 1 2 3 Height 160 cm (06/28/21 9:51 AM) 160 cm (06/28/21 9:29 AM) 160 cm (06/28/21 12:11 AM) Weight 86.9 kg (06/25/21 4:29 PM) 86.9 kg (06/25/21 11:00 AM) 86.9 kg (06/25/21 10:01 AM) Oxygen Saturation [94-100 %] 100 % (06/28/21 9:51 AM) 100 % (06/28/21 12:11 AM) 99 % (06/27/21 4:00 PM) Pulse Rate [55-90 bpm] 95 bpm *H* (06/28/21 9:51 AM) 76 bpm (06/28/21 12:11 AM) 88 bpm (06/27/21 4:00 PM) Body Mass Index [18.5-24.99] 33.95 *>HHI* (06/25/21 11:00 AM) Blood Pressure [90-138/55-84 mm Hg] 132/63mm Hg (06/28/21 9:51 AM) 116/62mm Hg (06/28/21 12:11 AM) 110/68mm Hg (06/27/21 4:00 PM) Respiratory Rate [16-30 br/min] 18 br/min (06/28/21 10:25 AM) 18 br/min (06/28/21 9:56 AM) 18 br/min (06/28/21 9:55 AM) Temperature [96.8-100.4 DegF] 97.9 DegF (06/28/21 9:51 AM) 97.6 DegF (06/28/21 12:11 AM) 97.7 DegF (06/27/21 4:00 PM) Mode of Delivery (Oxygen) Room air (06/28/21 12:11 AM) Room air (06/27/21 4:00 PM) Room air (06/27/21 8:00 AM) Blood pressure sites Arm, right (06/28/21 9:51 AM) Arm, left (06/28/21 12:11 AM) Arm, left (06/27/21 4:00 PM) Temperature Route Oral (06/28/21 9:51 AM) Oral (06/28/21 12:11 AM) Oral (06/27/21 4:00 PM) Dry Weight 86.9 kg (06/25/21 11:00 AM) 86.9 kg (06/25/21 10:01 AM) Social History Social History Type Response Smoking Status Former smoker, quit more than 30 days ago entered on: 12/17/19 Sex
--- OUTSIDE RECORDS SUMMARY | 2022-11-05 21:35 | XMS_ITS | Continuity of Care Document ---
Author Name Unknown Organization [facility] Address [address] [place] [address]- Care Team Providers Care Sound Engineering Technician Name Role Phone Darian Rosen MD, Una Younger Primary Care Physician [facility] Date(s): 04/29/21 - 05/29/[address] [address] Allergies, Adverse Reactions, Alerts Substance Reaction Severity [...] 9:29:00 EST, Aerosol, Route to Pharmacy Electronically, [id number]... Start Date: 05/10/21 Status: Ordered Pulmicort Flexhaler 180 mcg See Instructions, INHALE 1 PUFF BY MOUTH TWICE A DAY, # 1 Unknown, 0 Refills, Maintenance, [facility] STORE [address]17, 30, INHALE 1 PUFF BY MOUTH TWICE [...] status, antepartum(Confirmed) Active 1dermatologist: Dr. Clement in [place] Social History Social History Type Response Smoking Status Former smoker, quit more than 30 days ago entered on: 12/17/19 Sex
--- OUTSIDE RECORDS SUMMARY | 2022-11-05 21:35 | XMS_ITS | Continuity of Care Document ---
Author Name Unknown Organization [facility] Address [address] [place] [address]- Care Team Providers Care Needle Loom Setter Name Role Phone Darian Rosen MD, Una Younger Primary Care Physician [phone] [facility] Date(s): 04/09/21 - 06/23/[address] [address]- Attending Physician: Not on Staff, Attending MD [...] 9:29:00 EST, Aerosol, Route to Pharmacy Electronically, [id number]... Start Date: 05/10/21 Status: Ordered Pulmicort Flexhaler 180 mcg See Instructions, INHALE 1 PUFF BY MOUTH TWICE A DAY, # 1 Unknown, 0 Refills, Maintenance, [facility]208, 30, INHALE 1 PUFF BY MOUTH TWICE [...] status, antepartum(Confirmed) Active 1dermatologist: Dr. Clement in [place] Social History Social History Type Response Smoking Status Former smoker, quit more than 30 days ago entered on: 12/17/19 Sex
--- OUTSIDE RECORDS SUMMARY | 2022-11-05 21:35 | XMS_ITS | Continuity of Care Document ---
Author Name Unknown Organization [facility] Address [address] [place] [address]- Care Team Providers Care Fisher Name Role Phone Darian Rosen MD, Una Younger Primary Care Physician [phone] Encounter [facility] [place] Date(s): 06/04/21 - 07/10/[address] [address]- Attending Physician: Carie Mack MD Admitting Physician: Carie Mack MD Referring Physician: Trudi EPPS (OB)Angie Allergies, [...] 0 Refills, Maintenance, 06/28/21 6:54:00 EST, Capsule, [facility]/pharmacy #[id number], Partial fill upon patient request [...] 06/28/21 6:54:00 EST, Route to Pharmacy Electronically, [facility]/pharmacy #[id number], Partial fill upon patient request if the prescription is for a schedule II opi... Start Date: 06/28/21 Status: Ordered oxyCODONE 5 mg oral capsule 1 capsule = 5 mg, By Mouth, Every 4 hours, PRN as needed for pain, # 7 capsule, 0 Refills, Maintenance, 06/28/21 10:26:00 EST, Capsule, [facility]/pharmacy #[id number], Partial fill upon patient request [...] 9:29:00 EST, Aerosol, Route to Pharmacy Electronically, [id number]... Start Date: 05/10/21 Status: Ordered Pulmicort Flexhaler 180 mcg See Instructions, INHALE 1 PUFF BY MOUTH TWICE A DAY, # 1 Unknown, 0 Refills, Maintenance, [facility]ORE 73541, 30, INHALE 1 PUFF BY MOUTH TWICE A DAY, 160, cm, 12/24/20 11:01:00 EDT, Height, 49.7, kg, 12/21/20 11:40:00 EDT, Dry Weight Start Date: 8/5/21 Status: Ordered simethicone 80 mg oral tablet, chewable 80 mg, 1, tablet, Chew, 3 times a day, PRN, # 36 tablet, Refills 0, Tot. Refills 0, Maintenance, asneeded for gas, 06/28/21 6:54:00 EST, Route to Pharmacy Electronically, [facility]/pharmacy #[id number], Partialfill upon patient request if the prescription [...] status, antepartum(Confirmed) Active 1dermatologist: Dr. Clement in [place] Social History Social History Type Response Smoking Status Former smoker, quit more than 30 days ago entered on: 12/17/19 Sex
--- OUTSIDE RECORDS SUMMARY | 2022-11-05 21:35 | XMS_ITS | Continuity of Care Document ---
Author Name Unknown Organization [facility] Address [address] [place] [address]- Care Team Providers Care Auditing Control Clerk Name Role Phone Darian Rosen MD, Una Younger Primary Care Physician [phone] Encounter [facility] Date(s): 06/11/21 - 07/17/[address] [address]- Attending Physician: Carie Mack MD Admitting Physician: [...] 9:29:00 EST, Aerosol, Route to Pharmacy Electronically, [id number]... Start Date: 05/10/21 Status: Ordered Pulmicort Flexhaler 180 mcg See Instructions, INHALE 1 PUFF BY MOUTH TWICE A DAY, # 1 Unknown, 0 Refills, Maintenance, [facility] [address]1758, 30, INHALE 1 PUFF BY MOUTH TWICE [...] EST, Route to Pharmacy Electronically, [facility]/pharmacy #[id number], Partialfill upon patient request if the prescription [...] status, antepartum(Confirmed) Active 1dermatologist: Dr. Clement in [place] Social History Social History Type Response Smoking Status Former smoker, quit more than 30 days ago entered on: 12/17/19 Sex
--- OUTSIDE RECORDS SUMMARY | 2022-11-05 21:35 | XMS_ITS | Continuity of Care Document ---
Author Name Unknown Organization [facility] ter Address [address] [place] [address]- Care Team Providers Care Wholesale Account Executive Name Role Phone Darian Rosen MD, Una Younger Primary Care Physician [phone] Encounter [facility] Date(s): 12/07/20 - 12/08/[address] [address] Discharge Disposition: A-D/C Home Attending Physician: Marcus Sanchez MD Admitting Physician: Marcus Sanchez MD Referring Physician: Marcus Sanchez MD Allergies, Adverse Reactions, Alerts Substance Reaction [...] unknown 13Admin Note: exact day unknown Medications budesonide 180 mcg/inh inhalation powder 1 puffs, Inhalation, 2 times a day, # 1 each, 0 Refills, Maintenance, 12/08/20 5:29:00 EDT, Powder,[id number], Partial fill upon patient request if the prescription is for a schedule II opioid drug., 1 puffs Inhalation 2 times a day, 160, cm,... Start Date: 12/08/20 Status: Ordered Depo-Provera Contraceptive 150 mg/mL intramuscular suspension 1 mL = 150 mg, Intramuscular, state trooper to Junior Systems Engineer, Once every 3 months, Maintenance, # 1 mL, 3 Refills, Maintenance, 04/20/20 10:20:00 EST, [id number], Partial fill upon patient request, 160,cm, [...] status, antepartum(Confirmed) Active 1dermatologist: Dr. Clement in [place] Procedures Procedure Date Related Diagnosis Body Site Status Tooth extraction Complete d Vital Signs Most recent to oldest [Reference Range]: 1 2 3 Weight 50.0 kg (12/07/20 8:49 PM) Oxygen Saturation [94-100 %] 100 % (12/08/20 4:31 AM) 100 % (12/08/20 12:04 AM) 98 % (12/07/20 10:00 PM) Blood Pressure [90-138/55-84 mm Hg] 109/69mm Hg (12/08/20 4:31 AM) 104/49mm Hg (12/08/20 12:04 AM) 119/84mm Hg (12/07/20 8:15 PM) Respiratory Rate [16-30 br/min] 20 br/min (12/08/20 4:31 AM) 17 br/min (12/08/20 12:04 AM) 22 br/min (12/07/20 10:00 PM) Temperature [96.8-100.4 DegF] 98.0 DegF (12/08/20 12:04 AM) 97.9 DegF (12/07/20 8:15 PM) Mode of Delivery (Oxygen) Room air (12/08/20 4:31 AM) Room air (12/07/20 10:00 PM) Room air (12/07/20 8:15 PM) Blood pressure sites Arm, right (12/07/20 8:15 PM) Temperature Route Axillary (12/08/20 12:04 AM) Oral (12/07/20 8:15 PM) Dry Weight 50.0 kg (12/07/20 8:49 PM) Weight Obtained Via Standing scale (12/07/20 8:49 PM) Social History Social History Type Response Smoking Status Former smoker, quit more than 30 days ago entered on: 12/17/19 Sex
--- OUTSIDE RECORDS SUMMARY | 2022-11-05 21:35 | XMS_ITS | Continuity of Care Document ---
Author Name Unknown Organization [facility] Address [address] [place] [address]- Care Team Providers Care Shipping And Receiving Specialist Name Role Phone Darian Rosen MD, Kamla Younger Primary Care Physician [phone] En[place] [facility] [place] [id number] Date(s): 01/18/20 - [facility] [address] [address] [facility] Attending Physician: Phan Woods DO Admitting Physician: [...] status, antepartum(Confirmed) Active 1dermatologist: Dr. Clement in [place] Social History Social History Type Response Smoking Status Former smoker, quit more than 30 days ago entered on: 12/17/19 Sex Female
--- OUTSIDE RECORDS SUMMARY | 2022-11-05 21:35 | XMS_ITS | Continuity of Care Document ---
Author Name Unknown Organization [facility] Address [address] [place] [address]- Care Team Providers Care Manager Cath Lab Name Role Phone Darian Rosen MD, Una Younger Primary Care Physician Encounter [facility] Date(s): 05/10/21 - 08/04/[address] [address]- Attending Physician: Not on Staff, Attending MD [...] 0 Refills, Maintenance, 06/28/21 6:54:00 EST, Capsule, [facility]/pharmacy #[id number], Partial fill upon patient request if the prescription is for a schedule II opioid drug., 160,... Start Date: 06/28/21 Status: Ordered docusate sodium 100 mg oral tablet 1 tablet = 100 mg, By Mouth, 2 times a day, PRN for constipation, # 60 tablet, 0 Refills, Maintenance, 06/28/21 6:54:00 EST, Tablet, [facility]/pharmacy #[id number], Partial fill upon patient request if the prescription is for a schedule II opioid drug., 160, cm,... Start Date: 06/28/21 Status: Ordered ibuprofen 800 mg oral tablet 800 mg, 1, tablet, By Mouth, Every 8 hours, # 50 tablet, Refills 0, Tot. Refills 0, Maintenance, 06/28/21 6:54:00 EST, Route to Pharmacy Electronically, [facility]/pharmacy #[id number], Partial fill upon patient request if the prescription is for a schedule II opi... Start Date: 06/28/21 Status: Ordered oxyCODONE 5 mg oral capsule 1 capsule = 5 mg, By Mouth, Every 4 hours, PRN as needed for pain, # 7 capsule, 0 Refills, Maintenance, 06/28/21 10:26:00 EST, Capsule, [facility]/pharmacy #[id number], Partial fill upon patient request [...] 9:29:00 EST, Aerosol, Route to Pharmacy Electronically, [id number]... Start Date: 05/10/21 Status: Ordered Pulmicort Flexhaler 180 mcg See Instructions, INHALE 1 PUFF BY MOUTH TWICE A DAY, # 1 Unknown, 0 Refills, Maintenance, [facility] ST[facility] [id number], 30, INHALE 1 PUFF BY MOUTH TWICE A DAY, 160, cm, 12/24/20 11:01:00 EDT, Height, 49.7, kg, 12/21/20 11:40:00 EDT, Dry Weight Start Date: 12/31/20 Status: Ordered simethicone 80 mg oral tablet, chewable 80 mg, 1, tablet, Chew, 3 times a day, PRN, # 36 tablet, Refills 0, Tot. Refills 0, Maintenance, asneeded for gas, 06/28/21 6:54:00 EST, Route to Pharmacy Electronically, [facility]/pharmacy #[id number], Partialfill upon patient request if the prescription [...] status, antepartum(Confirmed) Active 1dermatologist: Dr. Clement in [place] Social History Social History Type Response Smoking Status Former smoker, quit more than 30 days ago entered on: 12/17/19 Sex
--- OUTSIDE RECORDS SUMMARY | 2022-11-05 21:35 | XMS_ITS | Continuity of Care Document ---
Author Name Unknown Organization [facility] Address [address] [place] [address]- Care Team Providers Care Supervisor Compounding And Finishing Name Role Phone Darian Rosen MD, Una Younger Primary Care Physician En[place] [facility] Date(s): 02/26/21 - 06/06/[address] [address]- Attending Physician: Pastora Lu CNM Admitting Physician: Pastora uL CNM Allergies, Adverse Reactions, Alerts Substance Reaction Severity Status shellfish Anaphylaxis Active Peanuts Active Egg Allergy Anaphylaxis Active Cats Active Dogs Active Dust Hives Active Immunizations Given and Recorded Vaccine Date [...] 9:29:00 EST, Aerosol, Route to Pharmacy Electronically, [id number]... Start Date: 05/10/21 Status: Ordered Pulmicort Flexhaler 180 mcg See Instructions, INHALE 1 PUFF BY MOUTH TWICE A DAY, # 1 Unknown, 0 Refills, Maintenance, [facility] ST[facility] [address]12, 30, INHALE 1 PUFF BY MOUTH TWICE [...] status, antepartum(Confirmed) Active 1dermatologist: Dr. Clement in [place] Social History Social History Type Response Smoking Status Former smoker, quit more than 30 days ago entered on: 12/17/19 Sex
--- OUTSIDE RECORDS SUMMARY | 2022-11-05 21:35 | XMS_ITS | Continuity of Care Document ---
Author Name Unknown Organization [facility] Address [address] [place] [address]- Care Team Providers Care Armored Car Messenger Name Role Phone Darian Rosen MD, Una Younger Primary Care Physician Encounter [facility] Date(s): 03/06/21 - 07/04/[address] [address]- Attending Physician: Not on Staff, Attending MD Allergies, Adverse Reactions, Alerts Substance Reaction Severity Status shellfish Anaphylaxis Active Cats Active Dust Hives Active Egg Allergy Anaphylaxis Active Dogs Active Peanuts Active Immunizations Given [...] 0 Refills, Maintenance, 06/28/21 6:54:00 EST, Capsule, [facility]/pharmacy #[id number], Partial fill upon patient request [...] 06/28/21 6:54:00 EST, Route to Pharmacy Electronically, [facility]/pharmacy #[id number], Partial fill upon patient request if the prescription is for a schedule II opi... Start Date: 06/28/21 Status: Ordered oxyCODONE 5 mg oral capsule 1 capsule = 5 mg, By Mouth, Every 4 hours, PRN as needed for pain, # 7 capsule, 0 Refills, Maintenance, 06/28/21 10:26:00 EST, Capsule, [facility]/pharmacy #[id number], Partial fill upon patient request [...] 9:29:00 EST, Aerosol, Route to Pharmacy Electronically, [id number]... Start Date: 05/10/21 Status: Ordered Pulmicort Flexhaler 180 mcg See Instructions, INHALE 1 PUFF BY MOUTH TWICE A DAY, # 1 Unknown, 0 Refills, Maintenance, [facility] ST[facility] [address], 30, INHALE 1 PUFF BY MOUTH TWICE A DAY, 160, cm, 12/24/20 11:01:00 EDT, Height, 49.7, kg, 12/21/20 11:40:00 EDT, Dry Weight Start Date: 12/31/20 Status: Ordered simethicone 80 mg oral tablet, chewable 80 mg, 1, tablet, Chew, 3 times a day, PRN, # 36 tablet, Refills 0, Tot. Refills 0, Maintenance, asneeded for gas, 06/28/21 6:54:00 EST, Route to Pharmacy Electronically, [facility]/pharmacy #[id number], Partialfill upon patient request if the prescription [...] status, antepartum(Confirmed) Active 1dermatologist: Dr. Clement in [place] Social History Social History Type Response Smoking Status Former smoker, quit more than 30 days ago entered on: 12/17/19 Sex
--- OUTSIDE RECORDS SUMMARY | 2022-11-05 21:35 | XMS_ITS | Continuity of Care Document ---
Author Name Unknown Organization [facility] Address [address] [place] [address]- Care Team Providers Care Jig Boring Machine Set Up Operator Name Role Phone Darian Rosen MD, Una Younger Primary Care Physician [phone] Encounter [facility] Date(s): 04/19/21 - 05/19/[address] [address] Allergies, Adverse Reactions, Alerts Substance Reaction [...] 9:29:00 EST, Aerosol, Route to Pharmacy Electronically, [id number]... Start Date: 05/10/21 Status: Ordered Pulmicort Flexhaler 180 mcg See Instructions, INHALE 1 PUFF BY MOUTH TWICE A DAY, # 1 Unknown, 0 Refills, Maintenance, [facility] ST[facility] [address]77, 30, INHALE 1 PUFF BY MOUTH TWICE [...] status, antepartum(Confirmed) Active 1dermatologist: Dr. Clement in [place] Social History Social History Type Response Smoking Status Former smoker, quit more than 30 days ago entered on: 12/17/19 Sex
--- OUTSIDE RECORDS SUMMARY | 2022-11-05 21:35 | XMS_ITS | Continuity of Care Document ---
Author Name Unknown Organization [facility] Address [address] [place] [address]- Care Team Providers Care Facilities Maintenance Assistant Name Role Phone Darian Rosen MD, Una Younger Primary Care Physician [phone] Encounter [facility] Date(s): 02/03/21 - 03/05/[address] [address] Allergies, Adverse Reactions, Alerts Substance [...] # 1 Unknown, 0 Refills, Maintenance, [facility] [address], 30, INHALE 1 PUFF BY MOUTH TWICE [...] status, antepartum(Confirmed) Active 1dermatologist: Dr. Clement in [place] Social History Social History Type Response Smoking Status Former smoker, quit more than 30 days ago entered on: 12/17/19 Sex
--- OUTSIDE RECORDS SUMMARY | 2022-11-05 21:35 | XMS_ITS | Continuity of Care Document ---
Author Name Unknown Organization [facility] ter Address [address] [place] [address]- Care Team Providers Care Ski Edge Painter Name Role Phone Darian Rosen MD, Una Younger Primary Care Physician [facility]counter [facility] Date(s): 12/12/20 - 12/12/[address] [address] Discharge Disposition: A-D/C Home Attending Physician: Mian Hurtado MD Admitting Physician: Mian Hurtado MD Referring Physician: Mian Hurtado MD Allergies, Adverse Reactions, Alerts Substance Reaction [...] suspension 1 mL = 150 mg, Intramuscular, call center operator to Motor Runner, Once every 3 months, Maintenance, # 1 [...] Mouth Daily Start Date: 03/14/13 Status: Ordered ondansetron 8 mg oral tablet, disintegrating 1 tablet = 8 mg, By Mouth, 3 times a day, PRN Vomiting, # 9 tablet, 0 Refills, Maintenance, 12/12/20 14:25:00 EDT, DIS Tablet, Partial fill upon patient request if the prescription is for a schedule II opioid drug. Start Date: 12/12/20 Status: Ordered 1 1, By Mouth, Daily, [...] 0 Refills, Maintenance, 12/23/19 11:44:00 EDT, Powder, [facility]/pharmacy #[id number], 2 puffs Inhalation 2 times a day, 158, cm, 12/23/19 11:05:00 EDT, Height, 53, kg, 12/22/19 7:27:00 EDT, Dry Weight Start Date: 12/23/19 Status: Ordered Tylenol 325 mg oral tablet 975 mg, Tablet, By Mouth, Every 6 hours, PRN for Pain , Mild, Routine, 12/12/20 16:44:00 EDT Start Date: 12/12/20 Stop Date: 12/13/20 Status: Discontinued Vitamin B6 By Mouth, Daily, [...] status, antepartum(Confirmed) Active 1dermatologist: Dr. Clement in [place] Vital Signs Most recent to oldest [Reference Range]: 1 2 Weight 48.3 kg (12/12/20 2:10 PM) Pulse Rate [55-90 bpm] 83 bpm (12/12/20 2:27 PM) Blood Pressure [90-138/55-84 mm Hg] 108/ 52mm Hg (12/12/20 2:27 PM) Respiratory Rate [16-30 br/min] 18 br/mi n (12/12/20 6:34 PM) 18 br/min (12/12/20 2:27 PM) Temperature [96.8-100.4 DegF] 98.7 DegF (12/12/20 2:27 PM) Blood pressure sites Arm, right (12/12/20 2:27 PM) Temperature Route Oral (12/12/20 2:27 PM) Dry Weight 48.3 kg (12/12/20 2:10 PM) Weight Obtained Via Standing scale (12/12/20 2:10 PM) Dry Weight Obtained Via Standing scale (12/12/20 2:10 PM) Social History Social History Type Response Smoking Status Former smoker, quit more than 30 days ago entered on: 12/17/19 Sex
--- OUTSIDE RECORDS SUMMARY | 2022-11-05 21:35 | XMS_ITS | Continuity of Care Document ---
Author Name Unknown Organization [facility] Address [address] [place] [address]- Care Team Providers Care Exhaust Equipment Operator Name Role Phone Darian Rosen MD, Una Younger Primary Care Physician [phone] Encounter [facility] Date(s): 12/03/20 - 01/02/[address] [address]- Allergies, Adverse Reactions, Alerts Substance Reaction Severity [...] 1 Unknown, 0 Refills, Maintenance, [facility], 30, INHALE 1 PUFF BY MOUTH TWICE [...] trimester(Confirmed) 2020 Active 1dermatologist: Dr. Clement in [place] Social History Social History Type Response Smoking Status Former smoker, quit more than 30 days ago entered on: 12/17/19 Sex
--- OUTSIDE RECORDS SUMMARY | 2022-11-05 21:35 | XMS_ITS | Continuity of Care Document ---
Author Name Unknown Organization [facility] [employer] Address [address], [address] [place] [address]- Care Team Providers Care Office Equipment Technician Name Role Phone Darian Rosen MD, Una Younger Primary Care Physician [facility] Date(s): 01/19[facility]22 - [facility] [address] [place], [place] [address] Allergies, Adverse Reactions, Alerts Substance Reaction [...] 0 Refills, Maintenance, 06/28/21 6:54:00 EST, Capsule, [facility]/pharmacy #[id number], Partial fill upon patient request if the prescription is for a schedule II opioid drug., 160,... Start Date: 06/28/21 Status: Ordered docusate sodium 100 mg oral tablet 1 tablet = 100 mg, By Mouth, 2 times a day, PRN for constipation, # 60 tablet, 0 Refills, Maintenance, 06/28/21 6:54:00 EST, Tablet, [facility]/pharmacy #[id number], Partial fill upon patient request if the prescription is for a schedule II opioid drug., 160, cm,... Start Date: 06/28/21 Status: Ordered ibuprofen 800 mg oral tablet 800 mg, 1, tablet, By Mouth, Every 8 hours, # 50 tablet, Refills 0, Tot. Refills 0, Maintenance, 06/28/21 6:54:00 EST, Route to Pharmacy Electronically, [facility]/pharmacy #[id number], Partial fill upon patient request if the prescription is for a schedule II opi... Start Date: 06/28/21 Status: Ordered oxyCODONE 5 mg oral capsule 1 capsule = 5 mg, By Mouth, Every 4 hours, PRN as needed for pain, # 7 capsule, 0 Refills, Maintenance, 06/28/21 10:26:00 EST, Capsule, [facility]/pharmacy #[id number], Partial fill upon patient request if [...] 2, puffs, Inhalation, Every 4 hours, PRN, PLEASE PROVIDE ONE FOR HOME AND ONE FOR SCHOOL USE WITH SPACER CHAMBER, # 17 each, Refills 3, Maintenance, 02/10/22 13:27:00 EDT, Route to Pharmacy Electronically, [id number], [facility] STO... Start Date: 02/10/22 Status: Ordered Pulmicort Flexhaler 180 mcg See Instructions, INHALE 1 PUFF BY MOUTH TWICE A DAY, # 1 Unknown, 0 Refills, Maintenance, [facility] STORE 22992, 30, INHALE 1 PUFF BY MOUTH TWICE A DAY, 160, cm, 12/24/20 11:01:00 EDT, Height, 49.7, kg, 12/21/20 11:40:00 EDT, Dry Weight Start Date: 12/31/20 Status: Ordered simethicone 80 mg oral tablet, chewable 80 mg, 1, tablet, Chew, 3 times a day, PRN, # 36 tablet, Refills 0, Tot. Refills 0, Maintenance, asneeded for gas, 06/28/21 6:54:00 EST, Route to Pharmacy Electronically, [facility]/pharmacy #[id number], Partialfill upon patient request if the prescription [...] status, antepartum(Confirmed) Active 1dermatologist: Dr. Clement in [place] Social History Social History Type Response Smoking Status Former smoker, quit more than 30 days ago entered on: 12/17/19 Sex Care Team Personnel Name: Darian Rosen MD , Una Younger Address: [address] [place] [address]
--- OUTSIDE RECORDS SUMMARY | 2022-11-05 21:35 | XMS_ITS | Continuity of Care Document ---
Author Name Unknown Organization [facility] ter Address [address] [place] [address]- Care Team Providers Care Business Writer Name Role Phone Darian Rosen MD, Una Younger Primary Care Physician [phone] [facility] Date[facility]): 06/[facility]/21 - 07/07/[address] [address] Attending Physician: Carie Mack MD Admitting Physician: [...] 0 Refills, Maintenance, 06/28/21 6:54:00 EST, Capsule, [facility]/pharmacy #[id number], Partial fill upon patient request if the prescription is for a schedule II opioid drug., 160,... Start Date: 06/28/21 Status: Ordered docusate sodium 100 mg oral tablet 1 tablet = 100 mg, By Mouth, 2 times a day, PRN for constipation, # 60 tablet, 0 Refills, Maintenance, 06/28/21 6:54:00 EST, Tablet, [facility]/pharmacy #[id number], Partial fill upon patient request if the prescription is for a schedule II opioid drug., 160, cm,... Start Date: 06/28/21 Status: Ordered ibuprofen 800 mg oral tablet 800 mg, 1, tablet, By Mouth, Every 8 hours, # 50 tablet, Refills 0, Tot. Refills 0, Maintenance, 06/28/21 6:54:00 EST, Route to Pharmacy Electronically, [facility]/pharmacy #[id number], Partial fill upon patient request if the prescription is for a schedule II opi... Start Date: 06/28/21 Status: Ordered oxyCODONE 5 mg oral capsule 1 capsule = 5 mg, By Mouth, Every 4 hours, PRN as needed for pain, # 7 capsule, 0 Refills, Maintenance, 06/28/21 10:26:00 EST, Capsule, [facility]/pharmacy #[id number], Partial fill upon patient [...] 9:29:00 EST, Aerosol, Route to Pharmacy Electronically, [id number]... Start Date: 05/10/21 Status: Ordered Pulmicort Flexhaler 180 mcg See Instructions, INHALE 1 PUFF BY MOUTH TWICE A DAY, # 1 Unknown, 0 Refills, Maintenance, [facility] STORE [id number], 30, INHALE 1 PUFF BY MOUTH TWICE A DAY, 160, cm, 12/24/20 11:01:00 EDT, Height, 49.7, kg, 12/21/20 11:40:00 EDT, Dry Weight Start Date: 12/31/20 Status: Ordered simethicone 80 mg oral tablet, chewable 80 mg, 1, tablet, Chew, 3 times a day, PRN, # 36 tablet, Refills 0, Tot. Refills 0, Maintenance, asneeded for gas, 06/28/21 6:54:00 EST, Route to Pharmacy Electronically, [facility]/pharmacy #[id number], Partialfill upon patient request if the prescription [...] status, antepartum(Confirmed) Active 1dermatologist: Dr. Clement in [place] Social History Social History Type Response Smoking Status Former smoker, quit more than 30 days ago entered on: 12/17/19 Sex
--- OUTSIDE RECORDS SUMMARY | 2022-11-05 21:35 | XMS_ITS | Continuity of Care Document ---
Author Name Unknown Organization [facility] Address [address] [place] [address]- Care Team Providers Care Caustic Room Operator Name Role Phone Darian Rosen MD, Una Younger Primary Care Physician [facility] Date[facility]s): 02/04/21 - 03/06/[address] [address] Allergies, Adverse Reactions, Alerts Substance Reaction Severity [...] # 1 Unknown, 0 Refills, Maintenance, [facility] ST[facility] [address]68, 30, INHALE 1 PUFF BY MOUTH TWICE [...] status, antepartum(Confirmed) Active 1dermatologist: Dr. Clement in [place] Social History Social History Type Response Smoking Status Former smoker, quit more than 30 days ago entered on: 12/17/19 Sex
--- OUTSIDE RECORDS SUMMARY | 2022-11-05 21:35 | XMS_ITS | Continuity of Care Document ---
Author Name Unknown Organization [facility] ter Address [address] [place] [address]- Care Team Providers Care Play Leader Name Role Phone Not on Staff, PCP Primary Care Physician Unavail able Encounter [facility] Date(s): 05/18/22 - 05/18/[address] [address]- Encounter Diagnosis Depression(Final) - 05/18/22 Discharge Disposition: A-D/C Home Attending Physician: Ivonne Javier MD Admitting Physician: Ivonne Javier MD Referring Physician: Not on Staff, Referring MD Allergies, Adverse Reactions, Alerts Substance Reaction [...] 0 Refills, Maintenance, 06/28/21 6:54:00 EST, Capsule, [facility]/pharmacy #[id number], Partial fill upon patient request if the prescription is for a schedule II opioid drug., 160,... Start Date: 06/28/21 Status: Ordered docusate sodium 100 mg oral tablet 1 tablet = 100 mg, By Mouth, 2 times a day, PRN for constipation, # 60 tablet, 0 Refills, Maintenance, 06/28/21 6:54:00 EST, Tablet, [facility]/pharmacy #[id number], Partial fill upon patient request if the prescription is for a schedule II opioid drug., 160, cm,... Start Date: 06/28/21 Status: Ordered ibuprofen 800 mg oral tablet 800 mg, 1, tablet, By Mouth, Every 8 hours, # 50 tablet, Refills 0, Tot. Refills 0, Maintenance, 06/28/21 6:54:00 EST, Route to Pharmacy Electronically, [facility]/pharmacy #[id number], Partial fill upon patient request if the prescription is for a schedule II opi... Start Date: 06/28/21 Status: Ordered oxyCODONE 5 mg oral capsule 1 capsule = 5 mg, By Mouth, Every 4 hours, PRN as needed for pain, # 7 capsule, 0 Refills, Maintenance, 06/28/21 10:26:00 EST, Capsule, [facility]/pharmacy #[id number], Partial fill upon patient [...] 02/10/22 13:27:00 EDT, Route to Pharmacy Electronically, [id number], [facility] Start Date: 02/10/22 Status: Ordered Pulmicort Flexhaler 180 mcg See Instructions, INHALE 1 PUFF BY MOUTH TWICE A DAY, # 1 Unknown, 0 Refills, Maintenance, [facility], 30, INHALE 1 PUFF BY MOUTH TWICE A DAY, 160, cm, 12/24/20 11:01:00 EDT, Height, 49.7, kg, 12/21/20 11:40:00 EDT, Dry Weight Start Date: 12/31/20 Status: Ordered simethicone 80 mg oral tablet, chewable 80 mg, 1, tablet, Chew, 3 times a day, PRN, # 36 tablet, Refills 0, Tot. Refills 0, Maintenance, asneeded for gas, 06/28/21 6:54:00 EST, Route to Pharmacy Electronically, [facility]/pharmacy #[id number], Partialfill upon patient request if the prescription is fo... Start Date: 06/28/21 Status: Ordered Problem List Condition Confirmation Course Effective Dates Status Health St atus Informant Asthma during in third trimester Confirmed Active Chronic eczema 1 Confirmed Active affected by growth restriction Confirmed Active Eczema Confirmed Active History of section Confirmed Active History of depression Confirmed Active Post-traumatic stress disorder (PTSD) Confirmed 02/22/11 Active Rubella non-immune status, antepartum Confirmed Active 1dermatologist: Dr. Clement in [place] Vital Signs Most recent to oldest [Reference Range]: 1 2 3 Height 158 cm (05/18/22 4:51 PM) 158 cm (05/18/22 1:03 PM) 158 cm (05/18/22 12:30 PM) Weight 47.7 kg (05/18/22 4:51 PM) 47.7 kg (05/18/22 1:03 PM) 47.7 kg (05/18/22 12:30 PM) Oxygen Saturation [94-100 %] 97 % (05/18/22 4:51 PM) 98 % (05/18/22 1:03 PM) 96 % (05/18/22 12:30 PM) Pulse Rate [55-90 bpm] 102 bpm *H* (05/18/22 4:51 PM) 102 bpm *H* (05/18/22 1:03 PM) 111 bpm *H* (05/18/22 12:30 PM) Body Mass Index [18.5-24.99 kg/m2] 19.11 kg/m2 (05/18/22 4:51 PM) 19.11 kg/m2 (05/18/22 1:03 PM) 19.11 kg/m2 (05/18/22 12:30 PM) Blood Pressure [90-138/55-84 mm Hg] 101/56mm Hg (05/18/22 4:51 PM) 112/70mm Hg (05/18/22 1:03 PM) 102/67mm Hg (05/18/22 12:30 PM) Respiratory Rate [16-30 br/min] 18 br/min (05/18/22 4:51 PM) 18 br/min (05/18/22 1:03 PM) 19 br/min (05/18/22 12:30 PM) Temperature [96.8-100.4 DegF] 97.9 DegF (05/18/22 4:51 PM) 98.1 DegF (05/18/22 1:03 PM) 98.2 DegF (05/18/22 12:30 PM) Mode of Delivery (Oxygen) Room air (05/18/22 4:51 PM) Room air (05/18/22 1:03 PM) Room air (05/18/22 12:30 PM) Blood pressure sites Arm, right (05/18/22 4:51 PM) Arm, right (05/18/22 1:03 PM) Arm, left (05/18/22 12:30 PM) Temperature Route Oral (05/18/22 4:51 PM) Oral (05/18/22 1:03 PM) Oral (05/18/22 12:30 PM) Dry Weight 47.7 kg (05/18/22 4:51 PM) 47.7 kg (05/18/22 1:03 PM) 47.7 kg (05/18/22 12:30 PM) Weight Obtained Via Standing scale (05/18/22 12:30 PM) Dry Weight Obtained Via Standing scale (05/18/22 12:30 PM) Social History Social History Type Response Smoking Status Former smoker, quit more than 30 days ago entered on: 12/17/19 Sex Note * Ivonne Javier MD: PERFORM, SIGN, VERIFY Event Display: Patient Education Handout Authored Date: [id number] * Ivonne Javier MD: PERFORM Event Display: Patient Education Leaflets Authored Date: [id number] Depression ?? [id number] Depression Depression is a very common mental health problem. It's not just a state of being unhappy or sad. It's a true disease. The cause seems to be linked to a change in chemicals that send signals in the brain. These things increase a person???s risk of depression: ??? A family history of depression, alcoholism, or suicide ??? Chronic illness ??? Chronic pain ???Migraine headaches ??? High emotional stress Depression may be easier to see in others. You may have a hard time seeing it in yourself. It can show in many physical and emotional ways. These include: ??? Loss of appetite ??? Overeating ??? Not being able to sleep ??? Sleeping too much ??? A lot of tiredness not linked to physical activity ??? Restlessness or irritability ??? Slowness of movement or speech ??? Feeling sad or withdrawn ??? Loss of interest in things you once enjoyed ??? Trouble??concentrating, remembering,??or making decisions ??? Thoughts of harming or killing yourself, or thoughts that life is not worth living ??? Low self-esteem The treatment for depression may include both medicine and psychotherapy. Antidepressants can ease symptoms. They can also make it easier for you to do daily tasks. Therapy can offer emotional support. It can also help you understand things that may be causing the depression. Home care ??? Ongoing care and support help people manage this disease. Find a healthcare provider and therapist who meet your needs. Get help when you feel like you may be getting ill. ??? Be kind to yourself. Make it a point to do things that you enjoy. This may be gardening, walking in nature, or going to a movie. Reward yourself for small successes. ??? Take care of your body. Eat a balanced diet. Eat foods low in saturated fat. Eat a lot of fruits and vegetables. Exercise at least 3 times a week for 30 minutes. Even mild to moderate exercise like brisk walking can make you feel better. ??? Take medicine as prescribed. Don't stop your medicine or change the dose unless you talk with your healthcare provider. ??? Once you start medicine, expect your symptoms to get better slowly. Depression will lift over time. It doesn't get better right away. Ask your healthcare provider how long it will take for a medicine to start working. ??? Don't share your medicine. Don???t use someone else's medicine. ??? Tell your healthcare providers all the medicines you take. This includes prescription and [id number] medicines. It includes vitamins and herbal supplements. Some supplements caninteract with medicines. They can cause dangerous side effects. Ask your pharmacist about medicine interactions when you have questions. ??? Don't make major decisions until you feel better. This incl udes things such as a job change, a divorce, or a marriage. ??? Don't drink alcohol. It can make depression worse. ??? Talk with your family and??trusted friends??about your feelings and thoughts.??Ask them to help you notice behavior changes early. You can then get help and, if needed, your medicine can be changed. ??? Talk with your healthcare provider if you are not getting better. They may change your medicine or have you try another treatment. ?? Follow-up care Follow up with your healthcare provider as advised. ?? Crisis care Call 988 if you have thoughts of harming yourself or others. When you call or text [phone], you will beconnected to trained crisis counselors. An online chat option is also available. [employer] is free and available 19/12. 988 counselors will work with [facility] to help you get the care you need. Call 988 if you: ??? Have suicidal thoughts, a suicide plan, and a way to carry out the plan ??? Have serious thoughts of hurting someone else ??? Have trouble breathing ??? Are??very confused ??? Feel very drowsy or have??trouble awakening ??? Faint ??? Have new chest pain that becomes more severe, lasts longer, or spreads into your shoulder, arm, neck, jaw, or back ?? When to get medical care Call your healthcare provider right away if any of these happen: ??? Your symptoms get worse ??? You have extreme depression, fear, anxiety, or anger toward yourself or others ??? You feel out of control ??? You feel that you may try to harm yourself or another ??? You hear voices other people don't hear ??? You see things other people don't see ??? You don't sleep or eat for 3 days in a row ??? Friends or family express concern over your behavior and ask you to get help ?? Last Reviewed Date: 2021 ?? 3635-1904 [employer]. All rights reserved. This information is not intended as a substitute for professional medical care. Always follow your healthcare professional's instructions. ?? Patient Care team information Care Team Personnel Name: Not on Staff, PCP Position: [facility] Physician (General Medicine) Member Role: PCP Name: Zohra Aldana RN Position: [facility] RN Supv Member Role: Primary Care Nurse Name: *[facility], ED Attending Position: [facility] ED Attendings Patient Name: Ivonne Javier MD Position: [facility] ED Medicine MD Member Role: Admitting Physician Address: Address: [address] [place] [address] Name: Carie Laws RN Position: [facility] ED RN W/OE and Tasks Member Role: Patient Care Provider Name: Akanksha Marrufo Position: [facility] ED TA [facility] Member Role: Scrap Cutter Care Team Related Persons Name: DEMETRIS MCDANIEL Address: [address] [place] [address] Name: DEMETRIS MCDANIEL Address: [address] Address: home [address] [place] [address] [place] Name: KANDICE MCDANIEL Address: [address] Address: home [address] [place] [address] [place] Name: BLANQUITA MCDANIEL Address: [address] Address: home [address] [address] [place] Name: SHANTEL SOLOMON Address: home [address] [place] [address] Name: KRISTINA ELDER Address: home [address] [place] [address]
--- OUTSIDE RECORDS SUMMARY | 2022-11-05 21:35 | XMS_ITS | Continuity of Care Document ---
Author Name Unknown Organization [facility] Address [address] [place] [address]- Care Team Providers Care Patternmaker Apprentice Metal Name Role Phone Darian Rosen MD, Una Younger Primary Care Physician [facility] Date[facility]s): 05/10/21 - 07/21/[address] [address]- Attending Physician: Not on Staff, Attending MD [...] 0 Refills, Maintenance, 06/28/21 6:54:00 EST, Capsule, [facility]/pharmacy #[id number], Partial fill upon patient request if the prescription is for a schedule II opioid drug., 160,... Start Date: 06/28/21 Status: Ordered docusate sodium 100 mg oral tablet 1 tablet = 100 mg, By Mouth, 2 times a day, PRN for constipation, # 60 tablet, 0 Refills, Maintenance, 06/28/21 6:54:00 EST, Tablet, [facility]/pharmacy #[id number], Partial fill upon patient request if the prescription is for a schedule II opioid drug., 160, cm,... Start Date: 06/28/21 Status: Ordered ibuprofen 800 mg oral tablet 800 mg, 1, tablet, By Mouth, Every 8 hours, # 50 tablet, Refills 0, Tot. Refills 0, Maintenance, 06/28/21 6:54:00 EST, Route to Pharmacy Electronically, [facility]/pharmacy #[id number], Partial fill upon patient request if the prescription is for a schedule II opi... Start Date: 06/28/21 Status: Ordered oxyCODONE 5 mg oral capsule 1 capsule = 5 mg, By Mouth, Every 4 hours, PRN as needed for pain, # 7 capsule, 0 Refills, Maintenance, 06/28/21 10:26:00 EST, Capsule, [facility]/pharmacy #[id number], Partial fill upon patient request [...] 9:29:00 EST, Aerosol, Route to Pharmacy Electronically, [id number]... Start Date: 05/10/21 Status: Ordered Pulmicort Flexhaler 180 mcg See Instructions, INHALE 1 PUFF BY MOUTH TWICE A DAY, # 1 Unknown, 0 Refills, Maintenance, [facility] STORE 12767, 30, INHALE 1 PUFF BY MOUTH TWICE A DAY, 160, cm, 12/24/20 11:01:00 EDT, Height, 49.7, kg, 12/21/20 11:40:00 EDT, Dry Weight Start Date: 12/31/20 Status: Ordered simethicone 80 mg oral tablet, chewable 80 mg, 1, tablet, Chew, 3 times a day, PRN, # 36 tablet, Refills 0, Tot. Refills 0, Maintenance, asneeded for gas, 06/28/21 6:54:00 EST, Route to Pharmacy Electronically, [facility]/pharmacy #[id number], Partialfill upon patient request if the prescription [...] status, antepartum(Confirmed) Active 1dermatologist: Dr. Clement in [place] Social History Social History Type Response Smoking Status Former smoker, quit more than 30 days ago entered on: 12/17/19 Sex
--- OUTSIDE RECORDS SUMMARY | 2022-11-05 21:35 | XMS_ITS | Continuity of Care Document ---
Author Name Unknown Organization [facility] Address [address] [place] [address]- Care Team Providers Care Latexer Name Role Phone Darian Rosen MD, Una Younger Primary Care Physician [phone] [facility] Date(s): 01/19/21 - 02/18/[address] [address]- Allergies, Adverse Reactions, Alerts Substance Reaction Severity [...] DAY, # 1 Unknown, 0 Refills, Maintenance, [facility] [address]20, 30, INHALE 1 PUFF BY MOUTH TWICE [...] trimester(Confirmed) 2020 Active 1dermatologist: Dr. Clement in [place] Social History Social History Type Response Smoking Status Former smoker, quit more than 30 days ago entered on: 12/17/19 Sex
--- OUTSIDE RECORDS SUMMARY | 2022-11-05 21:35 | XMS_ITS | Continuity of Care Document ---
Author Name Unknown Organization [facility] Address [address] [place] [address]- Care Team Providers Care Revenue Liaison Name Role Phone Darian Rosen MD, Una Younger Primary Care Physician [facility] Date(s): 12/21/20 - 01/20/[address] [address]- Allergies, Adverse Reactions, Alerts Substance Reaction Severity [...] 1 Unknown, 0 Refills, Maintenance, [facility], 30, INHALE 1 PUFF BY MOUTH TWICE A DAY, 160, cm, 12/24/20 11:01:00 EDT, Height, 49.7, kg, 12/21/20 11:40:00 EDT, Dry Weight Start Date: 12/31/20 Status: Ordered Vitafol Gummies with DHA oral tablet, chewable 1 tablet, By Mouth, Daily, # 30 tablet, 8 Refills, Maintenance, 12/24/20 11:40:00 EDT, [facility]/pharmacy#[id number], Can sub for any gummy vitamin that [...] trimester(Confirmed) 2020 Active 1dermatologist: Dr. Clement in [place] Social History Social History Type Response Smoking Status Former smoker, quit more than 30 days ago entered on: 12/17/19 Sex
--- OUTSIDE RECORDS SUMMARY | 2022-11-05 21:35 | XMS_ITS | Continuity of Care Document ---
Author Name Unknown Organization [facility] ter Address [address] [place] [address]- Care Team Providers Care Laundromat Worker Name Role Phone Darian Rosen MD, Kamla Younger Primary Care Physician Encounter [facility] Date(s): 12/31/19 - 12/31/[address] [address]- [facility] Discharge Disposition: A-D/C Home [...] status, antepartum(Confirmed) Active 1dermatologist: Dr. Clement in [place] Vital Signs Most recent to oldest [Reference Range]: 1 Temperature [96.8-100.4 DegF] 98.0 DegF (12/31/19 10:21 AM) Social History Social History Type Response Smoking Status Former smoker, quit more than 30 days ago entered on: 12/17/19 Sex Female
--- OUTSIDE RECORDS SUMMARY | 2022-11-05 21:35 | XMS_ITS | Continuity of Care Document ---
Author Name Unknown Organization [facility] Address [address] [place] [address]- Care Team Providers Care Radiological Health Specialist Name Role Phone Darian Rosen MD, Kamla Younger Primary Care Physician [place] [facility] [place]/15/20 - [facility] [address] [address]- [facility] Attending Physician: Phan Woods DO [...] status, antepartum(Confirmed) Active 1dermatologist: Dr. Clement in [place] Social History Social History Type Response Smoking Status Former smoker, quit more than 30 days ago entered on: 12/17/19 Sex Female
--- OUTSIDE RECORDS SUMMARY | 2022-11-05 21:36 | XMS_ITS | Continuity of Care Document ---
Author Name Unknown Organization [facility] ter Address [address] [place] [address]- Care Team Providers Care Manager System Name Role Phone Darian Rosen MD, Una Younger Primary Care Physician Encounter [facility] Date(s): 05/10/21 - 05/10/[address] [address] Discharge Disposition: A-D/C Home Attending Physician: Terry Wisdom MD Admitting Physician: Terry Wisdom MD Referring Physician: Terry Wisdom MD Allergies, Adverse Reactions, Alerts Substance Reaction [...] 9:29:00 EST, Aerosol, Route to Pharmacy Electronically, [id number]... Start Date: 05/10/21 Status: Ordered Pulmicort Flexhaler 180 mcg See Instructions, INHALE 1 PUFF BY MOUTH TWICE A DAY, # 1 Unknown, 0 Refills, Maintenance, [facility] STORE [address]10, 30, INHALE 1 PUFF BY MOUTH TWICE [...] status, antepartum(Confirmed) Active 1dermatologist: Dr. Clement in [place] Social History Social History Type Response Smoking Status Former smoker, quit more than 30 days ago entered on: 12/17/19 Sex
--- OUTSIDE RECORDS SUMMARY | 2022-11-05 21:36 | XMS_ITS | Continuity of Care Document ---
Author Name Unknown Organization [facility] ter Address [address] [place] [address]- Care Team Providers Care Director Of Architecture Name Role Phone Darian Rosen MD, Kamla Younger Primary Care Physician [phone] [place] [facility] Date(s): 01/28/20 - 01/28/[address] [address]- [facility] Discharge Disposition: A-D/C Home Attending Physician: Terry Wisdom MD Admitting Physician: Terry Wisdom MD Referring Physician: Terry Wisdom MD Allergies, Adverse Reactions, Alerts Substance Reaction Severity Status shellfish Anaphylaxis Active Cats Active Dogs Active Peanuts Active Rice Active Egg Allergy Anaphylaxis Active Dust Hives Active Immunizations Given and [...] status, antepartum(Confirmed) Active 1dermatologist: Dr. Clement in [place] Social History Social History Type Response Smoking Status Former smoker, quit more than 30 days ago entered on: 12/17/19 Sex Female
--- OUTSIDE RECORDS SUMMARY | 2022-11-05 21:36 | XMS_ITS | Continuity of Care Document ---
Author Name Unknown Organization [facility] Address [address] [place] [address]- Care Team Providers Care Hydraulic Jack Mechanic Name Role Phone Darian Rosen MD, Una Younger Primary Care Physician [phone] Encounter [facility] Date(s): 05/10/21 - 07/07/[address] [address]- Attending Physician: Not on Staff, Attending MD [...] 0 Refills, Maintenance, 06/28/21 6:54:00 EST, Capsule, [facility]/pharmacy #[id number], Partial fill upon patient request if the prescription is for a schedule II opioid drug., 160,... Start Date: 06/28/21 Status: Ordered docusate sodium 100 mg oral tablet 1 tablet = 100 mg, By Mouth, 2 times a day, PRN for constipation, # 60 tablet, 0 Refills, Maintenance, 06/28/21 6:54:00 EST, Tablet, [facility]/pharmacy #[id number], Partial fill upon patient request if the prescription is for a schedule II opioid drug., 160, cm,... Start Date: 06/28/21 Status: Ordered ibuprofen 800 mg oral tablet 800 mg, 1, tablet, By Mouth, Every 8 hours, # 50 tablet, Refills 0, Tot. Refills 0, Maintenance, 06/28/21 6:54:00 EST, Route to Pharmacy Electronically, [facility]/pharmacy #[id number], Partial fill upon patient request if the prescription is for a schedule II opi... Start Date: 06/28/21 Status: Ordered oxyCODONE 5 mg oral capsule 1 capsule = 5 mg, By Mouth, Every 4 hours, PRN as needed for pain, # 7 capsule, 0 Refills, Maintenance, 06/28/21 10:26:00 EST, Capsule, [facility]/pharmacy #[id number], Partial fill upon [...] 9:29:00 EST, Aerosol, Route to Pharmacy Electronically, [id number]... Start Date: 05/10/21 Status: Ordered Pulmicort Flexhaler 180 mcg See Instructions, INHALE 1 PUFF BY MOUTH TWICE A DAY, # 1 Unknown, 0 Refills, Maintenance, [facility] STORE 18924, 30, INHALE 1 PUFF BY MOUTH TWICE A DAY, 160, cm, 12/24/20 11:01:00 EDT, Height, 49.7, kg, 12/21/20 11:40:00 EDT, Dry Weight Start Date: 12/31/20 Status: Ordered simethicone 80 mg oral tablet, chewable 80 mg, 1, tablet, Chew, 3 times a day, PRN, # 36 tablet, Refills 0, Tot. Refills 0, Maintenance, asneeded for gas, 06/28/21 6:54:00 EST, Route to Pharmacy Electronically, [facility]/pharmacy #[id number], Partialfill upon patient request if the prescription [...] status, antepartum(Confirmed) Active 1dermatologist: Dr. Clement in [place] Social History Social History Type Response Smoking Status Former smoker, quit more than 30 days ago entered on: 12/17/19 Sex
--- OUTSIDE RECORDS SUMMARY | 2022-11-05 21:36 | XMS_ITS | Continuity of Care Document ---
Author Name Unknown Organization [facility] ter Address [address] [place] [address]- Care Team Providers Care Conveyor Maintenance Mechanic Name Role Phone Not on Staff, PCP Primary Care Physician Unavail able [facility]counter [facility] Date(s): 10/25/22 - 10/25/[address] [address]- Discharge Disposition: A-D/C Walkout Attending Physician: Not on Staff, Attending MD Admitting Physician: Not on Staff, Admitting MD Referring Physician: Not on Staff, Referring [...] 0 Refills, Maintenance, 06/28/21 6:54:00 EST, Capsule, [facility]/pharmacy #[id number], Partial fill upon patient request if the prescription is for a schedule II opioid drug., 160,... Start Date: 06/28/21 Status: Ordered docusate sodium 100 mg oral tablet 1 tablet = 100 mg, By Mouth, 2 times a day, PRN for constipation, # 60 tablet, 0 Refills, Maintenance, 06/28/21 6:54:00 EST, Tablet, [facility]/pharmacy #[id number], Partial fill upon patient request if the prescription is for a schedule II opioid drug., 160, cm,... Start Date: 06/28/21 Status: Ordered ibuprofen 800 mg oral tablet 800 mg, 1, tablet, By Mouth, Every 8 hours, # 50 tablet, Refills 0, Tot. Refills 0, Maintenance, 06/28/21 6:54:00 EST, Route to Pharmacy Electronically, [facility]/pharmacy #[id number], Partial fill upon patient request if the prescription is for a schedule II opi... Start Date: 06/28/21 Status: Ordered oxyCODONE 5 mg oral capsule 1 capsule = 5 mg, By Mouth, Every 4 hours, PRN as needed for pain, # 7 capsule, 0 Refills, Maintenance, 06/28/21 10:26:00 EST, Capsule, [facility]/pharmacy #[id number], Partial fill upon patient [...] 02/10/22 13:27:00 EDT, Route to Pharmacy Electronically, [id number], [facility] Start Date: 02/10/22 Status: Ordered Pulmicort Flexhaler 180 mcg See Instructions, INHALE 1 PUFF BY MOUTH TWICE A DAY, # 1 Unknown, 0 Refills, Maintenance, [facility], 30, INHALE 1 PUFF BY MOUTH TWICE A DAY, 160, cm, 12/24/20 11:01:00 EDT, Height, 49.7, kg, 12/21/20 11:40:00 EDT, Dry Weight Start Date: 12/31/20 Status: Ordered simethicone 80 mg oral tablet, chewable 80 mg, 1, tablet, Chew, 3 times a day, PRN, # 36 tablet, Refills 0, Tot. Refills 0, Maintenance, asneeded for gas, 06/28/21 6:54:00 EST, Route to Pharmacy Electronically, [facility]/pharmacy #[id number], Partialfill upon patient request if the prescription [...] antepartum Confirmed Active 1dermatologist: Dr. Clement in [place] Vital Signs Most recent to oldest [Reference Range]: 1 2 Height 158 cm (10/25/22 3:53 AM) 158 cm (10/25/22 3:46 AM) Weight 47 kg (10/25/22 3:53 AM) 47 kg (10/25/22 3:46 AM) Oxygen Saturation [94-100 %] 98 % (10/25/22 3:46 AM) 97 % (10/25/22 3:38 AM) Pulse Rate [55-90 bpm] 80 bpm (10/25/22 3:46 AM) 90 bpm (10/25/22 3:38 AM) Body Mass Index [18.5-24.99 kg/m2] 18.83 kg/m2 (10/25/22 3:46 AM) Blood Pressure [90-138/55-84 mm Hg] 116/ 89mm Hg (10/25/22 3:46 AM) Respiratory Rate [16-30 br/min] 16 br/mi n (10/25/22 3:46 AM) 16 br/min (10/25/22 3:38 AM) Temperature [96.8-100.4 DegF] 97.7 DegF (10/25/22 3:46 AM) Mode of Delivery (Oxygen) Room air (10/25/22 3:46 AM) Room air (10/25/22 3:38 AM) Blood pressure sites Arm, right (10/25/22 3:46 AM) Temperature Route Oral (10/25/22 3:46 AM) Dry Weight 47 kg (10/25/22 3:53 AM) 47 kg (10/25/22 3:46 AM) Social History Social History Type Response Smoking Status Former smoker, quit more than 30 days ago entered on: 12/17/19 Sex Patient Care team information Care Team Personnel Name: Not on Staff, PCP Position: [facility] Physician (General Medicine) Member Role: PCP Name: Zohra Aldana RN Position: [facility] RN Supv Member Role: Primary Care Nurse Care Team Related Persons Name: DEMETRIS MCDANIEL Address: [address] [place] [address] Name: DEMETRIS MCDANIEL Address: [address] Address: home [address] [place] [address] Name: KANDICE MCDANIEL Address: [address] Address: home [address] [place] [address] [place] Name: BLANQUITA MCDANIEL Address: [address] Address: home [address] [address] [place] Name: SHANTEL SOLOMON Address: home [address] [place] [address] Name: KRISTINA ELDER Address: [address] [place] [address]
--- OUTSIDE RECORDS SUMMARY | 2022-11-05 21:36 | XMS_ITS | Continuity of Care Document ---
Author Name Unknown Organization [facility] Address [address] [place] [address]- Care Team Providers Care Certified Surgical Technologist Name Role Phone Darian Rosen MD, Samantha Primary Care Physician [facility] Date(s): 02/26/21 - 03/28/21 [facility] [address] [place] [address] Allergies, Adverse Reactions, Alerts Substance Reaction [...] DAY, # 1 Unknown, 0 Refills, Maintenance, [facility] STORE 05764, 30, INHALE 1 PUFF BY MOUTH TWICE [...] status, antepartum(Confirmed) Active 1dermatologist: Dr. Clement in [place] Social History Social History Type Response Smoking Status Former smoker, quit more than 30 days ago entered on: 12/17/19 Sex
--- OUTSIDE RECORDS SUMMARY | 2022-11-05 21:36 | XMS_ITS | Continuity of Care Document ---
Author Name Unknown Organization [facility] ter Address [address] [place] [address]- Care Team Providers Care Conference Services Coordinator Name Role Phone Darian Rosen MD, Una Younger Primary Care Physician [facility] Date(s): 05/18/21 - 06/23/[address] [address] Attending Physician: Carie Mack MD Admitting [...] 9:29:00 EST, Aerosol, Route to Pharmacy Electronically, [id number]... Start Date: 05/10/21 Status: Ordered Pulmicort Flexhaler 180 mcg See Instructions, INHALE 1 PUFF BY MOUTH TWICE A DAY, # 1 Unknown, 0 Refills, Maintenance, [facility] STORE [address]136, 30, INHALE 1 PUFF BY MOUTH TWICE [...] status, antepartum(Confirmed) Active 1dermatologist: Dr. Clement in [place] Social History Social History Type Response Smoking Status Former smoker, quit more than 30 days ago entered on: 12/17/19 Sex
--- OUTSIDE RECORDS SUMMARY | 2022-11-05 21:36 | XMS_ITS | Continuity of Care Document ---
Author Name Unknown Organization [facility] Address [address] [place] [address]- Care Team Providers Care Linux System Administrator Name Role Phone Darian Rosen MD, Una Younger Primary Care Physician Encounter [facility] Date(s): 12/10/20 - 01/15/21 [facility] [address] [address] Attending Physician: Radha Wu DO Admitting Physician: Radha Wu DO Referring Physician: Margo German CNM Allergies, Adverse Reactions, Alerts Substance Reaction [...] 1 Unknown, 0 Refills, Maintenance, [facility], 30, INHALE 1 PUFF BY MOUTH TWICE A DAY, 160, cm, 12/24/20 11:01:00 EDT, Height, 49.7, kg, 12/21/20 11:40:00 EDT, Dry Weight Start Date: 12/31/20 Status: Ordered Vitafol Gummies with DHA oral tablet, chewable 1 tablet, By Mouth, Daily, # 30 tablet, 8 Refills, Maintenance, 12/24/20 11:40:00 EDT, [facility]/pharmacy#[id number], Can sub for any gummy vitamin that is covered by pt insurance., 1 tablet By Mouth Daily,x30 days, 160, cm, 04/20/20 10:03:00 Sumi BARRIENTOS... Start Date: 12/24/20 Stop Date: 09/20/21 Status: [...] trimester(Confirmed) 2020 Active 1dermatologist: Dr. Clement in [place] Social History Social History Type Response Smoking Status Former smoker, quit more than 30 days ago entered on: 12/17/19 Sex
--- OUTSIDE RECORDS SUMMARY | 2022-11-05 21:36 | XMS_ITS | Continuity of Care Document ---
Author Name Unknown Organization [facility] Address [address] [place] [address]- Care Team Providers Care Credit Card Analyst Name Role Phone Darian Rosen MD, Kamla Younger Primary Care Physician [facility] Date(s): 02/21/20 - 03/22/20 [facility] [address] [place] [address]- [facility] Allergies, Adverse Reactions, Alerts Substance Reaction [...] 0 Refills, Maintenance, 03/15/20 5:14:00 EDT, Capsule, [facility]/pharmacy #[id number], 160, cm, 03/15/20 4:52:00 EDT, [...] 03/15/20 5:14:00 EDT, Route to Pharmacy Electronically, [facility]/pharmacy #[id number], 160, cm, 03/15/20 4:52:00 EDT, Height, 82... Start Date: 03/15/20 Stop Date: 04/04/20 Status: Ordered oxyCODONE 5 mg oral tablet 5 mg, 1, tablet, By Mouth, Every 6 hours, PRN, # 12 tablet, Refills 0, Tot. Refills 0, Acute 04/04/20 5:14:00 EST, as needed for pain, 03/15/20 5:14:00 EDT, Route to Pharmacy Electronically, [facility]/pharmacy #[id number], Partial fill upon patient request, [...] 0 Refills, Maintenance, 12/23/19 11:44:00 EDT, Powder, [facility]/pharmacy #[id number], 2 puffs Inhalation 2 times a day, 158, cm, 12/23/19 11:05:00 EDT, Height, 53, kg, 12/22/19 7:27:00 EDT, Dry Weight Start Date: 12/23/19 Status: Ordered simethicone 80 mg oral tablet 1 tablet = 80 mg, Chew, 3 times a day after meals, PRN as needed for gas, # 60 tablet, 0 Refills, Acute 04/04/20 5:14:00 EST, 03/15/20 5:14:00 EDT, Tablet, [facility]/pharmacy #[id number], 160, cm, 03/15/20 4:52:00 EDT, Height, 82, kg, 10/14/20 14:25:00 EDT, Dry W... Start Date: 03/15/20 [...] Acute04/04/20 5:14:00 EST, 03/15/20 5:14:00 EDT, Capsule, [facility]/pharmacy #[id number], 160, cm, 03/15/20 4:52:00 EDT, Height, [...] status, antepartum(Confirmed) Active 1dermatologist: Dr. Clement in [place] Social History Social History Type Response Smoking Status Former smoker, quit more than 30 days ago entered on: 12/17/19 Sex
--- OUTSIDE RECORDS SUMMARY | 2022-11-05 21:36 | XMS_ITS | Continuity of Care Document ---
Author Name Unknown Organization [facility] Address [address] [place] [address]- Care Team Providers Care Automated Logistics Specialist Name Role Phone Darian Rosen MD, Una Younger Primary Care Physician [facility] Date(s): 06/28/21 - 08/25/[address] [address]- Attending Physician: Not on Staff, Attending MD [...] Refills, Maintenance, 06/28/21 6:54:00 EST, Capsule, [facility]/pharmacy #[id number], Partial fill upon patient request if the prescription is for a schedule II opioid drug., 160,... Start Date: 06/28/21 Status: Ordered docusate sodium 100 mg oral tablet 1 tablet = 100 mg, By Mouth, 2 times a day, PRN for constipation, # 60 tablet, 0 Refills, Maintenance, 06/28/21 6:54:00 EST, Tablet, [facility]/pharmacy #[id number], Partial fill upon patient request if the prescription is for a schedule II opioid drug., 160, cm,... Start Date: 06/28/21 Status: Ordered ibuprofen 800 mg oral tablet 800 mg, 1, tablet, By Mouth, Every 8 hours, # 50 tablet, Refills 0, Tot. Refills 0, Maintenance, 06/28/21 6:54:00 EST, Route to Pharmacy Electronically, [facility]/pharmacy #[id number], Partial fill upon patient request if the prescription is for a schedule II opi... Start Date: 06/28/21 Status: Ordered oxyCODONE 5 mg oral capsule 1 capsule = 5 mg, By Mouth, Every 4 hours, PRN as needed for pain, # 7 capsule, 0 Refills, Maintenance, 06/28/21 10:26:00 EST, Capsule, [facility]/pharmacy #[id number], Partial fill upon patient request [...] 9:29:00 EST, Aerosol, Route to Pharmacy Electronically, [id number]... Start Date: 05/10/21 Status: Ordered Pulmicort Flexhaler 180 mcg See Instructions, INHALE 1 PUFF BY MOUTH TWICE A DAY, # 1 Unknown, 0 Refills, Maintenance, [facility] STORE 92467, 30, INHALE 1 PUFF BY MOUTH TWICE A DAY, 160, cm, 12/24/20 11:01:00 EDT, Height, 49.7, kg, 12/21/20 11:40:00 EDT, Dry Weight Start Date: 12/31/20 Status: Ordered simethicone 80 mg oral tablet, chewable 80 mg, 1, tablet, Chew, 3 times a day, PRN, # 36 tablet, Refills 0, Tot. Refills 0, Maintenance, asneeded for gas, 06/28/21 6:54:00 EST, Route to Pharmacy Electronically, [facility]/pharmacy #[id number], Partialfill upon patient request if the prescription [...] status, antepartum(Confirmed) Active 1dermatologist: Dr. Clement in [place] Social History Social History Type Response Smoking Status Former smoker, quit more than 30 days ago entered on: 12/17/19 Sex
--- OUTSIDE RECORDS SUMMARY | 2022-11-05 21:36 | XMS_ITS | Continuity of Care Document ---
Author Name Unknown Organization [facility] Address [address] [place] [address]- Care Team Providers Care Quartz Miner Name Role Phone Darian Rosen MD, Una Younger Primary Care Physician [phone] Encounter [facility] Date(s): 06/29/21 - 08/11/[address] [address]- Attending Physician: Not on Staff, Attending MD [...] 9:29:00 EST, Aerosol, Route to Pharmacy Electronically, [id number]... Start Date: 05/10/21 Status: Ordered Pulmicort Flexhaler 180 mcg See Instructions, INHALE 1 PUFF BY MOUTH TWICE A DAY, # 1 Unknown, 0 Refills, Maintenance, [facility] STORE 20163, 30, INHALE 1 PUFF BY MOUTH TWICE [...] to Pharmacy Electronically, [facility]/pharmacy #[id number], Partialfill upon patient request if the prescription [...] status, antepartum(Confirmed) Active 1dermatologist: Dr. Clement in [place] Social History Social History Type Response Smoking Status Former smoker, quit more than 30 days ago entered on: 12/17/19 Sex
--- OUTSIDE RECORDS SUMMARY | 2022-11-05 21:36 | XMS_ITS | Continuity of Care Document ---
Author Name Unknown Organization [facility] Address [address] [place] [address]- Care Team Providers Care Echocardiography Technologist Name Role Phone Darian Rosen MD, Kamla Younger Primary Care Physician Encounter [facility] Date(s): 07/06/20 - 08/05/20 [facility] [address] [address]- Attending Physician: Christy Watson Admitting Physician: AdmtrChristy [...] suspension 1 mL = 150 mg, Intramuscular, social welfare research worker to [place], Once every 3 months, Maintenance, # 1 mL, 3 Refills, Maintenance, 04/20/20 10:20:00 EST, [facility]/pharmacy #[id number], Partial fill upon patient request, 160,cm, 04/20/20 10:03:00 EST, Height, 74.2, kg, ... Start Date: 04/20/20 Status: Ordered docusate sodium 100 mg oral capsule 1 capsule = 100 mg, By Mouth, 2 times a day, PRN as needed for constipation, # 60 capsule, 0 Refills, Maintenance, 03/15/20 5:14:00 EDT, Capsule, [facility]/pharmacy #[id number], 160, cm, 03/15/20 4:52:00 EDT, [...] status, antepartum(Confirmed) Active 1dermatologist: Dr. Clement in [place] Vital Signs Most recent to oldest [Reference Range]: 1 Height 158 cm (12/22/19 7:27 AM) Dry Weight 53 kg (12/22/19 7:27 AM) Social History Social History Type Response Smoking Status Former smoker, quit more than 30 days ago entered on: 12/17/19 Sex
--- OUTSIDE RECORDS SUMMARY | 2022-11-05 21:36 | XMS_ITS | Continuity of Care Document ---
Author Name Unknown Organization [facility] Address [address] [place] [address]- Care Team Providers Care Tyre Fitter Name Role Phone Darian Rosen MD, Una Younger Primary Care Physician [phone] [facility] Date(s): 05/05/21 - 06/04/21 [facility] [address] [place] [id number] Allergies, Adverse Reactions, Alerts Substance Reaction Severity [...] 9:29:00 EST, Aerosol, Route to Pharmacy Electronically, [id number]... Start Date: 05/10/21 Status: Ordered Pulmicort Flexhaler 180 mcg See Instructions, INHALE 1 PUFF BY MOUTH TWICE A DAY, # 1 Unknown, 0 Refills, Maintenance, [facility] STORE 62348, 30, INHALE 1 PUFF BY MOUTH TWICE [...] status, antepartum(Confirmed) Active 1dermatologist: Dr. Clement in [place] Social History Social History Type Response Smoking Status Former smoker, quit more than 30 days ago entered on: 12/17/19 Sex
--- OUTSIDE RECORDS SUMMARY | 2022-11-05 21:36 | XMS_ITS | Continuity of Care Document ---
Author Name Unknown Organization [facility] ter Address [address] [place] [address]- Care Team Providers Care Stage Hand Name Role Phone Darian Rosen MD, Kamla Younger Primary Care Physician [phone] Encounter [facility] Date(s): 12/17/19 - 12/17/[address] [address] [facility] Discharge Disposition: A-D/C Home Attending Physician: Josefina Reis MD Admitting Physician: Josefina Reis MD Referring Physician: Josefina Reis MD Allergies, Adverse Reactions, Alerts Substance Reaction Severity Status shellfish Active Cats Active Dogs Active Dust Active Peanuts Active Rice Active Egg Allergy Active Immunizations Given and Recorded Vaccine Date Status Refusal Reason Human Papillomavirus Vaccine 07/26/10 Given Human Papillomavirus Vaccine 03/01/10 Given Human Papillomavirus Vaccine 12/28/09 Given Meningococcal Conjugate Vaccine 12/28/09 Given Varicella Virus Vaccine 12/28/09 Given Varicella Virus Vaccine 04/10/99 Given tetanus/diphtheria/pertussis, acel(Tdap) 12/28/09 Given Measles/Mumps/Rubella Virus Vaccine 10/26/01 Given Measles/Mumps/Rubella [...] in well Start Date: 05/12/14 Status: Ordered Triamcinolone 0.025% Topical 1 application, Topically, Daily, 0 Refills, Maintenance, Cream Start Date: 03/21/18 Status: Ordered Problem List Condition Effective Dates Status Health Status Inform ant Asthma not well controlled(Confirmed) Active Chronic eczema(Confirmed) Active Constipation(Confirmed) Active Obesity(Confirmed)(Worsening) Active Post-traumatic stress disord er (PTSD)(Confirmed) 02/22/11 Active Vital Signs Most recent to oldest [Reference Range]: 1 Oxygen Saturation [94-100 %] 100 % (12/17/19 2:06 PM) Pulse Rate [55-90 bpm] 108 bpm *H* (12/17/19 2:06 PM) Blood Pressure [90-138/55-84 mm Hg] 103/ 68mm Hg (12/17/19 2:06 PM) Respiratory Rate [16-30 br/min] 18 br/mi n (12/17/19 2:06 PM) Temperature [96.8-100.4 DegF] 98.4 DegF (12/17/19 2:06 PM) Mode of Delivery (Oxygen) Room air (12/17/19 2:06 PM) Blood pressure sites Arm, left (12/17/19 2:06 PM) Temperature Route Oral (12/17/19 2:06 PM) Social History Social History Type Response Smoking Status Former smoker, quit more than 30 days ago entered on: 12/17/19 Sex
--- OUTSIDE RECORDS SUMMARY | 2022-11-05 21:36 | XMS_ITS | Continuity of Care Document ---
Author Name Unknown Organization [facility] ter Address [address] [place] [address]- Care Team Providers Care Hris Coordinator Name Role Phone Darian Rosen MD, Kamla Younger Primary Care Physician [phone] [facility]counter [facility] Date(s): 03/10/20 - 03/10/[address] [address]- [facility] Discharge Disposition: A-D/C Home Attending Physician: [...] status, antepartum(Confirmed) Active 1dermatologist: Dr. Clement in [place] Social History Social History Type Response Smoking Status Former smoker, quit more than 30 days ago entered on: 12/17/19 Sex Female
--- OUTSIDE RECORDS SUMMARY | 2022-11-05 21:36 | XMS_ITS | Continuity of Care Document ---
Author Name Unknown Organization [facility] Address [address] [place] [address]- Care Team Providers Care Supervisor Cell Room Name Role Phone Darian Rosen MD, Una Younger Primary Care Physician [facility]counter [facility] Date(s): 07/26/21 - 08/25/[address] [address] Attending Physician: Christy Watson Admitting Physician: AdmChristy lemon Referring Physician: Admtr ArAnn Marie Allergies, Adverse Reactions, Alerts Substance [...] 0 Refills, Maintenance, 06/28/21 6:54:00 EST, Capsule, [facility]/pharmacy #[id number], Partial fill upon patient request [...] 06/28/21 6:54:00 EST, Route to Pharmacy Electronically, [facility]/pharmacy #[id number], Partial fill upon patient request if the prescription is for a schedule II opi... Start Date: 06/28/21 Status: Ordered oxyCODONE 5 mg oral capsule 1 capsule = 5 mg, By Mouth, Every 4 hours, PRN as needed for pain, # 7 capsule, 0 Refills, Maintenance, 06/28/21 10:26:00 EST, Capsule, [facility]/pharmacy #[id number], Partial fill upon patient request [...] 9:29:00 EST, Aerosol, Route to Pharmacy Electronically, [id number]... Start Date: 05/10/21 Status: Ordered Pulmicort Flexhaler 180 mcg See Instructions, INHALE 1 PUFF BY MOUTH TWICE A DAY, # 1 Unknown, 0 Refills, Maintenance, [facility] STORE 76929, 30, INHALE 1 PUFF BY MOUTH TWICE A DAY, 160, cm, 12/24/20 11:01:00 EDT, Height, 49.7, kg, 12/21/20 11:40:00 EDT, Dry Weight Start Date: 12/31/20 Status: Ordered simethicone 80 mg oral tablet, chewable 80 mg, 1, tablet, Chew, 3 times a day, PRN, # 36 tablet, Refills 0, Tot. Refills 0, Maintenance, asneeded for gas, 06/28/21 6:54:00 EST, Route to Pharmacy Electronically, [facility]/pharmacy #[id number], Partialfill upon patient request if the prescription [...] status, antepartum(Confirmed) Active 1dermatologist: Dr. Clement in [place] Vital Signs Most recent to oldest [Reference Range]: 1 Height 158 cm (12/22/19 7:27 AM) Dry Weight 53 kg (12/22/19 7:27 AM) Social History Social History Type Response Smoking Status Former smoker, quit more than 30 days ago entered on: 12/17/19 Sex
--- OUTSIDE RECORDS SUMMARY | 2022-11-05 21:36 | XMS_ITS | Continuity of Care Document ---
Author Name Unknown Organization [facility] Address [address] [place] [address]- Care Team Providers Care Parts Processor Name Role Phone Darian Rosen MD, Kamla Younger Primary Care Physician [facility] Date[facility]): 01/[facility]/20 - 02/08/[address] [address]- [facility] Allergies, Adverse Reactions, Alerts [...] status, antepartum(Confirmed) Active 1dermatologist: Dr. Clement in [place] Social History Social History Type Response Smoking Status Former smoker, quit more than 30 days ago entered on: 12/17/19 Sex Female
--- OUTSIDE RECORDS SUMMARY | 2022-11-05 21:36 | XMS_ITS | Continuity of Care Document ---
Author Name Unknown Organization [facility] Address [address] [place] [address]- Care Team Providers Care Asphalt Tamping Machine Operator Name Role Phone Darian Rosen MD, Kamla Younger Primary Care Physician [phone] Encounter [facility] Date(s): 02/26/20 - 03/27/20 [facility] [address] [address]- [facility] Allergies, Adverse Reactions, Alerts Substance Reaction [...] 0 Refills, Maintenance, 03/15/20 5:14:00 EDT, Capsule, [facility]/pharmacy #[id number], 160, cm, 03/15/20 4:52:00 EDT, [...] 03/15/20 5:14:00 EDT, Route to Pharmacy Electronically, [facility]/pharmacy #[id number], 160, cm, 03/15/20 4:52:00 EDT, Height, 82... Start Date: 03/15/20 Stop Date: 04/04/20 Status: Ordered oxyCODONE 5 mg oral tablet 5 mg, 1, tablet, By Mouth, Every 6 hours, PRN, # 12 tablet, Refills 0, Tot. Refills 0, Acute 04/04/20 5:14:00 EST, as needed for pain, 03/15/20 5:14:00 EDT, Route to Pharmacy Electronically, [facility]/pharmacy #[id number], Partial fill upon patient request, 160,... [...] 0 Refills, Maintenance, 12/23/19 11:44:00 EDT, Powder, [facility]/pharmacy #[id number], 2 puffs Inhalation 2 times a day, 158, cm, 12/23/19 11:05:00 EDT, Height, 53, kg, 12/22/19 7:27:00 EDT, Dry Weight Start Date: 12/23/19 Status: Ordered simethicone 80 mg oral tablet 1 tablet = 80 mg, Chew, 3 times a day after meals, PRN as needed for gas, # 60 tablet, 0 Refills, Acute 04/04/20 5:14:00 EST, 03/15/20 5:14:00 EDT, Tablet, [facility]/pharmacy #[id number], 160, cm, 03/15/20 4:52:00 EDT, [...] status, antepartum(Confirmed) Active 1dermatologist: Dr. Clement in [place] Social History Social History Type Response Smoking Status Former smoker, quit more than 30 days ago entered on: 12/17/19 Sex
--- OUTSIDE RECORDS SUMMARY | 2022-11-05 21:36 | XMS_ITS | Continuity of Care Document ---
Author Name Unknown Organization [facility] ter Address [address] [place] [address]- Care Team Providers Care Duplex Trimmer Name Role Phone Darian Rosen MD, Una Younger Primary Care Physician [phone] Encounter [facility] Date(s): 12/21/20 - 12/21/[address] [address]- Discharge Disposition: A-D/C Home Attending Physician: Terry [...] suspension 1 mL = 150 mg, Intramuscular, monitoring coordinator to Skiver Counter, Once every 3 months, Maintenance, # 1 [...] Dry Weight Start Date: 12/23/19 Status: Ordered Vitamin B6 By Mouth, Daily, [...] status, antepartum(Confirmed) Active 1dermatologist: Dr. Clement in [place] Vital Signs Most recent to oldest [Reference Range]: 1 Weight 49.7 kg (12/21/20 11:40 AM) Oxygen Saturation [94-100 %] 100 % (12/21/20 12:03 PM) Pulse Rate [55-90 bpm] 78 bpm (12/21/20 12:03 PM) Blood Pressure [90-138/55-84 mm Hg] 112/ 68mm Hg (12/21/20 12:03 PM) Respiratory Rate [16-30 br/min] 18 br/mi n (12/21/20 12:03 PM) Temperature [96.8-100.4 DegF] 98.4 DegF (12/21/20 12:03 PM) Mode of Delivery (Oxygen) Room air (12/21/20 12:03 PM) Blood pressure sites Arm, left (12/21/20 12:03 PM) Temperature Route Oral (12/21/20 12:03 PM) Dry Weight 49.7 kg (12/21/20 11:40 AM) Weight Obtained Via Standing scale (12/21/20 11:40 AM) Dry Weight Obtained Via Standing scale (12/21/20 11:40 AM) Social History Social History Type Response Smoking Status Former smoker, quit more than 30 days ago entered on: 12/17/19 Sex
--- OUTSIDE RECORDS SUMMARY | 2022-11-05 21:36 | XMS_ITS | Continuity of Care Document ---
Author Name Unknown Organization [facility] Address [address] [place] [address]- Care Team Providers Care Programmer Or Analyst Name Role Phone Darian Rosen MD, Una Younger Primary Care Physician [facility] Date(s): 04/07/21 - 05/07/21 [facility] [address] [place] [id number] Allergies, Adverse Reactions, Alerts Substance [...] DAY, # 1 Unknown, 0 Refills, Maintenance, [facility], 30, INHALE 1 PUFF BY MOUTH TWICE [...] Inform ant Asthma not well controlled(Confirmed) Active Asthma during in t hird trimester(Confirmed) Active Chronic eczema(Confirmed) 1 Active Eczema(Confirmed) Active IUGR, (Confirmed) Active History of section(Confirmed) Active History of depression(Confirmed) Active Hyperemesis gravidarum(Confirmed) Active Obese class I(Confirmed) Active Circumvallate placenta durin g in second trimester, antepartum(Confirmed) Active Placenta previa(Confirmed) Active Post-traumatic stress disord er (PTSD)(Confirmed) 02/22/11 Active Rubella non-immune status, antepartum(Confirmed) Active 1dermatologist: Dr. Clement in [place] Social History Social History Type Response Smoking Status Former smoker, quit more than 30 days ago entered on: 12/17/19 Sex
--- OUTSIDE RECORDS SUMMARY | 2022-11-05 21:36 | XMS_ITS | Continuity of Care Document ---
Author Name Unknown Organization [facility] ter Address [address] [place] [address]- Care Team Providers Care Ordnance Technician Name Role Phone Darian Rosen MD, Una Younger Primary Care Physician [place] [facility] 05/17/21 - 05/17/[address] [address] Discharge Disposition: A-D/C Home Attending Physician: Jana Mckeon NP Admitting Physician: Jana Mckeon NP Referring Physician: Mike GASTON, Jana Allergies, Adverse Reactions, Alerts Substance Reaction Severity Status shellfish Anaphylaxis Active Cats Active Egg Allergy Anaphylaxis Active Dogs Active Dust Hives Active Peanuts [...] 9:29:00 EST, Aerosol, Route to Pharmacy Electronically, [id number]... Start Date: 05/10/21 Status: Ordered Pulmicort Flexhaler 180 mcg See Instructions, INHALE 1 PUFF BY MOUTH TWICE A DAY, # 1 Unknown, 0 Refills, Maintenance, [facility] [address]82, 30, INHALE 1 PUFF BY MOUTH TWICE [...] status, antepartum(Confirmed) Active 1dermatologist: Dr. Clement in [place] Social History Social History Type Response Smoking Status Former smoker, quit more than 30 days ago entered on: 12/17/19 Sex
--- OUTSIDE RECORDS SUMMARY | 2022-11-05 21:36 | XMS_ITS | Continuity of Care Document ---
Author Name Unknown Organization [facility] ter Address [address] [place] [address]- Care Team Providers Care Director Trade Name Role Phone Darian Rosen MD, Kamla Younger Primary Care Physician [facility] Date[facility]s): 02/18/20 - 02/18/[address] [address]- [facility] Discharge Disposition: A-D/C Home [...] status, antepartum(Confirmed) Active 1dermatologist: Dr. Clement in [place] Social History Social History Type Response Smoking Status Former smoker, quit more than 30 days ago entered on: 12/17/19 Sex Female
--- OUTSIDE RECORDS SUMMARY | 2022-11-05 21:36 | XMS_ITS | Continuity of Care Document ---
Author Name Unknown Organization [facility] Address [address] [place] [address]- Care Team Providers Care Non Destructive Testing Specialist Name Role Phone Darian Rosen MD, Una Younger Primary Care Physician [place] [facility] [place] 02/26[place]21 - 06/19/21 [facility] [address] [address]- Attending Physician: Pastora Lu CNM Admitting Physician: Pastora Lu CNM Allergies, Adverse Reactions, Alerts Substance Reaction [...] 9:29:00 EST, Aerosol, Route to Pharmacy Electronically, [id number]... Start Date: 05/10/21 Status: Ordered Pulmicort Flexhaler 180 mcg See Instructions, INHALE 1 PUFF BY MOUTH TWICE A DAY, # 1 Unknown, 0 Refills, Maintenance, [facility] [address]328, 30, INHALE 1 PUFF BY MOUTH TWICE [...] status, antepartum(Confirmed) Active 1dermatologist: Dr. Clement in [place] Social History Social History Type Response Smoking Status Former smoker, quit more than 30 days ago entered on: 12/17/19 Sex
--- OUTSIDE RECORDS SUMMARY | 2022-11-05 21:36 | XMS_ITS | Continuity of Care Document ---
Author Name Unknown Organization [facility] ter Address [address] [place] [address]- Care Team Providers Care Neurophysiologist Name Role Phone Darian Rosen MD, Kamla Younger Primary Care Physician [phone] [facility]counter [facility] Date(s): 02/16/20 - 02/16/[address] [address]- [facility] Discharge Disposition: A-D/C Home Attending Physician: Roxana Bowen DO Admitting Physician: Roxana Bowen DO Referring Physician: Roxana Bowen DO Allergies, Adverse Reactions, Alerts Substance Reaction Severity [...] status, antepartum(Confirmed) Active 1dermatologist: Dr. Clement in [place] Vital Signs Most recent to oldest [Reference Range]: 1 Weight 79.2 kg (02/16/20 4:54 PM) Temperature [96.8-100.4 DegF] 98.1 DegF (02/16/20 4:54 PM) Temperature Route Oral (02/16/20 4:54 PM) Dry Weight 79.2 kg (02/16/20 4:54 PM) Social History Social History Type Response Smoking Status Former smoker, quit more than 30 days ago entered on: 12/17/19 Sex Female
--- OUTSIDE RECORDS SUMMARY | 2022-11-05 21:36 | XMS_ITS | Continuity of Care Document ---
Author Name Unknown Organization [facility] Address [address] [place] [address]- Care Team Providers Care Transmission Mechanic Name Role Phone Darian Rosen MD, Kamla Younger Primary Care Physician [phone] Encounter [facility] [id number] Date(s): 01/22/20 - [facility] [address] [address]- [facility] Attending Physician: Phan Woods DO Admitting Physician: [...] status, antepartum(Confirmed) Active 1dermatologist: Dr. Clement in [place] Social History Social History Type Response Smoking Status Former smoker, quit more than 30 days ago entered on: 12/17/19 Sex Female
--- OUTSIDE RECORDS SUMMARY | 2022-11-05 21:36 | XMS_ITS | Continuity of Care Document ---
Author Name Unknown Organization [facility] Address [address] [place] [address]- Care Team Providers Care Machine Stuffer Name Role Phone Darian Rosen MD, Una Younger Primary Care Physician [place] [facility] [place]25[place]20 - 02/12/21 [facility] [address] [address]- Attending Physician: Not on Staff, Attending MD Referring Physician: Maxi GARCIA, Margo Allergies, Adverse Reactions, Alerts Substance Reaction Severity [...] DAY, # 1 Unknown, 0 Refills, Maintenance, [facility]75, 30, INHALE 1 PUFF BY MOUTH TWICE [...] trimester(Confirmed) 2020 Active 1dermatologist: Dr. Clement in [place] Social History Social History Type Response Smoking Status Former smoker, quit more than 30 days ago entered on: 12/17/19 Sex
--- OUTSIDE RECORDS SUMMARY | 2022-11-05 21:36 | XMS_ITS | Continuity of Care Document ---
Author Name Unknown Organization [facility] ter Address [address] [place] [address]- Care Team Providers Care Correctional Food Service Supervisor Name Role Phone Darian Rosen MD, Una Younger Primary Care Physician [place] [facility] 06/22/21 - 06/22/[address] [address]- Discharge Disposition: A-D/C Home Attending Physician: Chato [...] 9:29:00 EST, Aerosol, Route to Pharmacy Electronically, [id number]... Start Date: 05/10/21 Status: Ordered Pulmicort Flexhaler 180 mcg See Instructions, INHALE 1 PUFF BY MOUTH TWICE A DAY, # 1 Unknown, 0 Refills, Maintenance, [facility] [address], 30, INHALE 1 PUFF BY MOUTH TWICE [...] status, antepartum(Confirmed) Active 1dermatologist: Dr. Clement in [place] Vital Signs Most recent to oldest [Reference Range]: 1 2 3 Oxygen Saturation [94-100 %] 100 % (06/22/21 12:01 PM) 100 % (06/22/21 11:26 AM) 100 % (06/22/21 11:01 AM) Blood Pressure [90-138/55-84 mm Hg] 120/78mm Hg (06/22/21 12:01 PM) 123/74mm Hg (06/22/21 11:26 AM) 122/78mm Hg (06/22/21 11:01 AM) Respiratory Rate [16-30 br/min] 20 br/min (06/22/21 10:04 AM) Social History Social History Type Response Smoking Status Former smoker, quit more than 30 days ago entered on: 12/17/19 Sex
--- OUTSIDE RECORDS SUMMARY | 2022-11-05 21:36 | XMS_ITS | Continuity of Care Document ---
Author Name Unknown Organization [facility] ter Address [address] [place] [address]- Care Team Providers Care Tamping Machine Operator Road Forms Name Role Phone Darian Rosen MD, Una Younger Primary Care Physician [facility] Date(s): 06/22/21 - 07/25/[address] [address] Attending Physician: Leona Rodriguez MD Referring Physician: Jennifer EPPS, Leona Ravi Allergies, Adverse Reactions, Alerts Substance Reaction Severity Status shellfish Anaphylaxis Active Cats Active Dogs Active Dust Hives Active Egg Allergy Anaphylaxis Active Peanuts Active Immunizations Given and Recorded [...] 0 Refills, Maintenance, 06/28/21 6:54:00 EST, Capsule, [facility]/pharmacy #[id number], Partial fill upon patient request if the prescription is for a schedule II opioid drug., 160,... Start Date: 06/28/21 Status: Ordered docusate sodium 100 mg oral tablet 1 tablet = 100 mg, By Mouth, 2 times a day, PRN for constipation, # 60 tablet, 0 Refills, Maintenance, 06/28/21 6:54:00 EST, Tablet, [facility]/pharmacy #[id number], Partial fill upon patient request if the prescription is for a schedule II opioid drug., 160, cm,... Start Date: 06/28/21 Status: Ordered ibuprofen 800 mg oral tablet 800 mg, 1, tablet, By Mouth, Every 8 hours, # 50 tablet, Refills 0, Tot. Refills 0, Maintenance, 06/28/21 6:54:00 EST, Route to Pharmacy Electronically, [facility]/pharmacy #[id number], Partial fill upon patient request if the prescription is for a schedule II opi... Start Date: 06/28/21 Status: Ordered oxyCODONE 5 mg oral capsule 1 capsule = 5 mg, By Mouth, Every 4 hours, PRN as needed for pain, # 7 capsule, 0 Refills, Maintenance, 06/28/21 10:26:00 EST, Capsule, [facility]/pharmacy #[id number], Partial fill upon patient request if [...] 9:29:00 EST, Aerosol, Route to Pharmacy Electronically, [id number]... Start Date: 05/10/21 Status: Ordered Pulmicort Flexhaler 180 mcg See Instructions, INHALE 1 PUFF BY MOUTH TWICE A DAY, # 1 Unknown, 0 Refills, Maintenance, [facility] [address]755, 30, INHALE 1 PUFF BY MOUTH TWICE A DAY, 160, cm, 12/24/20 11:01:00 EDT, Height, 49.7, kg, 12/21/20 11:40:00 EDT, Dry Weight Start Date: 12/31/20 Status: Ordered simethicone 80 mg oral tablet, chewable 80 mg, 1, tablet, Chew, 3 times a day, PRN, # 36 tablet, Refills 0, Tot. Refills 0, Maintenance, asneeded for gas, 06/28/21 6:54:00 EST, Route to Pharmacy Electronically, [facility]/pharmacy #[id number], Partialfill upon patient request if the prescription [...] status, antepartum(Confirmed) Active 1dermatologist: Dr. Clement in [place] Social History Social History Type Response Smoking Status Former smoker, quit more than 30 days ago entered on: 12/17/19 Sex
--- OUTSIDE RECORDS SUMMARY | 2022-11-05 21:36 | XMS_ITS | Continuity of Care Document ---
Author Name Unknown Organization [facility] ter Address [address] [place] [address]- Care Team Providers Care Pneumatic Tool Operator Name Role Phone Darian Rosen MD, Una Younger Primary Care Physician Encounter [facility] Date(s): 06/25/21 - 07/26/[address] [address] Attending Physician: Gene Buitrago MD Referring Physician: Gene [...] 9:29:00 EST, Aerosol, Route to Pharmacy Electronically, [id number]... Start Date: 05/10/21 Status: Ordered Pulmicort Flexhaler 180 mcg See Instructions, INHALE 1 PUFF BY MOUTH TWICE A DAY, # 1 Unknown, 0 Refills, Maintenance, [facility] [address]957, 30, INHALE 1 PUFF BY MOUTH TWICE [...] EST, Route to Pharmacy Electronically, [facility]/pharmacy #[id number], Partialfill upon patient request if the prescription [...] status, antepartum(Confirmed) Active 1dermatologist: Dr. Clement in [place] Social History Social History Type Response Smoking Status Former smoker, quit more than 30 days ago entered on: 12/17/19 Sex
--- OUTSIDE RECORDS SUMMARY | 2022-11-05 21:36 | XMS_ITS | Continuity of Care Document ---
Author Name Unknown Organization [facility] Address [address] [place] [address]- Care Team Providers Care Splitting Machine Operator Helper Name Role Phone Darian Rosen MD, Kamla Younger Primary Care Physician [place] [facility] [place] - 02/22/20 [facility] [address] [address] [facility] Allergies, Adverse Reactions, Alerts Substance Reaction Severity [...] status, antepartum(Confirmed) Active 1dermatologist: Dr. Clement in [place] Social History Social History Type Response Smoking Status Former smoker, quit more than 30 days ago entered on: 12/17/19 Sex Female
--- OUTSIDE RECORDS SUMMARY | 2022-11-05 21:37 | XMS_ITS | Continuity of Care Document ---
Author Name Unknown Organization [facility] Address [address], [address] [place] [address]- Care Team Providers Care Lapel Padder Name Role Phone Darian Rosen MD, Una Younger Primary Care Physician [facility]22 [facility] [address] [place], [place] [address] Allergies, Adverse Reactions, Alerts Substance Reaction [...] 0 Refills, Maintenance, 06/28/21 6:54:00 EST, Capsule, [facility]/pharmacy #[id number], Partial fill upon patient request if the prescription is for a schedule II opioid drug., 160,... Start Date: 06/28/21 Status: Ordered docusate sodium 100 mg oral tablet 1 tablet = 100 mg, By Mouth, 2 times a day, PRN for constipation, # 60 tablet, 0 Refills, Maintenance, 06/28/21 6:54:00 EST, Tablet, [facility]/pharmacy #[id number], Partial fill upon patient request if the prescription is for a schedule II opioid drug., 160, cm,... Start Date: 06/28/21 Status: Ordered ibuprofen 800 mg oral tablet 800 mg, 1, tablet, By Mouth, Every 8 hours, # 50 tablet, Refills 0, Tot. Refills 0, Maintenance, 06/28/21 6:54:00 EST, Route to Pharmacy Electronically, [facility]/pharmacy #[id number], Partial fill upon patient request if the prescription is for a schedule II opi... Start Date: 06/28/21 Status: Ordered oxyCODONE 5 mg oral capsule 1 capsule = 5 mg, By Mouth, Every 4 hours, PRN as needed for pain, # 7 capsule, 0 Refills, Maintenance, 06/28/21 10:26:00 EST, Capsule, [facility]/pharmacy #[id number], Partial fill upon patient request [...] 9:29:00 EST, Aerosol, Route to Pharmacy Electronically, [id number]... Start Date: 05/10/21 Status: Ordered Pulmicort Flexhaler 180 mcg See Instructions, INHALE 1 PUFF BY MOUTH TWICE A DAY, # 1 Unknown, 0 Refills, Maintenance, [facility] [address]45, 30, INHALE 1 PUFF BY MOUTH TWICE A DAY, 160, cm, 12/24/20 11:01:00 EDT, Height, 49.7, kg, 12/21/20 11:40:00 EDT, Dry Weight Start Date: 12/31/20 Status: Ordered simethicone 80 mg oral tablet, chewable 80 mg, 1, tablet, Chew, 3 times a day, PRN, # 36 tablet, Refills 0, Tot. Refills 0, Maintenance, asneeded for gas, 06/28/21 6:54:00 EST, Route to Pharmacy Electronically, [facility]/pharmacy #[id number], Partialfill upon patient request if the prescription [...] status, antepartum(Confirmed) Active 1dermatologist: Dr. Clement in [place] Social History Social History Type Response Smoking Status Former smoker, quit more than 30 days ago entered on: 12/17/19 Sex Care Team Personnel Name: Darian Rosen MD , Una Younger Address: [address] [place] [address]
--- OUTSIDE RECORDS SUMMARY | 2022-11-05 21:37 | XMS_ITS | Continuity of Care Document ---
Author Name Unknown Organization [facility] ter Address [address] [place] [address]- Care Team Providers Care Gear Coding Machine Operator Name Role Phone Darian Rosen MD, Samantha Primary Care Physician [phone] [place] [facility] [place](s): 06/22/21 - 07/28/[address] [address] Attending Physician: Carie Mack MD [...] 0 Refills, Maintenance, 06/28/21 6:54:00 EST, Capsule, [facility]/pharmacy #[id number], Partial fill upon patient request if the prescription is for a schedule II opioid drug., 160,... Start Date: 06/28/21 Status: Ordered docusate sodium 100 mg oral tablet 1 tablet = 100 mg, By Mouth, 2 times a day, PRN for constipation, # 60 tablet, 0 Refills, Maintenance, 06/28/21 6:54:00 EST, Tablet, [facility]/pharmacy #[id number], Partial fill upon patient request if the prescription is for a schedule II opioid drug., 160, cm,... Start Date: 06/28/21 Status: Ordered ibuprofen 800 mg oral tablet 800 mg, 1, tablet, By Mouth, Every 8 hours, # 50 tablet, Refills 0, Tot. Refills 0, Maintenance, 06/28/21 6:54:00 EST, Route to Pharmacy Electronically, [facility]/pharmacy #[id number], Partial fill upon patient request if the prescription is for a schedule II opi... Start Date: 06/28/21 Status: Ordered oxyCODONE 5 mg oral capsule 1 capsule = 5 mg, By Mouth, Every 4 hours, PRN as needed for pain, # 7 capsule, 0 Refills, Maintenance, 06/28/21 10:26:00 EST, Capsule, [facility]/pharmacy #[id number], Partial fill upon patient request if [...] 9:29:00 EST, Aerosol, Route to Pharmacy Electronically, [id number]... Start Date: 05/10/21 Status: Ordered Pulmicort Flexhaler 180 mcg See Instructions, INHALE 1 PUFF BY MOUTH TWICE A DAY, # 1 Unknown, 0 Refills, Maintenance, [facility] [address]6053, 30, INHALE 1 PUFF BY MOUTH TWICE A DAY, 160, cm, 12/24/20 11:01:00 EDT, Height, 49.7, kg, 12/21/20 11:40:00 EDT, Dry Weight Start Date: 12/31/20 Status: Ordered simethicone 80 mg oral tablet, chewable 80 mg, 1, tablet, Chew, 3 times a day, PRN, # 36 tablet, Refills 0, Tot. Refills 0, Maintenance, asneeded for gas, 06/28/21 6:54:00 EST, Route to Pharmacy Electronically, [facility]/pharmacy #[id number], Partialfill upon patient request if the prescription [...] status, antepartum(Confirmed) Active 1dermatologist: Dr. Clement in [place] Social History Social History Type Response Smoking Status Former smoker, quit more than 30 days ago entered on: 12/17/19 Sex
--- OUTSIDE RECORDS SUMMARY | 2022-11-05 21:37 | XMS_ITS | Continuity of Care Document ---
Author Name Unknown Organization [facility] Address [address] [place] [id number]- Care Team Providers Care Medical Operations Supervisor Name Role Phone Darian Rosen MD, Una Younger Primary Care Physician [facility]counter [facility] Date(s): 12/23/20 - 01/22/[address] [address]- Allergies, Adverse Reactions, Alerts Substance Reaction Severity [...] 1 Unknown, 0 Refills, Maintenance, [id number], 30, INHALE 1 PUFF BY MOUTH TWICE A DAY, 160, cm, 12/24/20 11:01:00 EDT, Height, 49.7, kg, 12/21/20 11:40:00 EDT, Dry Weight Start Date: 12/31/20 Status: Ordered Vitafol Gummies with DHA oral tablet, chewable 1 tablet, By Mouth, Daily, # 30 tablet, 8 Refills, Maintenance, 12/24/20 11:40:00 EDT, [facility]/pharmacy#[id number], Can sub for any gummy vitamin that [...] trimester(Confirmed) 2020 Active 1dermatologist: Dr. Clement in [place] Social History Social History Type Response Smoking Status Former smoker, quit more than 30 days ago entered on: 12/17/19 Sex
--- OUTSIDE RECORDS SUMMARY | 2022-11-05 21:37 | XMS_ITS | Continuity of Care Document ---
Author Name Unknown Organization [facility] Address [address] [place] [phone]- Care Team Providers Care Legal Billing Analyst Name Role Phone Darian Rosen MD, Kamla Younger Primary Care Physician [facility]counter [facility] Date(s): 02/21/20 - 03/22/20 [facility] [address] [address]- [facility] Allergies, Adverse Reactions, Alerts Substance Reaction Severity [...] 0 Refills, Maintenance, 03/15/20 5:14:00 EDT, Capsule, [facility]/pharmacy #[id number], 160, cm, 03/15/20 4:52:00 EDT, Height, [...] 03/15/20 5:14:00 EDT, Route to Pharmacy Electronically, [facility]/pharmacy #[id number], 160, cm, 03/15/20 4:52:00 EDT, Height, 82... Start Date: 03/15/20 Stop Date: 04/04/20 Status: Ordered oxyCODONE 5 mg oral tablet 5 mg, 1, tablet, By Mouth, Every 6 hours, PRN, # 12 tablet, Refills 0, Tot. Refills 0, Acute 04/04/20 5:14:00 EST, as needed for pain, 03/15/20 5:14:00 EDT, Route to Pharmacy Electronically, [facility]/pharmacy #[id number], Partial fill upon patient request, 160,... [...] 0 Refills, Maintenance, 12/23/19 11:44:00 EDT, Powder, [facility]/pharmacy #[id number], 2 puffs Inhalation 2 times a day, 158, cm, 12/23/19 11:05:00 EDT, Height, 53, kg, 12/22/19 7:27:00 EDT, Dry Weight Start Date: 12/23/19 Status: Ordered simethicone 80 mg oral tablet 1 tablet = 80 mg, Chew, 3 times a day after meals, PRN as needed for gas, # 60 tablet, 0 Refills, Acute 04/04/20 5:14:00 EST, 03/15/20 5:14:00 EDT, Tablet, [facility]/pharmacy #[id number], 160, cm, 03/15/20 4:52:00 EDT, Height, [...] status, antepartum(Confirmed) Active 1dermatologist: Dr. Clement in [place] Social History Social History Type Response Smoking Status Former smoker, quit more than 30 days ago entered on: 12/17/19 Sex
--- OUTSIDE RECORDS SUMMARY | 2022-11-05 21:37 | XMS_ITS | Continuity of Care Document ---
Author Name Unknown Organization [facility] Address [address] [place] [id number]- Care Team Providers Care Sub Plant Manager Name Role Phone Darian Rosen MD, Una Younger Primary Care Physician [facility] Date[facility]s): 05/10/21 - 08/11/[address] [address]- Attending Physician: Not on Staff, Attending MD [...] 0 Refills, Maintenance, 06/28/21 6:54:00 EST, Capsule, [facility]/pharmacy #[id number], Partial fill upon patient request if the prescription is for a schedule II opioid drug., 160,... Start Date: 06/28/21 Status: Ordered docusate sodium 100 mg oral tablet 1 tablet = 100 mg, By Mouth, 2 times a day, PRN for constipation, # 60 tablet, 0 Refills, Maintenance, 06/28/21 6:54:00 EST, Tablet, [facility]/pharmacy #[id number], Partial fill upon patient request if the prescription is for a schedule II opioid drug., 160, cm,... Start Date: 06/28/21 Status: Ordered ibuprofen 800 mg oral tablet 800 mg, 1, tablet, By Mouth, Every 8 hours, # 50 tablet, Refills 0, Tot. Refills 0, Maintenance, 06/28/21 6:54:00 EST, Route to Pharmacy Electronically, [facility]/pharmacy #[id number], Partial fill upon patient request if the prescription is for a schedule II opi... Start Date: 06/28/21 Status: Ordered oxyCODONE 5 mg oral capsule 1 capsule = 5 mg, By Mouth, Every 4 hours, PRN as needed for pain, # 7 capsule, 0 Refills, Maintenance, 06/28/21 10:26:00 EST, Capsule, [facility]/pharmacy #[id number], Partial fill upon [...] 9:29:00 EST, Aerosol, Route to Pharmacy Electronically, [id number]... Start Date: 05/10/21 Status: Ordered Pulmicort Flexhaler 180 mcg See Instructions, INHALE 1 PUFF BY MOUTH TWICE A DAY, # 1 Unknown, 0 Refills, Maintenance, [id number], 30, INHALE 1 PUFF BY MOUTH TWICE A DAY, 160, cm, 12/24/20 11:01:00 EDT, Height, 49.7, kg, 12/21/20 11:40:00 EDT, Dry Weight Start Date: 12/31/20 Status: Ordered simethicone 80 mg oral tablet, chewable 80 mg, 1, tablet, Chew, 3 times a day, PRN, # 36 tablet, Refills 0, Tot. Refills 0, Maintenance, asneeded for gas, 06/28/21 6:54:00 EST, Route to Pharmacy Electronically, [facility]/pharmacy #[id number], Partialfill upon patient request if the prescription [...] status, antepartum(Confirmed) Active 1dermatologist: Dr. Clement in [place] Social History Social History Type Response Smoking Status Former smoker, quit more than 30 days ago entered on: 12/17/19 Sex
--- OUTSIDE RECORDS SUMMARY | 2022-11-05 21:37 | XMS_ITS | Continuity of Care Document ---
Author Name Unknown Organization [facility] Address [address] [place] [phone]- Care Team Providers Care Staff Scientist Name Role Phone Darian Rosen MD, Kamla Younger Primary Care Physician Encounter [facility] [id number] Date(s): 02/22/20 - 03/29/20 [facility] [address] [address]- [facility] Attending Physician: Phan Woods DO Admitting Physician: [...] 0 Refills, Maintenance, 03/15/20 5:14:00 EDT, Capsule, [facility]/pharmacy #[id number], 160, cm, 03/15/20 4:52:00 [...] 03/15/20 5:14:00 EDT, Route to Pharmacy Electronically, [facility]/pharmacy #[id number], 160, cm, 03/15/20 4:52:00 EDT, Height, 82... Start Date: 03/15/20 Stop Date: 04/04/20 Status: Ordered oxyCODONE 5 mg oral tablet 5 mg, 1, tablet, By Mouth, Every 6 hours, PRN, # 12 tablet, Refills 0, Tot. Refills 0, Acute 04/04/20 5:14:00 EST, as needed for pain, 03/15/20 5:14:00 EDT, Route to Pharmacy Electronically, [facility]/pharmacy #[id number], Partial fill upon patient [...] 0 Refills, Maintenance, 12/23/19 11:44:00 EDT, Powder, [facility]/pharmacy #[id number], 2 puffs Inhalation 2 times a [...] status, antepartum(Confirmed) Active 1dermatologist: Dr. Clement in [place] Social History Social History Type Response Smoking Status Former smoker, quit more than 30 days ago entered on: 12/17/19 Sex
--- OUTSIDE RECORDS SUMMARY | 2022-11-05 21:37 | XMS_ITS | Continuity of Care Document ---
Author Name Unknown Organization [facility] Address [address] [place] [id number]- Care Team Providers Care Etl Informatica Developer Name Role Phone Darian Rosen MD, Una Younger Primary Care Physician [phone] Encounter [facility] Date(s): 05/10/21 - 07/28/[address] [address]- Attending Physician: Not on Staff, Attending MD [...] Refills, Maintenance, 06/28/21 6:54:00 EST, Capsule, [facility]/pharmacy #[id number], Partial fill upon patient request if the prescription is for a schedule II opioid drug., 160,... Start Date: 06/28/21 Status: Ordered docusate sodium 100 mg oral tablet 1 tablet = 100 mg, By Mouth, 2 times a day, PRN for constipation, # 60 tablet, 0 Refills, Maintenance, 06/28/21 6:54:00 EST, Tablet, [facility]/pharmacy #[id number], Partial fill upon patient request if the prescription is for a schedule II opioid drug., 160, cm,... Start Date: 06/28/21 Status: Ordered ibuprofen 800 mg oral tablet 800 mg, 1, tablet, By Mouth, Every 8 hours, # 50 tablet, Refills 0, Tot. Refills 0, Maintenance, 06/28/21 6:54:00 EST, Route to Pharmacy Electronically, [facility]/pharmacy #[id number], Partial fill upon patient request if the prescription is for a schedule II opi... Start Date: 06/28/21 Status: Ordered oxyCODONE 5 mg oral capsule 1 capsule = 5 mg, By Mouth, Every 4 hours, PRN as needed for pain, # 7 capsule, 0 Refills, Maintenance, 06/28/21 10:26:00 EST, Capsule, [facility]/pharmacy #[id number], Partial fill upon patient request if [...] 9:29:00 EST, Aerosol, Route to Pharmacy Electronically, [id number]... Start Date: 05/10/21 Status: Ordered Pulmicort Flexhaler 180 mcg See Instructions, INHALE 1 PUFF BY MOUTH TWICE A DAY, # 1 Unknown, 0 Refills, Maintenance, [id number], 30, INHALE 1 PUFF BY MOUTH TWICE A DAY, 160, cm, 12/24/20 11:01:00 EDT, Height, 49.7, kg, 12/21/20 11:40:00 EDT, Dry Weight Start Date: 12/31/20 Status: Ordered simethicone 80 mg oral tablet, chewable 80 mg, 1, tablet, Chew, 3 times a day, PRN, # 36 tablet, Refills 0, Tot. Refills 0, Maintenance, asneeded for gas, 06/28/21 6:54:00 EST, Route to Pharmacy Electronically, [facility]/pharmacy #[id number], Partialfill upon patient request if the prescription [...] antepartum(Confirmed) Active 1dermatologist: Dr. Clement in [place] Social History Social History Type Response Smoking Status Former smoker, quit more than 30 days ago entered on: 12/17/19 Sex
[2022-11-05 21:47] LABS: MANUAL DIFF FLAG NO
[2022-11-05 21:51] LABS: Basophils Absolute Auto 0.1 X10*3/uL (0.0-0.2); Basophils Percent Auto 0.5 % (0-2); Eosinophils Absolute Auto 0.6 X10*3/uL (0.0-0.4); Eosinophils Percent Auto 5.4 % (0-4); Hematocrit 43.9 % (37.0-47.0); Hemoglobin 14.5 g/dl (12.0-16.0); Imm Gran Abs Auto 0.04 X10*3/uL (0.00-0.03); Imm Gran Pct Auto 0.4 % (0.0-0.4); Lymphocytes Absolute Auto 1.6 X10*3/uL (1.2-4.9); Lymphocytes Percent Auto 14.3 % (20-40); Mean Corpuscular Hemoglobin 28.5 pg (27.0-33.0); Mean Corpuscular Volume 86.2 fL (80.0-98.0); Mean Platelet Volume 10.3 fL (9.4-12.3); Monocytes Percent Auto 8.5 % (2-11); Neutrophils Percent Auto 70.9 % (45-73); Platelet Count 273 X10*3/uL (160-400); Red Blood Count 5.09 X10*6/uL (4.20-5.50); Red Cell Distribution Width 14.9 % (11.0-16.0); White Blood Count 11.3 X10*3/uL (4.8-10.8)
[2022-11-05 22:00] VITALS: PULSE 111; RESP 18; O2SAT 94
[2022-11-05 22:09] LABS: Alanine Aminotransferase 18 U/L (0-31); Albumin Level 4.2 g/dL (3.5-5.0); Alkaline Phosphatase 68 U/L (39-117); Anion Gap 16 (12-20); Aspartate Amino Transferase 20 U/L (5-31); Bilirubin Total 0.4 mg/dL (0.0-1.0); Blood Urea Nitrogen 16 mg/dL (9-16); Calcium 9.7 mg/dL (8.4-10.2); Carbon Dioxide 27 mmol/L (22-29); Chloride 102 mmol/L (96-108); Creatinine Clr Calc Pharmacy 83.9; Estimated Glomerular Filt Rate > 60; Glucose Random 124 mg/dL (60-115); Potassium 4.8 mmol/L (3.3-5.1); Sodium 140 mmol/L (135-145); Total Protein 7.4 g/dL (6.5-8.0)
--- NOTE | 2022-11-05 22:09 | ED.SOB ---
HPI - SOB/Dyspnea General Chief Complaint: Dyspnea Stated Complaint: asthma Time Seen by Provider: 11/05/22 21:57 Source: patient Mode of arrival: ambulatory Limitations: no limitations History of Present Illness HPI Narrative: 26-year-old female with a history of asthma which is normally triggered by weather presents to the ER with complaints of shortness of breath and wheezing and cough. No fevers, chills, chest pain, leg swelling or leg pain. Related Data Home Medications Medication Instructions Recorded Confirmed triamcinolone acetonide 0.1 % 1 appl topical BID 06/02/20 12/18/20 topical ointment Previous Rx's Medication Instructions Recorded nebulizer and compressor #1 ea 04/28/20 albuterol sulfate 2.5 mg/3 mL 2.5 mg (3 mL) inhalation Q4-6H PRN 05/13/20 (0.083 %) solution for nebulization shortness of breath or wheezing 1 month #75 mL albuterol sulfate 90 mcg/actuation 2 inh inhalation Q4-6H PRN 05/20/20 breath activated powder inhaler shortness of breath or wheezing 1 month #1 ea metoclopramide HCl 10 mg tablet 10 mg PO Q6H PRN nausea and 11/30/20 (Reglan) vomiting #20 tabs ondansetron 8 mg disintegrating 8 mg PO Q8H PRN nausea and 11/30/20 tablet vomiting #90 tabs acetaminophen 500 mg tablet 1,000 mg PO QID PRN fever or pain 12/03/20 (Tylenol Extra Strength) #14 tabs prenat.vits,manda,[id number] 1 tab PO BEDTIME #30 tabs 12/03/20 prednisone 10 mg tablet See Taper PO DAILY #70 tabs 12/20/20 albuterol sulfate 2.5 mg/3 mL 2.5 mg (3 mL) inhalation Q4H PRN 02/25/21 (0.083 %) solution for nebulization shortness of breath or wheezing #75 mL nebulizer and compressor #1 ea 02/25/21 prednisone 20 mg tablet 40 mg PO DAILY #8 tabs 02/25/21 doxycycline monohydrate 100 mg 100 mg PO BID #20 caps 08/07/21 capsule prednisone 20 mg tablet 60 mg PO DAILY #15 tabs 08/07/21 cephalexin 500 mg capsule 500 mg PO Q12H 5 days #10 caps 09/29/21 triamcinolone acetonide 0.1 % 1 appl topical TID PRN rash #80 01/19/22 topical cream grams albuterol sulfate 0.63 mg/3 mL 0.63 mg (3 mL) inhalation QID PRN 05/06/22 solution for nebulization shortness of breath or wheezing #75 mL albuterol sulfate 90 mcg/actuation 1 inh inhalation QID PRN shortness 05/06/22 aerosol inhaler of breath or wheezing #8.5 grams fluconazole 150 mg tablet 150 mg PO Q3D 2 doses #2 tabs 05/06/22 (Diflucan) hydrocortisone 2.5 % topical 1 appl topical QD-TID PRN skin 05/06/22 ointment irritation #454 grams metronidazole 500 mg tablet 500 mg PO BID 7 days #14 tabs 05/06/22 nitrofurantoin 100 mg PO BID 7 days #14 caps 05/06/22 monohydrate/macrocrystals 100 mg capsule (Macrobid) oseltamivir 75 mg capsule (Tamiflu) 75 mg PO BID 5 days #10 caps 05/06/22 prednisone 20 mg tablet 40 mg PO DAILY inflammation 5 days 05/06/22 #10 tabs diphenhydramine HCl 25 mg capsule 50 mg PO TID PRN allergic reaction 05/24/22 (Benadryl) #30 caps erythromycin 5 mg/gram (0.5 %) eye 0.5 inch ophthalmic (eye) TID #3.5 05/24/22 ointment grams prednisone 20 mg tablet 40 mg PO DAILY #10 tabs 05/24/22 amoxicillin 875 mg-potassium 1 tab PO Q12H 5 days #10 tabs 05/26/22 clavulanate 125 mg tablet albuterol sulfate 90 mcg/actuation 2 puff inhalation Q6H PRN 10/03/22 aerosol inhaler shortness of breath or wheezing #8.5 grams cephalexin 500 mg capsule 500 mg PO BID #14 caps 10/17/22 loratadine 10 mg tablet (Claritin) 10 mg PO DAILY #30 tabs 10/17/22 prednisone 20 mg tablet 60 mg PO DAILY #15 tabs 10/17/22 triamcinolone acetonide 0.1 % 1 appl topical BID #80 grams 10/17/22 topical ointment prednisone 20 mg tablet 40 mg PO DAILY #8 tabs 11/06/22 triamcinolone acetonide 0.1 % 1 appl topical BID #80 grams 11/06/22 topical ointment Allergies Allergy/AdvReac Type Severity Reaction Status Date / Time egg [EGG] Allergy Severe ANAPHYLAXIS Verified 10/17/22 19:35 fish derived [FISH] Allergy Severe ANAPHYLAXIS Verified 10/17/22 19:35 peanut [PEANUTS] Allergy Severe ITCHING Verified 10/17/22 19:35 shellfish derived Allergy Severe ANAPHYLAXIS Verified 10/17/22 19:35 [SHELLFISH DERIVED] cat dander Allergy Intermediate Hives Verified 10/17/22 19:35 dog dander Allergy Intermediate Hives Verified 10/17/22 19:35 house dust Allergy Intermediate Hives Verified 10/17/22 19:35 rice [RICE] AdvReac Intermediate CONSTIPATIO Verified 10/17/22 19:35 N Review of Systems Review of Systems: Yes all other systems are reviewed and are negative Constitutional: Constitutional: Reports no additional constitutional complaints, Denies body ache(s), Denies chills, Denies fever(s), Denies headache(s) and Denies weakness Eyes: Eyes: Reports no additional eye complaints and Denies change in vision ENT: Reports system reviewed and no additional complaints, except as documented, Denies dizziness, Denies headache(s), Denies nasal congestion, Denies nasal discharge and Denies neck pain Cardiovascular: Cardiovascular: Reports no additional cardiovascular complaints, Denies chest pain, Denies leg edema and Reports dyspnea Respiratory: Respiratory: Reports no additional respiratory complaints, Reports cough, Reports dyspnea and Reports wheezing Gastrointestinal: Gastrointestinal: Reports no additional gastrointestinal complaints, Denies abdominal pain, Denies diarrhea, Denies nausea and Denies vomiting Genitourinary: Genitourinary: Reports no additional female genitourinary complaints and Denies urinary incontinence Musculoskeletal: Musculoskeletal: Reports no additional musculoskeletal complaints, Denies back pain, Denies arthralgias, Denies joint swelling, Denies neck pain, Denies numbness and Denies tingling Integumentary/Breasts: Skin/Breast: Reports system reviewed and no additional complaints, except as docu and Denies rash Neurologic: Reports system reviewed and no additional complaints, except as documented, Denies Abnormal speech present, Denies dizziness, Denies headache(s), Denies numbness, Denies tingling and Denies weakness Allergic/Immunologic: Allergic/Immunologic: Reports wheezing PMFSH Past Medical History Attestation statement: The following information was validated with the patient. Source: old records reviewed and nursing notes reviewed Medical History Allergy to other foods Anxiety state, unspecified Asthma Bronchitis Dermatitis, unspecified Hyperemesis Major depressive disorder, single episode, unspecified Mild persistent asthma, uncomplicated Surgical History History of section Family History Family History Father Drug abuse Asthma Mother Hypertension Maternal Grandmother Ovarian cancer Social History Social History Household Members: Family Household Members Other:: mom Housing: Apartment Alcohol intake: never Patient Tobacco Use Status: Former Tobacco user Smoked in Last 30 Days: Yes Use of substances other than those prescribed or required for medical reasons: Yes Substance Use Type: Marijuana Substance Use Frequency: Chronic Longstanding Advance Directives: Yes Advance Directives on File: Yes Advance Directives Date on File: 12/21/20 Patient : No service: No Current occupational status: unemployed Gender identity: Female Physical Exam Vital Signs: Vital Signs: Last Vital Signs Temp 98.3 F 11/05/22 21:26 Pulse 98 11/06/22 00:00 Resp 18 11/06/22 00:00 BP 118/84 11/06/22 00:00 Pulse Ox 94 11/06/22 00:00 O2 Del Method Room Air 11/05/22 21:26 BMI result Body Mass Index 19.8 Const: General: cooperative, healthy appearing, comfortable and no acute distress Orientation/consciousness: patient oriented x3 Limitations: no limitations HEENT: Head: Yes normal to inspection Ears: hearing grossly normal bilaterally General nose exam: Normal external nose present Face and sinus: Yes normal facial exam Mouth: Normal oral and palatal mucosa present Throat: Yes posterior oropharynx normal Eyes: General: appearance normal, both eyes and all related structures Pupils: Equal, round and reactive pupils present Neck: Neck: Yes normal visual inspection Chest: Chest palpation & inspection: normal inspection of the chest Resp: Other: Inspiratory and expiratory wheezing throughout Effort & Inspection: normal respiratory effort Cardio: Rate: regular rate Rhythm: regular rhythm Peripheral pulses: Peripheral pulses 2+ throughout GI: Inspection: Yes normal to inspection Palpation (GI): Soft to palpation and nontender Auscultation: normal bowel sounds Back/Spine/Pelvis: Thoracic/Lumbar Spine: thoracic and lumbar spine normal to inspection Skin: General skin exam: no rashes or lesions noted Neuro: General: patient oriented x3, no focal motor deficits and normal sensation to monofilament Cranial nerves: Yes Equal, round and reactive pupils present Cognition (Neuro): normal cognition Speech: No Abnormal speech present Gait exam (Neuro): Normal gait present Motor exam (neuro): 5/5 motor strength present throughout Extrem: General: Yes normal to inspection, Yes no pedal edema and Yes no calf tenderness Course Course Course Narrative: 0000-continued wheezing. Pulse oximeter 92% on room air. Will give additional nebulized Reevaluation(s) Reevaluation #1: 0130-patient's pulse oximeter is 98%. Her lungs are improved. I will discharge her home with prednisone course. She is also complaining of eczema symptoms and she ran out of all of her topical medications. I will give her prescription for triamcinolone. Reviewed worrisome signs and symptoms when to return to the emergency room. Comfortable plan for discharge home Medications Administered Discontinued Medications Generic Name Dose Route Start Last Admin Trade Name Freq PRN Reason Stop Dose Admin Albuterol Sulfate 2 puff 11/06/22 01:04 11/06/22 01:13 Albuterol Sulfate 90 Mcg 8 Gm Inhaler INHALE 11/06/22 01:05 2 puff ONCE ONE Administration Albuterol/Ipratropium 3 ml 11/05/22 23:49 11/05/22 23:57 Albuterol/Iprat 2.5/0.5mg 3 Ml Ampul.Neb INHALE 11/05/22 23:50 3 ml ONCE ONE Administration Magnesium Sulfate 2 gm in 50 mls @ 25 mls/hr 11/05/22 22:00 11/06/22 00:20 Magnesium Sulfate/H2o IV 11/05/22 23:59 Infused ONCE ONE Infusion Methylprednisolone Sodium Succinate 125 mg 11/05/22 22:00 11/05/22 22:16 Methylprednisolone Sod Succ 125 Mg/2 Ml Vial IVPUSH 11/05/22 22:01 125 mg ONCE ONE Administration Medical Decision Making Medical Decision Making [facility] Narrative: 26-year-old female with history of asthma here with asthma symptoms of cough, wheezing, difficulty breathing today. Patient reports asthma is usually triggered by weather. On arrival patient has wheezing throughout Patient is receiving a nebulizer on my assess Will also give 125 mg of Solu-Medrol, magnesium Patient had labs and a chest x-ray ordered from triage. Will review Differential Diagnosis Differential Diagnoses: The differential diagnosis associated with the presentation includes Asthma exacerbation Low concern for PE, PNA Lab Data [facility] Lab Attestation statement: I reviewed the patient's lab results. 11/05/22 21:40 11/05/22 21:40 Labs: Lab Results 11/05/22 11/05/22 11/05/22 Range/Units 21:40 21:40 Unknown WBC 11.3 H (4.8-10.8) X10*3/uL RBC 5.09 (4.20-5.50) X10*6/uL Hgb 14.5 (12.0-16.0) g/dl Hct 43.9 (37.0-47.0) % MCV 86.2 (80.0-98.0) fL MCH 28.5 (27.0-33.0) pg MCHC 33.0 (31.0-35.0) g/dl RDW 14.9 (11.0-16.0) % Plt Count 273 (160-400) X10*3/uL MPV 10.3 (9.4-12.3) fL Immature Gran % (Auto) 0.4 (0.0-0.4) % Neut % (Auto) 70.9 (45-73) % Lymph % (Auto) 14.3 L (20-40) % [place] % (Auto) 8.5 (2-11) % Eos % (Auto) 5.4 H (0-4) % Baso % (Auto) 0.5 (0-2) % Lymph # (Auto) 1.6 (1.2-4.9) X10*3/uL [place] # (Auto) 1.0 (0.1-1.2) X10*3/uL Eos # (Auto) 0.6 H (0.0-0.4) X10*3/uL Baso # (Auto) 0.1 (0.0-0.2) X10*3/uL Abs Immat Gran (auto) 0.04 H (0.00-0.03) X10*3/uL Absolute Neuts (auto) 8.0 (2.0-8.3) x10*3/uL Absolute Nucleated RBC 0.000 (0.0-0.012) X10*3/uL Nucleated RBC % (auto) 0.0 (0.0-0.2) /100WBC Sodium 140 (135-145) mmol/L Potassium 4.8 D (3.3-5.1) mmol/L Chloride 102 (96-108) mmol/L Carbon Dioxide 27 (22-29) mmol/L Anion Gap 16 (12-20) BUN 16 (9-16) mg/dL Creatinine 0.77 (0.5-1.4) mg/dL Estim Creat Clear Calc 83.9 Estimated GFR > 60 Random Glucose 124 H (60-115) mg/dL Calcium 9.7 (8.4-10.2) mg/dL Total Bilirubin 0.4 (0.0-1.0) mg/dL AST 20 (5-31) U/L ALT 18 (0-31) U/L Alkaline Phosphatase 68 (39-117) U/L Total Protein 7.4 (6.5-8.0) g/dL Albumin 4.2 (3.5-5.0) g/dL COVID-19 (RADHA) Negative (Negative) COVID-19 Clin Com See Note Independent Interpretation I performed an independent interpretation of an: Plain X-Ray Radiology Impression Discussion of test interpretation with radiology: I have reviewed the radiologist's reading. Discharge Plan Discharge Clinical Impression: Asthma with exacerbation, Dermatitis, unspecified Patient Disposition: Home, Self-Care Instructions: Asthma (ED), Dermatitis (ED) Prescriptions: New prednisone 20 mg tablet 40 mg PO DAILY Qty: 8 0RF triamcinolone acetonide 0.1 % ointment 1 appl topical BID Qty: 80 0RF No Action albuterol sulfate 2.5 mg /3 mL (0.083 %) solution for nebulization 2.5 mg inhalation Q4-6H PRN (Reason: shortness of breath or wheezing) 30 Days Qty: 75 6RF albuterol sulfate 90 mcg/actuation aerosol powdr breath activated 2 inh inhalation Q4-6H PRN (Reason: shortness of breath or wheezing) 30 Days Qty: 1 0RF ondansetron 8 mg tablet,disintegrating 8 mg PO Q8H PRN (Reason: nausea and vomiting) Qty: 90 1RF triamcinolone acetonide 0.1 % cream 1 appl topical TID PRN (Reason: rash) Qty: 80 0RF albuterol sulfate 90 mcg/actuation HFA aerosol inhaler 2 puff inhalation Q6H PRN (Reason: shortness of breath or wheezing) Qty: 8.5 0RF (DME) nebulizer and compressor Device See Rx Instructions .ROUTE .MEDSUPPLY Qty: 1 0RF Rx Instructions: As directed metoclopramide HCl [Reglan] 10 mg tablet 10 mg PO Q6H PRN (Reason: nausea and vomiting) Qty: 20 0RF acetaminophen [Tylenol Extra Strength] 500 mg tablet 1,000 mg PO QID PRN (Reason: fever or pain) Qty: 14 0RF prenat.vits,manda,[id number] Tablet 1 tab PO BEDTIME Qty: 30 0RF prednisone 10 mg tablet See Taper PO DAILY Qty: 70 0RF Taper: Prednisone 40 mg daily for 7 Days and 0 Hour 30 mg daily for 7 Days and 0 Hour 20 mg daily for 7 Days and 0 Hour 10 mg daily for 7 Days and 0 Hour Rx Instructions: 4 tabs for 7 days, then reduce by 1 tab every 7 days until done (DME) nebulizer and compressor Device See Rx Instructions .Route Qty: 1 0RF Rx Instructions: As directed prednisone 20 mg tablet 40 mg PO DAILY Qty: 8 0RF albuterol sulfate 2.5 mg /3 mL (0.083 %) solution for nebulization 2.5 mg inhalation Q4H PRN (Reason: shortness of breath or wheezing) Qty: 75 0RF prednisone 20 mg tablet 60 mg PO DAILY Qty: 15 0RF doxycycline monohydrate 100 mg capsule 100 mg PO BID Qty: 20 0RF cephalexin 500 mg capsule 500 mg PO Q12H 5 Days Qty: 10 0RF oseltamivir [Tamiflu] 75 mg capsule 75 mg PO BID 5 Days Qty: 10 0RF prednisone 20 mg tablet 40 mg PO DAILY 5 Days Qty: 10 0RF albuterol sulfate 0.63 mg/3 mL solution for nebulization 0.63 mg inhalation QID PRN (Reason: shortness of breath or wheezing) Qty: 75 0RF albuterol sulfate 90 mcg/actuation HFA aerosol inhaler 1 inh inhalation QID PRN (Reason: shortness of breath or wheezing) Qty: 8.5 0RF metronidazole 500 mg tablet 500 mg PO BID 7 Days Qty: 14 0RF fluconazole [Diflucan] 150 mg tablet 150 mg PO Q3D 0 Days Qty: 2 0RF Rx Instructions: may repeat second dose 72 hrs after first dose if symptoms persist hydrocortisone 2.5 % ointment 1 appl topical QD-TID PRN (Reason: skin irritation) Qty: 454 3RF nitrofurantoin monohyd/m-cryst [Macrobid] 100 mg capsule 100 mg PO BID 7 Days Qty: 14 0RF Rx Instructions: must administer with a meal/food erythromycin 5 mg/gram (0.5 %) ointment 0.5 inch ophthalmic (eye) TID Qty: 3.5 0RF prednisone 20 mg tablet 40 mg PO DAILY Qty: 10 0RF diphenhydramine HCl [Benadryl] 25 mg capsule 50 mg PO TID PRN (Reason: allergic reaction) Qty: 30 0RF amoxicillin-pot clavulanate 875-125 mg tablet 1 tab PO Q12H 5 Days Qty: 10 0RF prednisone 20 mg tablet 60 mg PO DAILY Qty: 15 0RF triamcinolone acetonide 0.1 % ointment 1 appl topical BID Qty: 80 0RF loratadine [Claritin] 10 mg tablet 10 mg PO DAILY Qty: 30 0RF cephalexin 500 mg capsule 500 mg PO BID Qty: 14 0RF triamcinolone acetonide 0.1 % ointment 1 appl topical BID Referrals: Physician,Unknown J [Primary Care Provider] - 1 week Interventions: ED Discharge Assessment Last Done: 11/06/22 01:17 Discharge Date/Time: 11/06/22 01:17
[2022-11-05] MEDS: Magnesium Sulfate/H2O 2 GM/50 ML PIGGYBACK IV (22:16)
[2022-11-05] MEDS: methylPREDNISolone Sod Succ 125 MG/2 ML VIAL IVPUSH (22:16)
[2022-11-05 22:24] LABS: COVID-19 Test Negative (Negative); IDNOW Serial# BCCEAD1C
[2022-11-05 23:57] VITALS: PULSE 108; RESP 16; O2SAT 93
[2022-11-05] MEDS: Albuterol/Iprat 2.5/0.5MG 3 ML AMPUL.NEB INHALE (23:57)
[2022-11-06] VITALS: BP 118/84; PULSE 98; RESP 18; O2SAT 94
[2022-11-06] MEDS: Albuterol Sulfate 90 MCG 8 GM INHALER 2 PUFF INHALE (01:13)
== END 2022-11-06 01:17 | disposition home or self-care (01) ==
PROVIDERS: Emergency Provider Emergency Medicine
DX: J45.901 Unspecified asthma with (acute) exacerbation (principal); L30.9 Dermatitis, unspecified; R06.02 Shortness of breath; Z20.822 Contact with and (suspected) exposure to COVID-19; Z79.899 Other long term (current) drug therapy
CPT/HCPCS: 36415; 71045; 80053; 85025; 87635; 93005; 94640; 96365; 96366; 96375; 99284; 99285; J2930; J3475

== ENCOUNTER 2022-11-13 00:32 | Emergency (ER) | payer OTHER, SELFPAY ==
--- NOTE | ~2022-11-13 | XR_ITS ---
EXAMINATION: XR CHEST CLINICAL INFORMATION: Shortness of breath COMPARISON: 11/05/2022 TECHNIQUE: 2 views of the chest were obtained. FINDINGS: Normal symmetric lung volumes. No parenchymal consolidation. No pleural effusion. No pneumothorax. Cardiomediastinal silhouette and pulmonary vascularity are within normal limits. No acute osseous abnormalities. XR/XR chest 2V IMPRESSION: Clear lungs
[2022-11-13 00:33] VITALS: BP 110/70; PULSE 51; RESP 18; TEMP 36.6; O2SAT 93; BMI 18.8
--- NOTE | 2022-11-13 03:25 | ED_ITS ---
HPI - Asthma General Chief Complaint: Asthma Stated Complaint: chronic asthma Time Seen by Provider: 11/13/22 03:25 Source: patient Mode of arrival: ambulatory Limitations: no limitations History of Present Illness HPI Narrative: 26-year-old female with history of asthma who presents emergency department for evaluation of shortness of breath and wheezing. Patient states that she was having difficulty breathing all day yesterday was using her albuterol inhaler frequently with only minimal improve her symptoms. She states she ran out of her inhaler and became more short of breath so she came to emergency department for evaluation. She denied fever, chills, rhinorrhea, sore throat. She states she has had a cough which is nonproductive. She states that she has chest pain with coughing and with deep breathing. Related Data Home Medications Medication Instructions Recorded Confirmed triamcinolone acetonide 0.1 % 1 appl topical BID 06/02/20 12/18/20 topical ointment Previous Rx's Medication Instructions Recorded nebulizer and compressor #1 ea 04/28/20 albuterol sulfate 2.5 mg/3 mL 2.5 mg (3 mL) inhalation Q4-6H PRN 05/13/20 (0.083 %) solution for nebulization shortness of breath or wheezing 1 month #75 mL albuterol sulfate 90 mcg/actuation 2 inh inhalation Q4-6H PRN 05/20/20 breath activated powder inhaler shortness of breath or wheezing 1 month #1 ea metoclopramide HCl 10 mg tablet 10 mg PO Q6H PRN nausea and 11/30/20 (Reglan) vomiting #20 tabs ondansetron 8 mg disintegrating 8 mg PO Q8H PRN nausea and 11/30/20 tablet vomiting #90 tabs acetaminophen 500 mg tablet 1,000 mg PO QID PRN fever or pain 12/03/20 (Tylenol Extra Strength) #14 tabs prenat.vits,manda,yhl-kefj-txnzb 1 tab PO BEDTIME #30 tabs 12/03/20 prednisone 10 mg tablet See Taper PO DAILY #70 tabs 12/20/20 albuterol sulfate 2.5 mg/3 mL 2.5 mg (3 mL) inhalation Q4H PRN 02/25/21 (0.083 %) solution for nebulization shortness of breath or wheezing #75 mL nebulizer and compressor #1 ea 02/25/21 prednisone 20 mg tablet 40 mg PO DAILY #8 tabs 02/25/21 doxycycline monohydrate 100 mg 100 mg PO BID #20 caps 08/07/21 capsule prednisone 20 mg tablet 60 mg PO DAILY #15 tabs 08/07/21 cephalexin 500 mg capsule 500 mg PO Q12H 5 days #10 caps 09/29/21 triamcinolone acetonide 0.1 % 1 appl topical TID PRN rash #80 01/19/22 topical cream grams albuterol sulfate 0.63 mg/3 mL 0.63 mg (3 mL) inhalation QID PRN 05/06/22 solution for nebulization shortness of breath or wheezing #75 mL albuterol sulfate 90 mcg/actuation 1 inh inhalation QID PRN shortness 05/06/22 aerosol inhaler of breath or wheezing #8.5 grams fluconazole 150 mg tablet 150 mg PO Q3D 2 doses #2 tabs 05/06/22 (Diflucan) hydrocortisone 2.5 % topical 1 appl topical QD-TID PRN skin 05/06/22 ointment irritation #454 grams metronidazole 500 mg tablet 500 mg PO BID 7 days #14 tabs 05/06/22 nitrofurantoin 100 mg PO BID 7 days #14 caps 05/06/22 monohydrate/macrocrystals 100 mg capsule (Macrobid) oseltamivir 75 mg capsule (Tamiflu) 75 mg PO BID 5 days #10 caps 05/06/22 prednisone 20 mg tablet 40 mg PO DAILY inflammation 5 days 05/06/22 #10 tabs diphenhydramine HCl 25 mg capsule 50 mg PO TID PRN allergic reaction 05/24/22 (Benadryl) #30 caps erythromycin 5 mg/gram (0.5 %) eye 0.5 inch ophthalmic (eye) TID #3.5 05/24/22 ointment grams prednisone 20 mg tablet 40 mg PO DAILY #10 tabs 05/24/22 amoxicillin 875 mg-potassium 1 tab PO Q12H 5 days #10 tabs 05/26/22 clavulanate 125 mg tablet albuterol sulfate 90 mcg/actuation 2 puff inhalation Q6H PRN 10/03/22 aerosol inhaler shortness of breath or wheezing #8.5 grams cephalexin 500 mg capsule 500 mg PO BID #14 caps 10/17/22 loratadine 10 mg tablet (Claritin) 10 mg PO DAILY #30 tabs 10/17/22 prednisone 20 mg tablet 60 mg PO DAILY #15 tabs 10/17/22 triamcinolone acetonide 0.1 % 1 appl topical BID #80 grams 10/17/22 topical ointment prednisone 20 mg tablet 40 mg PO DAILY #8 tabs 11/06/22 triamcinolone acetonide 0.1 % 1 appl topical BID #80 grams 11/06/22 topical ointment albuterol sulfate 90 mcg/actuation 2 puff inhalation Q4-6H PRN 11/13/22 aerosol inhaler shortness of breath or wheezing #8.5 grams prednisone 20 mg tablet 60 mg PO DAILY 5 days #15 tabs 11/13/22 Allergies Allergy/AdvReac Type Severity Reaction Status Date / Time egg [EGG] Allergy Severe ANAPHYLAXIS Verified 10/17/22 19:35 fish derived [FISH] Allergy Severe ANAPHYLAXIS Verified 10/17/22 19:35 peanut [PEANUTS] Allergy Severe ITCHING Verified 10/17/22 19:35 shellfish derived Allergy Severe ANAPHYLAXIS Verified 10/17/22 19:35 [SHELLFISH DERIVED] cat dander Allergy Intermediate Hives Verified 10/17/22 19:35 dog dander Allergy Intermediate Hives Verified 10/17/22 19:35 house dust Allergy Intermediate Hives Verified 10/17/22 19:35 rice [RICE] AdvReac Intermediate CONSTIPATIO Verified 10/17/22 19:35 N Review of Systems Review of Systems: Yes all other systems are reviewed and are negative [facility] Past Medical History [facility] Narrative: Social history: She does smoke cigarettes. She denies alcohol and drug use. Medical History Allergy to other foods Anxiety state, unspecified Asthma Bronchitis Dermatitis, unspecified Hyperemesis Major depressive disorder, single episode, unspecified Mild persistent asthma, uncomplicated Surgical History History of section Family History Family History Father Drug abuse Asthma Mother Hypertension Maternal Grandmother Ovarian cancer Social History Social History Household Members: Family Household Members Other:: mom Housing: Apartment Alcohol intake: never Patient Tobacco Use Status: Former Tobacco user Smoked in Last 30 Days: Yes Use of substances other than those prescribed or required for medical reasons: Yes Substance Use Type: Marijuana Advance Directives: Yes Advance Directives on File: Yes Advance Directives Date on File: 12/21/20 Patient : No service: No Current occupational status: unemployed Gender identity: Female Physical Exam Vital Signs: Vital Signs: Last Vital Signs Temp 97.8 F 11/13/22 00:33 Pulse 68 11/13/22 04:01 Resp 16 11/13/22 04:01 BP 116/75 11/13/22 04:00 Pulse Ox 95 11/13/22 04:00 O2 Del Method Nasal Cannula 11/13/22 04:00 O2 Flow Rate 2 11/13/22 04:00 BMI result Body Mass Index 18.8 Const: General: cooperative and no acute distress Orientation/consciousness: oriented to person and oriented to place Limitations: no limitations HEENT: Head: Yes normal to inspection, Yes normocephalic and Yes atraumatic Ears: external ears normal General nose exam: Normal external nose present Face and sinus: Yes normal facial exam Mouth: Normal oral and palatal mucosa present Throat: Yes posterior oropharynx normal Eyes: General: appearance normal, both eyes and all related structures Pupils: Equal, round and reactive pupils present Neck: Neck: Yes normal visual inspection, Yes no lymphadenopathy, Yes trachea midline and Yes supple Chest: Chest palpation & inspection: normal inspection of the chest and normal palpation of entire chest wall Resp: Other: Breath sounds symmetric bilaterally, diffuse wheezing, no rhonchi or rales Cardio: Rate: regular rate Rhythm: regular rhythm Heart sounds: S1 normal heart sound present, S2 normal heart sound present and no murmurs GI: Inspection: Yes normal to inspection Palpation (GI): Soft to palpation, nontender and no guarding Auscultation: normal bowel sounds : General: Yes no CVA tenderness Back/Spine/Pelvis: Back: no CVA tenderness Skin: General skin exam: no rashes or lesions noted Neuro: General: oriented to person and oriented to place Cranial nerves: Yes CN's II-XII intact bilaterally and Yes Equal, round and reactive pupils present Cognition (Neuro): normal cognition Motor exam (neuro): 5/5 motor strength present throughout Extrem: General: Yes normal to inspection Psych: Appearance: grossly normal Speech and movement: Normal speech and movement present Affect: normal affect Medications Administered Discontinued Medications Generic Name Dose Route Start Last Admin Trade Name Maria Luz PRN Reason Stop Dose Admin Albuterol Sulfate 5 mg 11/13/22 03:31 11/13/22 03:59 Albuterol Sulfate (0.083%) 2.5 Mg/3 Ml Vial.Neb INHALE 11/13/22 03:32 5 mg ONCE ONE Administration Prednisone 60 mg 11/13/22 03:31 11/13/22 03:53 Prednisone 20 Mg Tablet PO 11/13/22 03:32 60 mg ONCE ONE Administration Medical Decision Making Medical Decision Making MDM Narrative: 26-year-old female with history of asthma who presents emergency department for evaluation of asthma exacerbation x2 days. Patient's lung exam did revealed diffuse wheezing with no rales or rhonchi. Patient was given albuterol nebulized with improvement of her symptoms. She was also given prednisone 60 mg orally. Chest x-ray revealed no acute disease. Differential Diagnosis Differential Diagnoses: The differential diagnosis associated with the presentation includes Differential diagnosis includes was not limited to acute bronchitis, pneumonia, asthma exacerbation Admission/Observation Consideration of admission/observation: Escalation of care including admission/observation considered Independent Interpretation I performed an independent interpretation of an: Plain X-Ray Interpretation: My independent interpretation of patient's laboratory evaluation is no acute disease Radiology Impression Radiologist Impression: XR chest 2V IMPRESSION: Clear lungs Dictated By:Marcus Garcia MD Discharge Plan Discharge Clinical Impression: Asthma exacerbation Qualifiers: Asthma severity: moderate Asthma persistence: unspecified Qualified Code(s): J45.901 - Unspecified asthma with (acute) exacerbation Patient Disposition: Home, Self-Care Instructions: Asthma (ED) Additional Instructions: Your chest x-ray was unremarkable Your symptoms are consistent with an asthma attack/exacerbation Take prednisone 20 mg pills, 3 pills once a day for 5 days. While you are taking prednisone, do not take any NSAIDs (Motrin, Advil, ibuprofen, Aleve, naproxen). Use the albuterol inhaler with the spacer, 2 puffs every 4-6 hours as needed for shortness of breath and wheezing. Follow-up with your doctor in 2 days. Please return to the emergency department if your symptoms get worse or if you develop any symptoms that are concerning to you. Prescriptions: New prednisone 20 mg tablet 60 mg PO DAILY 5 Days Qty: 15 0RF albuterol sulfate 90 mcg/actuation HFA aerosol inhaler 2 puff inhalation Q4-6H PRN (Reason: shortness of breath or wheezing) Qty: 8. 5 0RF No Action albuterol sulfate 2.5 mg /3 mL (0.083 %) solution for nebulization 2.5 mg inhalation Q4-6H PRN (Reason: shortness of breath or wheezing) 30 Days Qty: 75 6RF albuterol sulfate 90 mcg/actuation aerosol powdr breath activated 2 inh inhalation Q4-6H PRN (Reason: shortness of breath or wheezing) 30 Days Qty: 1 0RF ondansetron 8 mg tablet,disintegrating 8 mg PO Q8H PRN (Reason: nausea and vomiting) Qty: 90 1RF triamcinolone acetonide 0.1 % cream 1 appl topical TID PRN (Reason: rash) Qty: 80 0RF albuterol sulfate 90 mcg/actuation HFA aerosol inhaler 2 puff inhalation Q6H PRN (Reason: shortness of breath or wheezing) Qty: 8.5 0RF (DME) nebulizer and compressor Device See Rx Instructions .ROUTE .MEDSUPPLY Qty: 1 0RF Rx Instructions: As directed metoclopramide HCl [Reglan] 10 mg tablet 10 mg PO Q6H PRN (Reason: nausea and vomiting) Qty: 20 0RF acetaminophen [Tylenol Extra Strength] 500 mg tablet 1,000 mg PO QID PRN (Reason: fever or pain) Qty: 14 0RF prenat.vits,manda,jou-qcdw-ipats Tablet 1 tab PO BEDTIME Qty: 30 0RF prednisone 10 mg tablet See Taper PO DAILY Qty: 70 0RF Taper: Prednisone 40 mg daily for 7 Days and 0 Hour 30 mg daily for 7 Days and 0 Hour 20 mg daily for 7 Days and 0 Hour 10 mg daily for 7 Days and 0 Hour Rx Instructions: 4 tabs for 7 days, then reduce by 1 tab every 7 days until done (DME) nebulizer and compressor Device See Rx Instructions .Route Qty: 1 0RF Rx Instructions: As directed prednisone 20 mg tablet 40 mg PO DAILY Qty: 8 0RF albuterol sulfate 2.5 mg /3 mL (0.083 %) solution for nebulization 2.5 mg inhalation Q4H PRN (Reason: shortness of breath or wheezing) Qty: 75 0RF prednisone 20 mg tablet 60 mg PO DAILY Qty: 15 0RF doxycycline monohydrate 100 mg capsule 100 mg PO BID Qty: 20 0RF cephalexin 500 mg capsule 500 mg PO Q12H 5 Days Qty: 10 0RF oseltamivir [Tamiflu] 75 mg capsule 75 mg PO BID 5 Days Qty: 10 0RF prednisone 20 mg tablet 40 mg PO DAILY 5 Days Qty: 10 0RF albuterol sulfate 0.63 mg/3 mL solution for nebulization 0.63 mg inhalation QID PRN (Reason: shortness of breath or wheezing) Qty: 75 0RF albuterol sulfate 90 mcg/actuation HFA aerosol inhaler 1 inh inhalation QID PRN (Reason: shortness of breath or wheezing) Qty: 8.5 0RF metronidazole 500 mg tablet 500 mg PO BID 7 Days Qty: 14 0RF fluconazole [Diflucan] 150 mg tablet 150 mg PO Q3D 0 Days Qty: 2 0RF Rx Instructions: may repeat second dose 72 hrs after first dose if symptoms persist hydrocortisone 2.5 % ointment 1 appl topical QD-TID PRN (Reason: skin irritation) Qty: 454 3RF nitrofurantoin monohyd/m-cryst [Macrobid] 100 mg capsule 100 mg PO BID 7 Days Qty: 14 0RF Rx Instructions: must administer with a meal/food erythromycin 5 mg/gram (0.5 %) ointment 0.5 inch ophthalmic (eye) TID Qty: 3.5 0RF prednisone 20 mg tablet 40 mg PO DAILY Qty: 10 0RF diphenhydramine HCl [Benadryl] 25 mg capsule 50 mg PO TID PRN (Reason: allergic reaction) Qty: 30 0RF amoxicillin-pot clavulanate 875-125 mg tablet 1 tab PO Q12H 5 Days Qty: 10 0RF prednisone 20 mg tablet 60 mg PO DAILY Qty: 15 0RF triamcinolone acetonide 0.1 % ointment 1 appl topical BID Qty: 80 0RF loratadine [Claritin] 10 mg tablet 10 mg PO DAILY Qty: 30 0RF cephalexin 500 mg capsule 500 mg PO BID Qty: 14 0RF prednisone 20 mg tablet 40 mg PO DAILY Qty: 8 0RF triamcinolone acetonide 0.1 % ointment 1 appl topical BID Qty: 80 0RF triamcinolone acetonide 0.1 % ointment 1 appl topical BID Interventions: ED Discharge Assessment Last Done: 11/13/22 05:30
[2022-11-13 03:31] VITALS: BP 117/87; PULSE 81; RESP 21; O2SAT 93
--- NOTE | 2022-11-13 03:36 | PC.NURSE ---
aox4 auditory wheezing pt c/o increased sob on ambulation pulse oximeter continuous will continue to monitor
--- NOTE | 2022-11-13 03:38 | PC.NURSE ---
O2 supplementation 2L NC placed d/t 93% on RA w/ O2 @95%
[2022-11-13] MEDS: predniSONE 20 MG TABLET 60 MG PO (03:53)
[2022-11-13] MEDS: Albuterol Sulfate (0.083%) 2.5 MG/3 ML VIAL.NEB 5 MG INHALE (03:59)
[2022-11-13 04:00] VITALS: BP 116/75; PULSE 79; RESP 17; O2SAT 95
[2022-11-13 04:01] VITALS: PULSE 68; RESP 16; O2SAT 97
--- NOTE | 2022-11-13 04:05 | PC.NURSE ---
pt currently receiving breathing treatment with RT
--- NOTE | 2022-11-13 05:28 | PC.NURSE ---
pt aox4 no respiratory distress, able to speak in full sentences O2Sat has improved- remains at O2Sat of 95% RA
--- NOTE | 2022-11-13 05:30 | PC.NURSE ---
Discharge instructions given and explained No respiratory distress, able to speak in full sentences w/o difficulty Ambulates safely and independently aox4
[2022-11-13] MEDS: Albuterol Sulfate 90 MCG 8 GM INHALER 2 PUFF INHALE (05:33)
== END 2022-11-13 05:38 | disposition home or self-care (01) ==
PROVIDERS: Emergency Provider Emergency Medicine Emergency Medical Services
DX: J45.901 Unspecified asthma with (acute) exacerbation (principal); F12.90 Cannabis use, unspecified, uncomplicated; Z87.891 Personal history of nicotine dependence; Z79.899 Other long term (current) drug therapy
CPT/HCPCS: 71046; 94640; 99284; 99285

== ENCOUNTER 2022-11-25 10:52 | Emergency (ER) | payer OTHER, SELFPAY ==
[2022-11-25 10:55] VITALS: BP 100/65; PULSE 110; RESP 20; TEMP 36.6; O2SAT 97; BMI 19.0
--- NOTE | 2022-11-25 11:03 | ED_ITS ---
HPI - General Adult General Chief complaint: Skin/Abscess/Foreign Body Stated complaint: Eczema on Face Time Seen by Provider: 11/25/22 11:03 Source: patient Mode of arrival: ambulatory Limitations: no limitations History of Present Illness HPI narrative: Patient is a 26 year old assigned female at with a history of asthma and eczema presenting to the emergency department today with an eczema flare, concern for skin infection, an asthma exacerbation, and concern for BV. Patient states that over the last few weeks she has developed wheezing, an eczema flare of the face, concern for infection of the eczema flare of the face, and increased vaginal discharge consistent with BV she has had in the past. Patient denies any dizziness, lightheadedness, abdominal pain, nausea, vomiting, fever, chills, blurry vision, double vision, loss of vision, chest pain, difficulty breathing, shortness of breath, back pain, night sweats, pain with urination, increased urinary frequency, increased urinary urgency, blood in her urine or stool, syncope or a near syncopal episode, recent trauma or falls, bowel incontinence, bladder incontinence, bowel retention, bladder retention, or any other complaints at this time. Onset (ago): week(s) Severity: mild Severity scale (1-10): 2 Relieving factors: none Exacerbating factors: none Associated symptoms: denies other symptoms Treatments prior to arrival: none Related Data Home Medications Medication Instructions Recorded Confirmed triamcinolone acetonide 0.1 % 1 appl topical BID 06/02/20 12/18/20 topical ointment Previous Rx's Medication Instructions Recorded nebulizer and compressor #1 ea 04/28/20 albuterol sulfate 2.5 mg/3 mL 2.5 mg (3 mL) inhalation Q4-6H PRN 05/13/20 (0.083 %) solution for nebulization shortness of breath or wheezing 1 month #75 mL albuterol sulfate 90 mcg/actuation 2 inh inhalation Q4-6H PRN 05/20/20 breath activated powder inhaler shortness of breath or wheezing 1 month #1 ea metoclopramide HCl 10 mg tablet 10 mg PO Q6H PRN nausea and 11/30/20 (Reglan) vomiting #20 tabs ondansetron 8 mg disintegrating 8 mg PO Q8H PRN nausea and 11/30/20 tablet vomiting #90 tabs acetaminophen 500 mg tablet 1,000 mg PO QID PRN fever or pain 12/03/20 (Tylenol Extra Strength) #14 tabs prenat.vits,manda,[id number]-[id number]-[id number] 1 tab PO BEDTIME #30 tabs 12/03/20 prednisone 10 mg tablet See Taper PO DAILY #70 tabs 12/20/20 albuterol sulfate 2.5 mg/3 mL 2.5 mg (3 mL) inhalation Q4H PRN 02/25/21 (0.083 %) solution for nebulization shortness of breath or wheezing #75 mL nebulizer and compressor #1 ea 02/25/21 prednisone 20 mg tablet 40 mg PO DAILY #8 tabs 02/25/21 doxycycline monohydrate 100 mg 100 mg PO BID #20 caps 08/07/21 capsule prednisone 20 mg tablet 60 mg PO DAILY #15 tabs 08/07/21 cephalexin 500 mg capsule 500 mg PO Q12H 5 days #10 caps 09/29/21 triamcinolone acetonide 0.1 % 1 appl topical TID PRN rash #80 01/19/22 topical cream grams albuterol sulfate 0.63 mg/3 mL 0.63 mg (3 mL) inhalation QID PRN 05/06/22 solution for nebulization shortness of breath or wheezing #75 mL albuterol sulfate 90 mcg/actuation 1 inh inhalation QID PRN shortness 05/06/22 aerosol inhaler of breath or wheezing #8.5 grams fluconazole 150 mg tablet 150 mg PO Q3D 2 doses #2 tabs 05/06/22 (Diflucan) hydrocortisone 2.5 % topical 1 appl topical QD-TID PRN skin 05/06/22 ointment irritation #454 grams metronidazole 500 mg tablet 500 mg PO BID 7 days #14 tabs 05/06/22 nitrofurantoin 100 mg PO BID 7 days #14 caps 05/06/22 monohydrate/macrocrystals 100 mg capsule (Macrobid) oseltamivir 75 mg capsule (Tamiflu) 75 mg PO BID 5 days #10 caps 05/06/22 prednisone 20 mg tablet 40 mg PO DAILY inflammation 5 days 05/06/22 #10 tabs diphenhydramine HCl 25 mg capsule 50 mg PO TID PRN allergic reaction 05/24/22 (Benadryl) #30 caps erythromycin 5 mg/gram (0.5 %) eye 0.5 inch ophthalmic (eye) TID #3.5 05/24/22 ointment grams prednisone 20 mg tablet 40 mg PO DAILY #10 tabs 05/24/22 amoxicillin 875 mg-potassium 1 tab PO Q12H 5 days #10 tabs 05/26/22 clavulanate 125 mg tablet albuterol sulfate 90 mcg/actuation 2 puff inhalation Q6H PRN 10/03/22 aerosol inhaler shortness of breath or wheezing #8.5 grams cephalexin 500 mg capsule 500 mg PO BID #14 caps 10/17/22 loratadine 10 mg tablet (Claritin) 10 mg PO DAILY #30 tabs 10/17/22 prednisone 20 mg tablet 60 mg PO DAILY #15 tabs 10/17/22 triamcinolone acetonide 0.1 % 1 appl topical BID #80 grams 10/17/22 topical ointment prednisone 20 mg tablet 40 mg PO DAILY #8 tabs 11/06/22 triamcinolone acetonide 0.1 % 1 appl topical BID #80 grams 11/06/22 topical ointment albuterol sulfate 90 mcg/actuation 2 puff inhalation Q4-6H PRN 11/13/22 aerosol inhaler shortness of breath or wheezing #8.5 grams prednisone 20 mg tablet 60 mg PO DAILY 5 days #15 tabs 11/13/22 albuterol sulfate 90 mcg/actuation 1 inh inhalation QID PRN shortness 11/25/22 aerosol inhaler of breath or wheezing #8.5 grams cephalexin 500 mg capsule 500 mg PO Q6H 7 days #28 caps 11/25/22 metronidazole 500 mg tablet 500 mg PO BID 7 days #14 tabs 11/25/22 prednisone 20 mg tablet 20 mg PO DAILY 7 days #7 tabs 11/25/22 triamcinolone acetonide 0.5 % 1 appl topical DAILY #15 grams 11/25/22 topical cream Allergies Allergy/AdvReac Type Severity Reaction Status Date / Time egg [EGG] Allergy Severe ANAPHYLAXIS Verified 10/17/22 19:35 fish derived [FISH] Allergy Severe ANAPHYLAXIS Verified 10/17/22 19:35 peanut [PEANUTS] Allergy Severe ITCHING Verified 10/17/22 19:35 shellfish derived Allergy Severe ANAPHYLAXIS Verified 10/17/22 19:35 [SHELLFISH DERIVED] cat dander Allergy Intermediate Hives Verified 10/17/22 19:35 dog dander Allergy Intermediate Hives Verified 10/17/22 19:35 house dust Allergy Intermediate Hives Verified 10/17/22 19:35 rice [RICE] AdvReac Intermediate CONSTIPATIO Verified 10/17/22 19:35 N Review of Systems Constitutional: Constitutional: Reports no additional constitutional complaints, Denies chills, Denies fever(s) and Denies night sweats Eyes: Eyes: Reports no additional eye complaints, Denies blurry vision, Denies change in vision, Denies diplopia, Denies eye discharge, Denies loss of vision and Denies eye pain ENT: Denies dizziness Comments: eczema flare of the face Cardiovascular: Cardiovascular: Reports no additional cardiovascular complaints, Denies chest pain, Denies lightheadedness, Denies Loss of Consciousness and Denies dyspnea Respiratory: Respiratory: Reports no additional respiratory complaints, Denies dyspnea and Reports wheezing Gastrointestinal: Gastrointestinal: Reports no additional gastrointestinal complaints, Denies abdominal pain, Denies melena, Denies hematochezia, Denies change in bowel habits and Denies change in stool character Genitourinary: Genitourinary: Denies hematuria, Denies urinary frequency, Denies dysuria, Denies urinary incontinence, Denies urinary hesitancy and Denies urinary urgency Comments: vaginal discharge Musculoskeletal: Musculoskeletal: Reports no additional musculoskeletal complaints, Denies numbness and Denies tingling Neurologic: Denies dizziness, Denies loss of vision, Denies numbness and Denies tingling Psychiatric: Psychiatric: Reports no additional psychiatric complaints Endocrine: Endocrine: Reports no additional endocrine complaints Hematologic/Lymphatic: Hematologic/Lymphatic: Reports no additional hematologic/lymphatic complaints Allergic/Immunologic: Allergic/Immunologic: Reports no additional allergic/immunologic complaints and Reports wheezing PMFSH Past Medical History Attestation statement: The following information was validated with the patient. Source: old records reviewed and nursing notes reviewed Medical History Allergy to other foods Anxiety state, unspecified Asthma Bronchitis Dermatitis, unspecified Hyperemesis Major depressive disorder, single episode, unspecified Mild persistent asthma, uncomplicated Surgical History History of section Family History Family History Father Drug abuse Asthma Mother Hypertension Maternal Grandmother Ovarian cancer Social History Social History Household Members: Family Household Members Other:: mom Housing: Apartment Alcohol intake: never Patient Tobacco Use Status: Former Tobacco user Substance Use Type: Marijuana Advance Directives: Yes Advance Directives on File: Yes Advance Directives Date on File: 12/21/20 service: No Current occupational status: unemployed Gender identity: Female Physical Exam ED Vital Signs: Vital Signs - 24 hr 11/25/22 10:55 11/25/22 11:46 Temperature 97.9 F Pulse Rate 110 H 96 Respiratory Rate 20 16 Blood Pressure 100/65 107/57 L Pulse Oximetry 97 97 Oxygen Delivery Method Room Air Room Air BMI result Body Mass Index 19.0 Const General: cooperative, no acute distress, alert and awake Nutritional Appearance: well nourished Orientation/consciousness: patient oriented x3 Limitations: no limitations HENMT Head: Yes normal to inspection and Yes atraumatic Ears: hearing grossly normal bilaterally and external ears normal General nose exam: Normal external nose present, no nasal discharge noted and no epistaxis Face and sinus: No abrasion, No laceration and Yes other (minimal dry skin present to the bilateral eye brows) Mouth: Normal oral and palatal mucosa present, no drooling and no muffled voice Eyes General: appearance normal, both eyes and all related structures Periorbital: periorbital findings normal Eyelids: Yes eyelids normal Conjunctivae: conjunctivae normal Pupils: Equal, round and reactive pupils present EOM: EOMs intact bilaterally Neck Neck: Yes normal visual inspection, Yes full ROM and Yes no lymphadenopathy Chest Chest palpation & inspection: normal inspection of the chest Resp Effort & Inspection: normal respiratory effort and able to speak in complete sentences Auscultation: wheezes throughout GI Inspection: Yes normal to inspection Neuro General: patient oriented x3 and moves all extremities Cranial nerves: Yes Equal, round and reactive pupils present Cognition (Neuro): normal cognition Motor exam (neuro): 5/5 motor strength present throughout Sensory Exam: Normal double simultaneous stimulation for sensation Coordination: [id number] test normal Extrem General: Yes normal to inspection, Yes full ROM and Yes capillary refill normal Psych Appearance: grossly normal Mental Status: mental status grossly normal Affect: normal affect Attitude: cooperative Thought process: Normal thought process present Thought content: Normal thought content present Insight: Good insight present (Psych) Medical Decision Making Medical Decision Making MDM Narrative: Patient is a 26 year old assigned female at with a history of asthma and eczema presenting to the emergency department today with an asthma exacerbation, eczema flare, and possible BV. Patient's physical exam was as noted in the physical exam portion of this chart. I explained my physical exam findings to the patient. I answered all questions asked by the patient. I stressed the impor tance of the patient taking her medication as prescribed. I stressed the importance of the patient following up with her primary care provider and a machine stone polisher apprentice. I stressed the importance of the patient returning to the emergency department immediately if her symptoms were to worsen or if she were to develop any dizziness, shortness of breath, difficulty breathing, chest pain, blurry vision, loss of vision, nausea, vomiting, abdominal pain, fever, chills, back pain, or any other complaints. Patient verbalized agreement and understanding with this treatment plan and discharge. Differential Diagnosis Differential Diagnoses: The differential diagnosis associated with the presentation includes BV Eczema Cellulitis Asthma exacerbation Prescription Management I considered prescription management with: Antibiotic (patient prescribed antibiotic) Discharge Plan Discharge Clinical Impression: Eczema, Cellulitis, Asthma Patient Disposition: Home, Self-Care Instructions: Asthma (DC), Cellulitis (DC), Dermatitis (ED) Additional Instructions: Follow up with your primary care provider and a machine stone polisher apprentice. Return to the emergency department immediately if your symptoms worsen or if you develop any dizziness, shortness of breath, difficulty breathing, chest pain, blurry vision, loss of vision, nausea, vomiting, abdominal pain, fever, chills, back pain, or any other complaints. Prescriptions: New prednisone 20 mg tablet 20 mg PO DAILY 7 Days Qty: 7 0RF cephalexin 500 mg capsule 500 mg PO Q6H 7 Days Qty: 28 0RF triamcinolone acetonide 0.5 % cream 1 appl topical DAILY Qty: 15 0RF metronidazole 500 mg tablet 500 mg PO BID 7 Days Qty: 14 0RF albuterol sulfate 90 mcg/actuation HFA aerosol inhaler 1 inh inhalation QID PRN (Reason: shortness of breath or wheezing) Qty: 8.5 0RF No Action albuterol sulfate 2.5 mg /3 mL (0.083 %) solution for nebulization 2.5 mg inhalation Q4-6H PRN (Reason: shortness of breath or wheezing) 30 Days Qty: 75 6RF albuterol sulfate 90 mcg/actuation aerosol powdr breath activated 2 inh inhalation Q4-6H PRN (Reason: shortness of breath or wheezing) 30 Days Qty: 1 0RF ondansetron 8 mg tablet,disintegrating 8 mg PO Q8H PRN (Reason: nausea and vomiting) Qty: 90 1RF triamcinolone acetonide 0.1 % cream 1 appl topical TID PRN (Reason: rash) Qty: 80 0RF albuterol sulfate 90 mcg/actuation HFA aerosol inhaler 2 puff inhalation Q6H PRN (Reason: shortness of breath or wheezing) Qty: 8.5 0RF (DME) nebulizer and compressor Device See Rx Instructions .ROUTE .MEDSUPPLY Qty: 1 0RF Rx Instructions: As directed metoclopramide HCl [Reglan] 10 mg tablet 10 mg PO Q6H PRN (Reason: nausea and vomiting) Qty: 20 0RF acetaminophen [Tylenol Extra Strength] 500 mg tablet 1,000 mg PO QID PRN (Reason: fever or pain) Qty: 14 0RF prenat.vits,manda,eqo-[id number]-hyygr Tablet 1 tab PO BEDTIME Qty: 30 0RF prednisone 10 mg tablet See Taper PO DAILY Qty: 70 0RF Taper: Prednisone 40 mg daily for 7 Days and 0 Hour 30 mg daily for 7 Days and 0 Hour 20 mg daily for 7 Days and 0 Hour 10 mg daily for 7 Days and 0 Hour Rx Instructions: 4 tabs for 7 days, then reduce by 1 tab every 7 days until done (DME) nebulizer and compressor Device See Rx Instructions .Route Qty: 1 0RF Rx Instructions: As directed prednisone 20 mg tablet 40 mg PO DAILY Qty: 8 0RF albuterol sulfate 2.5 mg /3 mL (0.083 %) solution for nebulization 2.5 mg inhalation Q4H PRN (Reason: shortness of breath or wheezing) Qty: 75 0RF prednisone 20 mg tablet 60 mg PO DAILY Qty: 15 0RF doxycycline monohydrate 100 mg capsule 100 mg PO BID Qty: 20 0RF cephalexin 500 mg capsule 500 mg PO Q12H 5 Days Qty: 10 0RF oseltamivir [Tamiflu] 75 mg capsule 75 mg PO BID 5 Days Qty: 10 0RF prednisone 20 mg tablet 40 mg PO DAILY 5 Days Qty: 10 0RF albuterol sulfate 0.63 mg/3 mL solution for nebulization 0.63 mg inhalation QID PRN (Reason: shortness of breath or wheezing) Qty: 75 0RF albuterol sulfate 90 mcg/actuation HFA aerosol inhaler 1 inh inhalation QID PRN (Reason: shortness of breath or wheezing) Qty: 8.5 0RF metronidazole 500 mg tablet 500 mg PO BID 7 Days Qty: 14 0RF fluconazole [Diflucan] 150 mg tablet 150 mg PO Q3D 0 Days Qty: 2 0RF Rx Instructions: may repeat second dose 72 hrs after first dose if symptoms persist hydrocortisone 2.5 % ointment 1 appl topical QD-TID PRN (Reason: skin irritation) Qty: 454 3RF nitrofurantoin monohyd/m-cryst [Macrobid] 100 mg capsule 100 mg PO BID 7 Days Qty: 14 0RF Rx Instructions: must administer with a meal/food erythromycin 5 mg/gram (0.5 %) ointment 0.5 inch ophthalmic (eye) TID Qty: 3.5 0RF prednisone 20 mg tablet 40 mg PO DAILY Qty: 10 0RF diphenhydramine HCl [Benadryl] 25 mg capsule 50 mg PO TID PRN (Reason: allergic reaction) Qty: 30 0RF amoxicillin-pot clavulanate 875-125 mg tablet 1 tab PO Q12H 5 Days Qty: 10 0RF prednisone 20 mg tablet 60 mg PO DAILY Qty: 15 0RF triamcinolone acetonide 0.1 % ointment 1 appl topical BID Qty: 80 0RF loratadine [Claritin] 10 mg tablet 10 mg PO DAILY Qty: 30 0RF cephalexin 500 mg capsule 500 mg PO BID Qty: 14 0RF prednisone 20 mg tablet 60 mg PO DAILY 5 Days Qty: 15 0RF albuterol sulfate 90 mcg/actuation HFA aerosol inhaler 2 puff inhalation Q4-6H PRN (Reason: shortness of breath or wheezing) Qty: 8.5 0RF prednisone 20 mg tablet 40 mg PO DAILY Qty: 8 0RF triamcinolone acetonide 0.1 % ointment 1 appl topical BID Qty: 80 0RF triamcinolone acetonide 0.1 % ointment 1 appl topical BID Referrals: [facility] [Provider Group] (Call to establish and follow up with a machine stone polisher apprentice. ) Dez Peace MD [Primary Care Provider] - Interventions: ED Discharge Assessment Last Done: 11/25/22 11:48 Discharge Date/Time: 11/25/22 11:49 Print Language: Mohawk
[2022-11-25 11:46] VITALS: BP 107/57; PULSE 96; RESP 16; O2SAT 97
== END 2022-11-25 11:49 | disposition home or self-care (01) ==
LOC: HO.ED 11:33
PROVIDERS: Emergency Provider Emergency Medicine Emergency Medical Services; PCP Internal Medicine
DX: L30.9 Dermatitis, unspecified (principal); L03.211 Cellulitis of face; J45.909 Unspecified asthma, uncomplicated; F12.90 Cannabis use, unspecified, uncomplicated; Z87.891 Personal history of nicotine dependence; Z79.899 Other long term (current) drug therapy
CPT/HCPCS: 99282; 99283

== ENCOUNTER 2022-12-09 11:01 | Outpatient (AMB) | payer OTHER, SELFPAY ==
[2022-12-09 11:05] VITALS: BP 96/68; PULSE 87; O2SAT 98; BMI 19.6
--- NOTE | 2022-12-09 11:05 | MHC.PC.OV ---
Vital Signs 12/09/22 11:05 Height 5 ft 2 in Weight 107 lb 0.2 oz BMI 19.6 BP 96/68 Blood Pressure Location Lt brachial Position Sitting Pulse 87 Pulse Source Pulse Oximeter Temp Source Skin Pulse Oximetry (%) 98 Oxygen Delivery Method Room Air Intake Visit Reasons: Physical exam Intake Note: Patient is here today for a physical. 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: No Allergies egg [EGG] Allergy (Severe, Verified 12/09/22 11:23) ANAPHYLAXIS fish derived [FISH] Allergy (Severe, Verified 12/09/22 11:23) ANAPHYLAXIS peanut [PEANUTS] Allergy (Severe, Verified 12/09/22 11:23) ITCHING shellfish derived [SHELLFISH DERIVED] Allergy (Severe, Verified 12/09/22 11:23) ANAPHYLAXIS cat dander Allergy (Intermediate, Verified 12/09/22 11:23) Hives dog dander Allergy (Intermediate, Verified 12/09/22 11:23) Hives house dust Allergy (Intermediate, Verified 12/09/22 11:23) Hives rice [RICE] Adverse Reaction (Intermediate, Verified 12/09/22 11:23) CONSTIPATION Medication List - Last Reconciled 12/09/22 by JEANETTE García acetaminophen (Tylenol Extra Strength) 1,000 mg (2 x 500 mg) PO QID PRN albuterol sulfate 2.5 mg (3 mL) inhalation Q4H PRN albuterol sulfate 0.63 mg (3 mL) inhalation QID PRN albuterol sulfate 90 mcg/actuation 2 puffs inhalation Q4-6H PRN albuterol sulfate 90 mcg/actuation 1 inh inhalation QID PRN cephalexin 500 mg PO Q6H 7 days diphenhydramine HCl (Benadryl) 50 mg (2 x 25 mg) PO TID PRN fluconazole (Diflucan) 150 mg PO Q3D 2 doses hydrocortisone 2.5% 1 appl topical QD-TID PRN loratadine (Claritin) 10 mg PO DAILY nebulizer and compressor As directed nebulizer and compressor As directed ondansetron 8 mg PO Q8H PRN triamcinolone acetonide 0.5% 1 appl topical DAILY Tobacco use date assessed: 12/09/22 Dental Screening Dental Screen Date: 12/09/22 Did you have a dental visit in the last 12 months?: Yes Did you have a dental problem in the last 6 months where you did not have access to dental care?: No Was dental information given to patient?: Patient has dentist (scheduled ) HPI Physical exam HPI Details Patient is a 26-year-old female presents today for physical exam. Patient of Dr. Peace. Medical history significant for asthma, depression-followed by counseling, and dermatitis-patient reports eczema-she will call her Dermatology for an appointment. Patient reports that her asthma is stable with p.r.n. albuterol inhaler. Patient is due for Pap smear, will refer. She denies shortness of breath or chest pain. She reports smoking 3 cigarettes per day and smokes marijuana not daily - encouraged smoking cessation. She reports vaginal itching for the past some time, denies vaginal discharge, denies STI exposure, denies urinary symptoms, was recently on antibiotic. [facility] Medical History (Updated 12/09/22 @ 11:39 by JEANETTE García) Allergy to other foods Anxiety state, unspecified Asthma Bronchitis Dermatitis, unspecified Early stage of Hyperemesis Major depressive disorder, single episode, unspecified Mild persistent asthma, uncomplicated test positive Spotting in first trimester Surgical History History of section Family History Father Drug abuse Asthma Mother Hypertension Maternal Grandmother Ovarian cancer Social History Household Members: Family Household Members Other:: mom Housing: Apartment Alcohol intake: never Patient Tobacco Use Status: Current everyday Tobacco user Tobacco use type: Cigarette Cigarettes Per Day: 3 Substance Use Type: Marijuana Advance Directives Date on File: 12/21/20 service: No Current occupational status: unemployed Gender identity: Female Cognitive needs: No Hearing needs: No Vision needs: No Questionnaire PHQ-9 Over the last 2 weeks, how often have you been bothered by any of the following problems? 1. Little interest or pleasure in doing things: several days 2. Feeling down, depressed, or hopeless: nearly every day 3. Trouble falling or staying asleep, or sleeping too much: nearly every day 4. Feeling tired or having little energy: several days 5. Poor appetite or overeating: several days 6. Feeling bad about yourself - or that you are a failure or have let yourself or your family down: nearly every day 7. Trouble concentrating on things, such as reading the newspaper or watching television: nearly every day 8. Moving or speaking so slowly that other people could have noticed. Or the opposite - being so fidgety or restless that you have been moving around a lot more than usual: not at all 9. Thoughts that you would be better off or of hurting yourself in some way: not at all Total score: 15 Depression Screening Interpretation: Positive Depression Screening Follow-up: In treatment 95813 - PHQ-9 Billing: Yes Source: Developed by Drs. Mian Noble, Chanell Jha, Henrique Pathak and colleagues, with an educational ashanti from [email or web address]. Thrive Questionnaire Date Thrive assessed: 12/09/22 I am a: Patient What is your living situation today?: I have a steady place to live (pt is currently in [place] [facility] [place] ) Within the past 12 months, did the food you bought not last and you didn't have the money to get more?: Never true Within the past 12 months, did you worry whether your food would run out before you got money to buy more?: Never true Currently or been in a relationship where the following occur: no concerns reported AUDIT C Alcohol Use Questionnaire (AUDIT-C) 1. How often do you have a drink containing alcohol?: Monthly or less 2. How many drinks containing alcohol do you have on a typical day when you are drinking?: 1 or 2 3. How often do you have six or more drinks on one occasion?: Never Total Score: 1 Score Reviewed/Action Taken: No ELBA-7 AMB Questionnaire ELBA-7 Date ELBA - 7 assessed: 12/09/22 Feeling nervous, anxious, or on edge: 3 = Nearly every day Not being able to stop or control worryin = Nearly every day Worrying too much about different things: 3 = Nearly every day Trouble relaxin = Nearly every day Being so restless that it is hard to sit still: 3 = Nearly every day Becoming easily annoyed or irritable: 3 = Nearly every day Feeling afraid as if something awful might happen: 1 = Several days Total ELBA-7 score (0-4 normal; 5-9 mild; 10-14 moderate; 15-21 severe): 19 Source: Developed by Drs. Mian Noble, Chanell Jha, Henrique Pathak and colleagues, with an educational ashanti from [email or web address]. ELBA-7 Assessment Billing ELBA-7 Assessment Tool: ELBA-7 Assessment 66826 Review of Systems Const Denies body aches, Denies chills, Denies fever(s) and Denies headache(s) Eyes Denies change in vision ENT Denies dizziness, Denies otalgia, Denies headache(s), Denies nasal discharge, Denies sinus pain and Denies sore throat Card Denies chest pain, Denies edema, Denies lightheadedness and Denies dyspnea Resp Denies cough and Denies dyspnea GI Denies constipation, Denies diarrhea, Denies nausea and Denies vomiting Denies dysuria, Denies flank pain, Denies vaginal discharge and Reports vaginal pruritus Musc Denies myalgias Skin/Breast Reports rash Neuro Denies dizziness and Denies headache(s) Physical exam (Primary Care) Vital Signs: Last Vital Signs Pulse 87 12/09/22 11:05 BP 96/68 12/09/22 11:05 Pulse Ox 98 12/09/22 11:05 Oxygen Delivery Method Room Air 12/09/22 11:05 BMI result Body Mass Index 19.6 Tobacco/Smoking Status: Tobacco use Status Tobacco use date assessed 12/09/22 12/09/22 11:07 Patient Tobacco Use Status Current everyday Tobacco 12/09/22 11:21 Tobacco use type Cigarette 12/09/22 11:21 PHQ-9: PHQ-9 Score PHQ-9: Total score 15 12/09/22 11:21 Depression Screening Interpretation: Positive Depression Screening Follow-up: In treatment Thrive Assessment: Date of Thrive Assessment Date Thrive assessed 12/09/22 12/09/22 11:07 Currently or been in a relationship where the following occur: no concerns reported Const General: cooperative and no acute distress Orientation/consciousness: patient oriented x3 HENMT Head: Yes normocephalic and Yes atraumatic Ears: TM's normal bilaterally Face and sinus: Yes sinuses nontender Mouth: oropharynx normal and moist mucous membranes Throat: Yes posterior oropharynx normal Eyes General: appearance normal, both eyes and all related structures Pupils: Equal, round and reactive pupils present EOM: EOMs intact bilaterally Neck Neck: Yes normal visual inspection, Yes full ROM and Yes no lymphadenopathy Thyroid: Thyroid normal Resp Effort & Inspection: normal respiratory effort and able to speak in complete sentences Auscultation: clear to auscultation bilaterally, no crackles, no rales, no rhonchi and no wheezes Cardio Rate: regular rate Rhythm: regular rhythm Heart sounds: S1 normal heart sound present, S2 normal heart sound present and no murmurs GI Palpation (GI): Soft to palpation, not firm, nontender, no guarding, not rigid and no hepatosplenomegaly Auscultation: normal bowel sounds General: No CVA tenderness Back/Spine/Pelvis Back: No CVA tenderness Skin Other: Dry mild patches noted to upper back and mild areas of dry patches noted on face Neuro General: patient oriented x3 Cranial nerves: Yes Equal, round and reactive pupils present Gait exam (Neuro): Normal gait present Extrem General: Yes full ROM and No edema Assessment and Plan Assessment & Plan (1) Cervical cancer screening: Code(s): Z12.4 - Encounter for screening for malignant neoplasm of cervix (2) Adult general medical exam: Code(s): Z00.00 - Encounter for general adult medical examination without abnormal findings (3) Dermatitis, unspecified: Comment: a note stating patient's current limitations has been given. Also request for nursing assistance has been done. Code(s): L30.9 - Dermatitis, unspecified Plan: Triamcinolone cream refilled use BID prn for 2 weeks for the back, do not use this cream on your face Patient is to call her Dermatology for an appointment (4) Mild persistent asthma, uncomplicated: Code(s): J45.30 - Mild persistent asthma, uncomplicated Plan: Stable with albuterol inhaler p.r.n., also sent refill on nebulizer treatment p.r.n. (5) Kajal vaginitis: Code(s): B37.31 - Acute candidiasis of vulva and vagina Plan: Will treat with Diflucan 1 dose and then 2nd dose of no improvement in 3 days Patient agreed with the plan Signs and symptoms reviewed when to notify provider or go to the emergency department Orders: Orders Basic Metabolic Panel Fasting Today Z00.00 - Encounter for general adult medical examination without abnormal findings TSH reflex Free T4 Today Z00.00 - Encounter for general adult medical examination without abnormal findings Vitamin D 25-OH Total Today Z00.00 - Encounter for general adult medical examination without abnormal findings Referrals SPANISHER Referral Z12.4 - Encounter for screening for malignant neoplasm of cervix Medications: Changed From triamcinolone acetonide 0.1% 1 appl topical BID L30.9 - Dermatitis, unspecified To triamcinolone acetonide 0.1% 1 appl topical BID PRN 15 grams 0RF rash L30.9 - Dermatitis, unspecified Refilled albuterol sulfate 2.5 mg (3 mL) inhalation Q4H PRN 75 mL 0RF shortness of breath or wheezing fluconazole (Diflucan) may repeat second dose 72 hrs after first dose if symptoms persist 150 mg PO Q3D 2 doses 2 tabs 0RF Discontinued hydrocortisone 2.5% Discontinued Reason: Doctor's Order 1 appl topical QD-TID PRN 454 grams 3RF skin irritation Coding Level of Care Code Est Pt Prev Care 18-39y(03325) Diagnoses Cervical cancer screening Z12.4 Adult general medical exam Z00.00 Dermatitis, unspecified L30.9 Mild persistent asthma, uncomplicated J45.30 Kajal vaginitis B37.31 Additional Codes ELBA-7 Assessment Billing - ELBA-7 Assessment Tool: ELBA-7 Assessment 20433 ([id number])
== END 2022-12-09 11:41 | disposition home or self-care (01) ==
PROVIDERS: PCP Internal Medicine; Visit Provider Nurse Practitioner Family
DX: Z00.00 Encounter for general adult medical examination without abnormal findings (principal); L30.9 Dermatitis, unspecified; J45.30 Mild persistent asthma, uncomplicated; B37.31 Acute candidiasis of vulva and vagina
CPT/HCPCS: 99395

== ENCOUNTER 2023-01-01 00:11 | Emergency (ER) | payer OTHER, SELFPAY ==
[2023-01-01 01:40] VITALS: BP 123/83; PULSE 62; RESP 18; TEMP 36.3; O2SAT 100; BMI 19.6
== END 2023-01-01 06:39 | disposition left against medical advice (07) ==
PROVIDERS: Emergency Provider Emergency Medicine; PCP Internal Medicine
DX: M25.471 Effusion, right ankle (principal)
CPT/HCPCS: 99281

== ENCOUNTER 2023-01-19 14:17 | Outpatient (AMB) | payer OTHER, SELFPAY ==
--- NOTE | 2023-01-19 14:24 | A.OFFPC_ITS ---
Vital Signs 01/19/23 14:27 Height 5 ft 2 in Weight 104 lb BMI 19.0 BP 110/72 Blood Pressure Location Lt brachial Position Sitting Pulse 77 Pulse Source Pulse Oximeter Pulse Oximetry (%) 98 Oxygen Delivery Method Room Air Intake Visit Reasons: Letter for DTA Intake Note: Patient is here today requesting for letter and forms to be filled for DTA in regards to her health issues. 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 Director: Not Required per policy Accompanied by: Self / Same As Patient Allergies egg [EGG] Allergy (Severe, Verified 01/19/23 15:23) ANAPHYLAXIS fish derived [FISH] Allergy (Severe, Verified 01/19/23 15:23) ANAPHYLAXIS peanut [PEANUTS] Allergy (Severe, Verified 01/19/23 15:23) ITCHING shellfish derived [SHELLFISH DERIVED] Allergy (Severe, Verified 01/19/23 15:23) ANAPHYLAXIS cat dander Allergy (Intermediate, Verified 01/19/23 15:23) Hives dog dander Allergy (Intermediate, Verified 01/19/23 15:23) Hives house dust Allergy (Intermediate, Verified 01/19/23 15:23) Hives rice [RICE] Adverse Reaction (Intermediate, Verified 01/19/23 15:23) CONSTIPATION Medication List - Last Reconciled 01/19/23 by Dez Peace MD acetaminophen (Tylenol Extra Strength) 1,000 mg (2 x 500 mg) PO QID PRN albuterol sulfate 90 mcg/actuation 2 puffs inhalation Q4-6H PRN albuterol sulfate 90 mcg/actuation 1 inh inhalation QID PRN fluconazole (Diflucan) 150 mg PO Q3D 2 doses loratadine (Claritin) 10 mg PO DAILY ondansetron 8 mg PO Q8H PRN triamcinolone acetonide 0.1% 1 appl topical BID PRN Tobacco use date assessed: 12/09/22 Dental Screening Dental Screen Date: 01/19/23 Did you have a dental visit in the last 12 months?: Yes Did you have a dental problem in the last 6 months where you did not have access to dental care?: No Was dental information given to patient?: Patient has dentist HPI Letter for DTA HPI Details 27-year-old female presents to the office to discuss her medical issues. Patient is here requesting that I sign a form. The form states she is not able to work because of mental illness. Unfortunately patient has been going through a a very difficult time. She has been diagnosed with major depression, anxiety disorder and posttraumatic stress disorder. She does not take any medications for she believes that they do not work. She is still under therapy. For children have been removed from her which is worsening her depression. Unable to sleep well at night. [facility] Medical History (Updated 01/19/23 @ 15:25 by Dez Peace MD) Allergy to other foods Anxiety state, unspecified Asthma Bronchitis Dermatitis, unspecified Early stage of Hyperemesis Major depressive disorder, single episode, unspecified Mild persistent asthma, uncomplicated test positive Spotting in first trimester Surgical History History of section Family History (Updated 01/19/23 @ 14:47 by HAI Mejía) Father Drug abuse Asthma Mother Hypertension Maternal Grandmother Ovarian cancer Other Mental health disorder Substance use disorder Social History Household Members: Family Household Members Other:: mom Housing: Apartment Alcohol intake: never Patient Tobacco Use Status: Current everyday Tobacco user Tobacco use type: Cigarette Cigarettes Per Day: 3 e-Cigarette/Vaping Use: Never Used Second Hand Smoke Exposure: Yes Substance Use Type: Marijuana Advance Directives Date on File: 12/21/20 service: No Current occupational status: unemployed Gender identity: Female Cognitive needs: No Hearing needs: No Vision needs: No Questionnaire Thrive Questionnaire Date Thrive assessed: 12/09/22 ELBA-7 AMB Questionnaire ELBA-7 Date ELBA - 7 assessed: 12/09/22 Source: Developed by Drs. Mian Noble, Chanell Jha, Henrique Pathak and colleagues, with an educational ashanti from [employer]. Physical exam (Primary Care) Vital Signs: Last Vital Signs Pulse 77 01/19/23 14:27 BP 110/72 01/19/23 14:27 Pulse Ox 98 01/19/23 14:27 Oxygen Delivery Method Room Air 01/19/23 14:27 BMI result Body Mass Index 19.0 Tobacco/Smoking Status: Tobacco use Status Tobacco use date assessed 12/09/22 01/19/23 14:49 Patient Tobacco Use Status Current everyday Tobacco 01/19/23 14:49 Tobacco use type Cigarette 01/19/23 14:49 e-Cigarette/Vaping Use Never Used 01/19/23 14:49 Thrive Assessment: Date of Thrive Assessment Date Thrive assessed 12/09/22 01/19/23 14:49 Const General: cooperative, healthy appearing and comfortable HENMT Head: Yes normal to inspection and Yes atraumatic Eyes General: appearance normal, both eyes and all related structures Neck Neck: Yes normal visual inspection and Yes full ROM Chest Chest palpation & inspection: normal inspection of the chest and crepitus Resp Effort & Inspection: normal respiratory effort Auscultation: clear to auscultation bilaterally Extrem General: Yes normal to inspection and Yes full ROM Assessment and Plan Assessment & Plan (1) Major depressive disorder, single episode, unspecified: Comment: Code(s): F32.9 - Major depressive disorder, single episode, unspecified Plan: Very unfortunate that patient has decided not to take medications. I encouraged her to continue seeing her counselor. The requisite form was filled out for patient. Coding Level of Care Code Est Pt Level 3 (30937) Diagnoses Major depressive disorder, single episode, unspecified F32.9
[2023-01-19 14:27] VITALS: BP 110/72; PULSE 77; O2SAT 98; BMI 19.0
== END 2023-01-19 15:20 | disposition home or self-care (01) ==
PROVIDERS: PCP Internal Medicine; Visit Provider Internal Medicine
DX: F33.9 Major depressive disorder, recurrent, unspecified (principal)
CPT/HCPCS: 99213

== ENCOUNTER 2023-01-30 20:21 | Emergency (ER) | payer OTHER, SELFPAY ==
--- NOTE | 2023-01-30 | ECG_ITS ---
Test Reason : SOB Blood Pressure : / mmHG Vent. Rate : 088 BPM Atrial Rate : 088 BPM P-R Int : 142 ms QRS Dur : 080 ms QT Int : 356 ms P-R-T Axes : 066 -38 067 degrees QTc Int : 430 ms Normal sinus rhythm Left axis deviation Abnormal ECG When compared with ECG of 05-NOV-2022 22:30, Heart rate has decreased QRS axis Shifted left Referred By: Generic ED Physician Electronically Signed By:BRITTON MAHER
[2023-01-30 20:27] VITALS: BP 122/82; PULSE 80; RESP 22; TEMP 36.9
[2023-01-30] MEDS: methylPREDNISolone Sod Succ 125 MG/2 ML VIAL IVPUSH (20:43)
[2023-01-30] MEDS: Magnesium Sulfate/D5W 1 GM/100 ML PIGGYBACK IV (20:43)
[2023-01-30] MEDS: Albuterol Sulfate (0.083%) 2.5 MG/3 ML VIAL.NEB INHALE (20:56)
--- NOTE | 2023-01-30 21:06 | ED_ITS ---
HPI - SOB/Dyspnea General Chief Complaint: Dyspnea Stated Complaint: SOB, wheezing, no relief w/ inhaler Time Seen by Provider: 01/30/23 20:24 Source: patient Mode of arrival: EMS Limitations: no limitations History of Present Illness HPI Narrative: Patient comes to the emergency room complaining of an asthma exacerbation/panic attack. Patient use her inhaler without any significant improvement. Patient denies chest pain. Patient gave her a DuoNeb under way to the hospital. On arrival, patient speaking in full sentences. Related Data Previous Rx's Medication Instructions Recorded ondansetron 8 mg disintegrating 8 mg PO Q8H PRN nausea and 11/30/20 tablet vomiting #90 tabs acetaminophen 500 mg tablet 1,000 mg PO QID PRN fever or pain 12/03/20 (Tylenol Extra Strength) #14 tabs loratadine 10 mg tablet (Claritin) 10 mg PO DAILY #30 tabs 10/17/22 albuterol sulfate 90 mcg/actuation 2 puff inhalation Q4-6H PRN 11/13/22 aerosol inhaler shortness of breath or wheezing #8.5 grams albuterol sulfate 90 mcg/actuation 1 inh inhalation QID PRN shortness 11/25/22 aerosol inhaler of breath or wheezing #8.5 grams fluconazole 150 mg tablet 150 mg PO Q3D 2 doses #2 tabs 12/09/22 (Diflucan) triamcinolone acetonide 0.1 % 1 appl topical BID PRN rash #15 12/09/22 topical ointment grams albuterol sulfate 90 mcg/actuation 2 puff inhalation Q4-6H PRN 01/30/23 aerosol inhaler shortness of breath or wheezing #8.5 grams prednisone 20 mg tablet 40 mg PO DAILY 4 days #8 tabs 01/30/23 Allergies Allergy/AdvReac Type Severity Reaction Status Date / Time egg [EGG] Allergy Severe ANAPHYLAXIS Verified 01/19/23 15:23 fish derived [FISH] Allergy Severe ANAPHYLAXIS Verified 01/19/23 15:23 peanut [PEANUTS] Allergy Severe ITCHING Verified 01/19/23 15:23 shellfish derived Allergy Severe ANAPHYLAXIS Verified 01/19/23 15:23 [SHELLFISH DERIVED] cat dander Allergy Intermediate Hives Verified 01/19/23 15:23 dog dander Allergy Intermediate Hives Verified 01/19/23 15:23 house dust Allergy Intermediate Hives Verified 01/19/23 15:23 rice [RICE] AdvReac Intermediate CONSTIPATIO Verified 01/19/23 15:23 N Review of Systems Review of Systems: Constitutional : No Weight loss, No Fever, No Chills, No Night Sweats, No Fatigue, No Malaise ENT/Mouth : No Hearing loss, No Ear Pain, No Nasal Congestion, No Sinus Pain, No Hoarseness, No sore throat, No Rhinorrhea, No Swallowing Difficulty Eyes: No Eye Pain, No Swelling, No Redness, No Foreign Body, No Discharge, No Vision Changes Cardiovascular : No Chest Pain, No SOB, No Dyspnea on Exertion, No Orthopnea, No Edema, No Palpitations Respiratory : No Cough, No Sputum, complaining of Wheezing, No Smoke Exposure, No Dyspnea Gastrointestinal : No Nausea, No Vomiting, No Diarrhea, No Constipation, No abdominal Pain, No Hematochezia, No Melena Genitourinary : no irregular bleeding, No Dysuria, No Urinary Frequency, No Hematuria, No Urinary Incontinence, No Urgency, No Flank Pain, No Urinary Flow Changes, No Hesitancy Musculoskeletal : No joint pain, No Myalgias, No Joint Swelling Skin : No Skin Lesions, No rash Neuro : No Weakness, No Numbness, No Paresthesias, No Loss of Consciousness, No Dizziness, No Headache Psych : Complaining of anxiety/panic attack, No Depression, No SI/HI/AH/VH, No Social Issues, Heme/Lymph: No Bruising, No Bleeding,No Lymphadenopathy Endocrine : No Polyuria, No Polydipsia, No Temperature Intolerance [facility] Past Medical History Medical History Allergy to other foods Anxiety state, unspecified Asthma Bronchitis Dermatitis, unspecified Early stage of Hyperemesis Major depressive disorder, single episode, unspecified Mild persistent asthma, uncomplicated test positive Spotting in first trimester Surgical History History of section Family History Family History (Updated 01/19/23 @ 14:47 by HAI Mejía) Father Drug abuse Asthma Mother Hypertension Maternal Grandmother Ovarian cancer Other Mental health disorder Substance use disorder Social History Social History Household Members: Family Household Members Other:: mom Housing: Apartment Alcohol intake: current Alcohol intake frequency: a few times a week Alcohol type: beer Patient Tobacco Use Status: Current everyday Tobacco user Tobacco use type: Cigarette Cigarettes Per Day: 3 e-Cigarette/Vaping Use: Never Used Second Hand Smoke Exposure: Yes Substance Use Type: Marijuana Advance Directives Date on File: 12/21/20 service: No Current occupational status: unemployed Gender identity: Female Cognitive needs: No Hearing needs: No Vision needs: No Physical Exam Vital Signs: Vital Signs: Last Vital Signs Temp 98.5 F 01/30/23 20:27 Pulse 80 01/30/23 20:27 Resp 22 H 01/30/23 20:27 BP 122/82 01/30/23 20:27 Pulse Ox 97 01/30/23 20:27 O2 Del Method Room Air 01/30/23 20:27 BMI result Body Mass Index 19.4 Const: Other: Appearance: Alert. Oriented X3. No acute distress. Eyes: Pupils equal, round and reactive to light. ENT: Pharynx normal. Neck: Normal inspection. Neck supple. No lymph nodes noted. No crepitus CVS: Normal heart rate and rhythm. Pulses normal. Normal S1 and S2 Respiratory: No respiratory distress. Speaking in full sentences, very mild bilateral wheezing, good air movement, oxygen saturation 97% on room air Abdomen: Soft and nontender. No rigidity. No distention. Skin: Skin warm and dry. Normal skin color. Normal skin turgor. Extremities: No lower extremity edema. No Lacerations. No Rash Neuro: Oriented X 3. No motor deficit. No sensory deficit. Moving all extremities. No slurred speech. CN 2 through 12 grossly intact Psych: calm, cooperative, normal affect Medications Administered Generic Name Dose Route Start Last Admin Trade Name Freq PRN Reason Stop Dose Admin Magnesium Sulfate/Dextrose 1 gm in 100 mls @ 100 mls/hr 01/30/23 20:30 01/30/23 20:43 Magnesium Sulfate/D5w IV 01/30/23 21:29 100 mls/hr ONCE ONE Administration Discontinued Medications Generic Name Dose Route Start Last Admin Trade Name Freq PRN Reason Stop Dose Admin Albuterol Sulfate 2.5 mg 01/30/23 20:28 01/30/23 20:56 Albuterol Sulfate (0.083%) 2.5 Mg/3 Ml Vial.Neb INHALE 01/30/23 20:29 2.5 mg ONCE ONE Administration Methylprednisolone Sodium Succinate 125 mg 01/30/23 20:28 01/30/23 20:43 Methylprednisolone Sod Succ 125 Mg/2 Ml Vial IVPUSH 01/30/23 20:29 125 mg ONCE ONE Administration Medical Decision Making Medical Decision Making MDM Narrative: -no labs were obtained, patient came with very minimal wheezing and perfect vitals -patient giving a small ring treatment, prednisone, patient is symptomatic now. Differential Diagnosis Differential Diagnoses: The differential diagnosis associated with the presentation includes (Asthma exacerbation) Discharge Plan Discharge Clinical Impression: Asthma Patient Disposition: Home, Self-Care Instructions: Asthma (ED) Additional Instructions: Please follow-up with your primary care physician tomorrow. If you have any worsening or new symptoms, please return to the emergency room or call 911 Prescriptions: New prednisone 20 mg tablet 40 mg PO DAILY 4 Days Qty: 8 0RF albuterol sulfate 90 mcg/actuation HFA aerosol inhaler 2 puff inhalation Q4-6H PRN (Reason: shortness of breath or wheezing) Qty: 8.5 0RF No Action ondansetron 8 mg tablet,disintegrating 8 mg PO Q8H PRN (Reason: nausea and vomiting) Qty: 90 1RF acetaminophen [Tylenol Extra Strength] 500 mg tablet 1,000 mg PO QID PRN (Reason: fever or pain) Qty: 14 0RF loratadine [Claritin] 10 mg tablet 10 mg PO DAILY Qty: 30 0RF albuterol sulfate 90 mcg/actuation HFA aerosol inhaler 2 puff inhalation Q4-6H PRN (Reason: shortness of breath or wheezing) Qty: 8.5 0RF albuterol sulfate 90 mcg/actuation HFA aerosol inhaler 1 inh inhalation QID PRN (Reason: shortness of breath or wheezing) Qty: 8.5 0RF fluconazole [Diflucan] 150 mg tablet 150 mg PO Q3D 0 Days Qty: 2 0RF Rx Instructions: may repeat second dose 72 hrs after first dose if symptoms persist triamcinolone acetonide 0.1 % ointment 1 appl topical BID PRN (Reason: rash) Qty: 15 0RF
[2023-01-30 21:08] VITALS: PULSE 84; RESP 18; O2SAT 98
== END 2023-01-30 21:39 | disposition home or self-care (01) ==
PROVIDERS: Emergency Provider Emergency Medicine
DX: J45.909 Unspecified asthma, uncomplicated (principal); R06.02 Shortness of breath; R94.31 Abnormal electrocardiogram [ECG] [EKG]; F41.0 Panic disorder [episodic paroxysmal anxiety]; F17.210 Nicotine dependence, cigarettes, uncomplicated; Z71.6 Tobacco abuse counseling; Z79.899 Other long term (current) drug therapy
CPT/HCPCS: 93005; 96374; 96375; 99284; 99285; J2930; J3475

== ENCOUNTER 2023-02-05 13:43 | Emergency (ER) | payer OTHER, SELFPAY ==
[2023-02-05 14:15] VITALS: BP 128/84; PULSE 99; RESP 19; TEMP 36.6; O2SAT 99; BMI 18.9
--- NOTE | 2023-02-05 14:29 | ED.PSYCH ---
HPI - Psych General Chief Complaint: Psychiatric Symptoms Stated Complaint: Says it private information Time Seen by Provider: 02/05/23 14:24 Source: patient Mode of arrival: ambulatory Limitations: no limitations History of Present Illness HPI Narrative: 27-year-old female with history of anxiety, depression, asthma presents with anxiety, depression, suicidal ideation for the past few days worsening. Patient reports recently she got her children taken away from her secondary to her mental health, since then she has been feeling depressed and today has been feeling suicidal has never felt this way before. She does not have a particular plan however she has racing thoughts. She reports that she has a poor support system. No medical complaints. However does states she has not been eating and drinking well secondary to being depressed. Patient denies homicidal ideation. Denies hallucinations, drugs, alcohol and tobacco. Related Data Previous Rx's Medication Instructions Recorded ondansetron 8 mg disintegrating 8 mg PO Q8H PRN nausea and 11/30/20 tablet vomiting #90 tabs acetaminophen 500 mg tablet 1,000 mg (2 x 500 mg) PO QID PRN 12/03/20 (Tylenol Extra Strength) fever or pain #14 tabs loratadine 10 mg tablet (Claritin) 10 mg PO DAILY #30 tabs 10/17/22 albuterol sulfate 90 mcg/actuation 2 puff inhalation Q4-6H PRN 11/13/22 aerosol inhaler shortness of breath or wheezing #8.5 grams albuterol sulfate 90 mcg/actuation 1 inh inhalation QID PRN shortness 11/25/22 aerosol inhaler of breath or wheezing #8.5 grams fluconazole 150 mg tablet 150 mg PO Q3D 2 doses #2 tabs 12/09/22 (Diflucan) triamcinolone acetonide 0.1 % 1 appl topical BID PRN rash #15 12/09/22 topical ointment grams albuterol sulfate 90 mcg/actuation 2 puff inhalation Q4-6H PRN 01/30/23 aerosol inhaler shortness of breath or wheezing #8.5 grams prednisone 20 mg tablet 40 mg (2 x 20 mg) PO DAILY 4 days 01/30/23 #8 tabs Allergies Allergy/AdvReac Type Severity Reaction Status Date / Time egg [EGG] Allergy Severe ANAPHYLAXIS Verified 01/19/23 15:23 fish derived [FISH] Allergy Severe ANAPHYLAXIS Verified 01/19/23 15:23 peanut [PEANUTS] Allergy Severe ITCHING Verified 01/19/23 15:23 shellfish derived Allergy Severe ANAPHYLAXIS Verified 01/19/23 15:23 [SHELLFISH DERIVED] cat dander Allergy Intermediate Hives Verified 01/19/23 15:23 dog dander Allergy Intermediate Hives Verified 01/19/23 15:23 house dust Allergy Intermediate Hives Verified 01/19/23 15:23 rice [RICE] AdvReac Intermediate CONSTIPATIO Verified 01/19/23 15:23 N Review of Systems Review of Systems: Constitutional : No Fever, No Chills ENT/Mouth : No Ear Pain, No Nasal Congestion, No sore throat Eyes: No Eye Pain, No Swelling, No Redness Cardiovascular : No Chest Pain, No SOB Respiratory : No Cough, No Sputum, No Dyspnea Gastrointestinal : No Nausea, No Vomiting, No Diarrhea, No Hematochezia, No Melena Genitourinary : No Dysuria, No Urinary Frequency, No Hematuria Musculoskeletal : No Myalgias Skin : No Skin Lesions, No rash Neuro : No Weakness, No Numbness, No Paresthesias, No Dizziness, No Headache Psych : positive Anxiety, positive Depression, positive SI, No HI Heme/Lymph: No Lymphadenopathy Endocrine : No Polyuria, No Polydipsia All other systems reviewed and are negative Yes all other systems are reviewed and are negative [facility] Past Medical History Attestation statement: The following information was validated with the patient. Source: old records reviewed and nursing notes reviewed Medical History Bronchitis Spotting in first trimester Early stage of Hyperemesis test positive Asthma Mild persistent asthma, uncomplicated Allergy to other foods Anxiety state, unspecified Major depressive disorder, single episode, unspecified Dermatitis, unspecified Surgical History History of section Family History Family History Father Drug abuse Asthma Mother Hypertension Maternal Grandmother Ovarian cancer Other Mental health disorder Substance use disorder Social History Social History Household Members: Family Household Members Other:: mom Housing: Apartment Alcohol intake: current Alcohol intake frequency: a few times a week Alcohol type: beer Patient Tobacco Use Status: Current everyday Tobacco user Tobacco use type: Cigarette Cigarettes Per Day: 3 e-Cigarette/Vaping Use: Never Used Second Hand Smoke Exposure: Yes Substance Use Type: Marijuana Advance Directives: Yes Advance Directives on File: Yes Advance Directives Date on File: 12/21/20 service: No Current occupational status: unemployed Gender identity: Female Cognitive needs: No Hearing needs: No Vision needs: No Physical Exam Vital Signs: Vital Signs: Last Vital Signs Temp 98 F 02/05/23 14:15 Pulse 99 02/05/23 14:15 Resp 19 02/05/23 14:15 BP 128/84 02/05/23 14:15 Pulse Ox 99 02/05/23 14:15 O2 Del Method Room Air 02/05/23 14:15 BMI result Body Mass Index 18.9 vss Appearance: Alert.? Oriented X3.? No acute distress.? Head: Normocephalic, atraumatic, no step-offs or deformities Eyes: Pupils equal, round and reactive to light.? ENT: Pharynx normal.? Neck: Normal inspection.? Neck supple.? CVS: Normal heart rate and rhythm.? Pulses normal.? Respiratory: No respiratory distress.? Breath sounds normal.? Abdomen: Soft and nontender.? Skin: Skin warm and dry.? Normal skin color.? Normal skin turgor.? Extremities: No lower extremity edema.? No calf ttp. 5/5 strength to bilateral upper and lower extremities Neuro: Oriented X 3.? No motor deficit.? No sensory deficit. CN 2-12 intact Course Reevaluation(s) Reevaluation #1: Patient's urine clean without infection. Urine negative. No ketones in the urine unlikely starvation ketosis. Patient positive for marijuana. Patient is adamant that she does not want lab work. She had labs done on 11/05/2022 all of which were within normal limits. I did advise her to obtain labs to ensure there is no metabolic derangements. I have low suspicion for this is patient is well appearing. She is adamantly refusing for nursing, phlebotomy. At this time patient to be placed into observation, patient has a right to refuse labs at this time. Pending care team evaluation. Time: 15:43 Medical Decision Making Medical Decision Making MDM Narrative: 1432 27-year-old female presents with anxiety, depression for the past few weeks worsening also complaining of new suicidal thoughts x1 day Physical exam benign History and physical exam consistent with depression with suicidal ideation. Unlikely bipolar, schizophrenia. Will rule out metabolic derangements although unlikely. Plan medical clearance evaluation by behavioral health team Differential Diagnosis Differential Diagnoses: The differential diagnosis associated with the presentation includes History and physical exam consistent with depression with suicidal ideation. Unlikely bipolar, schizophrenia. Will rule out metabolic derangements although unlikely. Admission/Observation Consideration of admission/observation: Escalation of care including admission/observation considered likely psych Lab Data [facility] Lab Attestation statement: I reviewed the patient's lab results. Labs: Lab Results 02/05/23 Range/Units 14:59 Urine Color Yellow Urine Appearance Clear Urine pH 5.5 (5.0-9.0) Ur Specific [place] 1.025 (1.005-1.025) Urine Protein Negative (Neg-Trace) mg/dL Urine Glucose (UA) Negative (Negative) mg/dL Urine Ketones 15 (Negative) mg/dL Urine Blood Negative (Negative) Urine Nitrite Negative (Negative) Ur Leukocyte Esterase Negative (Negative) Urine Test NEGATIVE (NEGATIVE) Urine Opiates Screen Not Detected (Not Detect) Urine Fentanyl Screen Not Detected (Not Detect) Ur Barbiturates Screen Not Detected (Not Detect) Ur Phencyclidine Scrn Not Detected (Not Detect) Ur Amphetamines Screen Not Detected (Not Detect) U Benzodiazepines Scrn Not Detected (Not Detect) Urine Cocaine Screen Not Detected (Not Detect) U Marijuana (THC) Screen POSITIVE H (Not Detect) External Record Review External record reviewed: Inpatient record, Office record, Outpatient record, Prior outpatient labs, Prior outpatient radiology, Primary care record and Outside ED record Social Determinants Patient?s care significantly limited by Social Determinants of Health including: Inadequate housing, Low income, Alcoholism and drug addiction in family, Problems related to primary support group and Other Social Determinant of Health Critical Care Time Critical Care Time Critical Care Time: No Discharge Plan Discharge Clinical Impression: Depression, Suicidal ideation Patient Disposition: Still a Patient Prescriptions: No Action ondansetron 8 mg tablet,disintegrating 8 mg PO Q8H PRN (Reason: nausea and vomiting) Qty: 90 1RF acetaminophen [Tylenol Extra Strength] 500 mg tablet 1,000 mg PO QID PRN (Reason: fever or pain) Qty: 14 0RF loratadine [Claritin] 10 mg tablet 10 mg PO DAILY Qty: 30 0RF albuterol sulfate 90 mcg/actuation HFA aerosol inhaler 2 puff inhalation Q4-6H PRN (Reason: shortness of breath or wheezing) Qty: 8.5 0RF albuterol sulfate 90 mcg/actuation HFA aerosol inhaler 1 inh inhalation QID PRN (Reason: shortness of breath or wheezing) Qty: 8.5 0RF prednisone 20 mg tablet 40 mg PO DAILY 4 Days Qty: 8 0RF albuterol sulfate 90 mcg/actuation HFA aerosol inhaler 2 puff inhalation Q4-6H PRN (Reason: shortness of breath or wheezing) Qty: 8.5 0RF fluconazole [Diflucan] 150 mg tablet 150 mg PO Q3D 0 Days Qty: 2 0RF Rx Instructions: may repeat second dose 72 hrs after first dose if symptoms persist triamcinolone acetonide 0.1 % ointment 1 appl topical BID PRN (Reason: rash) Qty: 15 0RF
[2023-02-05 15:09] LABS: UPreg QC Valid YES; Urine Pregnancy NEGATIVE (NEGATIVE)
[2023-02-05 15:10] LABS: Appearance Urine Clear; Color Urine Yellow; Glucose Urine UA Negative (Negative); Leukocyte Esterase Urine Negative (Negative); Nitrite Urine Negative (Negative); PH 5.5 (5.0-9.0); Specific Gravity - Urine 1.025 (1.005-1.025); Urine Blood Negative (Negative); Urine Ketones 15 mg/dL (Negative); Urine Protein Negative (Neg-Trace)
[2023-02-05 15:17] LABS: Amphetamine Screen Urine Not Detected (Not Detect); Barbiturates, Urine Not Detected (Not Detect); Benzodiazepines Screen Urine Not Detected (Not Detect); Cannabinoid Screen Urine POSITIVE (Not Detect); Cocaine Screen Urine Not Detected (Not Detect); Fentanyl, urine Not Detected (Not Detect); Opiate Screen Urine Not Detected (Not Detect); Phencyclidine Screen Urine Not Detected (Not Detect)
--- NOTE | 2023-02-05 15:30 | PC.NURSE ---
at handoff pt calm, coop, resting. no resp distress. +CMS. breathing regularly. sad, depressed, no si/hi/sib
[2023-02-05 17:57] VITALS: BP 114/47; PULSE 64; RESP 16; O2SAT 98
--- NOTE | 2023-02-05 18:00 | PC.NURSE ---
aox4. depressed. denies SI/HI/SIB. resting calmly. po fluids well. talking with care team. no resp distress. +CMS. breathing regularly
[2023-02-05 18:40] LABS: MANUAL DIFF FLAG NO
[2023-02-05 19:03] LABS: Basophils Absolute Auto 0.1 X10*3/uL (0.0-0.2); Basophils Percent Auto 0.6 % (0-2); Eosinophils Absolute Auto 0.1 X10*3/uL (0.0-0.4); Eosinophils Percent Auto 1.1 % (0-4); Hematocrit 39.5 % (37.0-47.0); Hemoglobin 13.3 g/dl (12.0-16.0); Imm Gran Abs Auto 0.06 X10*3/uL (0.00-0.03); Imm Gran Pct Auto 0.5 % (0.0-0.4); Lymphocytes Absolute Auto 2.8 X10*3/uL (1.2-4.9); Lymphocytes Percent Auto 23.2 % (20-40); Mean Corpuscular HGB Conc 33.7 g/dl (31.0-35.0); Mean Corpuscular Hemoglobin 29.6 pg (27.0-33.0); Mean Platelet Volume 10.4 fL (9.4-12.3); Monocytes Absolute Auto 0.7 X10*3/uL (0.1-1.2); Monocytes Percent Auto 5.9 % (2-11); Neutrophils Absolute Auto 8.4 x10*3/uL (2.0-8.3); Neutrophils Percent Auto 68.7 % (45-73); Platelet Count 264 X10*3/uL (160-400); Red Blood Count 4.49 X10*6/uL (4.20-5.50); Red Cell Distribution Width 14.6 % (11.0-16.0); White Blood Count 12.2 X10*3/uL (4.8-10.8)
[2023-02-05 19:15] LABS: Acetaminophen LAB < 17 mcg/mL (<30); Alanine Aminotransferase 14 U/L (0-31); Albumin Level 3.6 g/dL (3.5-5.0); Alkaline Phosphatase 63 U/L (39-117); Anion Gap 15 (12-20); Aspartate Amino Transferase 19 U/L (5-31); Bilirubin Total 1.1 mg/dL (0.0-1.0); Blood Urea Nitrogen 13 mg/dL (9-16); Calcium 8.8 mg/dL (8.4-10.2); Carbon Dioxide 23 mmol/L (22-29); Chloride 105 mmol/L (96-108); Creatinine Clr Calc Pharmacy 110.9; Estimated Glomerular Filt Rate > 60; Ethanol < 10 mg/dL; Glucose Random 70 mg/dL (60-115); Magnesium 1.8 mg/dL (1.6-2.6); Potassium 3.7 mmol/L (3.3-5.1); Salicylate < 5.0 mg/dL (15-30); Sodium 139 mmol/L (135-145); Total Protein 6.5 g/dL (6.5-8.0)
--- NOTE | 2023-02-05 21:12 | PC.NURSE ---
no resp distress. +CMS. breathing regularly. resting in bed. see DEBBIE Beyer ordered tylenol for h/a and ordering ativan 1mg for ciwa x1. denies SI/HI
--- NOTE | 2023-02-05 22:11 | MHC.CARE ---
CARE Team assessed the pt and found her to be appropriate for [facility] respite. She will stay the night and hopefully get a bed in the morning at respite.
[2023-02-05] MEDS: Acetaminophen 325 MG TABLET 975 MG PO (22:22)
[2023-02-05] MEDS: LORazepam 1 MG TABLET PO (22:22)
[2023-02-05 22:30] VITALS: BP 111/74; PULSE 65; RESP 15; TEMP 37.1; O2SAT 95
--- NOTE | 2023-02-05 22:30 | PC.NURSE ---
This advertising copywriter assumed care of this Pt at 2100. Pt Appears to be sleeping, awakens with verbal command, reports 10/10 chronic back pain, medicated per MAR. Denies SI/HI, AH/VH, states I'm just depressed . Juice and sandwich provided per request.
[2023-02-06 08:04] VITALS: BP 136/73; PULSE 73; RESP 12; TEMP 37.1; O2SAT 98
--- NOTE | 2023-02-06 08:04 | MHC.CARE ---
CARE Team completed referral to [facility]
--- NOTE | 2023-02-06 08:23 | PC.NURSE ---
pt resting with eyes closed, awakes to voice. requesting breakfast, order placed and call placed to kitchen. patient observer close by to pt. pt changed into hospital jonnies.
--- NOTE | 2023-02-06 10:39 | PC.NURSE ---
pt irritated, reports that she wants to talk with someone about her care and where she will go next otherwise I'll just go home and manage from there
--- NOTE | 2023-02-06 10:41 | PC.NURSE ---
pt awaiting recovery
--- NOTE | 2023-02-06 12:02 | PC.NURSE ---
plan for pt to go to [facility] at [address] pt on board to go
--- NOTE | 2023-02-06 12:03 | MHC.CARE ---
Pt has been accepted by [facility] for an arrival time of 1530 today [address] [place]. [address] [facility] [phone]
--- NOTE | 2023-02-06 12:45 | PC.NURSE ---
tired, no distress noted. deies si/hi/sib. offered food/drink. sitter community aide w pt. safety checks/belongings locked/psych gown +CMS
[2023-02-06 13:53] VITALS: BP 104/77; PULSE 90; RESP 12; O2SAT 99
== END 2023-02-06 14:52 ==
PROVIDERS: Physician Assistant; Emergency Provider Emergency Medicine; PCP Internal Medicine
DX: F33.1 Major depressive disorder, recurrent, moderate (principal); R45.851 Suicidal ideations; F17.210 Nicotine dependence, cigarettes, uncomplicated; Z79.899 Other long term (current) drug therapy; Z71.6 Tobacco abuse counseling
CPT/HCPCS: 36415; 80053; 80143; 80179; 80307; 81003; 81025; 83735; 85025; 99285; S9485

== ENCOUNTER 2023-02-21 03:12 | Emergency (ER) | payer OTHER, SELFPAY ==
[2023-02-21 03:18] VITALS: BP 150/89; PULSE 118; O2SAT 97
[2023-02-21 03:29] VITALS: BP 117/72; PULSE 103; RESP 18; TEMP 36.7; O2SAT 94
[2023-02-21 03:30] VITALS: BP 108/76; PULSE 108; RESP 18; TEMP 36.9; BMI 19.3
--- NOTE | 2023-02-21 03:50 | PC.NURSE ---
Pt KRYSTIAN, pt reports drinking 3 pints of E&J, then going home feeling unsafe and depressed, and called 911 to get help. Pt is changed over, belongings collected and put in locker 8. I felt scared, I dont want to kill myself, Im at the point where i feel like i want to end it, im tired, I never get a break and I want help. Pt denies SI/HI. Pt given PO fluids and a sandwich.
--- NOTE | 2023-02-21 04:58 | ED.PSYCH ---
HPI - Psych General Chief Complaint: Psychiatric Symptoms Stated Complaint: Psych Eval Time Seen by Provider: 02/21/23 04:49 Source: patient Mode of arrival: EMS Limitations: no limitations History of Present Illness HPI Narrative: feeling sad and depressed no SI/HI was drinking ETOH tonight, has life stressors right now. MD complaint: feels depressed Onset (ago): week(s) Duration: getting worse History of same: Yes Relieving factors: none Exacerbating factors: drug use Context: recent alcohol abuse and significant life stressor Associated psychiatric symptoms: depression Associated symptoms: denies other symptoms Treatments prior to arrival: none Related Data Previous Rx's Medication Instructions Recorded ondansetron 8 mg disintegrating 8 mg PO Q8H PRN nausea and 11/30/20 tablet vomiting #90 tabs acetaminophen 500 mg tablet 1,000 mg (2 x 500 mg) PO QID PRN 12/03/20 (Tylenol Extra Strength) fever or pain #14 tabs loratadine 10 mg tablet (Claritin) 10 mg PO DAILY #30 tabs 10/17/22 albuterol sulfate 90 mcg/actuation 2 puff inhalation Q4-6H PRN 11/13/22 aerosol inhaler shortness of breath or wheezing #8.5 grams albuterol sulfate 90 mcg/actuation 1 inh inhalation QID PRN shortness 11/25/22 aerosol inhaler of breath or wheezing #8.5 grams fluconazole 150 mg tablet 150 mg PO Q3D 2 doses #2 tabs 12/09/22 (Diflucan) triamcinolone acetonide 0.1 % 1 appl topical BID PRN rash #15 12/09/22 topical ointment grams albuterol sulfate 90 mcg/actuation 2 puff inhalation Q4-6H PRN 01/30/23 aerosol inhaler shortness of breath or wheezing #8.5 grams prednisone 20 mg tablet 40 mg (2 x 20 mg) PO DAILY 4 days 01/30/23 #8 tabs Allergies Allergy/AdvReac Type Severity Reaction Status Date / Time egg [EGG] Allergy Severe ANAPHYLAXIS Verified 01/19/23 15:23 fish derived [FISH] Allergy Severe ANAPHYLAXIS Verified 01/19/23 15:23 peanut [PEANUTS] Allergy Severe ITCHING Verified 01/19/23 15:23 shellfish derived Allergy Severe ANAPHYLAXIS Verified 01/19/23 15:23 [SHELLFISH DERIVED] cat dander Allergy Intermediate Hives Verified 01/19/23 15:23 dog dander Allergy Intermediate Hives Verified 01/19/23 15:23 house dust Allergy Intermediate Hives Verified 01/19/23 15:23 rice [RICE] AdvReac Intermediate CONSTIPATIO Verified 01/19/23 15:23 N Review of Systems Review of Systems: Constitutional : No Fever, No Chills ENT/Mouth : No Ear Pain, No Nasal Congestion, No sore throat Eyes: No Eye Pain, No Swelling, No Redness Cardiovascular : No Chest Pain, No SOB Respiratory : No Cough, No Sputum, No Dyspnea Gastrointestinal : No Nausea, No Vomiting, No Diarrhea, No Hematochezia, No Melena Genitourinary : No Dysuria, No Urinary Frequency, No Hematuria Musculoskeletal : No Myalgias Skin : No Skin Lesions, No rash Neuro : No Weakness, No Numbness, No Paresthesias, No Dizziness, No Headache Psych : positive Anxiety, positive Depression, no SI/HI Heme/Lymph: No Lymphadenopathy Endocrine : No Polyuria, No Polydipsia All other systems reviewed and are negative [facility] Past Medical History Attestation statement: The following information was validated with the patient. Source: old records reviewed Medical History Bronchitis Spotting in first trimester Early stage of Hyperemesis test positive Asthma Mild persistent asthma, uncomplicated Allergy to other foods Anxiety state, unspecified Major depressive disorder, single episode, unspecified Dermatitis, unspecified Surgical History History of section Family History Family History Father Drug abuse Asthma Mother Hypertension Maternal Grandmother Ovarian cancer Other Mental health disorder Substance use disorder Social History Social History Household Members: Family Household Members Other:: mom Housing: Apartment Alcohol intake: current Alcohol intake frequency: 3 or more drinks per day Alcohol type: hard liquor Patient Tobacco Use Status: Current everyday Tobacco user Tobacco use type: Cigarette Cigarettes Per Day: 3 Smoked in Last 30 Days: Yes e-Cigarette/Vaping Use: Never Used Second Hand Smoke Exposure: Yes Use of substances other than those prescribed or required for medical reasons: Yes Substance Use Type: Marijuana Substance Use Frequency: Chronic Longstanding Last Used Substance: Just Prior to Admission Advance Directives: Yes Advance Directives on File: Yes Advance Directives Date on File: 12/21/20 Patient : No service: No Current occupational status: unemployed Gender identity: Female Cognitive needs: No Hearing needs: No Vision needs: No Physical Exam Vital Signs: Vital Signs: Last Vital Signs Temp 98.5 F 02/21/23 03:30 Pulse 108 H 02/21/23 03:30 Resp 18 02/21/23 03:30 BP 108/76 02/21/23 03:30 Pulse Ox 94 02/21/23 03:29 O2 Del Method Room Air 02/21/23 03:29 BMI result Body Mass Index 19.3 Appearance: Alert. Oriented X3. No acute distress. Eyes: Pupils equal, round and reactive to light. ENT: Pharynx normal. Neck: Normal inspection. Neck supple. CVS: Normal heart rate and rhythm. Pulses normal. Respiratory: No respiratory distress. Breath sounds normal. Abdomen: Soft and nontender. Skin: Skin warm and dry. Normal skin color. Normal skin turgor. Extremities: No lower extremity edema. No calf ttp Neuro: Oriented X 3. No motor deficit. No sensory deficit. CN2-12 intact Course Course Course Narrative: Physician observation started at 550am. Patient placed in physician observation because the patient needed more time for CARE team to assess the need for psych admission. At the time observation was started the patient's vitals were stable, patient is alert and oriented , Neuro: nonfocal, CV RRR, Lungs clear Medical Decision Making Medical Decision Making [facility] Narrative: 27 yo female with hx of depression just left inpatient unit states she is still depressed and drank ETOH tonight denies SI or self harm at this time will need labs and CARE team consult. Has no medical complaints. Differential Diagnosis Differential Diagnoses: The differential diagnosis associated with the presentation includes ETOH use, depression Admission/Observation Consideration of admission/observation: Escalation of care including admission/observation considered observe until care team sees patient Consult Healthcare Provider Management of the patient was discussed with: Behavioral Health Provider Lab Data [facility] Lab Attestation statement: I reviewed the patient's lab results. 02/21/23 05:08 02/21/23 05:08 Labs: Lab Results 02/21/23 Range/Units 05:08 WBC 10.2 (4.8-10.8) X10*3/uL RBC 4.32 (4.20-5.50) X10*6/uL Hgb 12.9 (12.0-16.0) g/dl Hct 38.4 (37.0-47.0) % MCV 88.9 (80.0-98.0) fL MCH 29.9 (27.0-33.0) pg MCHC 33.6 (31.0-35.0) g/dl RDW 14.5 (11.0-16.0) % Plt Count 305 (160-400) X10*3/uL MPV 10.0 (9.4-12.3) fL Immature Gran % (Auto) 0.3 (0.0-0.4) % Neut % (Auto) 74.6 H (45-73) % Lymph % (Auto) 13.8 L (20-40) % Perkins % (Auto) 7.3 (2-11) % Eos % (Auto) 3.3 (0-4) % Baso % (Auto) 0.7 (0-2) % Lymph # (Auto) 1.4 (1.2-4.9) X10*3/uL Perkins # (Auto) 0.8 (0.1-1.2) X10*3/uL Eos # (Auto) 0.3 (0.0-0.4) X10*3/uL Baso # (Auto) 0.1 (0.0-0.2) X10*3/uL Abs Immat Gran (auto) 0.03 (0.00-0.03) X10*3/uL Absolute Neuts (auto) 7.6 (2.0-8.3) x10*3/uL Absolute Nucleated RBC 0.000 (0.0-0.012) X10*3/uL Nucleated RBC % (auto) 0.0 (0.0-0.2) /100WBC Sodium 142 (135-145) mmol/L Potassium 3.7 (3.3-5.1) mmol/L Chloride 107 (96-108) mmol/L Carbon Dioxide 23 (22-29) mmol/L Anion Gap 16 (12-20) BUN 7 L (9-16) mg/dL Creatinine 0.65 (0.5-1.4) mg/dL Estim Creat Clear Calc 99.1 Estimated GFR > 60 Random Glucose 98 (60-115) mg/dL Calcium 8.8 (8.4-10.2) mg/dL Total Bilirubin 0.3 (0.0-1.0) mg/dL Direct Bilirubin 0.1 (0.0-0.5) mg/dL AST 17 (5-31) U/L ALT 12 (0-31) U/L Alkaline Phosphatase 66 (39-117) U/L Total Protein 6.6 (6.5-8.0) g/dL Albumin 3.8 (3.5-5.0) g/dL Beta HCG, Quant < 2 mIU/mL Ethyl Alcohol 151 mg/dL Independent Historian Clinical information obtained from an independent historian. History obtained from or confirmed by: EMS External Record Review External record reviewed: Inpatient record Social Determinants Patient?s care significantly limited by Social Determinants of Health including: Low income, Alcoholism and drug addiction in family and Problems related to primary support group Discharge Plan Discharge Clinical Impression: Depression Qualifiers: Depression Type: major depressive disorder Major depression recurrence: unspecified whether recurrent Active/Remission status: currently active Major depression episode severity: moderate Qualified Code(s): F32.1 - Major depressive disorder, single episode, moderate Alcohol intoxication Qualifiers: Complication of substance-induced condition: uncomplicated Qualified Code(s): F10.920 - Alcohol use, unspecified with intoxication, uncomplicated Patient Disposition: Still a Patient Prescriptions: No Action ondansetron 8 mg tablet,disintegrating 8 mg PO Q8H PRN (Reason: nausea and vomiting) Qty: 90 1RF acetaminophen [Tylenol Extra Strength] 500 mg tablet 1,000 mg PO QID PRN (Reason: fever or pain) Qty: 14 0RF loratadine [Claritin] 10 mg tablet 10 mg PO DAILY Qty: 30 0RF albuterol sulfate 90 mcg/actuation HFA aerosol inhaler 2 puff inhalation Q4-6H PRN (Reason: shortness of breath or wheezing) Qty: 8.5 0RF albuterol sulfate 90 mcg/actuation HFA aerosol inhaler 1 inh inhalation QID PRN (Reason: shortness of breath or wheezing) Qty: 8.5 0RF prednisone 20 mg tablet 40 mg PO DAILY 4 Days Qty: 8 0RF albuterol sulfate 90 mcg/actuation HFA aerosol inhaler 2 puff inhalation Q4-6H PRN (Reason: shortness of breath or wheezing) Qty: 8.5 0RF fluconazole [Diflucan] 150 mg tablet 150 mg PO Q3D 0 Days Qty: 2 0RF Rx Instructions: may repeat second dose 72 hrs after first dose if symptoms persist triamcinolone acetonide 0.1 % ointment 1 appl topical BID PRN (Reason: rash) Qty: 15 0RF Interventions: [place]-Suicide Risk Severity Scale Last Done: 02/21/23 04:13
[2023-02-21 05:12] LABS: MANUAL DIFF FLAG NO
[2023-02-21 05:15] LABS: Basophils Absolute Auto 0.1 X10*3/uL (0.0-0.2); Basophils Percent Auto 0.7 % (0-2); Eosinophils Absolute Auto 0.3 X10*3/uL (0.0-0.4); Eosinophils Percent Auto 3.3 % (0-4); Hematocrit 38.4 % (37.0-47.0); Hemoglobin 12.9 g/dl (12.0-16.0); Imm Gran Abs Auto 0.03 X10*3/uL (0.00-0.03); Imm Gran Pct Auto 0.3 % (0.0-0.4); Lymphocytes Absolute Auto 1.4 X10*3/uL (1.2-4.9); Lymphocytes Percent Auto 13.8 % (20-40); Mean Corpuscular HGB Conc 33.6 g/dl (31.0-35.0); Mean Corpuscular Hemoglobin 29.9 pg (27.0-33.0); Mean Corpuscular Volume 88.9 fL (80.0-98.0); Monocytes Absolute Auto 0.8 X10*3/uL (0.1-1.2); Monocytes Percent Auto 7.3 % (2-11); Neutrophils Absolute Auto 7.6 x10*3/uL (2.0-8.3); Neutrophils Percent Auto 74.6 % (45-73); Platelet Count 305 X10*3/uL (160-400); Red Blood Count 4.32 X10*6/uL (4.20-5.50); Red Cell Distribution Width 14.5 % (11.0-16.0); White Blood Count 10.2 X10*3/uL (4.8-10.8)
[2023-02-21 05:32] LABS: Alanine Aminotransferase 12 U/L (0-31); Albumin Level 3.8 g/dL (3.5-5.0); Alkaline Phosphatase 66 U/L (39-117); Anion Gap 16 (12-20); Aspartate Amino Transferase 17 U/L (5-31); Bilirubin Direct 0.1 mg/dL (0.0-0.5); Bilirubin Total 0.3 mg/dL (0.0-1.0); Blood Urea Nitrogen 7 mg/dL (9-16); Calcium 8.8 mg/dL (8.4-10.2); Carbon Dioxide 23 mmol/L (22-29); Chloride 107 mmol/L (96-108); Creatinine Clr Calc Pharmacy 99.1; Estimated Glomerular Filt Rate > 60; Ethanol 151 mg/dL; Glucose Random 98 mg/dL (60-115); Potassium 3.7 mmol/L (3.3-5.1); Sodium 142 mmol/L (135-145); Total Protein 6.6 g/dL (6.5-8.0)
[2023-02-21 05:35] LABS: HCG Quantitative < 2 mIU/mL
[2023-02-21 06:19] VITALS: BP 114/72; PULSE 103; RESP 18; TEMP 36.9; O2SAT 95
[2023-02-21] MEDS: Albuterol Sulfate 90 MCG 8 GM INHALER 2 PUFF INHALE (06:42)
--- NOTE | 2023-02-21 06:43 | PC.NURSE ---
Pt upset, requesting albuterol tx, SpO2 91% on RA, lung sounds wheezy. Inhaler given per JUL.
[2023-02-21 08:17] VITALS: BP 122/94; PULSE 124; RESP 20; O2SAT 95
--- NOTE | 2023-02-21 08:20 | PC.NURSE ---
pt awake, requesting to be discharged. to go home and sleep. no SI at this time. NADER henson
[2023-02-21] MEDS: LORazepam 1 MG TABLET PO (08:54)
[2023-02-21 08:59] VITALS: RESP 112; O2SAT 99
== END 2023-02-21 09:36 | disposition home or self-care (01) ==
PROVIDERS: Emergency Provider Emergency Medicine
DX: F32.1 Major depressive disorder, single episode, moderate (principal); F10.129 Alcohol abuse with intoxication, unspecified; Y90.6 Blood alcohol level of 120-199 mg/100 ml; F17.210 Nicotine dependence, cigarettes, uncomplicated; Z71.6 Tobacco abuse counseling; Z79.899 Other long term (current) drug therapy
CPT/HCPCS: 36415; 80048; 80076; 80307; 84702; 85025; 99284; 99285

== ENCOUNTER 2023-03-08 21:57 | Emergency (ER) | payer OTHER, SELFPAY ==
--- NOTE | ~2023-03-08 | XR_ITS ---
EXAMINATION: XR CHEST CLINICAL INFORMATION: Shortness of breath. COMPARISON: 11/13/2022. TECHNIQUE: Frontal view of the chest was obtained. FINDINGS: The cardiomediastinal silhouette is normal. There is no focal lung consolidation or pleural effusion. The bony structures and soft tissues are unremarkable. XR/XR chest 1V IMPRESSION: No active cardiopulmonary disease.
[2023-03-08 22:10] VITALS: BP 128/83; PULSE 96; O2SAT 98
[2023-03-08 22:13] VITALS: BP 126/82; PULSE 90; RESP 24; TEMP 36.6; O2SAT 97; BMI 20.4
[2023-03-08] MEDS: Albuterol Sulfate 2.5 MG, Albuterol/Iprat 2.5/0.5MG 3 ML 3 ML INHALE (22:36)
[2023-03-08 22:38] VITALS: PULSE 90; RESP 14; O2SAT 97
--- NOTE | 2023-03-08 22:39 | ED_ITS ---
HPI - Asthma General Chief Complaint: Asthma Stated Complaint: Asthma, on duo neb Time Seen by Provider: 03/08/23 22:02 Source: patient Mode of arrival: ambulatory Limitations: no limitations History of Present Illness HPI Narrative: This is a 27-year-old female history of dermatitis, asthma, depression, presenting to the emergency depart with shortness of breath and wheezing since 20:00, patient reports this started after being outside, she ran out of her rescue inhaler, for this reason she began walking towards the hospital however felt too short of breath in ended up calling 911. She reports she feels very wheezy, feels like her typical asthma attack. Denies chest pain, nausea, vomiting abdominal pain, headache, vision changes, dizziness and weakness. No hx of PE cardona DVT. EMS gave her DuoNeb with significant improvement, presents saturating 97% on room air. Related Data Previous Rx's Medication Instructions Recorded ondansetron 8 mg disintegrating 8 mg PO Q8H PRN nausea and 11/30/20 tablet vomiting #90 tabs acetaminophen 500 mg tablet 1,000 mg (2 x 500 mg) PO QID PRN 12/03/20 (Tylenol Extra Strength) fever or pain #14 tabs loratadine 10 mg tablet (Claritin) 10 mg PO DAILY #30 tabs 10/17/22 albuterol sulfate 90 mcg/actuation 2 puff inhalation Q4-6H PRN 11/13/22 aerosol inhaler shortness of breath or wheezing #8.5 grams albuterol sulfate 90 mcg/actuation 1 inh inhalation QID PRN shortness 11/25/22 aerosol inhaler of breath or wheezing #8.5 grams fluconazole 150 mg tablet 150 mg PO Q3D 2 doses #2 tabs 12/09/22 (Diflucan) triamcinolone acetonide 0.1 % 1 appl topical BID PRN rash #15 12/09/22 topical ointment grams albuterol sulfate 90 mcg/actuation 2 puff inhalation Q4-6H PRN 01/30/23 aerosol inhaler shortness of breath or wheezing #8.5 grams prednisone 20 mg tablet 40 mg (2 x 20 mg) PO DAILY 4 days 01/30/23 #8 tabs albuterol sulfate 90 mcg/actuation 2 inh inhalation Q4-6H PRN 03/08/23 breath activated powder inhaler shortness of breath or wheezing #1 ea prednisone 20 mg tablet 40 mg (2 x 20 mg) PO DAILY 5 days 03/08/23 #10 tabs Allergies Allergy/AdvReac Type Severity Reaction Status Date / Time egg [EGG] Allergy Severe ANAPHYLAXIS Verified 03/08/23 22:13 fish derived [FISH] Allergy Severe ANAPHYLAXIS Verified 03/08/23 22:13 peanut [PEANUTS] Allergy Severe ITCHING Verified 03/08/23 22:13 shellfish derived Allergy Severe ANAPHYLAXIS Verified 03/08/23 22:13 [SHELLFISH DERIVED] cat dander Allergy Intermediate Hives Verified 03/08/23 22:13 dog dander Allergy Intermediate Hives Verified 03/08/23 22:13 house dust Allergy Intermediate Hives Verified 03/08/23 22:13 rice [RICE] AdvReac Intermediate CONSTIPATIO Verified 03/08/23 22:13 N Review of Systems Review of Systems: Constitutional : No Weight loss, No Fever, No Chills, No Fatigue, No Malaise ENT/Mouth : No sore throat, No Rhinorrhea Eyes: No Eye Pain, No Swelling, No Redness Cardiovascular : No Chest Pain, No SOB, No Dyspnea on Exertion, No Orthopnea, No Edema, No Palpitations Respiratory : No Cough, No Sputum, + Wheezing Gastrointestinal : No Nausea, No Vomiting, No Diarrhea, No Constipation, No abdominal Pain, No Hematochezia, No Melena Genitourinary : No Dysuria, No Urinary Frequency, No Hematuria, Musculoskeletal : No joint pain, No Myalgias, No Joint Swelling Skin : No Skin Lesions, No rash Neuro : No Weakness, No Numbness, No Dizziness, No Headache Psych : No Anxiety/Panic, No Depression All other systems reviewed and are negative Yes all other systems are reviewed and are negative [facility] Past Medical History Attestation statement: The following information was validated with the patient. Source: old records reviewed and nursing notes reviewed Medical History Bronchitis Spotting in first trimester Early stage of Hyperemesis test positive Asthma Mild persistent asthma, uncomplicated Allergy to other foods Anxiety state, unspecified Major depressive disorder, single episode, unspecified Dermatitis, unspecified Surgical History History of section Family History Family History Father Drug abuse Asthma Mother Hypertension Maternal Grandmother Ovarian cancer Other Mental health disorder Substance use disorder Social History Social History Household Members: Family Household Members Other:: mom Housing: Apartment Alcohol intake: current Alcohol intake frequency: 3 or more drinks per day Alcohol type: hard liquor Patient Tobacco Use Status: Current everyday Tobacco user Tobacco use type: Cigarette Cigarettes Per Day: 3 e-Cigarette/Vaping Use: Never Used Second Hand Smoke Exposure: Yes Substance Use Type: Marijuana Advance Directives: Yes Advance Directives on File: Yes Advance Directives Date on File: 12/21/20 service: No Current occupational status: unemployed Gender identity: Female Cognitive needs: No Hearing needs: No Vision needs: No Physical Exam Vital Signs: Vital Signs: Last Vital Signs Temp 98.5 F 03/08/23 23:10 Pulse 95 03/08/23 23:10 Resp 18 03/08/23 23:10 BP 113/64 03/08/23 23:10 Pulse Ox 98 03/08/23 23:10 O2 Del Method Room Air 03/08/23 23:10 BMI result Body Mass Index 20.4 vss Appearance: Alert.? Oriented X3.? No acute distress.? Head: Normocephalic, atraumatic, no step-offs or deformities Eyes: Pupils equal, round and reactive to light.? Neck: Normal inspection.? Neck supple.? CVS: Normal heart rate and rhythm.? Pulses normal.? Respiratory: No respiratory distress.? Breath sounds w/ expiratory wheezing throughout.? Abdomen: Soft and nontender.? Skin: Skin warm and dry.? Normal skin color.? Normal skin turgor.? Extremities: No lower extremity edema.? No calf ttp. 5/5 strength to bilateral upper and lower extremities Back: No midline tenderness, no C-spine tenderness, full range of motion, no CVA tenderness bilaterally Neuro: Oriented X 3.? No motor deficit.? No sensory deficit. CN 2-12 intact Course Reevaluation(s) Reevaluation #1: Discussed EKG with my attending unusual P axis likely secondary to chronic lung disease. Such as asthma. Time: 23:04 Reevaluation #2: Patient feeling well, she is saturating 96-98% on room air. Wheezing much improved. Patient saturating well even after ambulation. Will discharge her home with albuterol, prednisone. X-ray unremarkable, EKG nonischemic. Educated patient on diagnosis and treatment plan, answered all question, patient verbalizes understanding. At this time patient will be discharged home, advised to return with new or worsening symptoms. Educated on worrisome signs and symptoms and when to return. At this time I feel comfortable discharge home. Time: 23:21 Medications Administered Discontinued Medications Generic Name Dose Route Start Last Admin Trade Name Freq PRN Reason Stop Dose Admin Albuterol Sulfate 2.5 mg/ 0 mg 03/08/23 22:32 03/08/23 22:36 Albuterol/Ipratropium 3 ml INHALE 03/08/23 22:33 5 dose ONCE ONE Administration Medical Decision Making Medical Decision Making [facility] Narrative: 1041 27-year-old female presents with shortness of breath and wheezing that started at 20:00 after being on side. Physical examination with expiratory wheezing throughout. History and physical examination concerning for asthma versus viral illness. Unlikely PE (PERC negative), pneumonia or atypical presentation of ACS. Unlikely pneumothorax or flail chest. No trauma. Plan xray, covid, bronch prtocol Differential Diagnosis Differential Diagnoses: The differential diagnosis associated with the presentation includes History and physical examination concerning for asthma versus viral illness. Unlikely PE, pneumonia or atypical presentation of ACS. Unlikely pneumothorax or flail chest. No trauma. Admission/Observation Consideration of admission/observation: Escalation of care including admission/observation considered possible Lab Data [facility] Lab Attestation statement: I reviewed the patient's lab results. Independent Interpretation I performed an independent interpretation of an: EKG (Ventricular rate of 88, MS normal, QRS normal, QT/QTC normal. EKG with unusual P axis possible ectopic atrial rhythm, left axis deviation. No ST elevations or inversions concerning for acute ischemic) and Plain X-Ray (XR/XR chest 1V IMPRESSION: No active cardiopulmonary disease.) Radiology Impression Discussion of test interpretation with radiology: I have reviewed the radiologist's reading. External Record Review External record reviewed: Inpatient record, Office record, Outpatient record, Prior outpatient labs, Prior outpatient radiology, Primary care record and Outside ED record Tests considered The following testing was considered but not selected: No indication for CT or CTa ( perc negative) No indication for labs would not change tx plan- and i do not suspect infection. Chronic Conditions Patient?s care impacted by: Other (asthma ) Social Determinants Patient?s care significantly limited by Social Determinants of Health including: Inadequate housing, Low income, Alcoholism and drug addiction in family, Problems related to primary support group and Other Social Determinant of Health Critical Care Time Critical Care Time Critical Care Time: No Discharge Plan Discharge Clinical Impression: Asthma with acute exacerbation Patient Disposition: Home, Self-Care Instructions: Asthma (ED) Additional Instructions: Take your medications as prescribed. If you were prescribed antibiotics today, it is important that you take your medication to their entirety, do not skip any doses, do not finish them early. Follow-up with your primary care provider this week. Return to the emergency department with new or worsening symptoms. In case of emergency call 911 Prescriptions: New prednisone 20 mg tablet 40 mg PO DAILY 5 Days Qty: 10 0RF albuterol sulfate 90 mcg/actuation aerosol powdr breath activated 2 inh inhalation Q4-6H PRN (Reason: shortness of breath or wheezing) Qty: 1 0RF No Action ondansetron 8 mg tablet,disintegrating 8 mg PO Q8H PRN (Reason: nausea and vomiting) Qty: 90 1RF acetaminophen [Tylenol Extra Strength] 500 mg tablet 1,000 mg PO QID PRN (Reason: fever or pain) Qty: 14 0RF loratadine [Claritin] 10 mg tablet 10 mg PO DAILY Qty: 30 0RF albuterol sulfate 90 mcg/actuation HFA aerosol inhaler 2 puff inhalation Q4-6H PRN (Reason: shortness of breath or wheezing) Qty: 8.5 0RF albuterol sulfate 90 mcg/actuation HFA aerosol inhaler 1 inh inhalation QID PRN (Reason: shortness of breath or wheezing) Qty: 8.5 0RF prednisone 20 mg tablet 40 mg PO DAILY 4 Days Qty: 8 0RF albuterol sulfate 90 mcg/actuation HFA aerosol inhaler 2 puff inhalation Q4-6H PRN (Reason: shortness of breath or wheezing) Qty: 8.5 0RF fluconazole [Diflucan] 150 mg tablet 150 mg PO Q3D 0 Days Qty: 2 0RF Rx Instructions: may repeat second dose 72 hrs after first dose if symptoms persist triamcinolone acetonide 0.1 % ointment 1 appl topical BID PRN (Reason: rash) Qty: 15 0RF Referrals: Physician,Unknown J [Primary Care Provider] - 2 days
--- NOTE | 2023-03-08 22:43 | ECG_ITS ---
Test Reason : ASTHMA Blood Pressure : / mmHG Vent. Rate : 088 BPM Atrial Rate : 088 BPM P-R Int : 140 ms QRS Dur : 088 ms QT Int : 366 ms P-R-T Axes : -46 -43 029 degrees QTc Int : 442 ms Normal sinus rhythm Left axis deviation RSR' or QR pattern in V1 suggests right ventricular conduction delay Abnormal ECG When compared with ECG of 30-JAN-2023 20:29, No significant changes seen Referred By: Victorino Prince Electronically Signed By:THEE BARRAGAN MD
[2023-03-08 23:10] VITALS: BP 113/64; PULSE 95; RESP 18; TEMP 36.9; O2SAT 98
--- NOTE | 2023-03-08 23:21 | MHC.EDTECH ---
Hourly rounds and vitals completed,EKG done per order and covid swab obtained and sent to lab.
[2023-03-08 23:35] LABS: COVID-19 Test Negative (Negative); IDNOW Serial# BCCEAD1C
[2023-03-08] MEDS: Albuterol Sulfate 90 MCG 8 GM INHALER 4 PUFF INHALE (23:35)
[2023-03-08] MEDS: dexAMETHasone sod phosphate 10 MG/ML VIAL IVPUSH (23:35)
== END 2023-03-08 23:47 | disposition home or self-care (01) ==
PROVIDERS: Physician Assistant; Emergency Provider Internal Medicine
DX: J45.901 Unspecified asthma with (acute) exacerbation (principal); R06.02 Shortness of breath; R94.31 Abnormal electrocardiogram [ECG] [EKG]; Z11.52 Encounter for screening for COVID-19; Z20.822 Contact with and (suspected) exposure to COVID-19; F17.210 Nicotine dependence, cigarettes, uncomplicated; Z71.6 Tobacco abuse counseling; Z79.899 Other long term (current) drug therapy
CPT/HCPCS: 71045; 87635; 93005; 94640; 99284; 99285; J1100

== ENCOUNTER 2023-03-19 15:13 | Emergency (ER) | payer OTHER, SELFPAY ==
[2023-03-19 15:22] VITALS: BP 98/46; PULSE 96; RESP 16; TEMP 36.5; O2SAT 96; BMI 22.4
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
--- NOTE | 2023-03-19 17:14 | PC.NURSE ---
PA state ok to give water as pt states she will be able to urinate. encouraging to try for sample.
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
[2023-03-19 18:07] LABS: Appearance Urine Clear; Color Urine Yellow; Glucose Urine UA Negative (Negative); Leukocyte Esterase Urine Negative (Negative); Nitrite Urine Negative (Negative); Specific Gravity - Urine 1.025 (1.005-1.025); Urine Blood Negative (Negative); Urine Ketones Negative (Negative); Urine Protein Negative (Neg-Trace)
[2023-03-19 18:09] LABS: UPreg QC Valid YES; Urine Pregnancy NEGATIVE (NEGATIVE)
[2023-03-19] MEDS: cefTRIAXone sodium 500 MG, Lidocaine HCl 1 % MPF 1 ML IM (18:32)
[2023-03-19 18:36] VITALS: PULSE 85; RESP 18; TEMP 36.4; O2SAT 98
[2023-03-19 19:05] VITALS: BP 100/59; O2SAT 98
[2023-03-20 02:03] LABS: CT PCR NOT DETECTED (Not Detect.); NG PCR DETECTED (Not Detect.)
[2023-03-20 12:02] LABS: BV Int Neg Control Negative (Negative); BV Int Pos Control Positive (Positive)
== END 2023-03-19 19:06 | disposition home or self-care (01) ==
PROVIDERS: Physician Assistant Medical; Registered Nurse Emergency; Emergency Provider Internal Medicine; PCP Internal Medicine
DX: A54.02 Gonococcal vulvovaginitis, unspecified (principal); B37.9 Candidiasis, unspecified; N89.8 Other specified noninflammatory disorders of vagina; T76.21XA Adult sexual abuse, suspected, initial encounter; R10.9 Unspecified abdominal pain; F17.210 Nicotine dependence, cigarettes, uncomplicated; Z71.6 Tobacco abuse counseling; Z79.899 Other long term (current) drug therapy
CPT/HCPCS: 0353U; 81003; 81025; 87480; 87510; 87660; 96372; 99284; J0696

== ENCOUNTER 2023-04-05 19:11 | Emergency (ER) | payer OTHER, SELFPAY ==
--- NOTE | ~2023-04-05 | XR_ITS ---
EXAMINATION: XR CHEST CLINICAL INFORMATION: Cough. COMPARISON: Chest radiograph 03/08/2023. TECHNIQUE: 2 views of the chest were obtained. FINDINGS: Normal appearance of the cardiomediastinal silhouette. No focal airspace opacity, pleural effusion or pneumothorax. No acute osseous findings. Visualized upper abdomen is within normal limits. XR/XR chest 2V IMPRESSION: No acute cardiopulmonary findings.
[2023-04-05 19:15] VITALS: BP 106/78; PULSE 80; O2SAT 98
[2023-04-05 20:58] VITALS: BP 102/56; PULSE 75; RESP 16; TEMP 36.6; O2SAT 97; BMI 21.0
--- NOTE | 2023-04-05 21:16 | ED.SOB ---
HPI - SOB/Dyspnea General Chief Complaint: Upper Respiratory Symptoms Stated Complaint: SOB,COUGH, HX ASTHMA Time Seen by Provider: 04/05/23 21:10 Source: patient Mode of arrival: ambulatory Limitations: no limitations History of Present Illness HPI Narrative: Patient With history of asthma been congested for last 2 days wheezing ran out of her inhaler feels chest tightness feel slightly warm with body aches mostly dry cough Related Data Previous Rx's Medication Instructions Recorded ondansetron 8 mg disintegrating 8 mg PO Q8H PRN nausea and 11/30/20 tablet vomiting #90 tabs acetaminophen 500 mg tablet 1,000 mg (2 x 500 mg) PO QID PRN 12/03/20 (Tylenol Extra Strength) fever or pain #14 tabs loratadine 10 mg tablet (Claritin) 10 mg PO DAILY #30 tabs 10/17/22 albuterol sulfate 90 mcg/actuation 2 puff inhalation Q4-6H PRN 11/13/22 aerosol inhaler shortness of breath or wheezing #8.5 grams albuterol sulfate 90 mcg/actuation 1 inh inhalation QID PRN shortness 11/25/22 aerosol inhaler of breath or wheezing #8.5 grams fluconazole 150 mg tablet 150 mg PO Q3D 2 doses #2 tabs 12/09/22 (Diflucan) prednisone 20 mg tablet 40 mg (2 x 20 mg) PO DAILY 4 days 01/30/23 #8 tabs albuterol sulfate 90 mcg/actuation 2 inh inhalation Q4-6H PRN 03/08/23 breath activated powder inhaler shortness of breath or wheezing #1 ea prednisone 20 mg tablet 40 mg (2 x 20 mg) PO DAILY 5 days 03/08/23 #10 tabs doxycycline hyclate 100 mg tablet 100 mg PO BID 7 days #14 tabs 03/19/23 metronidazole 500 mg tablet 500 mg PO BID 7 days #14 tabs 03/19/23 fluconazole 150 mg tablet 150 mg PO Q3D 2 doses #2 tabs 03/22/23 triamcinolone acetonide 0.1 % 1 appl topical BID PRN rash #15 03/24/23 topical ointment grams albuterol sulfate 90 mcg/actuation 2 puff inhalation Q4-6H PRN 03/28/23 aerosol inhaler shortness of breath or wheezing #8.5 grams albuterol sulfate 2.5 mg/3 mL 2.5 mg (3 mL) inhalation Q4-6H PRN 04/05/23 (0.083 %) solution for nebulization shortness of breath or wheezing #90 mL albuterol sulfate 90 mcg/actuation 2 puff inhalation Q4-6H PRN 04/05/23 aerosol inhaler (ProAir HFA) shortness of breath or wheezing #8.5 grams nebulizers #1 ea 04/05/23 prednisone 20 mg tablet 40 mg (2 x 20 mg) PO DAILY #14 tabs 04/05/23 Allergies Allergy/AdvReac Type Severity Reaction Status Date / Time egg [EGG] Allergy Severe ANAPHYLAXIS Verified 03/08/23 22:13 fish derived [FISH] Allergy Severe ANAPHYLAXIS Verified 03/08/23 22:13 peanut [PEANUTS] Allergy Severe ITCHING Verified 03/08/23 22:13 shellfish derived Allergy Severe ANAPHYLAXIS Verified 03/08/23 22:13 [SHELLFISH DERIVED] cat dander Allergy Intermediate Hives Verified 03/08/23 22:13 dog dander Allergy Intermediate Hives Verified 03/08/23 22:13 house dust Allergy Intermediate Hives Verified 03/08/23 22:13 rice [RICE] AdvReac Intermediate CONSTIPATIO Verified 03/08/23 22:13 N Review of Systems Review of Systems: Yes all other systems are reviewed and are negative [facility] Past Medical History Medical History (Updated 04/05/23 @ 23:52 by Toro Santoyo MD) Bronchitis Spotting in first trimester Early stage of Hyperemesis test positive Asthma Mild persistent asthma, uncomplicated Allergy to other foods Anxiety state, unspecified Major depressive disorder, single episode, unspecified Dermatitis, unspecified Surgical History History of section Family History Family History Father Drug abuse Asthma Mother Hypertension Maternal Grandmother Ovarian cancer Other Mental health disorder Substance use disorder Social History Social History Household Members: Family Household Members Other:: mom Housing: Apartment Unable to assess alcohol history related to: Unknown Alcohol intake: current Alcohol intake frequency: 3 or more drinks per day Alcohol type: hard liquor Patient Tobacco Use Status: Current everyday Tobacco user Tobacco use type: Cigarette Cigarettes Per Day: 3 e-Cigarette/Vaping Use: Never Used Second Hand Smoke Exposure: Yes Use of substances other than those prescribed or required for medical reasons: Unknown Substance Use Type: Marijuana Advance Directives: No Advance Directives Information Provided: No Advance Directives Date on File: 12/21/20 service: No Current occupational status: unemployed Gender identity: Female Cognitive needs: No Hearing needs: No Vision needs: No Physical Exam Vital Signs: Vital Signs: Last Vital Signs Temp 98.1 F 04/05/23 23:42 Pulse 85 04/05/23 23:51 Resp 18 04/05/23 23:51 BP 110/58 L 04/05/23 23:42 Pulse Ox 97 04/06/23 00:10 O2 Del Method Room Air 04/06/23 00:10 BMI result Body Mass Index 21.0 Appearance: Alert. Oriented X3. No acute distress. ENT: Pharynx normal. Oral Mucosa moist Neck: Normal inspection. Neck supple. CVS: Normal heart rate and rhythm. Pulses normal. Respiratory: No respiratory distress. Equal air entry bilateral, bilateral wheezing no crackles Abdomen: Soft and nontender. Bowel sounds are present, Skin: Skin warm and dry. Normal skin color. Normal skin turgor. Extremities: No lower extremity edema. No calf tenderness Neuro: Oriented X 3. Medications Administered Discontinued Medications Generic Name Dose Route Start Last Admin Trade Name Freq PRN Reason Stop Dose Admin Albuterol Sulfate 2.5 mg/ 5 mg 04/05/23 21:33 04/05/23 21:36 Albuterol Sulfate 2.5 mg INHALE 04/05/23 21:34 5 mg ONCE ONE Administration Albuterol Sulfate 2.5 mg/ 5 mg 04/05/23 23:43 04/05/23 23:51 Albuterol Sulfate 2.5 mg INHALE 04/05/23 23:44 5 mg ONCE ONE Administration Albuterol Sulfate 2 puff 04/05/23 23:45 04/05/23 23:50 Albuterol Sulfate 90 Mcg 8 Gm Inhaler INHALE 04/05/23 23:46 2 puff ONCE ONE Administration Dexamethasone 10 mg 04/05/23 21:23 04/05/23 21:57 Dexamethasone 2 Mg Tablet PO 04/05/23 21:24 10 mg ONCE ONE Administration Guaifenesin/Codeine Phosphate 10 ml 04/05/23 21:23 04/05/23 21:57 Guaifen/Codeine Sf 200/20/10ml 10 Ml Liquid PO 04/05/23 21:24 10 ml ONCE ONE Administration Ibuprofen 600 mg 04/05/23 21:23 04/05/23 21:57 Ibuprofen 600 Mg Tablet PO 04/05/23 21:24 600 mg ONCE ONE Administration Medical Decision Making Medical Decision Making [facility] Narrative: Patient with moderate asthma received 2 nebulizing treatment and p.o. Decadron feeling much better at this time discharge patient home on prednisone and albuterol patient is saturating 98% at room air Differential Diagnosis Differential Diagnoses: The differential diagnosis associated with the presentation includes Asthma/pneumonia/atypical pneumonia Admission/Observation Consideration of admission/observation: Escalation of care including admission/observation considered Lab Data [facility] Lab Attestation statement: I reviewed the patient's lab results. Labs: Lab Results 04/05/23 Range/Units 21:18 Influenza Type A (PCR) NEGATIVE (Negative) Influenza Type B (PCR) NEGATIVE (Negative) RSV RNA Qual (PCR) NEGATIVE (Negative) SARS-CoV-2 RNA (RT-PCR) NEGATIVE (Negative) Independent Interpretation I performed an independent interpretation of an: Plain X-Ray Radiology Impression Discussion of test interpretation with radiology: I have reviewed the radiologist's reading. Discharge Plan Discharge Clinical Impression: Asthma Patient Disposition: Home, Self-Care Instructions: Asthma (ED) Additional Instructions: Use albuterol inhaler and nebulizing treatment as advised Prednisone as prescribed Follow with PCP if not better Prescriptions: New albuterol sulfate 2.5 mg /3 mL (0.083 %) solution for nebulization 2.5 mg inhalation Q4-6H PRN (Reason: shortness of breath or wheezing) Qty: 90 2RF prednisone 20 mg tablet 40 mg PO DAILY Qty: 14 0RF albuterol sulfate [ProAir HFA] 90 mcg/actuation HFA aerosol inhaler 2 puff inhalation Q4-6H PRN (Reason: shortness of breath or wheezing) Qty: 8.5 2RF (DME) nebulizers Misc See Rx Instructions .Route Qty: 1 0RF Rx Instructions: As directed No Action ondansetron 8 mg tablet,disintegrating 8 mg PO Q8H PRN (Reason: nausea and vomiting) Qty: 90 1RF triamcinolone acetonide 0.1 % ointment 1 appl topical BID PRN (Reason: rash) Qty: 15 0RF albuterol sulfate 90 mcg/actuation HFA aerosol inhaler 2 puff inhalation Q4-6H PRN (Reason: shortness of breath or wheezing) Qty: 8.5 3RF acetaminophen [Tylenol Extra Strength] 500 mg tablet 1,000 mg PO QID PRN (Reason: fever or pain) Qty: 14 0RF loratadine [Claritin] 10 mg tablet 10 mg PO DAILY Qty: 30 0RF albuterol sulfate 90 mcg/actuation HFA aerosol inhaler 2 puff inhalation Q4-6H PRN (Reason: shortness of breath or wheezing) Qty: 8.5 0RF albuterol sulfate 90 mcg/actuation HFA aerosol inhaler 1 inh inhalation QID PRN (Reason: shortness of breath or wheezing) Qty: 8.5 0RF prednisone 20 mg tablet 40 mg PO DAILY 4 Days Qty: 8 0RF prednisone 20 mg tablet 40 mg PO DAILY 5 Days Qty: 10 0RF albuterol sulfate 90 mcg/actuation aerosol powdr breath activated 2 inh inhalation Q4-6H PRN (Reason: shortness of breath or wheezing) Qty: 1 0RF doxycycline hyclate 100 mg tablet 100 mg PO BID 7 Days Qty: 14 0RF metronidazole 500 mg tablet 500 mg PO BID 7 Days Qty: 14 0RF fluconazole 150 mg tablet 150 mg PO Q3D Qty: 2 0RF Rx Instructions: may repeat second dose 72 hrs after first dose if symptoms persist fluconazole [Diflucan] 150 mg tablet 150 mg PO Q3D 0 Days Qty: 2 0RF Rx Instructions: may repeat second dose 72 hrs after first dose if symptoms persist Interventions: ED Discharge Assessment Last Done: 04/06/23 00:23 Discharge Date/Time: 04/06/23 00:24
[2023-04-05] MEDS: Albuterol Sulfate 2.5 MG, Albuterol Sulfate (0.083%) 2.5 MG 5 MG INHALE ×2 (21:36→23:51)
[2023-04-05 21:38] VITALS: PULSE 75; RESP 18; O2SAT 95
[2023-04-05] MEDS: Ibuprofen 600 MG TABLET PO (21:57)
[2023-04-05] MEDS: dexAMETHasone 2 MG TABLET 10 MG PO (21:57)
[2023-04-05] MEDS: guaiFEN/Codeine SF 200/20/10ML 10 ML LIQUID PO (21:57)
[2023-04-05 22:07] LABS: Influenza A PCR NEGATIVE (Negative); Influenza B PCR NEGATIVE (Negative); Resp Syncy Virus RNA Qual PCR NEGATIVE (Negative); SARS COV2 PCR INHOUSE NEGATIVE (Negative)
[2023-04-05 23:42] VITALS: BP 110/58; PULSE 85; RESP 18; TEMP 36.7; O2SAT 98
--- NOTE | 2023-04-05 23:46 | MHC.EDTECH ---
Hourly rounds and vitals completed, patient is getting a TX at this time and then will be discharge. call mcneil within reach and boyfriend at bedside
[2023-04-05] MEDS: Albuterol Sulfate 90 MCG 8 GM INHALER 2 PUFF INHALE (23:50)
[2023-04-05 23:51] VITALS: PULSE 85; RESP 18; O2SAT 98
[2023-04-06 00:10] VITALS: O2SAT 97
== END 2023-04-06 00:24 | disposition home or self-care (01) ==
PROVIDERS: Emergency Medicine; Emergency Provider Internal Medicine
DX: J45.909 Unspecified asthma, uncomplicated (principal); R06.02 Shortness of breath; R05.9 Cough, unspecified; M79.10 Myalgia, unspecified site; F17.210 Nicotine dependence, cigarettes, uncomplicated; Z71.6 Tobacco abuse counseling; Z20.822 Contact with and (suspected) exposure to COVID-19; Z20.828 Contact with and (suspected) exposure to other viral communicable diseases
CPT/HCPCS: 0241U; 71046; 94640; 99285; J8540

== ENCOUNTER 2023-04-26 04:57 | Emergency (ER) | payer OTHER, SELFPAY ==
--- NOTE | 2023-04-26 | ECG_ITS ---
Test Reason : CHEST PAIN Blood Pressure : / mmHG Vent. Rate : 096 BPM Atrial Rate : 096 BPM P-R Int : 146 ms QRS Dur : 078 ms QT Int : 358 ms P-R-T Axes : 067 -58 064 degrees QTc Int : 452 ms Normal sinus rhythm Left axis deviation RSR' or QR pattern in V1 suggests right ventricular conduction delay Abnormal ECG When compared with ECG of 08-MAR-2023 23:05, No significant change was found Referred By: Generic ED Physician Electronically Signed By:THEE BARRAGAN MD
--- NOTE | ~2023-04-26 | XR_ITS ---
EXAMINATION: XR CHEST CLINICAL INFORMATION: Dyspnea, chest pain COMPARISON: 04/05/2023 TECHNIQUE: Frontal view of the chest was obtained. FINDINGS: Lung volumes are symmetric. No focal consolidation is seen. No evidence of pneumothorax, pleural effusion, or pulmonary edema. The cardiomediastinal contour is unremarkable. No acute osseous findings are seen. XR/XR chest 1V IMPRESSION: No acute cardiopulmonary findings.
[2023-04-26 05:05] VITALS: BP 109/68; BP 123/57; PULSE 100; PULSE 92; RESP 18; TEMP 36.8; O2SAT 98; BMI 20.1
--- NOTE | 2023-04-26 05:20 | MHC.EDTECH ---
Patient was biba from ,home ,ekg taken and was read by Provider ,vitals taken ,Patient was hooked up to clinical research monitor ,Patient was change into gown ,rsv/covid swab and streap swab collected and sent to lab .
[2023-04-26 05:22] VITALS: BP 102/62; PULSE 93; RESP 18; TEMP 36.8; O2SAT 97
[2023-04-26 05:39] LABS: IDNOW Serial# 08D9AD1C; Strep A Nucleic Acid Negative (Negative)
--- NOTE | 2023-04-26 05:56 | PC.NURSE ---
Pt endorsing significant reduction in symptoms after EMS breathing treatment.Pending results from SARS swab.
[2023-04-26 06:04] LABS: Influenza A PCR NEGATIVE (Negative); Influenza B PCR NEGATIVE (Negative); Resp Syncy Virus RNA Qual PCR NEGATIVE (Negative); SARS COV2 PCR INHOUSE NEGATIVE (Negative)
--- NOTE | 2023-04-26 06:05 | ED.SOB ---
HPI - SOB/Dyspnea General Chief Complaint: Dyspnea Stated Complaint: sob Time Seen by Provider: 04/26/23 06:04 Source: patient Mode of arrival: ambulatory Limitations: no limitations History of Present Illness HPI Narrative: Patient history of asthma and eczema of infrequent asthmatic attack comes in for shortness of breath and wheezing for last 2 weeks was seen here last week and treated with prednisone. Patient woke up last night with increased shortness of breath and wheezing use her inhaler without much relief Related Data Previous Rx's Medication Instructions Recorded ondansetron 8 mg disintegrating 8 mg PO Q8H PRN nausea and 11/30/20 tablet vomiting #90 tabs acetaminophen 500 mg tablet 1,000 mg (2 x 500 mg) PO QID PRN 12/03/20 (Tylenol Extra Strength) fever or pain #14 tabs loratadine 10 mg tablet (Claritin) 10 mg PO DAILY #30 tabs 10/17/22 albuterol sulfate 90 mcg/actuation 2 puff inhalation Q4-6H PRN 11/13/22 aerosol inhaler shortness of breath or wheezing #8.5 grams albuterol sulfate 90 mcg/actuation 1 inh inhalation QID PRN shortness 11/25/22 aerosol inhaler of breath or wheezing #8.5 grams fluconazole 150 mg tablet 150 mg PO Q3D 2 doses #2 tabs 12/09/22 (Diflucan) prednisone 20 mg tablet 40 mg (2 x 20 mg) PO DAILY 4 days 01/30/23 #8 tabs albuterol sulfate 90 mcg/actuation 2 inh inhalation Q4-6H PRN 03/08/23 breath activated powder inhaler shortness of breath or wheezing #1 ea prednisone 20 mg tablet 40 mg (2 x 20 mg) PO DAILY 5 days 03/08/23 #10 tabs doxycycline hyclate 100 mg tablet 100 mg PO BID 7 days #14 tabs 03/19/23 metronidazole 500 mg tablet 500 mg PO BID 7 days #14 tabs 03/19/23 fluconazole 150 mg tablet 150 mg PO Q3D 2 doses #2 tabs 03/22/23 triamcinolone acetonide 0.1 % 1 appl topical BID PRN rash #15 03/24/23 topical ointment grams albuterol sulfate 90 mcg/actuation 2 puff inhalation Q4-6H PRN 03/28/23 aerosol inhaler shortness of breath or wheezing #8.5 grams albuterol sulfate 2.5 mg/3 mL 2.5 mg (3 mL) inhalation Q4-6H PRN 04/05/23 (0.083 %) solution for nebulization shortness of breath or wheezing #90 mL albuterol sulfate 90 mcg/actuation 2 puff inhalation Q4-6H PRN 04/05/23 aerosol inhaler (ProAir HFA) shortness of breath or wheezing #8.5 grams nebulizers #1 ea 04/05/23 prednisone 20 mg tablet 40 mg (2 x 20 mg) PO DAILY #14 tabs 04/05/23 benzonatate 200 mg capsule 200 mg PO TID PRN cough #30 caps 04/26/23 prednisone 20 mg tablet 40 mg (2 x 20 mg) PO DAILY #10 tabs 04/26/23 Allergies Allergy/AdvReac Type Severity Reaction Status Date / Time egg [EGG] Allergy Severe ANAPHYLAXIS Verified 03/08/23 22:13 fish derived [FISH] Allergy Severe ANAPHYLAXIS Verified 03/08/23 22:13 peanut [PEANUTS] Allergy Severe ITCHING Verified 03/08/23 22:13 shellfish derived Allergy Severe ANAPHYLAXIS Verified 03/08/23 22:13 [SHELLFISH DERIVED] cat dander Allergy Intermediate Hives Verified 03/08/23 22:13 dog dander Allergy Intermediate Hives Verified 03/08/23 22:13 house dust Allergy Intermediate Hives Verified 03/08/23 22:13 rice [RICE] AdvReac Intermediate CONSTIPATIO Verified 03/08/23 22:13 N Review of Systems Review of Systems: Yes all other systems are reviewed and are negative PMF[facility] Past Medical History Medical History Bronchitis Spotting in first trimester Early stage of Hyperemesis test positive Asthma Mild persistent asthma, uncomplicated Allergy to other foods Anxiety state, unspecified Major depressive disorder, single episode, unspecified Dermatitis, unspecified Surgical History History of section Family History Family History Father Drug abuse Asthma Mother Hypertension Maternal Grandmother Ovarian cancer Other Mental health disorder Substance use disorder Social History Social History Household Members: Family Household Members Other:: mom Housing: Apartment Unable to assess alcohol history related to: Unknown Alcohol intake: current Alcohol intake frequency: 3 or more drinks per day Alcohol type: hard liquor Patient Tobacco Use Status: Current everyday Tobacco user Tobacco use type: Cigarette Cigarettes Per Day: 3 Smoked in Last 30 Days: Yes e-Cigarette/Vaping Use: Never Used Second Hand Smoke Exposure: Yes Use of substances other than those prescribed or required for medical reasons: Yes Substance Use Type: Marijuana Substance Use Frequency: Chronic Longstanding Advance Directives: Yes Advance Directives on File: Yes Advance Directives Date on File: 12/21/20 Patient : No service: No Current occupational status: unemployed Gender identity: Female Cognitive needs: No Hearing needs: No Vision needs: No Physical Exam Vital Signs: Vital Signs: Last Vital Signs Temp 98.2 F 04/26/23 05:22 Pulse 82 04/26/23 06:26 Resp 18 04/26/23 06:26 BP 102/62 04/26/23 05:22 Pulse Ox 97 04/26/23 05:22 O2 Del Method Room Air 04/26/23 05:22 BMI result Body Mass Index 20.1 Appearance: Alert. Oriented X3. No acute distress. ENT: Pharynx normal. Oral Mucosa moist Neck: Normal inspection. Neck supple. CVS: Normal heart rate and rhythm. Pulses normal. Respiratory: No respiratory distress. Equal air entry bilateral, bilateral prolonged expiration with wheezing Abdomen: Soft and nontender. Bowel sounds are present, no mass palpable, no CVA tenderness Skin: Skin warm and dry. Normal skin color. Normal skin turgor. Eczematous rash Extremities: No lower extremity edema. No calf tenderness Neuro: Oriented X 3. Medications Administered Discontinued Medications Generic Name Dose Route Start Last Admin Trade Name Freq PRN Reason Stop Dose Admin Albuterol Sulfate 2.5 mg/ 0 mg 04/26/23 06:11 04/26/23 06:22 Albuterol/Ipratropium 3 ml INHALE 04/26/23 06:12 7.5 dose ONCE ONE Administration Dexamethasone 10 mg 04/26/23 06:11 04/26/23 06:17 Dexamethasone 2 Mg Tablet PO 04/26/23 06:12 10 mg ONCE ONE Administration Magnesium Sulfate 2 gm in 50 mls @ 150 mls/hr 04/26/23 06:11 04/26/23 06:17 Magnesium Sulfate/H2o IV 04/26/23 06:30 150 mls/hr ONCE ONE Administration Medical Decision Making Medical Decision Making [facility] Narrative: Patient on chronic eczema and asthma comes here with recurrence of her asthmatic attack will discharge patient on prednisone 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 Labs: Lab Results 04/26/23 Range/Units 05:18 Influenza Type A (PCR) NEGATIVE (Negative) Influenza Type B (PCR) NEGATIVE (Negative) RSV RNA Qual (PCR) NEGATIVE (Negative) SARS-CoV-2 RNA (RT-PCR) NEGATIVE (Negative) S. pyogenes GrpA ELADIO Negative (Negative) Independent Interpretation I performed an independent interpretation of an: Plain X-Ray Radiology Impression Discussion of test interpretation with radiology: I have reviewed the radiologist's reading. Discharge Plan Discharge Clinical Impression: Asthma with exacerbation Patient Disposition: Home, Self-Care Instructions: Asthma (ED) Additional Instructions: Continue nebulizing treatment/ProAir inhaler Prednisone as prescribed Follow with lung specialist Prescriptions: New benzonatate 200 mg capsule 200 mg PO TID PRN (Reason: cough) Qty: 30 0RF prednisone 20 mg tablet 40 mg PO DAILY Qty: 10 0RF No Action ondansetron 8 mg tablet,disintegrating 8 mg PO Q8H PRN (Reason: nausea and vomiting) Qty: 90 1RF triamcinolone acetonide 0.1 % ointment 1 appl topical BID PRN (Reason: rash) Qty: 15 0RF albuterol sulfate 90 mcg/actuation HFA aerosol inhaler 2 puff inhalation Q4-6H PRN (Reason: shortness of breath or wheezing) Qty: 8.5 3RF acetaminophen [Tylenol Extra Strength] 500 mg tablet 1,000 mg PO QID PRN (Reason: fever or pain) Qty: 14 0RF loratadine [Claritin] 10 mg tablet 10 mg PO DAILY Qty: 30 0RF albuterol sulfate 90 mcg/actuation HFA aerosol inhaler 2 puff inhalation Q4-6H PRN (Reason: shortness of breath or wheezing) Qty: 8.5 0RF albuterol sulfate 90 mcg/actuation HFA aerosol inhaler 1 inh inhalation QID PRN (Reason: shortness of breath or wheezing) Qty: 8.5 0RF prednisone 20 mg tablet 40 mg PO DAILY 4 Days Qty: 8 0RF prednisone 20 mg tablet 40 mg PO DAILY 5 Days Qty: 10 0RF albuterol sulfate 90 mcg/actuation aerosol powdr breath activated 2 inh inhalation Q4-6H PRN (Reason: shortness of breath or wheezing) Qty: 1 0RF albuterol sulfate 2.5 mg /3 mL (0.083 %) solution for nebulization 2.5 mg inhalation Q4-6H PRN (Reason: shortness of breath or wheezing) Qty: 90 2RF prednisone 20 mg tablet 40 mg PO DAILY Qty: 14 0RF albuterol sulfate [ProAir HFA] 90 mcg/actuation HFA aerosol inhaler 2 puff inhalation Q4-6H PRN (Reason: shortness of breath or wheezing) Qty: 8.5 2RF (DME) nebulizers Misc See Rx Instructions .Route Qty: 1 0RF Rx Instructions: As directed doxycycline hyclate 100 mg tablet 100 mg PO BID 7 Days Qty: 14 0RF metronidazole 500 mg tablet 500 mg PO BID 7 Days Qty: 14 0RF fluconazole 150 mg tablet 150 mg PO Q3D Qty: 2 0RF Rx Instructions: may repeat second dose 72 hrs after first dose if symptoms persist fluconazole [Diflucan] 150 mg tablet 150 mg PO Q3D 0 Days Qty: 2 0RF Rx Instructions: may repeat second dose 72 hrs after first dose if symptoms persist Referrals: Gustavo Cortes MD [Physician] - 1 week
[2023-04-26] MEDS: dexAMETHasone 2 MG TABLET 10 MG PO (06:17)
[2023-04-26] MEDS: Magnesium Sulfate/H2O 2 GM/50 ML PIGGYBACK IV (06:17)
[2023-04-26] MEDS: Albuterol Sulfate 2.5 MG, Albuterol/Iprat 2.5/0.5MG 3 ML 3 ML INHALE (06:22)
[2023-04-26 06:26] VITALS: PULSE 82; RESP 18; O2SAT 98
== END 2023-04-26 07:10 | disposition home or self-care (01) ==
PROVIDERS: Emergency Provider Internal Medicine; PCP Internal Medicine
DX: R06.02 Shortness of breath (principal); L30.9 Dermatitis, unspecified; J45.901 Unspecified asthma with (acute) exacerbation; R07.89 Other chest pain; F17.210 Nicotine dependence, cigarettes, uncomplicated; Z20.822 Contact with and (suspected) exposure to COVID-19; Z20.828 Contact with and (suspected) exposure to other viral communicable diseases; Z79.899 Other long term (current) drug therapy; Z71.6 Tobacco abuse counseling
CPT/HCPCS: 0241U; 71045; 87651; 93005; 94640; 96374; 99284; 99285; J3475; J8540

== ENCOUNTER 2023-05-09 11:18 | Emergency (ER) | payer OTHER, SELFPAY ==
[2023-05-09 11:30] VITALS: BP 109/71; PULSE 89; RESP 16; TEMP 36.8; O2SAT 97; BMI 21.2
--- NOTE | 2023-05-09 11:31 | ED.PSYCH ---
HPI - Psych General Chief Complaint: Psychiatric Symptoms Stated Complaint: Crisis Time Seen by Provider: 05/09/23 12:29 Source: patient and RN notes reviewed Mode of arrival: ambulatory Limitations: no limitations History of Present Illness HPI Narrative: This is a 27-year-old female, with a history of asthma, presenting to the emergency department with complaints of increased depression with suicidal ideations. She states that over the last several months she has had worsening depression which she attributes to losing custody of her children as well as breaking up with her children's father. She reports that she drank a pt of mamie yesterday. She is feeling very tired and emotional. She has no chest pain, shortness of breath, fevers, chills, nausea, vomiting or diarrhea. She has been admitted psychiatrically in the past, last time was several months ago. She reports suicidal thoughts, denies acting upon the suicidal thoughts and does not elaborate on these thoughts/plans. She also endorses seeing shadows, no auditory hallucinations. No other complaints or concerns at this time. MD complaint: suicidal ideation and feels depressed History of same: Yes Relieving factors: none Exacerbating factors: none Associated psychiatric symptoms: none Associated symptoms: denies other symptoms Treatments prior to arrival: none Related Data Home Medications Medication Instructions Recorded Confirmed albuterol sulfate 90 mcg/actuation 2 puff inhalation Q4-6H PRN 05/10/23 05/10/23 aerosol inhaler (Ventolin HFA) wheezing aripiprazole 10 mg tablet 10 mg PO DAILY 05/10/23 05/10/23 prazosin 1 mg capsule 1 mg PO BEDTIME 05/10/23 05/10/23 triamcinolone acetonide 0.1 % 2 appl topical BID PRN Rash 05/10/23 05/10/23 topical ointment Allergies Allergy/AdvReac Type Severity Reaction Status Date / Time egg [EGG] Allergy Severe ANAPHYLAXIS Verified 03/08/23 22:13 fish derived [FISH] Allergy Severe ANAPHYLAXIS Verified 03/08/23 22:13 peanut [PEANUTS] Allergy Severe ITCHING Verified 03/08/23 22:13 shellfish derived Allergy Severe ANAPHYLAXIS Verified 03/08/23 22:13 [SHELLFISH DERIVED] cat dander Allergy Intermediate Hives Verified 03/08/23 22:13 dog dander Allergy Intermediate Hives Verified 03/08/23 22:13 house dust Allergy Intermediate Hives Verified 03/08/23 22:13 rice [RICE] AdvReac Intermediate CONSTIPATIO Verified 03/08/23 22:13 N Review of Systems Review of Systems: Yes all other systems are reviewed and are negative Constitutional: Constitutional: Reports as per [facility] Past Medical History Medical History Bronchitis Spotting in first trimester Early stage of Hyperemesis test positive Asthma Mild persistent asthma, uncomplicated Allergy to other foods Anxiety state, unspecified Major depressive disorder, single episode, unspecified Dermatitis, unspecified Surgical History History of section Family History Family History Father Drug abuse Asthma Mother Hypertension Maternal Grandmother Ovarian cancer Other Mental health disorder Substance use disorder Social History Social History Household Members: Family Household Members Other:: mom Housing: Apartment Unable to assess alcohol history related to: Unknown Alcohol intake: current Alcohol intake frequency: 3 or more drinks per day Alcohol type: hard liquor Patient Tobacco Use Status: Current everyday Tobacco user Tobacco use type: Cigarette Cigarettes Per Day: 3 Smoked in Last 30 Days: Yes e-Cigarette/Vaping Use: Never Used Second Hand Smoke Exposure: Yes Use of substances other than those prescribed or required for medical reasons: Unknown Substance Use Type: Marijuana Advance Directives: Yes Advance Directives on File: Yes Advance Directives Date on File: 12/21/20 Healthcare Proxy: No Guardian: No Patient : No service: No Current occupational status: unemployed Gender identity: Female Cognitive needs: No Hearing needs: No Vision needs: No Physical Exam Vital Signs: Vital Signs: Last Vital Signs Temp 97.1 F 05/10/23 10:18 Pulse 78 05/10/23 10:18 Resp 18 05/10/23 10:18 BP 125/83 05/10/23 10:18 Pulse Ox 100 05/10/23 10:18 O2 Del Method Room Air 05/10/23 10:18 BMI result Body Mass Index 21.2 Const: General: cooperative, comfortable and no acute distress Orientation/consciousness: patient oriented x3 Limitations: no limitations HEENT: Head: Yes normal to inspection, Yes normocephalic and Yes atraumatic Ears: hearing grossly normal bilaterally General nose exam: Normal external nose present Face and sinus: Yes normal facial exam Mouth: Normal oral and palatal mucosa present, oropharynx normal and moist mucous membranes Throat: Yes posterior oropharynx normal Eyes: General: appearance normal, both eyes and all related structures Eyelids: Yes eyelids normal Conjunctivae: conjunctivae normal Sclerae: sclerae normal Pupils: Equal, round and reactive pupils present EOM: EOMs intact bilaterally Neck: Neck: Yes normal visual inspection, Yes full ROM and Yes no lymphadenopathy Lymphatic: no lymphadenopathy noted Chest: Chest palpation & inspection: normal inspection of the chest Resp: Effort & Inspection: normal respiratory effort and able to speak in complete sentences Auscultation: clear to auscultation bilaterally, no crackles, no rales, no rhonchi and no wheezes Cardio: Rate: regular rate Rhythm: regular rhythm Heart sounds: S1 normal heart sound present and S2 normal heart sound present GI: Inspection: Yes normal to inspection Skin: General skin exam: no rashes or lesions noted Trauma: no lacerations or abrasions Wounds: no wounds Neuro: General: patient oriented x3 and moves all extremities Cranial nerves: Yes Equal, round and reactive pupils present Extrem: General: Yes normal to inspection Right upper extremity: normal to inspection Left upper extremity: normal to inspection Right lower extremity: normal to inspection Left lower extremity: normal to inspection Psych: Appearance: disheveled Mental Status: mental status grossly normal Speech and movement: Slowed movement present (Neuro) Affect: Labile affect present, Sad affect present and Blunted affect present Attitude: Guarded attititude/behavior present and Avoids eye contact (attititude/behavior) Thought process: Circumstantial thought process present Thought content: Normal thought content present Insight: Poor insight present (Psych) Judgement: Poor judgement present (Psych) Course Course Course Narrative: RME: 27-year-old female w/past medical history of asthma, depression, c/o increasing depression with +SI & plan to drink herself to . Last drink last night, drank 1 pint Mamie. Admits to THC, denies other drug use Also reports eczema rash Labs, HUTSON, CARE consult ordered Full HPI, ROS and PE to be performed by primary ED provider. Reevaluation(s) Reevaluation #1: Reach out to nursing staff as we are still waiting blood work and urine. They will attempt to gather that now. Time: 15:31 Reevaluation #2: Labs collected, no leukocytosis, chemistry within normal limits, urine with trace leuk esterases, wbc's, trace bacteria seen, and squamous epithelial cells 3-5. Patient has no urinary, will wait for urine culture to return. Care team consult placed and pending at this time. Patient is medically cleared. Physician observation initiated. Pending care team dispo. Given sign-out to my colleague Job Mary PA-C pending care team consult Time: 16:19 Reevaluation #3: Continue physician observation, patient presents with SI, uses alcohol and is awaiting care team evaluation. I placed patient on CIWA, awaiting care team re-evaluation as patient has a DCF meeting today. No acute events overnight. Time: 08:51 Additional Reevaluation(s): 1021: CARE Mirza ecaluation and will refer to respite, respite will call her, mother will milk pickup driver and pt has visitation with kids today. Pt denies wanting to kill herself. Medications Administered Generic Name Dose Route Start Last Admin Trade Name Freq PRN Reason Stop Dose Admin Albuterol Sulfate 2 puff 05/09/23 15:48 05/09/23 21:18 Albuterol Sulfate 90 Mcg 8 Gm Inhaler INHALE 2 puff ONCE PRN Administration wheeze Discontinued Medications Generic Name Dose Route Start Last Admin Trade Name Freq PRN Reason Stop Dose Admin Ibuprofen 600 mg 05/09/23 21:09 05/09/23 21:11 Ibuprofen 600 Mg Tablet PO 05/09/23 21:10 600 mg ONCE ONE Administration Medical Decision Making Medical Decision Making [facility] Narrative: This is a 27-year-old female, with a history of depression, presenting to the emergency department with complaints of worsening depression with suicidal ideations. She does not state with the suicidal ideations are. On arrival, patient's vital signs within normal limits. Patient is nontoxic appearing. Has no physical complaints. She also endorses some visual hallucinations, seeing shadows, no auditory hallucinations. Plan: Labs, UA, care team/crisis Differential Diagnosis Differential Diagnoses: The differential diagnosis associated with the presentation includes Depression, suicidal ideation, psychosis, polysubstance use alcohol abuse Admission/Observation Consideration of admission/observation: Escalation of care including admission/observation considered Escalation of care including admission observation was considered given worsening depression with suicidal ideations. Consult Healthcare Provider Management of the patient was discussed with: Behavioral Health Provider Lab Data MDM Lab Attestation statement: I reviewed the patient's lab results. See MDM and course. 05/09/23 15:45 05/09/23 15:45 Labs: Lab Results 05/09/23 05/09/23 Range/Units 15:45 15:55 WBC 10.5 (4.8-10.8) X10*3/uL RBC 4.67 (4.20-5.50) X10*6/uL Hgb 13.7 (12.0-16.0) g/dl Hct 40.9 (37.0-47.0) % MCV 87.6 (80.0-98.0) fL MCH 29.3 (27.0-33.0) pg MCHC 33.5 (31.0-35.0) g/dl RDW 13.1 (11.0-16.0) % Plt Count 252 (160-400) X10*3/uL MPV 10.4 (9.4-12.3) fL Immature Gran % (Auto) 0.3 (0.0-0.4) % Neut % (Auto) 75.5 H (45-73) % Lymph % (Auto) 13.2 L (20-40) % Sandoval % (Auto) 6.4 (2-11) % Eos % (Auto) 4.4 H (0-4) % Baso % (Auto) 0.2 (0-2) % Lymph # (Auto) 1.4 (1.2-4.9) X10*3/uL [place] # (Auto) 0.7 (0.1-1.2) X10*3/uL Eos # (Auto) 0.5 H (0.0-0.4) X10*3/uL Baso # (Auto) 0.0 (0.0-0.2) X10*3/uL Abs Immat Gran (auto) 0.03 (0.00-0.03) X10*3/uL Absolute Neuts (auto) 8.0 (2.0-8.3) x10*3/uL Absolute Nucleated RBC 0.000 (0.0-0.012) X10*3/uL Nucleated RBC % (auto) 0.0 (0.0-0.2) /100WBC Sodium 140 (135-145) mmol/L Potassium 3.5 (3.3-5.1) mmol/L Chloride 108 (96-108) mmol/L Carbon Dioxide 26 (22-29) mmol/L Anion Gap 10 L (12-20) BUN 9 (9-16) mg/dL Creatinine 0.73 (0.5-1.4) mg/dL Estim Creat Clear Calc 92.3 Estimated GFR > 60 Random Glucose 99 (60-115) mg/dL Calcium 9.0 (8.4-10.2) mg/dL Magnesium 1.8 (1.6-2.6) mg/dL Total Bilirubin 0.5 (0.0-1.0) mg/dL Direct Bilirubin 0.2 (0.0-0.5) mg/dL AST 29 (5-31) U/L ALT 27 (0-31) U/L Alkaline Phosphatase 67 (39-117) U/L Total Protein 6.4 L (6.5-8.0) g/dL Albumin 3.5 (3.5-5.0) g/dL Lipase 21 (8-78) U/L Urine Color Yellow Urine Appearance Cloudy Urine pH 7.0 (5.0-9.0) Ur Specific [place] 1.025 (1.005-1.025) Urine Protein Negative (Neg-Trace) mg/dL Urine Glucose (UA) Negative (Negative) mg/dL Urine Ketones Negative (Negative) mg/dL Urine Blood Negative (Negative) Urine Nitrite Negative (Negative) Ur Leukocyte Esterase Trace H (Negative) Urine RBC 0-2 (0-2) /HPF Urine WBC 6-10 H (0-5) /HPF Ur Squamous Epith Cells 3-5 (0-2) /HPF Urine Bacteria Trace (None Seen) Hyaline Casts 0-2 (0-2) /LPF Urine Test NEGATIVE (NEGATIVE) Urine Opiates Screen Not Detected (Not Detect) Urine Fentanyl Screen Not Detected (Not Detect) Ur Barbiturates Screen Not Detected (Not Detect) Ur Phencyclidine Scrn Not Detected (Not Detect) Ur Amphetamines Screen Not Detected (Not Detect) U Benzodiazepines Scrn Not Detected (Not Detect) Urine Cocaine Screen Not Detected (Not Detect) U Marijuana (THC) Screen POSITIVE H (Not Detect) Ethyl Alcohol < 10 mg/dL COVID-19 (RADHA) Negative (Negative) COVID-19 Clin Com See Note Influenza Type A (ELADIO) Negative (Negative) Influenza Type B (ELADIO) Negative (Negative) Influenza A & B Note See Note Discharge Plan Discharge Clinical Impression: Depression, Alcohol use disorder, moderate, dependence Patient Disposition: Home, Self-Care Instructions: Depression (ED), Alcohol Use Disorder (ED) Additional Instructions: 1. Resume all home medications as prescribed. 2. Should you change your mind about wanting to pursue detox for your alcohol use/dependence please do not hesitate to return to the emergency room. 3. Follow-up with primary care doctor in the next 1-2 days Prescriptions: No Action prazosin 1 mg capsule 1 mg PO BEDTIME triamcinolone acetonide 0.1 % ointment 2 appl topical BID PRN (Reason: Rash) aripiprazole 10 mg tablet 10 mg PO DAILY albuterol sulfate [Ventolin HFA] 90 mcg/actuation HFA aerosol inhaler 2 puff inhalation Q4-6H PRN (Reason: wheezing) Referrals: Dez Peace MD [Primary Care Provider] - Interventions: [place]-Suicide Risk Severity Scale Last Done: 05/10/23 03:51
[2023-05-09 15:51] LABS: MANUAL DIFF FLAG NO
[2023-05-09 15:55] LABS: Basophils Percent Auto 0.2 % (0-2); Eosinophils Absolute Auto 0.5 X10*3/uL (0.0-0.4); Eosinophils Percent Auto 4.4 % (0-4); Hematocrit 40.9 % (37.0-47.0); Hemoglobin 13.7 g/dl (12.0-16.0); Imm Gran Abs Auto 0.03 X10*3/uL (0.00-0.03); Imm Gran Pct Auto 0.3 % (0.0-0.4); Lymphocytes Absolute Auto 1.4 X10*3/uL (1.2-4.9); Lymphocytes Percent Auto 13.2 % (20-40); Mean Corpuscular HGB Conc 33.5 g/dl (31.0-35.0); Mean Corpuscular Hemoglobin 29.3 pg (27.0-33.0); Mean Corpuscular Volume 87.6 fL (80.0-98.0); Mean Platelet Volume 10.4 fL (9.4-12.3); Monocytes Absolute Auto 0.7 X10*3/uL (0.1-1.2); Monocytes Percent Auto 6.4 % (2-11); Neutrophils Percent Auto 75.5 % (45-73); Platelet Count 252 X10*3/uL (160-400); Red Blood Count 4.67 X10*6/uL (4.20-5.50); Red Cell Distribution Width 13.1 % (11.0-16.0); White Blood Count 10.5 X10*3/uL (4.8-10.8)
[2023-05-09] MEDS: Albuterol Sulfate 90 MCG 8 GM INHALER 2 PUFF INHALE ×2 (16:02→21:18)
[2023-05-09 16:05] LABS: Appearance Urine Cloudy; Color Urine Yellow; Glucose Urine UA Negative (Negative); Leukocyte Esterase Urine Trace (Negative); Nitrite Urine Negative (Negative); Specific Gravity - Urine 1.025 (1.005-1.025); UMIC TRIGGER UACC YES; Urine Blood Negative (Negative); Urine Ketones Negative (Negative); Urine Protein Negative (Neg-Trace)
[2023-05-09 16:06] LABS: UPreg QC Valid YES; Urine Pregnancy NEGATIVE (NEGATIVE)
[2023-05-09 16:08] LABS: Albumin Level 3.5 g/dL (3.5-5.0)
[2023-05-09 16:10] LABS: Bacteria Urine Trace (None Seen); Hyaline Casts Urine 0-2 /LPF (0-2); RBC Urine 0-2 /HPF (0-2); UACC Culture Trigger YES
[2023-05-09 16:10] LABS: Alanine Aminotransferase 27 U/L (0-31); Alkaline Phosphatase 67 U/L (39-117); Anion Gap 10 (12-20); Aspartate Amino Transferase 29 U/L (5-31); Bilirubin Direct 0.2 mg/dL (0.0-0.5); Bilirubin Total 0.5 mg/dL (0.0-1.0); Blood Urea Nitrogen 9 mg/dL (9-16); Carbon Dioxide 26 mmol/L (22-29); Chloride 108 mmol/L (96-108); Creatinine Clr Calc Pharmacy 92.3; Estimated Glomerular Filt Rate > 60; Ethanol < 10 mg/dL; Glucose Random 99 mg/dL (60-115); Lipase 21 U/L (8-78); Magnesium 1.8 mg/dL (1.6-2.6); Potassium 3.5 mmol/L (3.3-5.1); Sodium 140 mmol/L (135-145); Total Protein 6.4 g/dL (6.5-8.0)
[2023-05-09 16:16] LABS: Amphetamine Screen Urine Not Detected (Not Detect); Barbiturates, Urine Not Detected (Not Detect); Benzodiazepines Screen Urine Not Detected (Not Detect); Cannabinoid Screen Urine POSITIVE (Not Detect); Cocaine Screen Urine Not Detected (Not Detect); Fentanyl, urine Not Detected (Not Detect); Opiate Screen Urine Not Detected (Not Detect); Phencyclidine Screen Urine Not Detected (Not Detect)
[2023-05-09 16:27] LABS: COVID-19 Test Negative (Negative); IDNOW Serial# 08D9AD1C; IDNOW Serial# BCCEAD1C; Influenza A Negative (Negative); Influenza B2 Negative (Negative)
[2023-05-09 18:42] VITALS: BP 102/61; PULSE 75; RESP 16; TEMP 36.4; O2SAT 96
--- NOTE | 2023-05-09 19:08 | PC.NURSE ---
patient appears to remain at rest at present respirations are even and unlabored patient appears in no distress.
[2023-05-09] MEDS: Ibuprofen 600 MG TABLET PO (21:11)
--- NOTE | 2023-05-10 06:18 | PC.NURSE ---
patient awoke relatively early and expressed desire to call mother, and dc. t/w informed client mental status screenings usually start around 0900, client expressed a little displeasure at having to wait but was able to tolerate delay. will relay this info to oncoming staff.
[2023-05-10 06:37] VITALS: BP 147/63; PULSE 87; RESP 16; TEMP 36.6; O2SAT 99
[2023-05-10 10:18] VITALS: BP 125/83; PULSE 78; RESP 18; TEMP 36.2; O2SAT 100
--- NOTE | 2023-05-10 11:03 | PC.NURSE ---
Michaelle was observed pacing and advocating for discharge. Reports she has a visit with her children today and that [facility] only allows her one visit a week for an hour and if she misses it she will flip the fuck out . Denies SI/HI/AVH. Easy to redirect.
== END 2023-05-10 11:09 | disposition home or self-care (01) ==
PROVIDERS: Physician Assistant; Emergency Provider Emergency Medicine Emergency Medical Services; PCP Internal Medicine
DX: F33.1 Major depressive disorder, recurrent, moderate (principal); F10.20 Alcohol dependence, uncomplicated; Y90.0 Blood alcohol level of less than 20 mg/100 ml; Z11.52 Encounter for screening for COVID-19; Z20.822 Contact with and (suspected) exposure to COVID-19; Z79.899 Other long term (current) drug therapy
CPT/HCPCS: 80048; 80076; 80307; 81001; 81003; 81025; 83690; 83735; 85025; 87086; 87502; 87635; 99285; S9485

== ENCOUNTER 2023-05-29 01:02 | Emergency (ER) | payer OTHER, SELFPAY ==
--- NOTE | 2023-05-29 | ECG_ITS ---
Test Reason : SOB Blood Pressure : / mmHG Vent. Rate : 123 BPM Atrial Rate : 123 BPM P-R Int : 156 ms QRS Dur : 076 ms QT Int : 306 ms P-R-T Axes : 076 -81 066 degrees QTc Int : 438 ms Artifact in tracing Sinus tachycardia Poor R progression anterior leads, probably from body habitus Otherwise normal EKG When compared with ECG of 26-APR-2023 05:12, Increase in ventricular rate Referred By: Generic ED Physician Electronically Signed By:SHAHID PETTIT
--- NOTE | ~2023-05-29 | XR_ITS ---
EXAMINATION: XR CHEST CLINICAL INFORMATION: Shortness of breath. COMPARISON: 04/26/2023. TECHNIQUE: 2 views of the chest were obtained. FINDINGS: No significant abnormality is noted involving the heart, lungs, mediastinum, bony thorax or soft tissues. XR/XR chest 2V IMPRESSION: Unremarkable examination.
[2023-05-29 01:50] VITALS: BP 123/85; PULSE 110; RESP 19; TEMP 36.9; O2SAT 96; BMI 22.3
[2023-05-29 02:45] LABS: Influenza A PCR NEGATIVE (Negative); Influenza B PCR NEGATIVE (Negative); Resp Syncy Virus RNA Qual PCR NEGATIVE (Negative); SARS COV2 PCR INHOUSE NEGATIVE (Negative)
--- NOTE | 2023-05-29 03:11 | PC.NURSE ---
pt came back to triage with worsens symptoms. Wheezing noted. vitals reassessed .
[2023-05-29 03:13] VITALS: BP 135/85; PULSE 130; RESP 23; O2SAT 94
--- NOTE | 2023-05-29 03:14 | PC.NURSE ---
charge notified of changes in breathing, pt brought to room 5
--- NOTE | 2023-05-29 03:22 | ED_ITS ---
HPI - Asthma General Chief Complaint: Asthma Stated Complaint: Asthma Time Seen by Provider: 05/29/23 03:21 Source: patient Mode of arrival: ambulatory Limitations: no limitations History of Present Illness HPI Narrative: 27-year-old female with a history of bronchitis, asthma, eczema, anxiety, depression who presents emergency department for evaluation of shortness of breath. Patient states that shortness of breath began yesterday and got progressively worse. The patient states that she lost her nebulizer machine and her inhalers. She states that she has had a productive cough but denied fever or chills. Patient does smoke cigarettes but was not able to smoke today secondary to her shortness of breath. Patient does drink alcohol daily and she drink a pt of vodka yesterday. Related Data Home Medications Medication Instructions Recorded Confirmed albuterol sulfate 90 mcg/actuation 2 puff inhalation Q4-6H PRN 05/10/23 05/10/23 aerosol inhaler (Ventolin HFA) wheezing aripiprazole 10 mg tablet 10 mg PO DAILY 05/10/23 05/10/23 prazosin 1 mg capsule 1 mg PO BEDTIME 05/10/23 05/10/23 triamcinolone acetonide 0.1 % 2 appl topical BID PRN Rash 05/10/23 05/10/23 topical ointment Previous Rx's Medication Instructions Recorded albuterol sulfate 90 mcg/actuation 2 puff inhalation Q4-6H PRN 05/29/23 aerosol inhaler (ProAir HFA) shortness of breath or wheezing #8.5 grams prednisone 20 mg tablet 60 mg (3 x 20 mg) PO DAILY 5 days 05/29/23 #15 tabs Allergies Allergy/AdvReac Type Severity Reaction Status Date / Time egg [EGG] Allergy Severe ANAPHYLAXIS Verified 03/08/23 22:13 fish derived [FISH] Allergy Severe ANAPHYLAXIS Verified 03/08/23 22:13 peanut [PEANUTS] Allergy Severe ITCHING Verified 03/08/23 22:13 shellfish derived Allergy Severe ANAPHYLAXIS Verified 03/08/23 22:13 [SHELLFISH DERIVED] cat dander Allergy Intermediate Hives Verified 03/08/23 22:13 dog dander Allergy Intermediate Hives Verified 03/08/23 22:13 house dust Allergy Intermediate Hives Verified 03/08/23 22:13 rice [RICE] AdvReac Intermediate CONSTIPATIO Verified 03/08/23 22:13 N Review of Systems Review of Systems: Yes all other systems are reviewed and are negative [facility] Past Medical History [facility] Narrative: Social history: She does smoke cigarettes. She does drink alcohol daily cover 1 pt of vodka. She denies drug use. Medical History Bronchitis Spotting in first trimester Early stage of Hyperemesis test positive Asthma Mild persistent asthma, uncomplicated Allergy to other foods Anxiety state, unspecified Major depressive disorder, single episode, unspecified Dermatitis, unspecified Surgical History History of section Family History Family History Father Drug abuse Asthma Mother Hypertension Maternal Grandmother Ovarian cancer Other Mental health disorder Substance use disorder Social History Social History Household Members: Family Household Members Other:: mom Housing: Apartment Unable to assess alcohol history related to: Unknown Alcohol intake: current Alcohol intake frequency: 3 or more drinks per day Alcohol type: hard liquor Patient Tobacco Use Status: Current everyday Tobacco user Tobacco use type: Cigarette Cigarettes Per Day: 3 e-Cigarette/Vaping Use: Never Used Second Hand Smoke Exposure: Yes Substance Use Type: Marijuana Advance Directives: Yes Advance Directives on File: Yes Advance Directives Date on File: 12/21/20 service: No Current occupational status: unemployed Gender identity: Female Cognitive needs: No Hearing needs: No Vision needs: No Physical Exam Vital Signs: Vital Signs: Last Vital Signs Temp 98.4 F 05/29/23 01:50 Pulse 112 H 05/29/23 03:37 Resp 22 H 05/29/23 03:37 BP 135/85 05/29/23 03:13 Pulse Ox 94 05/29/23 03:13 O2 Del Method Room Air 05/29/23 03:13 BMI result Body Mass Index 22.3 Vital signs revealed elevated heart rate of 130, elevated respiratory 23, normal O2 saturation 94% room air Exam: General: Awake, alert , using accessory muscles to breathe, tachypneic, answers questions appropriately Head: Normocephalic, atraumatic EENT: PERRL, Lids normal, sclera normal, conjunctiva normal, nose normal , ears normal, throat without erythema or exudates Neck: Supple, no adenopathy, no trachea midline or C-spine tenderness Lung: Diffuse wheezing, with good inspiratory and expiratory flow Chest: symmetric movement, nontender Heart: regular rate and rhythm, normal S1, S2 no murmurs or rubs Abdomen: soft, non-tender, nondistended, normal bowel sounds Back: no vertebral tenderness, no CVAT Extremities: no deformities, moves all extremities symmetrically Neuro: Awake, alert, oriented, normal speech, moves all extremities symmetrically Psych: Pleasant, cooperative Medications Administered Generic Name Dose Route Start Last Admin Trade Name Freq PRN Reason Stop Dose Admin Magnesium Sulfate 2 gm in 50 mls @ 25 mls/hr 05/29/23 03:22 05/29/23 04:28 Magnesium Sulfate/H2o IV 05/29/23 05:21 25 mls/hr ONCE ONE Administration Discontinued Medications Generic Name Dose Route Start Last Admin Trade Name Freq PRN Reason Stop Dose Admin Albuterol Sulfate 5 mg/ 7.5 mg 05/29/23 03:30 05/29/23 03:36 Albuterol Sulfate 2.5 mg INHALE 05/29/23 03:31 7.5 mg ONCE ONE Administration Methylprednisolone Sodium Succinate 125 mg 05/29/23 03:22 05/29/23 04:28 Methylprednisolone Sod Succ 125 Mg/2 Ml Vial IVPUSH 05/29/23 03:23 125 mg ONCE ONE Administration Medical Decision Making Medical Decision Making [facility] Narrative: 27-year-old female with a history of bronchitis, asthma, eczema, anxiety, depression who presents emergency department for evaluation of shortness of breath x1 day, patient states that she lost her nebulizer machine and has no inhalers. Vital signs revealed an elevated heart rate and elevated respiratory rate. Lung exam revealed diffuse wheezing with good inspiratory and expiratory flow Following evaluation was ordered: CBC, CMP, EKG, chest x-ray one view, ethanol level, urine drug screen Patient was treated with the following: Nebulizers P of bronchodilator protocol, Solu-Medrol 125 mg IV and magnesium 2 g IV 05:10 My independent interpretation patient's laboratory evaluation as follows: COVID-19, influenza, RSV were negative. Chest x-ray revealed no acute disease. Patient's lung exam did improve but she still has some slight expiratory wheezes therefore I ordered albuterol inhaler 4 puffs. Patient will be discharged home and I did prescribe an albuterol inhaler as well as prednisone 60 mg once a day for 5 days. She was given printed and verbal instructions discharged home. Differential Diagnosis Differential Diagnoses: The differential diagnosis associated with the presentation includes Differential diagnosis includes was not limited to pneumonia, asthma exacerbation, electrolyte abnormalities, anemia Admission/Observation Consideration of admission/observation: Escalation of care including admission/observation considered Lab Data [facility] Lab Attestation statement: I reviewed the patient's lab results. See MDM above Labs: Lab Results 05/29/23 Range/Units 01:41 Influenza Type A (PCR) NEGATIVE (Negative) Influenza Type B (PCR) NEGATIVE (Negative) RSV RNA Qual (PCR) NEGATIVE (Negative) SARS-CoV-2 RNA (RT-PCR) NEGATIVE (Negative) Independent Interpretation I performed an independent interpretation of an: EKG Interpretation: My independent interpretation patient's 12 EKG done at 03:29 hours is as follows: Sinus tachycardia with rate of 123, normal MS interval, QRS duration and QTC interval, no ST segment elevation, no ST segment depression, no significant T-wave abnormalities, no PACs, no PVCs Radiology Impression Discussion of test interpretation with radiology: I have reviewed the radiologist's reading. Radiologist Impression: XR chest 2V IMPRESSION: Unremarkable examination. Dictated By: Mian Banks Prescription Management I considered prescription management with: Other (Steroids, bronchodilators) Chronic Conditions Patient?s care impacted by: Other (Asthma) Discharge Plan Discharge Clinical Impression: Asthma Patient Disposition: Home, Self-Care Instructions: Asthma (ED) Additional Instructions: Your chest x-ray was unremarkable. Your COVID-19, influenza and RSV were negative. Use the albuterol inhaler with the spacer, 2 puffs every 4-6 hours as needed for shortness of breath and wheezing. Take prednisone 20 mg pills, 3 pills once a day for 5 days. While you are tracie ing prednisone, do not take any NSAIDs (Motrin, Advil, ibuprofen, Aleve, naproxen). Follow-up with your doctor in 2 days. Please return to the emergency department if your symptoms get worse or if you develop any symptoms that are concerning to you. Prescriptions: New albuterol sulfate [ProAir HFA] 90 mcg/actuation HFA aerosol inhaler 2 puff inhalation Q4-6H PRN (Reason: shortness of breath or wheezing) Qty: 8.5 0RF prednisone 20 mg tablet 60 mg PO DAILY 5 Days Qty: 15 0RF No Action prazosin 1 mg capsule 1 mg PO BEDTIME triamcinolone acetonide 0.1 % ointment 2 appl topical BID PRN (Reason: Rash) aripiprazole 10 mg tablet 10 mg PO DAILY albuterol sulfate [Ventolin HFA] 90 mcg/actuation HFA aerosol inhaler 2 puff inhalation Q4-6H PRN (Reason: wheezing)
[2023-05-29] MEDS: Albuterol Sulfate 5 MG, Albuterol Sulfate (0.083%) 2.5 MG 7.5 MG INHALE (03:36)
[2023-05-29 03:37] VITALS: PULSE 112; RESP 22; O2SAT 95
[2023-05-29] MEDS: Magnesium Sulfate/H2O 2 GM/50 ML PIGGYBACK IV (04:28)
[2023-05-29] MEDS: methylPREDNISolone Sod Succ 125 MG/2 ML VIAL IVPUSH (04:28)
== END 2023-05-29 06:06 | disposition home or self-care (01) ==
PROVIDERS: Physician Assistant Medical; Emergency Provider Emergency Medicine Emergency Medical Services
DX: J45.909 Unspecified asthma, uncomplicated (principal); Z20.822 Contact with and (suspected) exposure to COVID-19; Z20.828 Contact with and (suspected) exposure to other viral communicable diseases; R06.02 Shortness of breath; F17.210 Nicotine dependence, cigarettes, uncomplicated; Z79.899 Other long term (current) drug therapy
CPT/HCPCS: 0241U; 71046; 93005; 94640; 96374; 96375; 99284; 99285; J2930; J3475

== ENCOUNTER → 2023-05-29 03:29 | Outpatient (BNV) | payer OTHER, SELFPAY | PROVIDERS: Emergency Provider Emergency Medicine Emergency Medical Services; Visit Provider Internal Medicine | DX: R00.0 Tachycardia, unspecified (principal) | CPT/HCPCS: 93010 ==

== ENCOUNTER 2023-06-29 08:44 | Emergency (ER) | payer OTHER, SELFPAY ==
--- NOTE | ~2023-06-29 | XR_ITS ---
EXAMINATION: XR CHEST CLINICAL INFORMATION: Shortness of breath COMPARISON: Chest x-ray May 29, 2023 TECHNIQUE: 2 views of the chest were obtained. FINDINGS: Cardiac silhouette is normal in size. The lungs are well aerated. There is no lobar consolidation. No pleural effusion or pneumothorax. No acute osseous abnormality. XR/XR chest 2V IMPRESSION: No acute pulmonary pathology.
[2023-06-29 08:53] VITALS: BP 115/71; PULSE 82; RESP 18; TEMP 36.8; O2SAT 97; BMI 22.1
--- NOTE | 2023-06-29 09:35 | ED.GENADULT ---
HPI - General Adult General Chief complaint: Skin/Abscess/Foreign Body Stated complaint: Eczema flare up, asthma symptoms Time Seen by Provider: 06/29/23 09:06 Source: patient, RN notes reviewed and old records reviewed Mode of arrival: ambulatory History of Present Illness HPI narrative: 27-year-old female with a past medical history asthma, eczema, depression, presenting to ED complaining of eczema and asthma flare x3-4 days. Admits ran out of her triamcinolone and albuterol inhaler. Also reports concern for STI with fishy odor when urinating. Is currently sexually active, denies any vaginal discharge or bleeding/dysuria or hematuria. Denies fever, chills, abdominal pain, chest pain, travel, sick contacts Onset (ago): day(s) Related Data Home Medications Medication Instructions Recorded Confirmed albuterol sulfate 90 mcg/actuation 2 puff inhalation Q4-6H PRN 05/10/23 05/10/23 aerosol inhaler (Ventolin HFA) wheezing aripiprazole 10 mg tablet 10 mg PO DAILY 05/10/23 05/10/23 prazosin 1 mg capsule 1 mg PO BEDTIME 05/10/23 05/10/23 Previous Rx's Medication Instructions Recorded albuterol sulfate 90 mcg/actuation 2 puff inhalation Q4-6H PRN 05/29/23 aerosol inhaler (ProAir HFA) shortness of breath or wheezing #8.5 grams prednisone 20 mg tablet 60 mg (3 x 20 mg) PO DAILY 5 days 05/29/23 #15 tabs triamcinolone acetonide 0.1 % 2 appl topical BID PRN Rash #15 06/05/23 topical ointment grams doxycycline hyclate 100 mg tablet 100 mg PO BID 7 days #14 tabs 06/29/23 metronidazole 500 mg tablet 500 mg PO BID 7 days #14 tabs 06/29/23 prednisone 20 mg tablet 40 mg (2 x 20 mg) PO DAILY 5 days 06/29/23 #10 tabs triamcinolone acetonide 0.1 % 1 appl topical BID #60 mL 06/29/23 lotion Allergies Allergy/AdvReac Type Severity Reaction Status Date / Time egg [EGG] Allergy Severe ANAPHYLAXIS Verified 03/08/23 22:13 fish derived [FISH] Allergy Severe ANAPHYLAXIS Verified 03/08/23 22:13 peanut [PEANUTS] Allergy Severe ITCHING Verified 03/08/23 22:13 shellfish derived Allergy Severe ANAPHYLAXIS Verified 03/08/23 22:13 [SHELLFISH DERIVED] cat dander Allergy Intermediate Hives Verified 03/08/23 22:13 dog dander Allergy Intermediate Hives Verified 03/08/23 22:13 house dust Allergy Intermediate Hives Verified 03/08/23 22:13 rice [RICE] AdvReac Intermediate CONSTIPATIO Verified 03/08/23 22:13 N Review of Systems Review of Systems: Constitutional: No Fever, No Chills ENT/Mouth: No Ear Pain, No Nasal Congestion, No Hoarseness, No sore throat, No Rhinorrhea, No Swallowing Difficulty Cardiovascular: No Chest Pain, + SOB Respiratory: +Cough, No Sputum, + Wheezing Gastrointestinal: No Nausea, No Vomiting, No Diarrhea, No Constipation, No Abdominal pain Genitourinary: +vaginal odor, No Dysuria, No Urinary Frequency, No Hematuria,No Flank Pain Musculoskeletal: No joint pain, No Myalgias, No Joint Swelling Skin: No Skin Lesions, + rash Neuro: No Weakness Yes all other systems are reviewed and are negative Constitutional: Constitutional: Reports as per [facility] Past Medical History Attestation statement: The following information was validated with the patient. Source: old records reviewed Medical History Bronchitis Spotting in first trimester Early stage of Hyperemesis test positive Asthma Mild persistent asthma, uncomplicated Allergy to other foods Anxiety state, unspecified Major depressive disorder, single episode, unspecified Dermatitis, unspecified Surgical History History of section Family History Family History Father Drug abuse Asthma Mother Hypertension Maternal Grandmother Ovarian cancer Other Mental health disorder Substance use disorder Social History Social History Household Members: Family Household Members Other:: mom Housing: Apartment Unable to assess alcohol history related to: Unknown Alcohol intake: current Alcohol intake frequency: 3 or more drinks per day Alcohol type: hard liquor Patient Tobacco Use Status: Current everyday Tobacco user Tobacco use type: Cigarette Cigarettes Per Day: 3 e-Cigarette/Vaping Use: Never Used Second Hand Smoke Exposure: Yes Substance Use Type: Marijuana Advance Directives: Yes Advance Directives on File: Yes Advance Directives Date on File: 12/21/20 service: No Current occupational status: unemployed Gender identity: Female Cognitive needs: No Hearing needs: No Vision needs: No Physical Exam ED Vital Signs: Vital Signs - 24 hr 06/29/23 08:53 06/29/23 09:44 Temperature 98.3 F Pulse Rate 82 65 Respiratory Rate 18 16 Blood Pressure 115/71 Pulse Oximetry 97 Oxygen Delivery Method Room Air BMI result Body Mass Index 22.1 Const General: cooperative, healthy appearing and no acute distress Orientation/consciousness: patient oriented x3 Limitations: no limitations HENMT Head: Yes normal to inspection and Yes atraumatic Ears: hearing grossly normal bilaterally General nose exam: Normal external nose present Face and sinus: Yes normal facial exam Eyes General: appearance normal, both eyes and all related structures EOM: EOMs intact bilaterally Neck Neck: Yes normal visual inspection and Yes no meningeal signs Resp Effort & Inspection: normal respiratory effort and no respiratory distress Auscultation: wheezes expiratory wheezes and throughout Cardio Rate: regular rate Heart sounds: S1 normal heart sound present and S2 normal heart sound present Other: Patient deferred pelvic exam Skin Other: + diffuse eczematous rash noted to face, neck, chest/abdomen and upper extremities. Overlying erythema/warmth appreciated. No pus drainage or streaking. Rashes: no rashes Wounds: no wounds Neuro General: patient oriented x3, tone normal and no meningeal signs Cranial nerves: Yes CN's II-XII intact bilaterally Gait exam (Neuro): Normal gait present Extrem General: Yes normal to inspection Course Course Course Narrative: -1027--CXR unremarkable -1033--on re-eval lungs CTA >> patient is supplied with albuterol inhaler in the ED to go home with -patient prompted multiple times to give urine sample. -CXR unremarkable -1436--UA appears infected. negative Results discussed with patient including worrisome signs and symptoms and strict return precautions, and when to return to the emergency department. They verbalized understanding and feel safe for discharge at this time. Medications Administered Discontinued Medications Generic Name Dose Route Start Last Admin Trade Name Freq PRN Reason Stop Dose Admin Albuterol Sulfate 8 puff 06/29/23 09:38 06/29/23 09:41 Albuterol Sulfate 90 Mcg 8 Gm Inhaler INHALE 06/29/23 09:39 8 puff ONCE ONE Administration Ceftriaxone Sodium 500 mg/ 0 mg 06/29/23 10:24 06/29/23 10:38 Lidocaine HCl 1 ml IM 06/29/23 10:25 1 kit ONCE ONE Administration Doxycycline Monohydrate 100 mg 06/29/23 10:24 06/29/23 10:39 Doxycycline Monohydrate 100 Mg Capsule PO 06/29/23 10:25 100 mg ONCE ONE Administration Methylprednisolone Sodium Succinate 60 mg 06/29/23 09:22 06/29/23 10:14 Methylprednisolone Sod Succ 125 Mg/2 Ml Vial IM 06/29/23 09:23 60 mg ONCE ONE Administration Metronidazole 500 mg 06/29/23 10:24 06/29/23 10:39 Metronidazole 500 Mg Tablet PO 06/29/23 10:25 500 mg ONCE ONE Administration Medical Decision Making Medical Decision Making [facility] Narrative: 27-year-old female with a past medical history asthma, eczema, depression, presenting to ED complaining of eczema and asthma flare x3-4 days. Also reports concern for STI with fishy odor when urinating. On exam vital signs stable, diffuse expiratory wheeze appreciated. Eczematous rash with overlying cellulitis as depicted above. Patient deferred pelvic exam, however would like empiric treatment for CT/NG, and will treat for BV with IM Rocephin, p.o. doxycycline and p.o. Flagyl. Lower suspicion for pneumonia/PE/ACS, TOA, intra-abdominal process including appendicitis/diverticulitis Plan: CXR, UA, , STI testing, ED Edgar protocol Please refer to course for remaining clinical decision making, interpretation of labs/imaging results, and discussions with consultants and/or family members. Differential Diagnosis Differential Diagnoses: The differential diagnosis associated with the presentation includes As above Admission/Observation Consideration of admission/observation: Escalation of care including admission/observation considered Lab Data [facility] Lab Attestation statement: I reviewed the patient's lab results. Labs: Lab Results 06/29/23 06/29/23 Range/Units 13:44 13:47 Urine Color Yellow Urine Appearance Clear Urine pH 8.0 (5.0-9.0) Ur Specific [place] 1.015 (1.005-1.025) Urine Protein Negative (Neg-Trace) mg/dL Urine Glucose (UA) Negative (Negative) mg/dL Urine Ketones Negative (Negative) mg/dL Urine Blood Negative (Negative) Urine Nitrite Positive H (Negative) Ur Leukocyte Esterase Trace H (Negative) Urine RBC 0-2 (0-2) /HPF Urine WBC 6-10 H (0-5) /HPF Ur Squamous Epith Cells 0-2 (0-2) /HPF Urine Bacteria 1+ (None Seen) Hyaline Casts 0-2 (0-2) /LPF Urine Test NEGATIVE (NEGATIVE) Independent Interpretation I performed an independent interpretation of an: Plain X-Ray (My interpretation appears unremarkable) Radiology Impression Discussion of test interpretation with radiology: I have reviewed the radiologist's reading. External Record Review External record reviewed: Inpatient record, Office record, Outpatient record, Prior outpatient labs, Prior outpatient radiology, Primary care record and Outside ED record Tests considered The following testing was considered but not selected: As above Prescription Management I considered prescription management with: Pain Medication and Antibiotic Chronic Conditions Patient?s care impacted by: Other (Asthma) Discharge Plan Discharge Clinical Impression: Asthma exacerbation, Cellulitis, Eczema, STI (sexually transmitted infection) Patient Disposition: Home, Self-Care Instructions: Asthma (DC), Cellulitis (DC), Dermatitis (ED), Vaginal Discharge (ED) Additional Instructions: Your x-ray was unremarkable. Please continue to use triamcinolone lotion on your eczema. In addition prednisone will help reduce your flare. You are being treated empirically for gonorrhea, chlamydia, and bacterial vaginosis, please continue prescribed antibiotics. Doxycycline will also treat skin infection pertaining to her eczema Follow-up with [facility] for further STI testing Please use your inhaler at home If symptoms persist or worsen return to the ED Refrain from any sexual contact until you know the results of her cultures, inform her partners with any positive results Prescriptions: New prednisone 20 mg tablet 40 mg PO DAILY 5 Days Qty: 10 0RF doxycycline hyclate 100 mg tablet 100 mg PO BID 7 Days Qty: 14 0RF metronidazole 500 mg tablet 500 mg PO BID 7 Days Qty: 14 0RF triamcinolone acetonide 0.1 % lotion 1 appl topical BID Qty: 60 0RF No Action triamcinolone acetonide 0.1 % ointment 2 appl topical BID PRN (Reason: Rash) Qty: 15 0RF albuterol sulfate [ProAir HFA] 90 mcg/actuation HFA aerosol inhaler 2 puff inhalation Q4-6H PRN (Reason: shortness of breath or wheezing) Qty: 8.5 0RF prednisone 20 mg tablet 60 mg PO DAILY 5 Days Qty: 15 0RF prazosin 1 mg capsule 1 mg PO BEDTIME aripiprazole 10 mg tablet 10 mg PO DAILY albuterol sulfate [Ventolin HFA] 90 mcg/actuation HFA aerosol inhaler 2 puff inhalation Q4-6H PRN (Reason: wheezing) Referrals: [facility] [Outside] [facility] [Outside] Dez Peace MD [Primary Care Provider] - 5 days
[2023-06-29] MEDS: Albuterol Sulfate 90 MCG 8 GM INHALER 8 PUFF INHALE (09:41)
[2023-06-29 09:44] VITALS: PULSE 65; RESP 16; O2SAT 99
[2023-06-29] MEDS: methylPREDNISolone Sod Succ 125 MG/2 ML VIAL 60 MG IM (10:14)
[2023-06-29] MEDS: cefTRIAXone sodium 500 MG, Lidocaine HCl 1 % MPF 1 ML IM (10:38)
[2023-06-29] MEDS: metroNIDAZOLE 500 MG TABLET PO (10:39)
[2023-06-29] MEDS: Doxycycline Monohydrate 100 MG CAPSULE PO (10:39)
[2023-06-29 13:58] LABS: Appearance Urine Clear; Color Urine Yellow; Glucose Urine UA Negative (Negative); Leukocyte Esterase Urine Trace (Negative); Nitrite Urine Positive (Negative); Specific Gravity - Urine 1.015 (1.005-1.025); UMIC TRIGGER UACC YES; Urine Blood Negative (Negative); Urine Ketones Negative (Negative); Urine Protein Negative (Neg-Trace)
[2023-06-29 14:00] LABS: Bacteria Urine 1+ (None Seen); Hyaline Casts Urine 0-2 /LPF (0-2); RBC Urine 0-2 /HPF (0-2); Squamous Epithelial Cell Urine 0-2 /HPF (0-2); UACC Culture Trigger YES
[2023-06-29 14:05] LABS: UPreg QC Valid YES; Urine Pregnancy NEGATIVE (NEGATIVE)
[2023-06-29 14:43] VITALS: BP 126/84; PULSE 80; RESP 20; TEMP 37.2; O2SAT 100
[2023-06-29] MEDS: Triamcinolone Acet 0.1% Lotion 60 ML BOTTLE 1 APPL TOPICAL (14:45)
[2023-06-29 15:26] LABS: CT PCR NOT DETECTED (Not Detect.); NG PCR DETECTED (Not Detect.)
== END 2023-06-29 14:48 | disposition home or self-care (01) ==
PROVIDERS: Physician Assistant; Emergency Provider Emergency Medicine; PCP Internal Medicine
DX: A54.02 Gonococcal vulvovaginitis, unspecified (principal); J45.901 Unspecified asthma with (acute) exacerbation; L30.9 Dermatitis, unspecified; L03.818 Cellulitis of other sites; R06.02 Shortness of breath; F17.210 Nicotine dependence, cigarettes, uncomplicated
CPT/HCPCS: 0353U; 71046; 81001; 81025; 87086; 94640; 96372; 99284; J0696; J2930

== ENCOUNTER 2023-08-11 09:00 | Emergency (ER) | payer OTHER, SELFPAY ==
--- NOTE | ~2023-08-11 | XR_ITS ---
EXAMINATION: XR CHEST CLINICAL INFORMATION: Shortness of breath COMPARISON: 06/29/2023 TECHNIQUE: Frontal view of the chest was obtained. FINDINGS: Lungs are well-inflated and clear. Trachea is midline in position. No interstitial disease, consolidation or mass. No pleural effusion or pneumothorax. Cardiac silhouette and pulmonary vessels are normal in size. The mediastinum and anatoliy have normal contour. The visualized bones and upper abdomen are unremarkable. XR/XR chest 1V IMPRESSION: Lungs have a normal appearance. No acute cardiopulmonary abnormality.
--- NOTE | 2023-08-11 09:09 | ED.ALLEREA ---
HPI - Allergic Reaction General Chief complaint: Asthma Stated complaint: ASTHMA, DIFF BREATHING Time Seen by Provider: 08/11/23 09:06 History of Present Illness HPI narrative: Patient is a 27-year-old female with a history of asthma presents today with having increasing shortness of breath wheezing. The symptoms been ongoing for the last 4 days positive coughing positive upper respiratory symptoms. Vaccinated for COVID in the past. Patient has a long history of asthma. Has been admitted in the past for asthma. Never been intubated. The last time she was admitted was 2 years ago. Patient's smokes on a regular basis. Related Data Home Medications Medication Instructions Recorded Confirmed albuterol sulfate 90 mcg/actuation 2 puff inhalation Q4-6H PRN 05/10/23 05/10/23 aerosol inhaler (Ventolin HFA) wheezing aripiprazole 10 mg tablet 10 mg PO DAILY 05/10/23 05/10/23 prazosin 1 mg capsule 1 mg PO BEDTIME 05/10/23 05/10/23 Previous Rx's Medication Instructions Recorded albuterol sulfate 90 mcg/actuation 2 puff inhalation Q4-6H PRN 05/29/23 aerosol inhaler (ProAir HFA) shortness of breath or wheezing #8.5 grams prednisone 20 mg tablet 60 mg (3 x 20 mg) PO DAILY 5 days 05/29/23 #15 tabs triamcinolone acetonide 0.1 % 2 appl topical BID PRN Rash #15 06/05/23 topical ointment grams cephalexin 500 mg capsule 500 mg PO BID 5 days #10 caps 06/29/23 doxycycline hyclate 100 mg tablet 100 mg PO BID 7 days #14 tabs 06/29/23 metronidazole 500 mg tablet 500 mg PO BID 7 days #14 tabs 06/29/23 prednisone 20 mg tablet 40 mg (2 x 20 mg) PO DAILY 5 days 06/29/23 #10 tabs triamcinolone acetonide 0.1 % 1 appl topical BID #60 mL 06/29/23 lotion albuterol sulfate 90 mcg/actuation 2 inh inhalation Q6H PRN shortness 08/11/23 breath activated powder inhaler of breath or wheezing #1 ea prednisone 20 mg tablet 40 mg (2 x 20 mg) PO DAILY #10 tabs 08/11/23 Allergies Allergy/AdvReac Type Severity Reaction Status Date / Time egg [EGG] Allergy Severe ANAPHYLAXIS Verified 03/08/23 22:13 fish derived [FISH] Allergy Severe ANAPHYLAXIS Verified 03/08/23 22:13 peanut [PEANUTS] Allergy Severe ITCHING Verified 03/08/23 22:13 shellfish derived Allergy Severe ANAPHYLAXIS Verified 03/08/23 22:13 [SHELLFISH DERIVED] cat dander Allergy Intermediate Hives Verified 03/08/23 22:13 dog dander Allergy Intermediate Hives Verified 03/08/23 22:13 house dust Allergy Intermediate Hives Verified 03/08/23 22:13 rice [RICE] AdvReac Intermediate CONSTIPATIO Verified 03/08/23 22:13 N Review of Systems Review of Systems: Positive shortness of breath positive wheezing PMFSH Past Medical History Medical History Bronchitis Spotting in first trimester Early stage of Hyperemesis test positive Asthma Mild persistent asthma, uncomplicated Allergy to other foods Anxiety state, unspecified Major depressive disorder, single episode, unspecified Dermatitis, unspecified Surgical History History of section Family History Family History Father Drug abuse Asthma Mother Hypertension Maternal Grandmother Ovarian cancer Other Mental health disorder Substance use disorder Social History Social History Household Members: Family Household Members Other:: mom Housing: Apartment Unable to assess alcohol history related to: Unknown Alcohol intake: former Patient Tobacco Use Status: Current everyday Tobacco user Tobacco use type: Cigarette Cigarettes Per Day: 3 Smoked in Last 30 Days: Yes e-Cigarette/Vaping Use: Never Used Second Hand Smoke Exposure: Yes Use of substances other than those prescribed or required for medical reasons: No Substance Use Type: Marijuana Advance Directives: Yes Advance Directives on File: Yes Advance Directives Date on File: 12/21/20 Patient : No service: No Current occupational status: unemployed Gender identity: Female Cognitive needs: No Hearing needs: No Vision needs: No Physical Exam ED Vital Signs: Vital Signs - 24 hr 08/11/23 09:10 08/11/23 09:18 08/11/23 09:43 Temperature 97.6 F 97.8 F Pulse Rate 105 H 135 H 105 H Respiratory Rate 16 26 H 22 H Blood Pressure 100/60 107/56 L Pulse Oximetry 100 97 Oxygen Delivery Method Room Air 08/11/23 10:07 Temperature Pulse Rate 105 H Respiratory Rate 15 Blood Pressure Pulse Oximetry Oxygen Delivery Method BMI result Body Mass Index 24.0 Appearance: Alert. Oriented X3. No acute distress. Eyes: Pupils equal, round and reactive to light. ENT: Pharynx normal. Neck: Normal inspection. Neck supple. No lymph nodes noted. No crepitus CVS: Normal heart rate and rhythm. Pulses normal. Normal S1 and S2 Respiratory: Positive wheezing bilaterally, increased work of breathing Abdomen: Soft and nontender. No rigidity. No distention. good BS x4 Skin: Skin warm and dry. Normal skin color. Normal skin turgor. Extremities: No lower extremity edema. Neurovascular intact to all extremities. No Lacerations. No Rash Neuro: Oriented X 3. No motor deficit. No sensory deficit. Moving all extermities. No slurred speech Medications Administered Discontinued Medications Generic Name Dose Route Start Last Admin Trade Name Freq PRN Reason Stop Dose Admin Albuterol Sulfate 5 mg/ 7.5 mg 08/11/23 09:15 08/11/23 09:18 Albuterol Sulfate 2.5 mg INHALE 08/11/23 09:16 7.5 mg ONCE ONE Administration Albuterol Sulfate 2.5 mg/ 5 mg 08/11/23 09:53 08/11/23 10:07 Albuterol Sulfate 2.5 mg INHALE 08/11/23 09:54 5 mg ONCE ONE Administration Magnesium Sulfate 2 gm in 50 mls @ 150 mls/hr 08/11/23 09:07 08/11/23 10:00 Magnesium Sulfate/H2o IV 08/11/23 09:26 Infused ONCE ONE Infusion Methylprednisolone Sodium Succinate 125 mg 08/11/23 09:07 08/11/23 09:40 Methylprednisolone Sod Succ 125 Mg/2 Ml Vial IVPUSH 08/11/23 09:08 125 mg ONCE ONE Administration Medical Decision Making Medical Decision Making MDM Narrative: 09:00 Positive history of asthma with increasing shortness of breath. COVID RSV flu was sent as patient has upper respiratory symptoms chest x-ray ordered. Nebs given. Steroid and magnesium ordered. After steroid nebulized treatment monitor for an hour and a half symptom improved dramatically. Repeat exam lungs are clear. Patient in no distress. Differential Diagnosis Differential Diagnoses: The differential diagnosis associated with the presentation includes Asthma Admission/Observation Consideration of admission/observation: Escalation of care including admission/observation considered Lab Data MDM Lab Attestation statement: I reviewed the patient's lab results. Labs: Lab Results 08/11/23 Range/Units 10:17 Influenza Type A (PCR) NEGATIVE (Negative) Influenza Type B (PCR) NEGATIVE (Negative) RSV RNA Qual (PCR) NEGATIVE (Negative) SARS-CoV-2 RNA (RT-PCR) NEGATIVE (Negative) Independent Interpretation I performed an independent interpretation of an: Plain X-Ray (My interpretation patient's chest x-ray was grossly negative for any acute evidence of pneumonia pneumothorax) Prescription Management Will give steroids and discharged home Chronic Conditions Asthma Social Determinants History of smoking Discharge Plan Discharge Clinical Impression: Asthma Patient Disposition: Home, Self-Care Instructions: Asthma (DC) Prescriptions: New prednisone 20 mg tablet 40 mg PO DAILY Qty: 10 0RF albuterol sulfate 90 mcg/actuation aerosol powdr breath activated 2 inh inhalation Q6H PRN (Reason: shortness of breath or wheezing) Qty: 1 0RF No Action triamcinolone acetonide 0.1 % ointment 2 appl topical BID PRN (Reason: Rash) Qty: 15 0RF albuterol sulfate [ProAir HFA] 90 mcg/actuation HFA aerosol inhaler 2 puff inhalation Q4-6H PRN (Reason: shortness of breath or wheezing) Qty: 8.5 0RF prednisone 20 mg tablet 60 mg PO DAILY 5 Days Qty: 15 0RF prazosin 1 mg capsule 1 mg PO BEDTIME aripiprazole 10 mg tablet 10 mg PO DAILY albuterol sulfate [Ventolin HFA] 90 mcg/actuation HFA aerosol inhaler 2 puff inhalation Q4-6H PRN (Reason: wheezing) prednisone 20 mg tablet 40 mg PO DAILY 5 Days Qty: 10 0RF doxycycline hyclate 100 mg tablet 100 mg PO BID 7 Days Qty: 14 0RF metronidazole 500 mg tablet 500 mg PO BID 7 Days Qty: 14 0RF triamcinolone acetonide 0.1 % lotion 1 appl topical BID Qty: 60 0RF cephalexin 500 mg capsule 500 mg PO BID 5 Days Qty: 10 0RF Referrals: Dez Peace MD [Primary Care Provider] - 08/14/23
[2023-08-11 09:10] VITALS: BP 100/60; BP 142/90; PULSE 105; PULSE 89; RESP 16; TEMP 36.4; O2SAT 100; O2SAT 90; BMI 24.0
[2023-08-11 09:18] VITALS: PULSE 135; RESP 26; O2SAT 97
[2023-08-11] MEDS: Albuterol Sulfate 5 MG, Albuterol Sulfate (0.083%) 2.5 MG 7.5 MG INHALE (09:18)
--- NOTE | 2023-08-11 09:20 | PC.RT ---
EMS told RN that pt is allergic to Atrovent. Pt denies and states she is not allergic to any medications. RT gave albuterol w/o Atrovent just in case.
[2023-08-11] MEDS: methylPREDNISolone Sod Succ 125 MG/2 ML VIAL IVPUSH (09:40)
[2023-08-11] MEDS: Magnesium Sulfate/H2O 2 GM/50 ML PIGGYBACK IV (09:40)
[2023-08-11 09:43] VITALS: BP 107/56; PULSE 105; RESP 22; TEMP 36.6; O2SAT 97
--- NOTE | 2023-08-11 09:45 | PC.NURSE ---
PT IS A/O X4 NO C/O SOB/JARRETT AT THIS TIME. PT SPEAKS IN FULL SENTENCES (PT IS ON HER CELL PHONE TALKING TO FAMILY) LUNGS - DIMINISHED/SLIGHT EXP WHEEZING ALL LOBES ON DUONEB TX. PT AWARE OF PLAN OF CARE. WILL CONTINUE TO MONITOR.
[2023-08-11 10:07] VITALS: PULSE 105; RESP 15; O2SAT 98
[2023-08-11] MEDS: Albuterol Sulfate 2.5 MG, Albuterol Sulfate (0.083%) 2.5 MG 5 MG INHALE (10:07)
[2023-08-11 11:04] LABS: Influenza A PCR NEGATIVE (Negative); Influenza B PCR NEGATIVE (Negative); Resp Syncy Virus RNA Qual PCR NEGATIVE (Negative); SARS COV2 PCR INHOUSE NEGATIVE (Negative)
[2023-08-11 11:37] VITALS: BP 107/56; PULSE 105; RESP 15; TEMP 36.6; O2SAT 97
== END 2023-08-11 11:38 | disposition home or self-care (01) ==
PROVIDERS: Emergency Provider Emergency Medicine Emergency Medical Services; PCP Internal Medicine
DX: J45.30 Mild persistent asthma, uncomplicated (principal); Z11.52 Encounter for screening for COVID-19; Z20.828 Contact with and (suspected) exposure to other viral communicable diseases
CPT/HCPCS: 0241U; 71045; 94640; 96365; 96375; 99284; J2930; J3475

== ENCOUNTER 2024-01-30 08:06 | Outpatient (AMB) | payer OTHER, SELFPAY ==
[2024-01-30 08:11] VITALS: BP 100/68; PULSE 111; O2SAT 97; BMI 29.3
--- NOTE | 2024-01-30 08:11 | A.OFFPC_ITS ---
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 Required: No Allergies egg [EGG] Allergy (Severe, Verified 01/30/24 08:37) ANAPHYLAXIS fish derived [FISH] Allergy (Severe, Verified 01/30/24 08:37) ANAPHYLAXIS peanut [PEANUTS] Allergy (Severe, Verified 01/30/24 08:37) ITCHING shellfish derived [SHELLFISH DERIVED] Allergy (Severe, Verified 01/30/24 08:37) ANAPHYLAXIS cat dander Allergy (Intermediate, Verified 01/30/24 08:37) Hives dog dander Allergy (Intermediate, Verified 01/30/24 08:37) Hives house dust Allergy (Intermediate, Verified 01/30/24 08:37) Hives rice [RICE] Adverse Reaction (Intermediate, Verified 01/30/24 08:37) CONSTIPATION Medication List - Last Reconciled 01/30/24 by Dez Peace MD albuterol sulfate 90 mcg/actuation (ProAir HFA) 2 puffs inhalation Q4-6H PRN albuterol sulfate 90 mcg/actuation 2 inhalations inhalation Q6H PRN prazosin 1 mg PO BEDTIME triamcinolone acetonide 0.1% 2 appl topical BID PRN Tobacco use date assessed: 01/30/24 Dental Screening Dental Screen Date: 01/30/24 Did you have a dental visit in the last 12 months?: No Did you have a dental problem in the last 6 months where you did not have access to dental care?: No HPI PE HPI Details 28-year-old female presents to the offic e requesting an annual physical. Patient is currently homeless. She lives with her mom periodically. She is on her 5th . Her other 4 children have been taken away by [facility]. Has abstained from smoking alcohol and substance use for the past 2 years. Continues to have counseling and psych therapy. Her psych medications have been discontinued due to . Patient is requesting albuterol and a steroid cream for her rash. [facility] Medical History (Updated 01/30/24 @ 08:39 by Dez Peace MD) Asthma Mild persistent asthma, uncomplicated Anxiety state, unspecified Major depressive disorder, single episode, unspecified Dermatitis, unspecified Surgical History History of section Family History Father Drug abuse Asthma Mother Hypertension Maternal Grandmother Ovarian cancer Other Mental health disorder Substance use disorder Social History Household Members: Family Household Members Other:: mom Housing: Apartment Unable to assess alcohol history related to: Unknown Alcohol intake: former Patient Tobacco Use Status: Current everyday Tobacco user Tobacco use type: Cigarette Cigarettes Per Day: 3 e-Cigarette/Vaping Use: Never Used Second Hand Smoke Exposure: Yes Substance Use Type: Marijuana Advance Directives Date on File: 12/21/20 service: No Current occupational status: unemployed Gender identity: Female Cognitive needs: No Hearing needs: No Vision needs: No Questionnaire PHQ-9 Over the last 2 weeks, how often have you been bothered by any of the following problems? 1. Little interest or pleasure in doing things: not at all 2. Feeling down, depressed, or hopeless: not at all 3. Trouble falling or staying asleep, or sleeping too much: not at all 4. Feeling tired or having little energy: not at all 5. Poor appetite or overeating: not at all 6. Feeling bad about yourself - or that you are a failure or have let yourself or your family down: not at all 7. Trouble concentrating on things, such as reading the newspaper or watching television: not at all 8. Moving or speaking so slowly that other people could have noticed. Or the opposite - being so fidgety or restless that you have been moving around a lot more than usual: not at all 9. Thoughts that you would be better off or of hurting yourself in some way: not at all Total score: 0 Depression Screening Interpretation: Negative Depression Screening Done: Yes 78630 - PHQ-9 Billing: Yes Source: Developed by Drs. Mian Noble, Chanell Jha, Henrique Pathak and colleagues, with an educational ashanti from [employer]. Thrive Questionnaire Date Thrive assessed: 01/30/24 I am a: Patient What is your living situation today?: I have a steady place to live Within the past 12 months, did the food you bought not last and you didn't have the money to get more?: Sometimes True Within the past 12 months, did you worry whether your food would run out before you got money to buy more?: Sometimes True Do you have trouble paying for medicines?: Yes Do you have trouble getting transportation to medical appointments?: Yes Do you have trouble paying your heating and electricity bill?: I choose not to answer this question Do you have trouble taking care of your child, family member or friend?: I choose not to answer this question Do you have trouble with day-to-day activities such as bathing, preparing meals, shopping, managing finances, etc.?: No Are you currently unemployed and looking for a job?: I choose not to answer this question Are you interested in more education?: Yes Please select the resources that you would like help with: Housing/[place], Food, Paying for medicine, Transportation, Utilities, Childcare, Care for elder or disabled, Daily support, Job search/training and Education Currently or been in a relationship where the following occur: No concerns reported THRIVE Score: 3 AUDIT C Alcohol Use Questionnaire (AUDIT-C) 1. How often do you have a drink containing alcohol?: Never 2. How many drinks containing alcohol do you have on a typical day when you are drinking?: 1 or 2 3. How often do you have six or more drinks on one occasion?: Never Total Score: 0 Score Reviewed/Action Taken: No ELBA-7 AMB Questionnaire ELBA-7 Date ELBA - 7 assessed: 01/30/24 Feeling nervous, anxious, or on edge: 0 = Not at all Not being able to stop or control worryin = Not at all Worrying too much about different things: 0 = Not at all Trouble relaxin = Not at all Being so restless that it is hard to sit still: 0 = Not at all Becoming easily annoyed or irritable: 0 = Not at all Feeling afraid as if something awful might happen: 0 = Not at all Total ELBA-7 score (0-4 normal; 5-9 mild; 10-14 moderate; 15-21 severe): 0 Source: Developed by Drs. Mian Noble, Chanell Jha, Henrique Pathak and colleagues, with an educational ashanti from [employer]. ELBA-7 Assessment Billing ELBA-7 Assessment Tool: ELBA-7 Assessment 98991 Physical exam (Primary Care) Vital Signs: Last Vital Signs Pulse 111 H 01/30/24 08:11 BP 100/68 01/30/24 08:11 Pulse Ox 97 01/30/24 08:11 Oxygen Delivery Method Room Air 01/30/24 08:11 Care Plan Goal for BP management: Blood pressure is in range. BMI result Body Mass Index 29.3 Tobacco/Smoking Status: Tobacco use Status Tobacco use date assessed 01/30/24 01/30/24 08:12 Patient Tobacco Use Status Current everyday Tobacco 01/30/24 08:12 Tobacco use type Cigarette 01/30/24 08:12 e-Cigarette/Vaping Use Never Used 01/30/24 08:12 PHQ-9: PHQ-9 Score PHQ-9: Total score 0 01/30/24 08:21 Depression Screening Interpretation: Negative Thrive Assessment: Date of Thrive Assessment Date Thrive assessed 01/30/24 01/30/24 08:21 Currently or been in a relationship where the following occur: No concerns reported Const General: cooperative and healthy appearing Nutritional Appearance: well nourished Orientation/consciousness: patient oriented x3 Limitations: no limitations HENMT Other: Poor dental hygiene. Head: Yes normal to inspection Eyes General: appearance normal, both eyes and all related structures Neck Neck: Yes normal visual inspection Chest Chest palpation & inspection: normal palpation of entire chest wall Resp Effort & Inspection: normal respiratory effort Skin Other: Face: Erythematous rash on the forehead and cheeks. Several areas of dry skin. Neuro General: patient oriented x3 Assessment and Plan Assessment & Plan (1) Asthma: Code(s): J45.909 - Unspecified asthma, uncomplicated Plan: Continue using albuterol during the stage. Prescription sent. (2) Dermatitis, unspecified: Comment: a note stating patient's current limitations has been given. Also request for nursing assistance has been done. Code(s): L30.9 - Dermatitis, unspecified Plan: Triamcinolone ointment can be applied on the face. The dermatology appointment will be requested. (3) Major depressive disorder, single episode, unspecified: Comment: Code(s): F32.9 - Major depressive disorder, single episode, unspecified Plan: Patient currently on no medications due to her . (4) Adult general medical exam: Code(s): Z00.00 - Encounter for general adult medical examination without abnormal findings Plan: Blood work has been ordered. Orders: Orders Basic Metabolic Panel Today F32.9 - Major depressive disorder, single episode, unspecified, J45.909 - Unspecified asthma, uncomplicated, L30.9 - Dermatitis, unspecified Liver Panel Today F32.9 - Major depressive disorder, single episode, unspecified, J45.909 - Unspecified asthma, uncomplicated, L30.9 - Dermatitis, unspecified Erythrocyte Sedimentation Rate Today F32.9 - Major depressive disorder, single episode, unspecified, J45.909 - Unspecified asthma, uncomplicated, L30.9 - Dermatitis, unspecified Lipid Panel Today F32.9 - Major depressive disorder, single episode, unspecified, J45.909 - Unspecified asthma, uncomplicated, L30.9 - Dermatitis, unspecified Thyroid Stimulating Hormone Today F32.9 - Major depressive disorder, single episode, unspecified, J45.909 - Unspecified asthma, uncomplicated, L30.9 - Dermatitis, unspecified UA and rflx microscopic Today F32.9 - Major depressive disorder, single episode, unspecified, J45.909 - Unspecified asthma, uncomplicated, L30.9 - Dermatitis, unspecified Medications: Refilled albuterol sulfate 90 mcg/actuation 2 inhalations inhalation Q6H PRN 1 ea 3RF shortness of breath or wheezing triamcinolone acetonide 0.1% 2 appl topical BID PRN 15 grams 0RF Rash Discontinued triamcinolone acetonide 0.1% Discontinued Reason: Doctor's Order 1 appl topical BID 60 mL 0RF Coding Level of Care Code Est Pt Prev Care [id number]([id number]) Diagnoses Asthma J45.909 Dermatitis, unspecified L30.9 Major depressive disorder, single episode, unspecified F32.9 Adult general medical exam Z00.00 Additional Codes ELBA-7 Assessment Billing - ELBA-7 Assessment Tool: ELBA-7 Assessment [id number] ([id number])
== END 2024-01-30 10:34 | disposition home or self-care (01) ==
PROVIDERS: PCP Internal Medicine; Visit Provider Internal Medicine
DX: Z00.00 Encounter for general adult medical examination without abnormal findings (principal); J45.909 Unspecified asthma, uncomplicated; L30.9 Dermatitis, unspecified; F32.9 Major depressive disorder, single episode, unspecified
CPT/HCPCS: 99395